=== PATIENT | female | born 1940 | race Caucasian/White ===

== ENCOUNTER 2017-03-19 06:46 | Day surgery (SDC) | payer MEDICARE, OTHER, SELFPAY ==
--- NOTE | 2017-03-19 | IMM_PTH ---
PATIENT: CLARICE GEIGER LOC: EN U#:[id number] AGE/SX: 76/F ROOM: RE03/19/[address]: Dr. Alex Koroma MD : 1940 BED: DIS: 03/19/2017 SPEC #: [id number] RECD: 03/22/17 13:07 STATUS: RODERICK REIraj #: [id number] RAFI: 03/19/17 00:[address]: Alex Koroma DEPT: IMMUNOHISTOCHEMISTRY RECD BY: Mary Moulton ENTERED: 03/22/17 13:07 SP TYPE: IMMUNO OTHR DR: Dr. Jared Mayorga MD Tissues: A - Stomach, NOS Procedures: H Pylori (initial) PHYSICIAN & INSTITUTION [place] [id number] SPECIMEN INFORMATION: Tissue Source: A ? Antral biopsy Clinical Info: History of gastritis, abdominal pain Specimen Number: [id number] CPT code: 21309 METHODOLOGY: Deparaffinized sections of prefer/formalin-fixed tissue or PAP/DQ stained slides are incubated with monoclonal/polyclonal antibodies/oligonucleotide probes. Localization is made via biotin free immunoperoxidase method. Appropriate controls are performed and reacted as expected. Results on target cell population are indicated in the following table: RESULTS: ANTIBODY / CLONE RESULT Block A H Pylori (polyclonal) negative These tests were developed and their performance characteristics determined by [facility]. They may not have been cleared or approved by the U.S. Food and Drug Administration. The FDA has determined that such clearance or approval is not necessary. INTERPRETATION: A. Antral biopsy: Negative for Helicobacter pylori organisms. AM:orly 03/23/17
[2017-03-19 07:17] VITALS: BP 117/75; PULSE 96; RESP 18; TEMP 36.5; O2SAT 99; BMI 36.4
[2017-03-19 07:31] LABS: Bedside Glucose 107 mg/dL (70-110)
--- NOTE | 2017-03-19 08:12 | GASB_PTH ---
PATIENT: CLARICE GEIGER LOC: EN U#:[id number] AGE/SX: 76/F ROOM: RE03/19/[address]: Dr. Alex Koroma MD : 1940 BED: DIS: 03/19/2017 SPEC #: [id number] RECD: 03/19/17 12:18 STATUS: RODERICK CALVILLO #: [id number] RAFI: 03/19/17 08:[address]: Alex Koroma DEPT: SURGICAL PATHOLOGY RECD BY: Saqib Conner ENTERED: 03/19/17 14:23 SP TYPE: Gastric Bx OTHR DR: Dr. Jared Mayorga MD Tissues: A - Gastric mucous membrane B - Esophagus, NOS Procedures: Special Stain Group I Surgery Specimen Level IV GMS Stain (control) HEADER OPERATION: EGD PRE-OP DIAGNOSIS: History of gastritis, abdominal pain TISSUE SUBMITTED: A ? Antral biopsy, B ? Mid esophagus biopsy for path and fungal culture MICROSCOPIC DIAGNOSIS A. Gastric antrum, biopsy: Fragment of gastric mucosa with chronic inflammation. B. Mid esophagus, biopsy: Squamous mucosa with chronic inflammation and changes consistent with reflux. Reactive epithelial change. Fungal organisms consistent with Sonja species. AM:orly 03/22/17 COMMENT A. The results of immunohistochemistry for Helicobacter pylori will be reported separately ([id number]). B. GMS stain with matched control was used in the evaluation of this case. Case has been reviewed in consultation with Dr. Lou who concurs with the above diagnosis. IDC:LUCA MICROSCOPIC DESCRIPTION Slides are reviewed. A. Sections show small collections and groups of plasma cells in the mucosa. Active inflammation is not present. These findings are consistent with mild chronic gastritis. GROSS DESCRIPTION A - Received in fixative is one container labeled with the patient's name and designated antral biopsy. The specimen consists of multiple irregular fragments of light [place] soft tissue that in aggregate measure 1.5 x 0.3 x 0.1 cm. The specimen is totally submitted in one cassette. B - Received in fixative is one container labeled with the patient's name and designated mid esophagus biopsy. The specimen consists of one irregular fragment of light [place] soft tissue that measures 0.3 x 0.3 x 0.1 cm. The specimen is totally submitted in one cassette. / LUCA:orly 03/19/17 TC:3 CPT: 77997 x2, 29828
[2017-03-19 08:25] VITALS: BP 117/75; BP 128/61; BP 142/55; PULSE 91; PULSE 92; RESP 16; RESP 18; TEMP 36.4; O2SAT 94; O2SAT 98
[2017-03-19 08:30] VITALS: BP 117/75; BP 135/65; PULSE 90; RESP 16; O2SAT 98
[2017-03-19 08:35] VITALS: BP 117/75; BP 144/63; PULSE 90; RESP 16; O2SAT 95
[2017-03-19 08:38] VITALS: BP 117/75; BP 146/65; PULSE 88; RESP 16; TEMP 36.5; O2SAT 96
[2017-03-19 08:58] VITALS: BP 117/75
--- NOTE | 2017-03-19 09:06 | OP.PCM_ITS ---
Problem List (1) Gastritis Status: Acute Qualifiers: Gastritis type: other gastritis Chronicity: unspecified Gastritis bleeding: without bleeding Qualified Code(s): K29.60 - Other gastritis without bleeding Report of Operation Date of Procedure: 03/19/17 Pre-Operative Diagnosis: Gastritis Post-Operative Diagnosis: Same Surgery/Procedure Performed:: EGD with biopsies Description of Surgical Findings:: The patient still had severe irritation of the folds of her antrum. These were biopsied once again and I will preemptively treat her for H pylori infection. Specimen's removed: 1. Antrum gastric fold biopsies. 2. Mid esophageal biopsy Description of Procedure: The major risks and benefits associated with the procedure were explained to the patient in detail. The patient verbalized understanding and agreement with the same. The patient was then placed in the left lateral decubitus position. IV sedation was started by anesthesia. The endoscope was then advanced under direct visualization over the tongue, into the esophagus , stomach and duodenum. It was slowly withdrawn and the mucosa was carefully evaluated. Duodenal mucosal abnormalities were not visualized. Antegrade and retrograde views of the stomach were normal and did not reveal a hiatal hernia or ulceration. The gastric folds in the antrum were severely irritated. This is the same as it was during her last EGD a few months ago. These gastric folds were biopsied with cold forceps. The scope was then withdrawn through the GE junction and careful examination did not demonstrate any mucosal abnormalities. No evidence of Vera's esophagus was apparent. Careful examination of the remainder of the esophagus was normal except for some small white spots. I did do a biopsy of the midesophagus to check for esophageal candidiasis. The scope was then withdrawn from the patient and the procedure terminated. It was well tolerated and there were no immediate complications.
== END 2017-03-19 09:10 | disposition home or self-care (01) ==
LOC: EN 06:48 → AC 06:49
PROVIDERS: Family Provider Family Medicine; PCP Family Medicine; Visit Provider Surgery
PROC: 0DJ08ZZ Inspection of Upper Intestinal Tract, Via Natural or Artificial Opening Endoscopic (ICD-10-PCS; CPT 43235; principal; 2017-03-19 07:55)
DX: K20.9 Esophagitis, unspecified (principal); K29.50 Unspecified chronic gastritis without bleeding; E11.9 Type 2 diabetes mellitus without complications; E78.5 Hyperlipidemia, unspecified; K21.9 Gastro-esophageal reflux disease without esophagitis; E66.9 Obesity, unspecified; Z78.0 Asymptomatic menopausal state; Z79.4 Long term (current) use of insulin; Z79.899 Other long term (current) drug therapy; Z87.19 Personal history of other diseases of the digestive system; Z87.891 Personal history of nicotine dependence; Z96.653 Presence of artificial knee joint, bilateral
CPT/HCPCS: 43239; 82962; 88305; 88312; 88342; J7120

== ENCOUNTER → 2017-04-06 16:06 | Outpatient (CLI) | payer MEDICARE, OTHER, SELFPAY ==
[2017-04-06 17:21] LABS: Absolute Lymphocyte Count 1.17 X10^3/ul (0.83-4.51); Absolute Neutrophil Count 2.4 X10^3/uL (2.0-7.7); Basophil# 0.02 X10^3/uL; Basophil% 0.5 % (0-1); Eosinophil# 0.05 X10^3/uL; Eosinophils% 1.3 % (0-5); Hematocrit 27.2 % (37-47); Hemoglobin 7.8 g/dl (12.0-15.0); Lymphocyte # 1.17 X10^3/ul (4.0); Lymphocyte % 29.5 % (19-41); Mean Corp Hgb Conc 28.7 g/gl (32-36); Mean Corpuscular Volume 83.7 fL (81-99); Mean Platelet Vol. 10.6 fl (6.2-12.0); Monocyte# 0.36 X10^3/uL; Monocyte% 9.1 % (0-10); Neutrophil # 2.36 X10^3/uL (2.7-7.7); Neutrophil % 59.6 % (47-70); Platelet Count 157 K/mm3 (150-450); RBC Distribution Width CV 17.7 % (11.6-14.6); RBC Distribution Width SD 54.3 fl (35.1-43.9); Red Blood Count 3.25 M/mm3 (4.2-5.4)
[2017-04-06 17:28] LABS: POSITIVE COUNT NO; POSITIVE DIFFERENTIAL NO; POSITIVE MORPHOLOGY NO
[2017-04-06 17:32] LABS: ALB/GLOB Ratio 0.4 RATIO (0.9-2.4); AST(SGOT) 45 U/L (15-37); Alanine Aminotransfer ALT/SGPT 18 U/L (13-56); Albumin, Serum 2.5 g/dL (3.2-5.0); Alkaline Phosphatase 290 U/L (45-117); Anion Gap 8 (5-15); BUN 13 mg/dL (7-18); BUN/Creat Ratio 17.2 RATIO (10-20); Calcium,Total 8.2 mg/dL (8.5-10.1); Chloride 102 mmol/L (98-107); Creatinine, Serum 0.75 mg/dL (0.55-1.02); EST Glomerular Filtration Rate 79 mL/min (>60); Est Glom Filt Rate - Afr Amer 96 mL/min (>60); Globulin 6.2 g/dL (2.2-4.2); Glucose 96 mg/dL (74-106); Potassium 3.9 mmol/L (3.5-5.1); Protein, Total 8.7 g/dL (6.4-8.2); Sodium Level 136 mmol/L (136-145); T4 Free Direct 1.19 ng/dL (0.76-1.46); Thyroid Stim Hormone (TSH) 2.43 uIU/mL (0.358-3.74)
== END ==
PROVIDERS: Family Provider Family Medicine; PCP Family Medicine; Visit Provider Family Medicine
DX: R55 Syncope and collapse (principal); R94.6 Abnormal results of thyroid function studies
CPT/HCPCS: 36415; 80053; 83735; 84439; 84443; 85025

== ENCOUNTER 2017-04-07 15:39 | Inpatient (IN) | payer MEDICARE, OTHER, SELFPAY ==
[2017-04-07] VITALS (12 sets, daily range): BP systolic 105–151; BP diastolic 59–102; PULSE 90–101; RESP 18–31; TEMP 36.4–37.3; O2SAT 96–99; BMI 37.3
--- NOTE | 2017-04-07 16:22 | EKG12_ITS ---
Test Reason : DIZZINESS Blood Pressure : / mmHG Vent. Rate : 090 BPM Atrial Rate : 090 BPM P-R Int : 150 ms QRS Dur : 092 ms QT Int : 358 ms P-R-T Axes : 033 -39 103 degrees QTc Int : 437 ms Sinus rhythm with occasional Premature ventricular complexes Left axis deviation Poor R wave progression Abnormal ECG Confirmed by PREM RUFFIN, DEEPTHI ([id number]), senior technical editor JANETTE TIJERINA ([id number]) on 04/09/2017 1:21:01 PM Referred By: JESIKA Confirmed By:DEEPTHI AMARO MD
[2017-04-07 17:01] LABS: Absolute Lymphocyte Count 1.17 X10^3/ul (0.83-4.51); Absolute Neutrophil Count 2.4 X10^3/uL (2.0-7.7); Basophil# 0.01 X10^3/uL; Basophil% 0.3 % (0-1); Eosinophil# 0.05 X10^3/uL; Eosinophils% 1.3 % (0-5); Hematocrit 26.9 % (37-47); Hemoglobin 7.8 g/dl (12.0-15.0); Lymphocyte # 1.17 X10^3/ul (4.0); Lymphocyte % 29.5 % (19-41); Mean Corpuscular Hgb 24.2 pg (27.0-32.0); Mean Corpuscular Volume 83.5 fL (81-99); Mean Platelet Vol. 10.3 fl (6.2-12.0); Monocyte# 0.36 X10^3/uL; Monocyte% 9.1 % (0-10); Neutrophil # 2.37 X10^3/uL (2.7-7.7); Neutrophil % 59.5 % (47-70); Platelet Count 139 K/mm3 (150-450); RBC Distribution Width CV 17.6 % (11.6-14.6); RBC Distribution Width SD 54.7 fl (35.1-43.9); Red Blood Count 3.22 M/mm3 (4.2-5.4)
[2017-04-07 17:02] LABS: POSITIVE COUNT NO; POSITIVE DIFFERENTIAL NO; POSITIVE MORPHOLOGY NO
[2017-04-07 17:03] LABS: International Normalized Ratio 1.1; Prothrombin Time (Protime)PT. 13.6 SECONDS (11.7-14.9)
[2017-04-07 17:04] LABS: Partial Thromboplast Time 38.8 Seconds (24.1-36.2)
[2017-04-07 17:10] LABS: Anion Gap 9 (5-15); BUN 10 mg/dL (7-18); Calcium,Total 8.2 mg/dL (8.5-10.1); Chloride 104 mmol/L (98-107); Creatinine, Serum 0.77 mg/dL (0.55-1.02); EST Glomerular Filtration Rate 78 mL/min (>60); Est Glom Filt Rate - Afr Amer 94 mL/min (>60); Estimated Creatinine Clearance 37.85 ml/min; Glucose 135 mg/dL (74-106); Potassium 3.9 mmol/L (3.5-5.1); Sodium Level 138 mmol/L (136-145)
--- NOTE | 2017-04-07 17:51 | PCM.HP.STD ---
Problem List (1) Gastritis Status: Resolved Qualifiers: (2) Epigastric abdominal pain Status: Resolved (3) Black tarry stools Status: Chronic (4) Anemia Status: Acute Qualifiers: (5) Syncope Status: Acute History of Present Illness Date of Admission: 04/07/17 Chief Complaint: Syncopal episodes, low hemoglobin reported by PCP The patient is a 76 year old F who presents to the emergency room after lab work completed by primary care physician showed low hemoglobin. Patient was notified and instructed to come to the emergency room. She states she has had 2 syncopal episodes in the past 2 weeks in which she has not sought medical attention. Patient states episodes of syncope, on rather suddenly. She has ongoing black stools for the past few months as well as intermittent nausea and vomiting. She had EGD by Dr. Koroma 03/19/17 which showed gastritis. Patient had severe irritation of the folds of her antrum. Biopsies were taken and patient was negative for H. pylori. She was treated for H pylori empirically given chronic nature of symptoms regardless of negative biopsies. She denies chest pain, shortness of breath. Denies recent illness. Denies other associated complaints. Her past medical history includes hyperlipidemia, hypertension, type 2 diabetes mellitus, GERD. Past Medical History Past Medical History (Chronic Problems): Chronic Problems (Last Reviewed 03/31/17 @ 08:49 by Reyna Feng) Black tarry stools (Chronic) Allergies niacin Allergy (Verified 04/07/17 15:41) Swelling Sntlcfv-Aal-Vis Reductase Inhibitor Allergy (Verified 04/07/17 15:41) Swelling acetaminophen [From Percocet] Adverse Reaction (Verified 04/07/17 15:41) Upset Stomach oxycodone [From Percocet] Adverse Reaction (Verified 04/07/17 15:41) Upset Stomach Tetracyclines Adverse Reaction (Verified 04/07/17 15:41) Nausea/Vom/Diarrhea tramadol Adverse Reaction (Verified 04/07/17 15:41) CONFUSION Home Medications: Ambulatory Orders Medication Instructions Recorded Ergocalciferol [Vitamin D] 50,000 unit PO Q7D 12/22/13 Fexofenadine/Pseudoephedrine 1 ea PO DAILY 12/22/13 [Jamila-D 24 Hour Tablet] Flaxseed/Evening Prim/Bilberry 1 ea PO DAILY 12/22/13 [Retaine Flax Softgel] Ovett-3 Fatty Acids [Fish Oil] 1 tab PO DAILY 12/22/13 Polyethylene Glycol 3350 [Miralax] 17 gm PO DAILY 12/22/13 Tolterodine Tartrate [Detrol LA] 8 mg PO DAILY 12/22/13 Omeprazole [Prilosec] 40 mg PO DAILY 04/12/15 Quinine Sulfate [Quinine Sulfate] 324 mg PO PRN PRN 10/25/15 Cholecalciferol (Vitamin D3) 1,000 unit PO DAILY 12/02/16 [Vitamin D3] Insulin Glargine [Lantus (BKC)] 40 units SC QHS 12/02/16 Lactobacillus Acidophilus 1 ea PO DAILY 12/02/16 [Probiotic Acidophilus] Furosemide [Lasix] 20 mg PO PRN PRN 04/07/17 Metoclopramide HCl [Reglan] 5 mg PO TID PRN 04/07/17 Surgical History: appendectomy, cholecystectomy, - - Hernia repair ?2 Psychiatric History: No pertinent psych hx 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 Denies: Chest Pain, Chest Pressure, Palpitations Respiratory: Denies: Cough, Shortness of breath at rest, Sputum production Gastrointestinal: Reports: Nausea, Melena, Vomiting. Denies: Abdominal Pain, Constipation, Diarrhea, Hematemesis Genitourinary: Denies: Dysuria Musculoskeletal: Denies: Joint Pain, Joint Tenderness Skin: Denies: Rash, Wounds Neurological: Denies: Numbness, Tingling, Focal weakness Psychiatric: Denies: Anxiety, Depression, Homicidal Ideations, Suicidal Ideations Hematologic/ Lymphatic: Denies: Easy Bruising, Easy Bleeding VTE Information - Inpt Only VTE Present on Admission: No VTE Mechan Device Prophylaxis: SCD's VTE Pharm Prophylaxis ordered?: No Reason prophylaxis not ordered:: Medical Contraindication Patient Problems: Active and Suspected Problems (Last Reviewed 03/31/17 @ 08:49 by Reyna Feng) Syncope (Acute) - Physical Exam General: Alert, Oriented x3, Cooperative, No apparent distress HEENT: Atraumatic, PERRLA, EOMI, Normocephalic Neck: Supple, No JVD, Negative Carotid Bruits Lungs: Clear to auscultation, Normal air movement Cardiovascular: Regular rate, Regular Rhythm, Normal S1, Normal S2, Murmur Abdomen: Bowel Sounds Present, Soft, Non Tender, Non-Distended, Obese Extremities: No clubbing, No cyanosis, No edema, Capillary Refill Less than 3 Seconds Skin: No rashes, No breakdown Musculoskeletal: No Tenderness to Palpation of Joints or Extremities Neurological: Cranial nerves II-XII grossly intact, Neuro grossly intact Psych/Mental Status: Normal Affect, Appropriate Vital Signs Temp Pulse Resp BP Pulse Ox 97.6 F L 90 20 H 127/102 H 97 04/07/17 15:41 04/07/17 17:05 04/07/17 17:05 04/07/17 17:05 04/07/17 17:05 Oxygen Delivery Method Room Air Weight: 92.6 kg Body Mass Index (BMI) 37.3 Finger Stick Blood Glucose 230 Laboratory Tests Past 24 Hrs 04/07/17 04/07/17 04/07/17 16:40 16:40 16:40 WBC 4.0 L RBC 3.22 L Hgb 7.8 L Hct 26.9 L MCV 83.5 MCH 24.2 L MCHC 29.0 L RDW 17.6 H RDW Differential 54.7 H Plt Count 139 L MPV 10.3 Immature Gran % (Auto) 0.300 Neut % (Auto) 59.5 Lymph % (Auto) 29.5 [place] % (Auto) 9.1 Eos % (Auto) 1.3 Baso % (Auto) 0.3 Absolute Neuts (auto) 2.4 Absolute Lymphs (auto) 1.17 Total Counted Not Reportable PT 13.6 INR 1.1 APTT 38.8 H Sodium 138 Potassium 3.9 Chloride 104 Carbon Dioxide 25.0 Anion Gap 9 BUN 10 Creatinine 0.77 Estim Creat Clear Calc 37.85 Est GFR (MDRD) Af Amer 94 Est GFR (MDRD) Non-Af 78 BUN/Creatinine Ratio 13.0 Glucose 135 H Calcium 8.2 L Troponin I 0.09 H Blood Type Antibody Screen 04/07/17 16:40 WBC RBC Hgb Hct MCV MCH MCHC RDW RDW Differential Plt Count MPV Immature Gran % (Auto) Neut % (Auto) Lymph % (Auto) [place] % (Auto) Eos % (Auto) Baso % (Auto) Absolute Neuts (auto) Absolute Lymphs (auto) Total Counted PT INR APTT Sodium Potassium Chloride Carbon Dioxide Anion Gap BUN Creatinine Estim Creat Clear Calc Est GFR (MDRD) Af Amer Est GFR (MDRD) Non-Af BUN/Creatinine Ratio Glucose Calcium Troponin I Blood Type Pending Antibody Screen Pending Assessment/Plan Active and Suspected Problems (Last Reviewed 03/31/17 @ 08:49 by Reyna Feng) Syncope (Acute) 1. Acute on chronic anemia with suspected GI bleed- EGD by Dr. Koroma 03/19/17 showed gastritis. Patient had severe irritation of the folds of her antrum. Biopsies were taken and patient was negative for H. pylori. She was treated for H pylori anyhow given chronic nature of her symptoms. IV PPI. Obtain stool for occult blood. Check iron studies. Type and screen for packed red blood cell. Trend CBC. 2. Indeterminate troponin/EKG changes-EKG in ER showed T-wave inversions in lead I and aVL. Initial troponin 0 0.09. Patient denies chest pain. Trend enzymes. Repeat EKG in a.m. Patient denies cardiac history. Her primary care physician referred her to Dr. Vazquez for syncopal episodes, she was scheduled to see him 04/29/2017. Consider cardiology consult pending further workup. Obtain echocardiogram. Patient does have a cardiac murmur best heard at the aortic listening point. 3. Syncope-patient reports 2 episodes of syncope in the past few weeks. The possibility related to acute anemia versus cardiac event. Further workup as noted above. 4. Hyperlipidemia-patient states allergy to statins. She states her lipids have been well controlled with fish oil supplementation and flaxseed. 5. Hypertension-continue Lasix regimen. 6. Type 2 diabetes makakqgh-Tlfz-Eogzt before meals at bedtime. Continue home Lantus regimen. NovoLog sliding scale insulin. 7. GERD- Continue PPI. DVT prophylaxis-SCDs. Pharmacologic prophylaxis contraindicated given acute anemia. This patient was seen by HUGH Viveros under the supervision of Dr. Garduno.
--- NOTE | 2017-04-07 17:59 | ED.DCSUM_ITS ---
- ER Visit Summary Date of Service: 04/07/17 Chief Complaint: Anemia History of Present Illness: The patient is a 76 F presenting for evaluation secondary to anemia. Patient has a history of a chronic GI bleed that has been undergoing treatment and evaluation for this. She has received both upper and lower colonoscopies within the last month. Patient is undergone medical treatment for this. Patient was seen by her primary care provider secondary to the fact that she has been feeling dizzy and having syncopal episodes. Her primary care provider noted that she had some EKG changes and also that she has significant anemia and recommended that she come into the emergency department for admission to be transfused and seen by cardiology. Patient denies any chest pain. She does state that she still having some black stools. Physical Examination: Vital signs within normal limits. Well-nourished female no acute distress. Conjunctival pallor is noted, moist mucous membranes. Neck supple. Heart rate in the rate and rhythm. Lungs sounds clear to auscultation bilaterally. Abdomen soft nontender. Extremities nontender nonedematous. Skin normal color no rash. Patient alert and oriented. Test Results: EKG shows sinus rhythm at 90 with T-wave inversions in leads I and aVL. CBC shows anemia 7.8, chemistry unremarkable, troponin elevated at 0.09 Emergency Department Course and Treatment: Patient presented secondary to anemia with syncope and EKG changes. Patient had an elevated troponin continues to have EKG changes and continues to have anemia. She was typed and crossmatched for 1 unit, she will be admitted for cardiac evaluation and transfusion as well as probable GI consultation. Disposition: Admission Impression: 1. Anemia 2. GI bleed 3. EKG changes 4. Elevated troponin This note was generated with [employer] dictation software. It may contain incorrect words, spelling, and punctuation that were not noted in review of the chart prior to signing ED Disposition - Plan for ED Patient: Chief Complaint: Abn Labs Referrals: Jared Mayorga MD [Primary Care Provider] -
[2017-04-07 22:16] LABS: Bedside Glucose 108 mg/dL (70-110)
[2017-04-07] MEDS: Petrolatum,White 3.75GM OPTH.TUBE 1 APPLIC OPHTHALMIC (23:24)
[2017-04-08] VITALS (11 sets, daily range): BP systolic 112–147; BP diastolic 51–56; PULSE 80–140; RESP 16–18; TEMP 36.4–37.5; O2SAT 92–96
[2017-04-08 01:28] LABS: Iron 62 ug/dL (50-170); Iron Binding Capacity,Total 315 ug/dL (250-450); PERCENT IRON SATURATION 19.7 % (15.0-55.0)
--- NOTE | 2017-04-08 05:55 | CDU_ITS ---
Reason For Study: syncope Rt. Velocities/BP Lt. Velocities/BP Prox CCA 62.7/14.1 cm/sec. Prox CCA 78.6/11.7 cm/sec. Mid CCA 84.4/17.0 cm/sec. Mid CCA 83.8/14.7 cm/sec. Dist CCA 77.4/14.1 cm/sec. Dist CCA 94.4/18.8 cm/sec. Prox ICA 146/25.1 cm/sec. Prox ICA 96.7/13.5 cm/sec. Mid ICA 135/20.4 cm/sec. Mid ICA 103/14.7 cm/sec. Dist ICA 66.8/14.9 cm/sec. Dist ICA 91.5/21.1 cm/sec. Rt. ICA/CCA = 1.7. Lt. ICA/CCA = 1.2. Prox ECA 233/13.1 cm/sec. Prox ECA 114 cm/sec. Rt. Vert. 51.5/10.6 cm/sec. Lt. Vert. 70.4/15.8 cm/sec. Right Extracranial There is heterogeneous, irregular atherosclerotic plaque noted in the right common carotid artery. There is heterogeneous, irregular atherosclerotic plaque noted in the right internal carotid artery. There is heterogeneous, irregular atherosclerotic plaque noted in the right external carotid artery. Antegrade flow is noted in the right vertebral artery. Left Extracranial There is heterogeneous, irregular atherosclerotic plaque noted in the left common carotid artery. There is heterogeneous, irregular atherosclerotic plaque noted in the left internal carotid artery. There is heterogeneous, irregular atherosclerotic plaque noted in the left external carotid artery. Antegrade flow is noted in the left vertebral artery. Procedure Carotid Duplex [id number]. The exam was diagnostic. Exam performed portable in patient room. 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 Moderate disease right external carotid Calcific plague with shadowing at the proximal left internal carotid with <50% stenosis. Normal flow left external carotid Patent and antegrade bilateral vertebrals Ordering Physician: Jose Garduno Performed By: Isiah Apple RVT
--- NOTE | 2017-04-08 05:55 | EKG12_ITS ---
Test Reason : AM EKG Blood Pressure : / mmHG Vent. Rate : 080 BPM Atrial Rate : 080 BPM P-R Int : 158 ms QRS Dur : 092 ms QT Int : 410 ms P-R-T Axes : 047 -46 047 degrees QTc Int : 472 ms Normal sinus rhythm Left anterior fascicular block Nonspecific T wave abnormality Prolonged QT Abnormal ECG Confirmed by PREM RUFFIN, DEEPTHI ([id number]), film editor supervisor JANETTE TIJERINA ([id number]) on 04/09/2017 1:42:23 PM Referred By: OLIMPIA Confirmed By:DEEPTHI AMARO MD
--- NOTE | 2017-04-08 05:55 | ECHOD_ITS ---
Reason For Study: near syncope, syncope. Procedure This was a 2D Doppler, Color Flow transthoracic echocardiogram. Exam performed portable in patient room. Left Ventricle Normal size and thickness. The estimated ejection fraction is 65 %. Normal diastology for age. No regional wall motion abnormalities noted. Right Ventricle Normal size and thickness. Normal systolic function. Atria The left atrium is moderately enlarged. Normal right atrium. Normal atrial septum. Mitral Valve Mild diffuse mitral valve thickening. Severe mitral annular calcification extending into the posterior leaflet. There is no mitral valve stenosis. Trivial mitral valve insufficiency. Tricuspid Valve Normal tricuspid valve. Mild (1+) tricuspid valve insufficiency. Right ventricular systolic pressure estimated to be 43 mmHg. Mild pulmonary hypertension. Aortic Valve Trisinus/trileaflet aortic valve. Moderate diffuse aortic valve thickening. Moderate focal aortic valve calcification. Mild restriction of the aortic valve. Immobile right coronary cusp. Mild to moderate aortic stenosis. Peak aortic valve gradient 29 mmHg. Mean aortic valve gradient 14 mmHg. Pulmonic Valve Normal pulmonic valve. Great Vessels Normal aortic root. Normal arch. The inferior vena cava is dilated. Pericardium/Pleural No pericardial effusion. MMode/2D Measurements & Calculations LVIDd: 5.1 cm IVSd: 1.1 cm LVOT diam: 2.2 cm LVIDs: 3.6 cm LVPWd: 1.1 cm LVOT area: 3.6 cm2 RVDd: 2.7 cm FS: 30.7 % Ao root diam: 3.1 cm LAV(MOD-bp): 76.4 ml LA A4 area: 22.8 cm2 LA dimension: 4.0 cm LAV(MOD-bp) Indexed: 39.8 ml/m2 LAV(MOD-sp2): 68.7 ml LAV(MOD-sp4): 68.9 ml RA A4 area: 13.3 cm2 Time Measurements MV dec time: 0.22 sec Doppler Measurements & Calculations MV E max stefan: 99.4 cm/sec Lat Peak E' Stefan: 5.4 cm/sec Med Peak E' Stefan: 3.7 cm/sec MV A max stefan: 112.2 cm/sec E/E' lat: 18.3 E/E' med: 27.0 MV E/A: 0.89 Ao V2 max: 264.1 cm/sec LV V1 max: 87.2 cm/sec SV(LVOT): 74.5 ml Ao max P.9 mmHg LV V1 max P.0 mmHg Ao V2 mean: 178.0 cm/sec LV V1 mean P.5 mmHg Ao mean P.0 mmHg LV V1 mean: 58.2 cm/sec Ao V2 VTI: 54.1 cm LV V1 VTI: 20.4 cm JAVI(I,D): 1.4 cm2 JAVI(V,D): 1.2 cm2 PA V2 max: 93.1 cm/sec TR max stefan: 306.6 cm/sec TR max P.6 mmHg Interpretation Summary The estimated ejection fraction is 65 %. The left atrium is moderately enlarged. There is no mitral valve stenosis. Mild (1+) tricuspid valve insufficiency. Right ventricular systolic pressure estimated to be 43 mmHg. Mild pulmonary hypertension. Immobile right coronary cusp. Mild to moderate aortic stenosis. There is no comparison study available. Ordering Physician: Jose Garduno Referring Physician: Alex Koroma Performed By: Jeniffer Mary, TYLER, RVT
[2017-04-08 07:06] LABS: Bedside Glucose 61 mg/dL (70-110)
[2017-04-08 07:07] LABS: Hematocrit 29.2 % (37-47); Hemoglobin 8.6 g/dl (12.0-15.0); Mean Corp Hgb Conc 29.5 g/gl (32-36); Mean Corpuscular Hgb 24.7 pg (27.0-32.0); Mean Corpuscular Volume 83.9 fL (81-99); Mean Platelet Vol. 10.5 fl (6.2-12.0); Platelet Count 133 K/mm3 (150-450); RBC Distribution Width CV 17.5 % (11.6-14.6); RBC Distribution Width SD 53.8 fl (35.1-43.9); Red Blood Count 3.48 M/mm3 (4.2-5.4); White Blood Count 3.7 K/mm3 (4.4-11.0)
[2017-04-08 07:09] LABS: Scan Indicated on CBC? Y/N NO
--- NOTE | 2017-04-08 09:15 | NURSING ---
Echo in progress; [facility] tech also present for carotid dopplers
[2017-04-08] MEDS: Pantoprazole Sodium 40 MG Tablet PO (09:59)
[2017-04-08] MEDS: Polyethylene Glycol 3350 17 GM PACKET PO (09:59)
[2017-04-08 14:01] LABS: Bedside Glucose 147 mg/dL (70-110)
--- NOTE | 2017-04-08 14:02 | CASEMGMT ---
Face to Face with patient for initial transition planning/care coordination assessment. RN JESSA introduced self and role at [facility], pt voices understanding and pt consents to assessment at this time. Pt is sitting up in bed in no distress at this time. Pt is A/O x4 at this time and answers all questions appropriately. Care providers, pharmacy, and demographics verified. See attached link. Pt voices no further concerns/needs at this time. Advised pt to ask for CM if any further questions/concerns/needs arise, voices sunderstanding. CM to follow for any further discharge planning/needs. PLAN[place]
[2017-04-08 16:20] LABS: Ferritin 11 ng/mL (8-252); Thyroid Stim Hormone (TSH) 2.83 uIU/mL (0.358-3.74)
[2017-04-08 16:22] LABS: Hemoglobin A1c 5.9 % (4.2-6.3)
--- NOTE | 2017-04-08 17:09 | PCM.PN.HOSP ---
Patient Problems: Active and Suspected Problems (Last Reviewed 03/31/17 @ 08:49 by Reyna Feng) Syncope (Acute) Subjective: No new events. Ready to go home. Vitals/I&O's: Vital Signs Temp Pulse Resp BP Pulse Ox 37.0 C 92 16 132/56 H 93 04/08/17 13:56 04/08/17 15:29 04/08/17 13:56 04/08/17 13:56 04/08/17 13:56 Oxygen Delivery Method Room Air Weight: 92.1 kg Body Mass Index (BMI) 37.3 Intake and Output for Last 24 Hours 04/06/17 04/07/17 04/08/17 23:59 23:59 23:59 Intake Total 826 / 826 Balance 826 / 826 General: Alert, Cooperative, No apparent distress HEENT: Atraumatic, Normocephalic Neck: No Nodes, Thyroid Normal Size and Texture Lungs: Clear to auscultation, Normal air movement, No rhonchi, No wheeze Cardiovascular: Regular rate, Regular Rhythm, Normal S1, Normal S2 Abdomen: Bowel Sounds Present, Soft, Non Tender, Non-Distended Extremities: No edema, No Calf Tenderness Psych/Mental Status: Normal Affect, Appropriate Microbiology Past 72 Hours 04/08/17 07:35 Stool Stool Occult Blood (MAK) - Final Laboratory Results 04/07/17 20:37: Troponin I 0.09 H 04/07/17 21:15: POC Glucose 108 04/08/17 01:00: Iron 62, TIBC 315, Iron Saturation 19.7 04/08/17 01:00: Troponin I 0.09 H 04/08/17 06:40: WBC 3.7 L, RBC 3.48 L, Hgb 8.6 L, Hct 29.2 L, MCV 83.9, MCH 24.7 L, MCHC 29.5 L, RDW 17.5 H, RDW Differential 53.8 H, Plt Count 133 L, MPV 10.5 04/08/17 06:40: Troponin I 0.07 H 04/08/17 06:40: Ferritin 11, TSH 2.83 04/08/17 06:40: Hemoglobin A1c 5.9 04/08/17 06:56: POC Glucose 61 L 04/08/17 13:54: POC Glucose 147 H Current Medications Insulin Detemir (Levemir (Bkc)) 40 units SC QHS [facility] Last Admin: 04/07/17 21:21 Dose: 40 u Multi-Ingredient Cream (Lacrilube) 1 applic OPHTHALMIC HS [facility] Last Admin: 04/07/17 23:24 Dose: 1 applicatio Ondansetron HCl (Zofran) 4 mg IV Q8H PRN PRN PRN Reason: NAUSEA Pantoprazole Sodium (Protonix) 40 mg PO DAILY [facility] Last Admin: 04/08/17 09:59 Dose: 40 mg Polyethylene Glycol (Miralax) 17 gm PO DAILY [facility] Last Admin: 04/08/17 09:59 Dose: 17 gm Quinine Sulfate () 324 mg PO QHS PRN PRN PRN Reason: LEG CRAMPS Sodium Chloride () 5 - 30 ml IV UD PRN PRN Reason: SALINE FLUSH Tolterodine Tartrate (Detrol La) 8 mg PO DAILY [facility] Assessment/Plan Active and Suspected Problems (Last Reviewed 03/31/17 @ 08:49 by Reyna Feng) Syncope (Acute) 1. syncope sounds vaso-vagal as it occurs when she stood up x2 check orthostats 2. elevated troponins indeterminant check stress test 3. anemia w/u has been unremarkable check ferritin. Code Visit Inpatient E&M: 55245 Subs Hosp L2
--- NOTE | 2017-04-08 17:12 | PN_ITS ---
Patient Problems: Active and Suspected Problems (Last Reviewed 03/31/17 @ 08:49 by Reyna Feng) Syncope (Acute) Subjective: No new events. Ready to go home. Vitals/I&O's: Vital Signs Temp Pulse Resp BP Pulse Ox 37.0 C 92 16 132/56 H 93 04/08/17 13:56 04/08/17 15:29 04/08/17 13:56 04/08/17 13:56 04/08/17 13:56 Oxygen Delivery Method Room Air Weight: 92.1 kg Body Mass Index (BMI) 37.3 Intake and Output for Last 24 Hours 04/06/17 04/07/17 04/08/17 23:59 23:59 23:59 Intake Total 826 / 826 Balance 826 / 826 General: Alert, Cooperative, No apparent distress HEENT: Atraumatic, Normocephalic Neck: No Nodes, Thyroid Normal Size and Texture Lungs: Clear to auscultation, Normal air movement, No rhonchi, No wheeze Cardiovascular: Regular rate, Regular Rhythm, Normal S1, Normal S2 Abdomen: Bowel Sounds Present, Soft, Non Tender, Non-Distended Extremities: No edema, No Calf Tenderness Psych/Mental Status: Normal Affect, Appropriate Microbiology Past 72 Hours 04/08/17 07:35 Stool Stool Occult Blood (MAK) - Final Laboratory Results 04/07/17 20:37: Troponin I 0.09 H 04/07/17 21:15: POC Glucose 108 04/08/17 01:00: Iron 62, TIBC 315, Iron Saturation 19.7 04/08/17 01:00: Troponin I 0.09 H 04/08/17 06:40: WBC 3.7 L, RBC 3.48 L, Hgb 8.6 L, Hct 29.2 L, MCV 83.9, MCH 24.7 L, MCHC 29.5 L, RDW 17.5 H, RDW Differential 53.8 H, Plt Count 133 L, MPV 10.5 04/08/17 06:40: Troponin I 0.07 H 04/08/17 06:40: Ferritin 11, TSH 2.83 04/08/17 06:40: Hemoglobin A1c 5.9 04/08/17 06:56: POC Glucose 61 L 04/08/17 13:54: POC Glucose 147 H Current Medications Insulin Detemir (Levemir (Bkc)) 40 units SC QHS [facility] Last Admin: 04/07/17 21:21 Dose: 40 u Multi-Ingredient Cream (Lacrilube) 1 applic OPHTHALMIC HS [facility] Last Admin: 04/07/17 23:24 Dose: 1 applicatio Ondansetron HCl (Zofran) 4 mg IV Q8H PRN PRN PRN Reason: NAUSEA Pantoprazole Sodium (Protonix) 40 mg PO DAILY [facility] Last Admin: 04/08/17 09:59 Dose: 40 mg Polyethylene Glycol (Miralax) 17 gm PO DAILY [facility] Last Admin: 04/08/17 09:59 Dose: 17 gm Quinine Sulfate () 324 mg PO QHS PRN PRN PRN Reason: LEG CRAMPS Sodium Chloride () 5 - 30 ml IV UD PRN PRN Reason: SALINE FLUSH Tolterodine Tartrate (Detrol La) 8 mg PO DAILY [facility] Assessment/Plan Active and Suspected Problems (Last Reviewed 03/31/17 @ 08:49 by Reyna Feng) Syncope (Acute) 1. syncope * sounds vaso-vagal as it occurs when she stood up x2 * check orthostats 2. elevated troponins * indeterminant * check stress test 3. anemia * w/u has been unremarkable * check ferritin. Code Visit Inpatient E&M: 73902 Subs Hosp L2
--- NOTE | 2017-04-08 17:12 | STEWCON_ITS ---
Reason For Study: dyspnea/sob Stress Results Protocol: Dobutamine Maximum Predicted HR: 144 bpm Target HR: 122 bpm% Maximum Predicted HR: 88 % DurationHeart Rate Stage (mm:ss) (bpm) BPDos e Baseline 88 145/74 Stage 1 3:00 10 0 141/8210.00 Stage 2 1:28 12 6 145/4820.00 Recovery 99 126/83 Stress Duration: 4:28 mm:ss Maximum Stress HR: 126 bpm Baseline Echocardiogram Findings The estimated ejection fraction is 65 %. Stress Echo Wall motion Data Resting WMIntermediate WMStress WM Resting Wall Motion Wall Motion Stress No regional wall motion No regional wall motion abnormalities noted. abnormalities noted. EKG Data Normal intervals are noted. The patient was titrated from 10 mcg to a maximun of 30 mcg of dobutamine during the stress. The maximum heart rate attained was 153 beats per minute. This was 106% of maximum predicted heart rate. During dobutamine infusion, there were no ST or T wave changes noted to suggest ischemia. No arrhythmias noted. No clinical angina was noted. Interpretation Summary The estimated ejection fraction is 65 %. The patient was titrated from 10 mcg to a maximun of 30 mcg of dobutamine during the stress. Normal adequate dobutamine echocardiogram. Negative for ischemia by EKG and echocardiographic criteria. No anginal symptoms noted. No arrhythmias noted. Appropriate blood pressure response to dobutamine. Test terminated due to the attainment of target heart rate. Final LVEF is 75%. Peak aortic valve gradient of 35 mmHg at peak infusion. Patient tolerated procedure well. No complications. MMode/2D Measurements & Calculations LVOT diam: 2.0 cm LVOT area: 3.3 cm2 Doppler Measurements & Calculations Ao V2 max: 275.4 cm/sec LV V1 max P.9 mmHg SV(LVOT): 72.2 ml Ao max P.7 mmHg LV V1 mean P.4 mmHg Ao V2 mean: 171.7 cm/sec LV V1 max: 98.7 cm/sec Ao mean P.5 mmHg LV V1 mean: 73.4 cm/sec Ao V2 VTI: 48.3 cm LV V1 VTI: 22.0 cm JAVI(I,D): 1.5 cm2 JAVI(V,D): 1.2 cm2 Ordering Physician: Skyler Aguilar Referring Physician: Alex Koroma Performed By: Elida Bird, TYLER, RVT
[2017-04-08 17:16] LABS: Bedside Glucose 113 mg/dL (70-110)
[2017-04-08 22:10] LABS: Bedside Glucose 130 mg/dL (70-110)
[2017-04-09 04:00] VITALS: BP 118/61; PULSE 87; PULSE 90; RESP 18; TEMP 36.9; O2SAT 92
[2017-04-09 05:14] VITALS: BP 126/55; BP 140/53; BP 151/63; PULSE 102; PULSE 87; PULSE 92
[2017-04-09 05:36] LABS: Absolute Lymphocyte Count 2.03 X10^3/ul (0.83-4.51); Absolute Neutrophil Count 2.6 X10^3/uL (2.0-7.7); Basophil# 0.02 X10^3/uL; Basophil% 0.4 % (0-1); Eosinophil# 0.05 X10^3/uL; Eosinophils% 0.9 % (0-5); Hematocrit 31.2 % (37-47); Hemoglobin 9.3 g/dl (12.0-15.0); Lymphocyte # 2.03 X10^3/ul (4.0); Lymphocyte % 38.4 % (19-41); Mean Corp Hgb Conc 29.8 g/gl (32-36); Mean Corpuscular Hgb 25.1 pg (27.0-32.0); Mean Corpuscular Volume 84.3 fL (81-99); Mean Platelet Vol. 10.9 fl (6.2-12.0); Monocyte# 0.57 X10^3/uL; Monocyte% 10.8 % (0-10); Neutrophil # 2.61 X10^3/uL (2.7-7.7); Neutrophil % 49.3 % (47-70); Platelet Count 147 K/mm3 (150-450); RBC Distribution Width CV 17.8 % (11.6-14.6); RBC Distribution Width SD 53.5 fl (35.1-43.9); White Blood Count 5.3 K/mm3 (4.4-11.0)
[2017-04-09 05:39] LABS: POSITIVE COUNT NO; POSITIVE DIFFERENTIAL NO; POSITIVE MORPHOLOGY NO
[2017-04-09 07:50] VITALS: PULSE 85
[2017-04-09 09:48] VITALS: BP 123/77; PULSE 91; RESP 16; TEMP 36.8; O2SAT 94
[2017-04-09] MEDS: Polyethylene Glycol 3350 17 GM PACKET PO (11:57)
[2017-04-09] MEDS: Pantoprazole Sodium 40 MG Tablet PO (11:57)
[2017-04-09] MEDS: Ferrous Sulfate 325 MG Tablet PO ×2 (12:01→16:35)
[2017-04-09] MEDS: Tolterodine Tartrate 4 MG CAP.SA 8 MG PO (12:02)
[2017-04-09 12:16] LABS: Bedside Glucose 137 mg/dL (70-110)
--- NOTE | 2017-04-09 12:51 | PCM.PN.HOSP ---
Patient Problems: Active and Suspected Problems (Last Reviewed 03/31/17 @ 08:49 by Reyna Feng) Syncope (Acute) Subjective: No events overnight. Feeling well. Vitals/I&O's: Vital Signs Temp Pulse Resp BP Pulse Ox 36.8 C 91 16 123/77 H 94 04/09/17 09:48 04/09/17 09:48 04/09/17 09:48 04/09/17 09:48 04/09/17 09:48 Oxygen Delivery Method Room Air Weight: 92.1 kg Body Mass Index (BMI) 37.3 Orthostatic Vital Signs Start: 04/08/17 18:57 Freq: q24h Status: Active Protocol: Activity Type Activity Date Activity User E-Sign Co-Sign Detail Recorded Client Recorded Date Recorded By Document 04/09/17 05:14 EBR [id number] 04/09/17 05:17 EBR 04/09/17 05:14 Orthostatic Vitals Standing -Blood Pressure (90/60-120/80) 151/63 H -Extremity Use Left Arm -Pulse Rate (60-100) 102 H Sitting -Blood Pressure (90/60-120/80) 140/53 H -Extremity Use Left Arm -Pulse Rate (60-100) 92 Lying -Blood Pressure (90/60-120/80) 126/55 H -Extremity Use Left Arm -Pulse Rate (60-100) 87 Intake and Output for Last 24 Hours 04/07/17 04/08/17 04/09/17 23:59 23:59 23:59 Intake Total 826 / 826 480 / 480 620 / 620 Balance 826 / 826 480 / 480 620 / 620 General: Alert, No apparent distress HEENT: Atraumatic, Normocephalic Neck: No Nodes, Thyroid Normal Size and Texture Lungs: Clear to auscultation, Normal air movement, No rhonchi, No wheeze Cardiovascular: Regular rate, Regular Rhythm, Normal S1, Normal S2, No murmurs Abdomen: Bowel Sounds Present, Soft, Non Tender, Non-Distended, No Hepato-splenomegaly Extremities: No edema, No Calf Tenderness Psych/Mental Status: Normal Affect, Appropriate Microbiology Past 72 Hours 04/08/17 07:35 Stool Stool Occult Blood (MAK) - Final Laboratory Results 04/08/17 06:40: Ferritin 11, TSH 2.83 04/08/17 06:40: Hemoglobin A1c 5.9 04/08/17 13:54: POC Glucose 147 H 04/08/17 17:10: POC Glucose 113 H 04/08/17 21:24: POC Glucose 130 H 04/09/17 05:15: WBC 5.3, RBC 3.70 L, Hgb 9.3 L, Hct 31.2 L, MCV 84.3, MCH 25.1 L, MCHC 29.8 L, RDW 17.8 H, RDW Differential 53.5 H, Plt Count 147 L, MPV 10.9, Immature Gran % (Auto) 0.200, Neut % (Auto) 49.3, Lymph % (Auto) 38.4, [place] % (Auto) 10.8 H, Eos % (Auto) 0.9, Baso % (Auto) 0.4, Absolute Neuts (auto) 2.6, Absolute Lymphs (auto) 2.03, Total Counted Not Reportable 04/09/17 12:00: POC Glucose 137 H Current Medications Ferrous Sulfate (Ferrous Sulfate) 325 mg PO BIDCM [facility] Last Admin: 04/09/17 12:01 Dose: 325 mg Insulin Detemir (Levemir (Bkc)) 40 units SC QHS [facility] Last Admin: 04/08/17 21:26 Dose: 40 u Multi-Ingredient Cream (Lacrilube) 1 applic OPHTHALMIC [facility] Last Admin: 04/07/17 23:24 Dose: 1 applicatio Ondansetron HCl (Zofran) 4 mg IV Q8H PRN PRN PRN Reason: NAUSEA Pantoprazole Sodium (Protonix) 40 mg PO DAILY [facility] Last Admin: 04/09/17 11:57 Dose: 40 mg Polyethylene Glycol (Miralax) 17 gm PO DAILY [facility] Last Admin: 04/09/17 11:57 Dose: 17 gm Quinine Sulfate () 324 mg PO QHS PRN PRN PRN Reason: LEG CRAMPS Sodium Chloride () 5 - 30 ml IV UD PRN PRN Reason: SALINE FLUSH Tolterodine Tartrate (Detrol La) 8 mg PO DAILY [facility] Last Admin: 04/09/17 12:02 Dose: 8 mg Assessment/Plan Active and Suspected Problems (Last Reviewed 03/31/17 @ 08:49 by Reyna Feng) Syncope (Acute) 1. syncope sounds vaso-vagal as it occurs when she stood up x2 negative orthostats 2. elevated troponins indeterminant check stress test 3. anemia w/u has been unremarkable ferritin was low. continue FeSO4 BID. 4. carotid stenosis Right is 50-69%. Left is less than 50%. Follow-up with vascular surgery as outpatient.
--- NOTE | 2017-04-09 12:54 | PN_ITS ---
Patient Problems: Active and Suspected Problems (Last Reviewed 03/31/17 @ 08:49 by Reyna Feng) Syncope (Acute) Subjective: No events overnight. Feeling well. Vitals/I&O's: Vital Signs Temp Pulse Resp BP Pulse Ox 36.8 C 91 16 123/77 H 94 04/09/17 09:48 04/09/17 09:48 04/09/17 09:48 04/09/17 09:48 04/09/17 09:48 Oxygen Delivery Method Room Air Weight: 92.1 kg Body Mass Index (BMI) 37.3 Orthostatic Vital Signs Start: 04/08/17 18:57 Freq: q24h Status: Active Protocol: Activity Type Activity Date Activity User E-Sign Co-Sign Detail Recorded Client Recorded Date Recorded By Document 04/09/17 05:14 EBR [id number] 04/09/17 05:17 EBR 04/09/17 05:14 Orthostatic Vitals Standing -Blood Pressure (90/60-120/80) 151/63 H -Extremity Use Left Arm -Pulse Rate (60-100) 102 H Sitting -Blood Pressure (90/60-120/80) 140/53 H -Extremity Use Left Arm -Pulse Rate (60-100) 92 Lying -Blood Pressure (90/60-120/80) 126/55 H -Extremity Use Left Arm -Pulse Rate (60-100) 87 Intake and Output for Last 24 Hours 04/07/17 04/08/17 04/09/17 23:59 23:59 23:59 Intake Total 826 / 826 480 / 480 620 / 620 Balance 826 / 826 480 / 480 620 / 620 General: Alert, No apparent distress HEENT: Atraumatic, Normocephalic Neck: No Nodes, Thyroid Normal Size and Texture Lungs: Clear to auscultation, Normal air movement, No rhonchi, No wheeze Cardiovascular: Regular rate, Regular Rhythm, Normal S1, Normal S2, No murmurs Abdomen: Bowel Sounds Present, Soft, Non Tender, Non-Distended, No Hepato- splenomegaly Extremities: No edema, No Calf Tenderness Psych/Mental Status: Normal Affect, Appropriate Microbiology Past 72 Hours 04/08/17 07:35 Stool Stool Occult Blood (MAK) - Final Laboratory Results 04/08/17 06:40: Ferritin 11, TSH 2.83 04/08/17 06:40: Hemoglobin A1c 5.9 04/08/17 13:54: POC Glucose 147 H 04/08/17 17:10: POC Glucose 113 H 04/08/17 21:24: POC Glucose 130 H 04/09/17 05:15: WBC 5.3, RBC 3.70 L, Hgb 9.3 L, Hct 31.2 L, MCV 84.3, MCH 25.1 L , MCHC 29.8 L, RDW 17.8 H, RDW Differential 53.5 H, Plt Count 147 L, MPV 10.9, Immature Gran % (Auto) 0.200, Neut % (Auto) 49.3, Lymph % (Auto) 38.4, Christian % ( Auto) 10.8 H, Eos % (Auto) 0.9, Baso % (Auto) 0.4, Absolute Neuts (auto) 2.6, Absolute Lymphs (auto) 2.03, Total Counted Not Reportable 04/09/17 12:00: POC Glucose 137 H Current Medications Ferrous Sulfate (Ferrous Sulfate) 325 mg PO BIDCM [facility] Last Admin: 04/09/17 12:01 Dose: 325 mg Insulin Detemir (Levemir (Bkc)) 40 units SC QHS [facility] Last Admin: 04/08/17 21:26 Dose: 40 u Multi-Ingredient Cream (Lacrilube) 1 applic OPHTHALMIC [facility] Last Admin: 04/07/17 23:24 Dose: 1 applicatio Ondansetron HCl (Zofran) 4 mg IV Q8H PRN PRN PRN Reason: NAUSEA Pantoprazole Sodium (Protonix) 40 mg PO DAILY [facility] Last Admin: 04/09/17 11:57 Dose: 40 mg Polyethylene Glycol (Miralax) 17 gm PO DAILY [facility] Last Admin: 04/09/17 11:57 Dose: 17 gm Quinine Sulfate () 324 mg PO QHS PRN PRN PRN Reason: LEG CRAMPS Sodium Chloride () 5 - 30 ml IV UD PRN PRN Reason: SALINE FLUSH Tolterodine Tartrate (Detrol La) 8 mg PO DAILY [facility] Last Admin: 04/09/17 12:02 Dose: 8 mg Assessment/Plan Active and Suspected Problems (Last Reviewed 03/31/17 @ 08:49 by Reyna Feng) Syncope (Acute) 1. syncope * sounds vaso-vagal as it occurs when she stood up x2 * negative orthostats 2. elevated troponins * indeterminant * check stress test 3. anemia * w/u has been unremarkable * ferritin was low. * continue FeSO4 BID. 4. carotid stenosis * Right is 50-69%. Left is less than 50%. * Follow-up with vascular surgery as outpatient.
[2017-04-09 14:45] VITALS: BP 128/52; PULSE 93; RESP 18; TEMP 36.9; O2SAT 95
[2017-04-09 15:55] VITALS: PULSE 104
--- NOTE | 2017-04-09 16:09 | CHAPLAIN ---
Type of Pastoral Visit _x__ Initial Visit ___ Follow-up Visit ___ On-call Visit ___ General Patient Visit ___ Spiritual Assessment ___ Family Conference ___ Bereavement ___ Rapid Response ___ Code Blue ___ Other (describe below) Pastoral Care Referral From _x__ Patient ___ Family ___ Nurse ___ Physician ___ Chemist Organic ___ Sponge Maker ___ Other (describe below) Sacrament/Intervention _x__ Active listening ___ Anointing ___ Restoration ___ Bereavement ___ Communion _x__ Yajaira exploration ___ _x__ Life review _x__ Prayer ___ Reconciliation ___ Sacrament of Sick _x__ Supportive presence ___ Wedding ___ Other (describe below) Pastoral Comments
--- NOTE | 2017-04-09 16:33 | PCM.DC ---
- Discharge Diagnoses Current Active Problems: Current Active and Chronic Problems (Last Reviewed 03/31/17 @ 08:49 by Reyna Feng) Syncope (Acute) You will use the following diet at home:: No restrictions Your food should be the consistency of: Regular Your liquids should be the consistency of: Regular/Thin Discharge Activity: Return to Normal Activity Call your doctor if you observe: Fever of 101 or Higher, Shortness of breath, Chest pain, - - loss of consiousness Allergies/Adverse Reactions: Allergies niacin Allergy (Verified 04/07/17 15:41) Swelling [id number]-Wxq-Kis Reductase Inhibitor Allergy (Verified 04/07/17 15:41) Swelling acetaminophen [From Percocet] Adverse Reaction (Verified 04/07/17 15:41) Upset Stomach oxycodone [From Percocet] Adverse Reaction (Verified 04/07/17 15:41) Upset Stomach Tetracyclines Adverse Reaction (Verified 04/07/17 15:41) Nausea/Vom/Diarrhea tramadol Adverse Reaction (Verified 04/07/17 15:41) CONFUSION Medications to take at Discharge Ergocalciferol [Vitamin D] 50,000 unit PO TU 12/22/13 Fexofenadine/Pseudoephedrine [Jamila-D 24 Hour Tablet] 1 ea PO DAILY 12/22/13 Flaxseed/Evening Prim/Bilberry [Retaine Flax Softgel] 1 ea PO DAILY 12/22/13 [place]-3 Fatty Acids [Fish Oil] 1 tab PO DAILY 12/22/13 Polyethylene Glycol 3350 [Miralax] 17 gm PO DAILY 12/22/13 Tolterodine Tartrate [Detrol LA] 8 mg PO DAILY 12/22/13 Omeprazole [Prilosec] 40 mg PO DAILY 04/12/15 Quinine Sulfate 324 mg PO PRN PRN 10/25/15 Insulin Glargine [Lantus SoloStar Pen] 42 units SC QHS 12/02/16 Lactobacillus Acidophilus [Probiotic Acidophilus] 1 ea PO DAILY 12/02/16 Furosemide [Lasix] 20 mg PO PRN PRN 04/07/17 Metoclopramide HCl [Reglan] 5 mg PO TID PRN PRN 04/07/17 Ferrous Sulfate 325 mg PO BIDCM #60 tab 04/09/17 The following prescriptions were given: Ferrous Sulfate 325 mg PO BIDCM #60 tab Primary Care Physician: Jared Mayorga MD [Primary Care Provider] - Within 2 Weeks Please Follow Up With: Lenny Santiago MD - carotid stenosis When: 1-2 months Proposed Discharge Date: 04/09/17
--- NOTE | 2017-04-09 16:39 | DS.PCM_ITS ---
Discharge Date and Diagnosis - Problem List Patient Problems: Active and Suspected Problems (Last Reviewed 03/31/17 @ 08:49 by Reyna Feng) Syncope (Acute) Date of Admission: 04/07/17 Date of Discharge: 04/09/17 - Primary Discharge Diagnosis Active and Suspected Problems (Last Reviewed 03/31/17 @ 08:49 by Reyna Feng) Syncope (Acute) - Secondary Discharge Diagnosis Chronic Problems (Last Reviewed 03/31/17 @ 08:49 by Reyna Feng) Black tarry stools (Chronic) Hospital Course and Treatment Operations: None Procedures: Stress test Summary of Care Provided: The patient is a 76 year old F presents with anemia and 2 episodes of syncope. Patient had a some syncopal episodes upon standing in 2 different occasions. Concern with patient with anemia. Patient has had a workup for anemia with an EGD and colonoscopy showed no other acute process. Patient's hemoglobin has remained status stable here. Patient did have ferritin level that was low so spell that her anemia is iron deficient but no obvious source has been identified. The patient will continue with iron sulfate as well as follow-up CBC in about 2 weeks time. For the patient's syncope she had no further events during his hospitalization workup here was unremarkable. May been vasovagal due to the patient's anemia the patient is otherwise feeling well. Patient did have some very mild elevation of cardiac markers. Led to syncope did order a stress test that was negative. Patient did have some carotid stenosis more prominent on the right but is not felt to be related with her syncope. Not surgical. In the absence of a stroke and not meeting the stenosis criteria of being greater than 70% anyways. Patient may follow-up with vascular surgery for evaluation to see if a surgical intervention may be warranted at a later date. This note was generated with [employer] dictation software. It may contain incorrect words, spelling, and punctuation that were not noted in checking the note before signing. [] Discharge Diet: Low fat/ Low Cholesterol Discharge Activity: Return to Normal Activity Call your doctor if you observe: Fever of 101 or Higher, Shortness of breath, Chest pain, - - loss of consiousness Home Medications: Medications to take at Discharge Ergocalciferol [Vitamin D] 50,000 unit PO TU 12/22/13 Fexofenadine/Pseudoephedrine [Jamila-D 24 Hour Tablet] 1 ea PO DAILY 12/22/13 Flaxseed/Evening Prim/Bilberry [Retaine Flax Softgel] 1 ea PO DAILY 12/22/13 [place]-3 Fatty Acids [Fish Oil] 1 tab PO DAILY 12/22/13 Polyethylene Glycol 3350 [Miralax] 17 gm PO DAILY 12/22/13 Tolterodine Tartrate [Detrol LA] 8 mg PO DAILY 12/22/13 Omeprazole [Prilosec] 40 mg PO DAILY 04/12/15 Quinine Sulfate 324 mg PO PRN PRN 10/25/15 Insulin Glargine [Lantus SoloStar Pen] 42 units SC QHS 12/02/16 Lactobacillus Acidophilus [Probiotic Acidophilus] 1 ea PO DAILY 12/02/16 Furosemide [Lasix] 20 mg PO PRN PRN 04/07/17 Metoclopramide HCl [Reglan] 5 mg PO TID PRN PRN 04/07/17 Ferrous Sulfate 325 mg PO BIDCM #60 tab 04/09/17 Following Prescrptions Were Given to Patient: Ferrous Sulfate 325 mg PO BIDCM #60 tab Primary Care Physician: Jared Mayorga MD [Primary Care Provider] - Within 2 Weeks Please Follow Up With: Lenny Santiago MD - carotid stenosis When: 1-2 months Disposition: Home Minutes spent on discharge:: 32 Patient Condition:: Good Meaningful Use Info Meaningful Use Diagnoses (Choose all that apply): None applicable Code Visit Inpatient E&M: 42706 Disch Hosp
== END 2017-04-09 17:50 | disposition home or self-care (01) | DRG 812 ==
LOC: ED 17:47 → PCU 19:17
PROVIDERS: Admitting Provider Internal Medicine; Emergency Provider Emergency Medicine; Family Provider Family Medicine; PCP Family Medicine
DX: D50.9 Iron deficiency anemia, unspecified (principal); I65.21 Occlusion and stenosis of right carotid artery; K92.1 Melena; E11.9 Type 2 diabetes mellitus without complications; E78.5 Hyperlipidemia, unspecified; I10 Essential (primary) hypertension; K21.9 Gastro-esophageal reflux disease without esophagitis; Z87.891 Personal history of nicotine dependence; R74.8 Abnormal levels of other serum enzymes; R94.6 Abnormal results of thyroid function studies; R55 Syncope and collapse; Z79.4 Long term (current) use of insulin; Z79.899 Other long term (current) drug therapy
CPT/HCPCS: 36415; 80048; 80053; 82274; 82728; 82962; 83036; 83540; 83550; 83735; 84439; 84443; 84484; 85025; 85027; 85610; 85730; 86850; 86900; 86920; 93005; 93017; 93306; 93350; 93880; 99283; J7030; J7040; P9016; A4216

== ENCOUNTER → 2017-04-23 16:30 | Outpatient (CLI) | payer MEDICARE, OTHER, SELFPAY ==
[2017-04-23 19:33] LABS: Absolute Lymphocyte Count 1.23 X10^3/ul (0.83-4.51); Absolute Neutrophil Count 2.7 X10^3/uL (2.0-7.7); Basophil# 0.01 X10^3/uL; Basophil% 0.2 % (0-1); Differential Indicated SCAN CRITERIA MET; Eosinophil# 0.07 X10^3/uL; Eosinophils% 1.6 % (0-5); Hematocrit 35.7 % (37-47); Hemoglobin 10.3 g/dl (12.0-15.0); Lymphocyte # 1.23 X10^3/ul (4.0); Lymphocyte % 27.5 % (19-41); Mean Corp Hgb Conc 28.9 g/gl (32-36); Mean Corpuscular Hgb 25.6 pg (27.0-32.0); Mean Corpuscular Volume 88.6 fL (81-99); Mean Platelet Vol. 10.3 fl (6.2-12.0); Monocyte# 0.45 X10^3/uL; Neutrophil # 2.72 X10^3/uL (2.7-7.7); Neutrophil % 60.7 % (47-70); POSITIVE COUNT NO; POSITIVE DIFFERENTIAL NO; POSITIVE MORPHOLOGY YES; Platelet Count 205 K/mm3 (150-450); RBC Distribution Width CV 20.6 % (11.6-14.6); RBC Distribution Width SD 66.2 fl (35.1-43.9); Red Blood Count 4.03 M/mm3 (4.2-5.4); White Blood Count 4.5 K/mm3 (4.4-11.0)
[2017-04-23 19:39] LABS: Iron 215 ug/dL (50-170)
[2017-04-23 19:57] LABS: Differential Comment SCANNED
== END ==
PROVIDERS: Family Provider Family Medicine; PCP Family Medicine; Visit Provider Family Medicine
DX: D50.9 Iron deficiency anemia, unspecified (principal)
CPT/HCPCS: 36415; 83540; 85025

== ENCOUNTER → 2017-06-03 14:08 | Outpatient (CLI) | payer MEDICARE, OTHER, SELFPAY ==
[2017-06-03 15:05] LABS: Hematocrit 36.1 % (37-47); Hemoglobin 10.9 g/dl (12.0-15.0); Mean Corp Hgb Conc 30.2 g/gl (32-36); Mean Corpuscular Hgb 28.7 pg (27.0-32.0); Mean Platelet Vol. 10.5 fl (6.2-12.0); Platelet Count 155 K/mm3 (150-450); RBC Distribution Width CV 19.5 % (11.6-14.6); RBC Distribution Width SD 67.8 fl (35.1-43.9); Scan Indicated on CBC? Y/N YES- FLAGS NOTED
[2017-06-03 15:23] LABS: Differential Comment SCANNED
== END ==
PROVIDERS: Family Provider Family Medicine; PCP Family Medicine; Visit Provider Internal Medicine Cardiovascular Disease
DX: D64.9 Anemia, unspecified (principal)
CPT/HCPCS: 36415; 85027

== ENCOUNTER → 2017-07-05 13:24 | Outpatient (CLI) | payer MEDICARE, OTHER, SELFPAY ==
[2017-07-05 15:43] LABS: Absolute Lymphocyte Count 0.98 X10^3/ul (0.83-4.51); Absolute Neutrophil Count 3.1 X10^3/uL (2.0-7.7); Basophil# 0.01 X10^3/uL; Basophil% 0.2 % (0-1); Eosinophil# 0.02 X10^3/uL; Eosinophils% 0.4 % (0-5); Hematocrit 33.8 % (37-47); Hemoglobin 10.1 g/dl (12.0-15.0); Lymphocyte # 0.98 X10^3/ul (4.0); Lymphocyte % 21.8 % (19-41); Mean Corp Hgb Conc 29.9 g/gl (32-36); Mean Corpuscular Hgb 28.1 pg (27.0-32.0); Mean Corpuscular Volume 93.9 fL (81-99); Mean Platelet Vol. 10.5 fl (6.2-12.0); Monocyte# 0.37 X10^3/uL; Monocyte% 8.2 % (0-10); Neutrophil # 3.12 X10^3/uL (2.7-7.7); Neutrophil % 69.4 % (47-70); Platelet Count 153 K/mm3 (150-450); RBC Distribution Width CV 15.6 % (11.6-14.6); RBC Distribution Width SD 52.8 fl (35.1-43.9); White Blood Count 4.5 K/mm3 (4.4-11.0)
[2017-07-05 16:00] LABS: Vitamin D,25 Hydroxy 80.4 ng/mL (29.95-100.01)
[2017-07-05 16:05] LABS: Anion Gap 8 (5-15); BUN 10 mg/dL (7-18); Calcium,Total 8.4 mg/dL (8.5-10.1); Chloride 104 mmol/L (98-107); Creatinine, Serum 0.77 mg/dL (0.55-1.02); EST Glomerular Filtration Rate 78 mL/min (>60); Est Glom Filt Rate - Afr Amer 94 mL/min (>60); Glucose 98 mg/dL (74-106); Iron 24 ug/dL (50-170); Potassium 4.1 mmol/L (3.5-5.1); Sodium Level 138 mmol/L (136-145); T4 Free Direct 1.28 ng/dL (0.76-1.46); Thyroid Stim Hormone (TSH) 2.86 uIU/mL (0.358-3.74)
[2017-07-05 16:07] LABS: POSITIVE COUNT NO; POSITIVE DIFFERENTIAL NO; POSITIVE MORPHOLOGY NO
[2017-07-05 16:44] LABS: International Normalized Ratio 1.1; Partial Thromboplast Time 41.7 Seconds (24.1-36.2); Prothrombin Time (Protime)PT. 13.7 SECONDS (11.7-14.9)
== END ==
PROVIDERS: Family Provider Family Medicine; PCP Family Medicine; Visit Provider Family Medicine
DX: E11.9 Type 2 diabetes mellitus without complications (principal); D69.9 Hemorrhagic condition, unspecified; E55.9 Vitamin D deficiency, unspecified; R94.6 Abnormal results of thyroid function studies
CPT/HCPCS: 36415; 80048; 82306; 83540; 84439; 84443; 85025; 85610; 85730

== ENCOUNTER → 2017-08-02 13:18 | Outpatient (CLI) | payer MEDICARE, OTHER, SELFPAY ==
[2017-08-02 16:09] LABS: Absolute Lymphocyte Count 1.03 X10^3/ul (0.83-4.51); Absolute Neutrophil Count 3.6 X10^3/uL (2.0-7.7); Basophil# 0.01 X10^3/uL; Basophil% 0.2 % (0-1); Eosinophil# 0.03 X10^3/uL; Eosinophils% 0.6 % (0-5); Hematocrit 34.6 % (37-47); Hemoglobin 10.5 g/dl (12.0-15.0); Lymphocyte # 1.03 X10^3/ul (4.0); Lymphocyte % 19.8 % (19-41); Mean Corp Hgb Conc 30.3 g/gl (32-36); Mean Corpuscular Hgb 29.2 pg (27.0-32.0); Mean Corpuscular Volume 96.1 fL (81-99); Mean Platelet Vol. 11.2 fl (6.2-12.0); Monocyte# 0.55 X10^3/uL; Monocyte% 10.6 % (0-10); Neutrophil # 3.58 X10^3/uL (2.7-7.7); Neutrophil % 68.6 % (47-70); Platelet Count 133 K/mm3 (150-450); RBC Distribution Width CV 17.3 % (11.6-14.6); White Blood Count 5.2 K/mm3 (4.4-11.0)
[2017-08-02 16:14] LABS: POSITIVE COUNT NO; POSITIVE DIFFERENTIAL NO; POSITIVE MORPHOLOGY NO
[2017-08-02 16:19] LABS: ALB/GLOB Ratio 0.4 RATIO (0.9-2.4); AST(SGOT) 54 U/L (15-37); Alanine Aminotransfer ALT/SGPT 19 U/L (13-56); Albumin, Serum 2.3 g/dL (3.2-5.0); Alkaline Phosphatase 308 U/L (45-117); Anion Gap 8 (5-15); BUN 8 mg/dL (7-18); BUN/Creat Ratio 9.7 RATIO (10-20); Calcium,Total 7.8 mg/dL (8.5-10.1); Chloride 105 mmol/L (98-107); Creatinine, Serum 0.82 mg/dL (0.55-1.02); EST Glomerular Filtration Rate 72 mL/min (>60); Est Glom Filt Rate - Afr Amer 87 mL/min (>60); Globulin 6.5 g/dL (2.2-4.2); Glucose 178 mg/dL (74-106); Potassium 4.3 mmol/L (3.5-5.1); Protein, Total 8.8 g/dL (6.4-8.2); Sodium Level 137 mmol/L (136-145)
[2017-08-02 16:41] LABS: International Normalized Ratio 1.2; Prothrombin Time (Protime)PT. 15.1 SECONDS (11.7-14.9)
[2017-08-02 16:42] LABS: Partial Thromboplast Time 41.1 Seconds (24.1-36.2)
== END ==
PROVIDERS: Family Provider Family Medicine; PCP Family Medicine; Visit Provider Family Medicine
DX: D50.9 Iron deficiency anemia, unspecified (principal); D68.4 Acquired coagulation factor deficiency; K76.89 Other specified diseases of liver
CPT/HCPCS: 36415; 80053; 85025; 85610; 85730

== ENCOUNTER → 2017-08-05 11:11 | Outpatient (CLI) | payer MEDICARE, OTHER, SELFPAY ==
[2017-08-09 16:09] LABS: PROEL- A/G Ratio 0.5 (0.7-1.7); PROEL- Albumin 2.7 g/dL (2.9-4.4); PROEL- Alpha-1 Globulin 0.3 g/dL (0.0-0.4); PROEL- Alpha-2 Globulin 0.8 g/dL (0.4-1.0); PROEL- Gamma Globulin 3.8 g/dL (0.4-1.8); PROEL- Globulin, Total 5.8 g/dL (2.2-3.9); PROEL- TOTAL PROTEIN 8.5 g/dL (6.0-8.5)
[2017-08-11 13:44] LABS: PROELU- Albumin, Urine 17.1 % (.); PROELU- Alpha-2-Globulin,Ur 14.3 % (.); PROELU- Beta Globulin, Ur 34.4 % (.); PROELU- Gamma Globulin, Ur 30.2 % (.); Total Protein, Ur 18.7 mg/dL (Not Estab.)
== END ==
PROVIDERS: Family Provider Family Medicine; PCP Family Medicine; Visit Provider Family Medicine
DX: R77.1 Abnormality of globulin (principal); D69.6 Thrombocytopenia, unspecified; D64.9 Anemia, unspecified
CPT/HCPCS: 36415; 84165; 84166

== ENCOUNTER 2017-11-08 14:53 | Emergency (ER) | payer MEDICARE, OTHER, SELFPAY ==
[2017-11-08] VITALS (8 sets, daily range): BP systolic 93–142; BP diastolic 51–84; PULSE 86–98; RESP 18–26; TEMP 36.2; O2SAT 97–100; BMI 35.6
--- NOTE | 2017-11-08 15:21 | EKG12_ITS ---
Test Reason : CP Blood Pressure : / mmHG Vent. Rate : 100 BPM Atrial Rate : 100 BPM P-R Int : 182 ms QRS Dur : 118 ms QT Int : 370 ms P-R-T Axes : 047 -54 083 degrees QTc Int : 477 ms Normal sinus rhythm Left anterior fascicular block Left ventricular hypertrophy with QRS widening and repolarization abnormality Abnormal ECG Confirmed by ONEYDA RUFFIN, DARION ([id number]), legal editor JANETTE TIJERINA ([id number]) on 11/10/2017 9:25:43 AM Referred By: Confirmed By:DARION CALL MD
--- NOTE | 2017-11-08 15:25 | RAD_ITS ---
STUDY: X-RAY CHEST REASON FOR EXAM: Female, 77 years old. Chest pain. TECHNIQUE: Single AP portable view of the chest. COMPARISON: None. FINDINGS: EKG electrodes are seen. Mild degree of increased interstitial markings. This may represent early CHF. Follow-up is recommended. There is no demonstrated pleural abnormality. There is borderline cardiomegaly. Normal mediastinum and amauri. Normal visualized pulmonary arteries. There is atherosclerotic calcification of the aortic arch with tortuosity. There are degenerative changes of the visualized thoracic spine. Normal visualized ribs, clavicles, and shoulders. There is no demonstrated abnormality of the visualized soft tissue structures of the upper abdomen. RAD/Chest 1 View (Portable) IMPRESSION: Increased interstitial markings. Mild degree of CHF should be ruled out. Electronically Signed: Declan Posada MD at 15:41 EDT Tel [phone], Service support ,
--- NOTE | 2017-11-08 15:25 | ED.DCSUM_ITS ---
- ER Visit Summary Date of Service: 11/08/17 Chief Complaint: Chest pain History of Present Illness: The patient is a 77 F who presents with chest pain that began 2 days ago. Patient states the pain has been constant for the past 3 days but is better today. Patient states her pain is a 3 on a scale of 0-10 currently. Patient states she was having some shortness of breath over the past couple days but currently denies any shortness of breath. Patient admits to some nausea and vomiting. Patient also admits to some lightheadedness. Patient states nothing makes the pain better or worse. Patient describes the pain as pressure and heaviness and tightness. Patient denies any radiation of the pain. Physical Examination: Vital signs are stable. Patient is afebrile. Patient is in no acute distress. Oral mucosa is pink and somewhat dry. Neck is supple. Trachea is midline. There is no JVD noted. Heart was regular rate and rhythm. Lungs are clear and equal bilaterally. There is good respiratory effort noted. Abdomen is soft. Bowel sounds are normal. There is no tenderness. There is no rebound or guarding noted. Cranial nerves II through XII are intact. There are no focal motor or sensory deficits noted. The remaining physical exam is within normal limits. Test Results: EKG showed normal sinus rhythm with a left anterior fascicular block. There is left ventricular hypertrophy noted. This was unchanged compared to previous EKG dated 04/08/2017. Chest x-ray showed some mild increased interstitial markings. CBC showed a slight anemia with a hemoglobin of 11.6. Basic metabolic profile showed a slight hyponatremia of 128. INR was 1.3. Troponin was 0.065. This was improved compared to previous troponins. Emergency Department Course and Treatment: Patient was given aspirin and sublingual nitroglycerin here. Patient states she had reproducible chest pain. Currently, the patient states her pain is only when she pushes on her chest. Patient has a IRIS score of 2. Patient really wants to go home. Patient had a recent cardiac workup in March with a normal stress echocardiogram at that time. Patient saw Dr. Vazquez back in May and was doing well at that time. Patient will be discharged home and instructed to follow-up with her primary care physician in 3-5 days. Patient was instructed on signs and symptoms which should prompt return to the emergency department. Patient understood and was agreeable with the plan. All questions were answered. Disposition: Discharged home Impression: Chest pain This note was generated with [employer] dictation software. It may contain incorrect words, spelling, and punctuation that were not noted in review of the chart prior to signing ED Disposition - Plan for ED Patient: Disposition: Home or Assisted Living Chief Complaint: Chest Pain Diagnosis: Chest pain of uncertain etiology Instructions: ED Chest Pain Atypical Unkn Cause Referrals: Jared Maoyrga MD [Primary Care Provider] -
[2017-11-08 15:34] LABS: International Normalized Ratio 1.3; Prothrombin Time (Protime)PT. 15.8 SECONDS (11.7-14.9)
[2017-11-08 15:35] LABS: Partial Thromboplast Time 40.1 Seconds (24.1-36.2)
[2017-11-08] MEDS: Aspirin 81 MG TAB.CHEW 324 MG PO (15:35)
[2017-11-08 15:37] LABS: Absolute Lymphocyte Count 1.47 X10^3/ul (0.83-4.51); Absolute Neutrophil Count 8.5 X10^3/uL (2.0-7.7); Basophil# 0.01 X10^3/uL; Basophil% 0.1 % (0-1); Hematocrit 37.6 % (37-47); Hemoglobin 11.6 g/dl (12.0-15.0); Lymphocyte # 1.47 X10^3/ul (4.0); Lymphocyte % 13.5 % (19-41); Mean Corp Hgb Conc 30.9 g/gl (32-36); Mean Corpuscular Hgb 28.9 pg (27.0-32.0); Mean Corpuscular Volume 93.5 fL (81-99); Mean Platelet Vol. 10.3 fl (6.2-12.0); Monocyte# 0.92 X10^3/uL; Monocyte% 8.5 % (0-10); Neutrophil # 8.46 X10^3/uL (2.7-7.7); Neutrophil % 77.7 % (47-70); Platelet Count 159 K/mm3 (150-450); RBC Distribution Width CV 16.2 % (11.6-14.6); RBC Distribution Width SD 55.7 fl (35.1-43.9); Red Blood Count 4.02 M/mm3 (4.2-5.4); White Blood Count 10.9 K/mm3 (4.4-11.0)
[2017-11-08 15:45] LABS: Anion Gap 9 (5-15); BUN 13 mg/dL (7-18); BUN/Creat Ratio 13.7 RATIO (10-20); Chloride 98 mmol/L (98-107); Creatinine, Serum 0.95 mg/dL (0.55-1.02); EST Glomerular Filtration Rate 61 mL/min (>60); Est Glom Filt Rate - Afr Amer 73 mL/min (>60); Estimated Creatinine Clearance 37.42 ml/min; Glucose 139 mg/dL (74-106); POSITIVE COUNT NO; POSITIVE DIFFERENTIAL NO; POSITIVE MORPHOLOGY NO; Potassium 3.7 mmol/L (3.5-5.1); Sodium Level 128 mmol/L (136-145)
--- NOTE | 2017-11-08 16:52 | ED.VISSUMM ---
- ER Visit Summary Date of Service: 11/08/17 Chief Complaint: [] History of Present Illness: The patient is a 77 F [] Physical Examination: [] Test Results: [] Emergency Department Course and Treatment: [] Treatment Plan: [] Disposition: [] Impression: [] This note was generated with [employer] dictation software. It may contain incorrect words, spelling, and punctuation that were not noted in review of the chart prior to signing ED Disposition - Plan for ED Patient: Disposition: Home or Assisted Living Chief Complaint: Chest Pain Diagnosis: Chest pain of uncertain etiology Instructions: ED Chest Pain Atypical Unkn Cause Referrals: Jared Mayorga MD [Primary Care Provider] -
--- NOTE | 2017-11-08 16:58 | ED.DCSUM_ITS ---
- ER Visit Summary Date of Service: 11/08/17 Chief Complaint: [] History of Present Illness: The patient is a 77 F [] Physical Examination: [] Test Results: [] Emergency Department Course and Treatment: [] Treatment Plan: [] Disposition: [] Impression: [] This note was generated with [employer] dictation software. It may contain incorrect words, spelling, and punctuation that were not noted in review of the chart prior to signing ED Disposition - Plan for ED Patient: Disposition: Home or Assisted Living Chief Complaint: Chest Pain Diagnosis: Chest pain of uncertain etiology Instructions: ED Chest Pain Atypical Unkn Cause Referrals: Jared Mayorga MD [Primary Care Provider] -
--- NOTE | 2017-11-08 16:59 | EKG12_ITS ---
Test Reason : Blood Pressure : / mmHG Vent. Rate : 085 BPM Atrial Rate : 085 BPM P-R Int : 162 ms QRS Dur : 122 ms QT Int : 414 ms P-R-T Axes : 034 -51 080 degrees QTc Int : 492 ms Normal sinus rhythm Left bundle branch block Abnormal ECG Confirmed by ONEYDA RUFFIN, DARION ([id number]), continuity editor JANETTE TIJERINA ([id number] on 11/10/2017 9:32:27 AM Referred By: NORBERT Confirmed By:DARION CALL MD
== END 2017-11-08 17:11 | disposition home or self-care (01) ==
PROVIDERS: Emergency Provider Emergency Medicine; Family Provider Family Medicine; PCP Family Medicine
DX: R07.9 Chest pain, unspecified (principal); E87.1 Hypo-osmolality and hyponatremia; I44.4 Left anterior fascicular block; R11.2 Nausea with vomiting, unspecified; R42 Dizziness and giddiness; R06.00 Dyspnea, unspecified; E11.9 Type 2 diabetes mellitus without complications; Z79.4 Long term (current) use of insulin; Z79.899 Other long term (current) drug therapy; Z87.891 Personal history of nicotine dependence
CPT/HCPCS: 71045; 80048; 84484; 85025; 85610; 85730; 93005; 99284; A4216

== ENCOUNTER → 2017-11-12 09:47 | Outpatient (CLI) | payer MEDICARE, OTHER, SELFPAY ==
[2017-11-12 12:22] LABS: Anion Gap 7 (5-15); BUN 8 mg/dL (7-18); BUN/Creat Ratio 9.8 RATIO (10-20); Calcium,Total 8.1 mg/dL (8.5-10.1); Chloride 105 mmol/L (98-107); Creatinine, Serum 0.82 mg/dL (0.55-1.02); EST Glomerular Filtration Rate 72 mL/min (>60); Est Glom Filt Rate - Afr Amer 87 mL/min (>60); Glucose 89 mg/dL (74-106); Sodium Level 137 mmol/L (136-145)
== END ==
PROVIDERS: Family Provider Family Medicine; PCP Family Medicine; Visit Provider Family Medicine
DX: E87.1 Hypo-osmolality and hyponatremia (principal); E11.9 Type 2 diabetes mellitus without complications
CPT/HCPCS: 36415; 80048

== ENCOUNTER 2018-03-08 18:44 | Inpatient (IN) | payer MEDICARE, OTHER, SELFPAY ==
[2018-03-08] VITALS (9 sets, daily range): BP systolic 94–129; BP diastolic 65–93; PULSE 110–135; RESP 16–28; TEMP 36.3–36.7; O2SAT 94–100; BMI 34.7; BMI 36.4; BMI 34.8; BMI 40.8
[2018-03-08 19:06] LABS: Bedside Glucose 99 mg/dL (70-110)
--- NOTE | 2018-03-08 19:13 | EKG12_ITS ---
Test Reason : SOB Blood Pressure : / mmHG Vent. Rate : 114 BPM Atrial Rate : 114 BPM P-R Int : 188 ms QRS Dur : 132 ms QT Int : 378 ms P-R-T Axes : 000 -50 111 degrees QTc Int : 521 ms Sinus tachycardia Left axis deviation Left bundle branch block Abnormal ECG Confirmed by PREM RUFFIN, DEEPTHI ([id number]), senior editor JANETTE TIJERINA ([id number]) on 03/11/2018 2:17:49 PM Referred By: CHARLIE Confirmed By:DEEPTHI AMARO MD
--- NOTE | 2018-03-08 19:35 | RAD_ITS ---
STUDY: X-RAY CHEST REASON FOR EXAM: Female, 77 years old. Shortness breath TECHNIQUE: Frontal view of the chest COMPARISON: 11/08/2017 FINDINGS: There is airspace opacity in the right lower lobe which is likely infectious in etiology. The lungs are otherwise clear. There are no pleural effusions. There is no pneumothorax. The heart is enlarged, but stable in size. The visualized osseous structures are within normal limits. RAD/Chest PA and Lateral IMPRESSION: Right lower lobe airspace opacity which is likely infectious in etiology. Electronically Signed: Regulo Harvey, at 20:11 EST Tel , Service support ,
[2018-03-08 19:48] LABS: International Normalized Ratio 1.2; Prothrombin Time (Protime)PT. 15.5 SECONDS (11.7-14.9)
[2018-03-08 19:49] LABS: Partial Thromboplast Time 35.5 Seconds (24.1-36.2)
[2018-03-08 19:54] LABS: Absolute Lymphocyte Count 0.66 X10^3/ul (0.83-4.51); Absolute Neutrophil Count 2.9 X10^3/uL (2.0-7.7); Basophil# 0.01 X10^3/uL; Basophil% 0.2 % (0-1); Eosinophil# 0.02 X10^3/uL; Eosinophils% 0.5 % (0-5); Hematocrit 39.7 % (37-47); Hemoglobin 13.1 g/dl (12.0-15.0); Lymphocyte # 0.66 X10^3/ul (4.0); Lymphocyte % 16.3 % (19-41); Mean Corpuscular Hgb 30.3 pg (27.0-32.0); Mean Corpuscular Volume 91.7 fL (81-99); Mean Platelet Vol. 9.7 fl (6.2-12.0); Monocyte# 0.48 X10^3/uL; Monocyte% 11.9 % (0-10); Neutrophil # 2.88 X10^3/uL (2.7-7.7); Neutrophil % 71.1 % (47-70); Platelet Count 123 K/mm3 (150-450); RBC Distribution Width CV 17.9 % (11.6-14.6); RBC Distribution Width SD 60.3 fl (35.1-43.9); Red Blood Count 4.33 M/mm3 (4.2-5.4); White Blood Count 4.1 K/mm3 (4.4-11.0)
[2018-03-08 19:55] LABS: POSITIVE COUNT NO; POSITIVE DIFFERENTIAL NO; POSITIVE MORPHOLOGY NO
[2018-03-08] MEDS: Nitroglycerin Oint 1 INCH PACKET TRANSDERM. (19:55)
[2018-03-08] MEDS: Furosemide 40 MG/4 ML Vial IV ×2 (19:55→23:37)
[2018-03-08 19:57] LABS: Anion Gap 10 (5-15); BUN 18 mg/dL (7-18); BUN/Creat Ratio 16.5 RATIO (10-20); Calcium,Total 8.1 mg/dL (8.5-10.1); Chloride 94 mmol/L (98-107); Creatinine, Serum 1.09 mg/dL (0.55-1.02); EST Glomerular Filtration Rate 52 mL/min (>60); Est Glom Filt Rate - Afr Amer 63 mL/min (>60); Estimated Creatinine Clearance 34.19 ml/min; Glucose 121 mg/dL (74-106); Potassium 3.9 mmol/L (3.5-5.1); Sodium Level 127 mmol/L (136-145)
[2018-03-08 20:01] LABS: Bacteria 0 SEEN /hpf (None Seen); Mucous, Urine 0 SEEN /hpf (<or=2+); Red Blood Cells-Urine 0 SEEN /hpf (0-5); White Blood Cells 0 SEEN /hpf (0-5)
[2018-03-08 20:06] LABS: Color, Urine Yellow (Yellow); Glucose, Dipstick Normal (Normal); Ketone-Dipstick Negative (Negative); Leukocyte Esterase-Dipstick Negative /ul (Negative); Nitrite-Dipstick Negative (Negative); Occult Blood-Urine 10 /ul (Negative); Protein-Dipstick 15 mg/dl (Negative); Specific Gravity, Urine 1.015 (1.002-1.030); Urine Bilirubin Dipstick Negative (Negative); Urine Clarity Clear (Clear); Urine Urobilinogen Normal (Normal)
[2018-03-08 20:22] LABS: Hyaline Cast 0-5 SEEN /lpf (0-5); Squamous Epithelial Cells - UA 0-5 SEEN /hpf (5-10)
[2018-03-08 20:35] LABS: BNP,B-Type NATRIURETIC PEPTIDE 1574.3 pg/mL (0-100)
[2018-03-08] MEDS: Ceftriaxone 1 GM/50 ML BAG IV (20:44)
--- NOTE | 2018-03-08 20:49 | ED.RN ---
SUPV NOTIFIED OF SEPSIS ALERT
--- NOTE | 2018-03-08 21:21 | ED.VISSUMM ---
- ER Visit Summary Date of Service: 03/08/18 Chief Complaint: Shortness of breath History of Present Illness: The patient is a 77 F who presents with shortness of breath that has been getting worse over the past week. Patient states she has been having a cough with mild clear sputum production. Patient denies any fevers or chills. Patient does admit to some increased swelling of her lower legs. Patient denies any weight gain. Actually, the patient states she has been having some weight loss. Patient denies any recent travel or recent surgery. Patient denies any chest pain. Patient denies any nausea or vomiting. Patient states her breathing is worse with laying flat and has to sleep on 2 pillows. Patient also states her breathing is worse with any exertion. Physical Examination: Vital signs are stable except for tachycardia of 135 and a tachypnea of 28. Patient is afebrile. Patient is in no acute distress. Oral mucosa is pink and somewhat dry. Neck is supple. Trachea is midline. There is no JVD noted. Heart was regular and tachycardic. Lungs showed some rales in the bases bilaterally. Abdomen is soft. Bowel sounds are normal. There is no tenderness. There is no rebound or guarding noted. Cranial nerves II through XII are intact. There are no focal motor or sensory deficits noted. Extremities are intact x4. There is 2+ edema of the lower extremities to the upper thighs. The remaining physical exam is within normal limits. Test Results: EKG showed sinus tachycardia with a rate of 114. There is a left bundle branch block pattern noted. There are no acute ST or T wave changes. This was unchanged compared to previous EKG dated 11/08/2017. PA and lateral chest x-ray shows elevation in the right lower lobe consistent with infiltrate. CBC showed a white blood cell count of 4.1. Sodium was slightly low at 127 and chloride was slightly low at 94. Creatinine was 1.09. BNP was elevated at 1574. Emergency Department Course and Treatment: Patient was given a dose of Lasix initially. Patient was placed on nitroglycerin paste initially. Blood cultures were obtained. Lactate was ordered and is normal at 1.5. Patient was started on Rocephin and Zithromax. Case was discussed with Dr. Seymour. He will admit the patient to his service. Patient and family were understanding and agreeable with the plan. All questions were answered. Disposition: Admit to hospital Impression: Community-acquired pneumonia This note was generated with [employer] dictation software. It may contain incorrect words, spelling, and punctuation that were not noted in review of the chart prior to signing ED Disposition - Plan for ED Patient: Disposition: Acute Care Hospital [facility] Chief Complaint: Shortness of Breath Diagnosis: Community acquired pneumonia Referrals: Jared Mayorga MD [Primary Care Provider] -
[2018-03-08 21:24] LABS: Lactic Acid 1.5 mmol/L (0.4-2.0)
--- NOTE | 2018-03-08 21:25 | ED.DCSUM_ITS ---
- ER Visit Summary Date of Service: 03/08/18 Chief Complaint: Shortness of breath History of Present Illness: The patient is a 77 F who presents with shortness of breath that has been getting worse over the past week. Patient states she has been having a cough with mild clear sputum production. Patient denies any fevers or chills. Patient does admit to some increased swelling of her lower legs. Patient denies any weight gain. Actually, the patient states she has been having some weight loss. Patient denies any recent travel or recent surgery. Patient denies any chest pain. Patient denies any nausea or vomiting. Patient states her breathing is worse with laying flat and has to sleep on 2 pillows. Patient also states her breathing is worse with any exertion. Physical Examination: Vital signs are stable except for tachycardia of 135 and a tachypnea of 28. Patient is afebrile. Patient is in no acute distress. Oral mucosa is pink and somewhat dry. Neck is supple. Trachea is midline. There is no JVD noted. Heart was regular and tachycardic. Lungs showed some rales in the bases bilaterally. Abdomen is soft. Bowel sounds are normal. There is no tenderness. There is no rebound or guarding noted. Cranial nerves II through XII are intact. There are no focal motor or sensory deficits noted. Extremities are intact x4. There is 2+ edema of the lower extremities to the upper thighs. The remaining physical exam is within normal limits. Test Results: EKG showed sinus tachycardia with a rate of 114. There is a left bundle branch block pattern noted. There are no acute ST or T wave changes. This was unchanged compared to previous EKG dated 11/08/2017. PA and lateral chest x-ray shows elevation in the right lower lobe consistent with infiltrate. CBC showed a white blood cell count of 4.1. Sodium was slightly low at 127 and chloride was slightly low at 94. Creatinine was 1.09. BNP was elevated at 1574. Emergency Department Course and Treatment: Patient was given a dose of Lasix initially. Patient was placed on nitroglycerin paste initially. Blood cultures were obtained. Lactate was ordered and is normal at 1.5. Patient was started on Rocephin and Zithromax. Case was discussed with Dr. Seymour. He will admit the patient to his service. Patient and family were understanding and agreeable with the plan. All questions were answered. Disposition: Admit to hospital Impression: Community-acquired pneumonia This note was generated with [employer] dictation software. It may contain incorrect words, spelling, and punctuation that were not noted in review of the chart prior to signing ED Disposition - Plan for ED Patient: Disposition: Acute Care [facility] Chief Complaint: Shortness of Breath Diagnosis: Community acquired pneumonia Referrals: Jared Mayorga MD [Primary Care Provider] -
--- NOTE | 2018-03-08 22:00 | HP.PCM_ITS ---
Problem List (1) CHF Status: Acute (2) Community acquired pneumonia Status: Acute (3) Mixed hyperlipidemia Status: Chronic (4) Non-rheumatic aortic stenosis Status: Chronic (5) Secondary pulmonary arterial hypertension Status: Chronic (6) Stenosis of right carotid artery Status: Chronic (7) Abnormal electrocardiogram Status: Chronic (8) Syncope Status: Chronic (9) Anemia Status: Chronic Qualifiers: History of Present Illness Date of Admission: 03/08/18 Chief Complaint: Shortness of breath for 1 week The patient is a 77 year old F with multiple comorbidities as listed above was brought into ER for progressive worsening of shortness of breath for 1 week. Patient had increased bilateral lower extremity swelling for which her PCP put her on Lasix 20 mg daily which is not effective. Patient also had productive cough with clear sputum for about 3 weeks which has improved but denies fever/chills/URI symptoms. No chest pain or shortness of breath. In ED, found tachycardia 135 pertinent, tachypnea 28/min, pulse ox 99% on 3 L oxygen but no fever. Basic workup shows leukocyte 4.1 thousand, platelet 123,000. BNP 1574, lactic acid 1.5. UA is negative. Patient was put Burr catheter in ED, although indication unclear. Chest x-ray reported as right lower lobe airspace opacity likely infectious in etiology but seems right mild to moderate pleural effusion. Past Medical History Past Medical History (Chronic Problems): Chronic Problems (Last Reviewed 06/03/17 @ 13:43 by Elvi López) Mixed hyperlipidemia (Chronic) Non-rheumatic aortic stenosis (Chronic) Secondary pulmonary arterial hypertension (Chronic) Stenosis of right carotid artery (Chronic) Abnormal electrocardiogram (Chronic) Syncope (Chronic) Anemia (Chronic) Medical History: Medical History (Last Reviewed 06/03/17 @ 13:43 by Elvi López) Mixed hyperlipidemia (Chronic) E78.2 Non-rheumatic aortic stenosis (Chronic) I35.0 Secondary pulmonary arterial hypertension (Chronic) I27.21 Stenosis of right carotid artery (Chronic) I65.21 Syncope (Chronic) R55 Anemia (Chronic) D64.9 Gastritis K29.70 Hyperlipidemia E78.5 Obesity E66.9 Type 2 diabetes mellitus without complications E11.9 Allergies niacin Allergy (Verified 03/08/18 18:44) Swelling Crdmeoz-Yls-Ijl Reductase Inhibitor Allergy (Verified 03/08/18 18:44) Swelling acetaminophen [From Percocet] Adverse Reaction (Verified 03/08/18 18:44) Upset Stomach oxycodone [From Percocet] Adverse Reaction (Verified 03/08/18 18:44) Upset Stomach Tetracyclines Adverse Reaction (Verified 03/08/18 18:44) Nausea/Vom/Diarrhea tramadol Adverse Reaction (Verified 03/08/18 18:44) CONFUSION Home Medications: Ambulatory Orders Medication Instructions Recorded Ergocalciferol [Vitamin D] 50,000 unit PO TU 12/22/13 Flaxseed/Evening Prim/Bilberry 1 ea PO DAILY 12/22/13 [Retaine Flax Softgel] Polyethylene Glycol 3350 [Miralax] 17 gm PO DAILY 12/22/13 Omeprazole [Prilosec] 40 mg PO DAILY 04/12/15 Insulin Glargine [Lantus SoloStar 40 units SC QHS 12/02/16 Pen] Furosemide [Lasix] 20 mg PO PRN PRN 04/07/17 Dextrose [Glucose] 4 gm PO PRN PRN 11/08/17 Ferrous Sulfate 325 mg PO BID 11/08/17 Fish Oil/Dha/Epa [Fish Oil 1,200 1 each PO DAILY 11/08/17 mg Fish Oil] Mineral Oil/Petrolatum,White 3.5 gm EACHEYE DAILY 11/08/17 [Systane Nighttime Eye Oint] Propylene Glycol/Peg 400 [Systane 10 ml EACH EYE DAILY 11/08/17 Gel Eye Drops] Fexofenadine HCl 180 mg PO DAILY 03/08/18 Meclizine HCl 12.5 mg PO PRN PRN 03/08/18 Phytonadione (Vit K1) [Vitamin K] 100 mcg PO DAILY 03/08/18 Surgical History: Surgical History (Last Reviewed 06/03/17 @ 13:44 by Elvi López) H/O bilateral cataract extraction Z98.41, Z98.42 History of Z98.891 History of appendectomy Z98.890, Z90.49 History of bilateral knee replacement Z98.890, Z96.653 History of esophagogastroduodenoscopy (EGD) Z98.890 03/19/17 History of salpingectomy Z98.890, Z90.79 Hx laparoscopic cholecystectomy Z98.890, Z90.49 Hx of left inguinal hernia repair Z98.890, Z87.19 Surgical History: appendectomy, cholecystectomy, - - Hernia repair ?2 Psychiatric History: No pertinent psych hx [employer] History: No pertinent [employer] history Smoking Status: Former smoker - *Family History Maternal Family History: Family History (Last Reviewed 06/03/17 @ 13:44 by Elvi López) Mother Diabetes History Items: Diabetes Paternal Family History: Family History (Last Reviewed 06/03/17 @ 13:44 by Elvi López) Mother Diabetes History Items: Unknown Review of Systems Constitutional: Denies: Chills, Fever, Weight Change HEENT: Denies: Head Aches, Post Nasal Drip, Sinus Congestion, Sinus Drainage Cardiovascular: Reports: Edema. Denies: Chest Pain, Palpitations Respiratory: Reports: Shortness of Breath, Shortness of breath upon exertion. Denies: Cough, Shortness of breath at rest, Sputum production Gastrointestinal: Denies: Abdominal Pain, Nausea, Vomiting Genitourinary: Denies: Dysuria Musculoskeletal: Denies: Joint Pain, Joint Tenderness Skin: Denies: Rash, Wounds Neurological: Denies: Numbness, Tingling, Focal weakness Psychiatric: Denies: Anxiety, Depression, Homicidal Ideations, Suicidal Ideations Hematologic/ Lymphatic: Denies: Easy Bruising, Easy Bleeding VTE Information - Inpt Only VTE Present on Admission: No VTE Mechan Device Prophylaxis: None VTE Pharm Prophylaxis ordered?: Yes Patient Problems: Active and Suspected Problems (Last Reviewed 06/03/17 @ 13:43 by Elvi López) Community acquired pneumonia (Acute) CHF (Acute) - Physical Exam General: Alert, Oriented x3, Cooperative HEENT: Atraumatic, PERRLA, EOMI, Normocephalic Neck: Supple, No JVD, Negative Carotid Bruits Lungs: Diminished - Air entry diminished in lower half of right lung, Rales, Short of Breath, Tachypneic, - - Stony dullness present in the lower half of right lung below sixth rib. Cardiovascular: Regular rate, No murmurs Abdomen: Bowel Sounds Present, Soft, Non Tender, Non-Distended Extremities: Capillary Refill Less than 3 Seconds, Edema Skin: No rashes, No breakdown Musculoskeletal: No Tenderness to Palpation of Joints or Extremities, Arthritic Changes Neurological: Cranial nerves II-XII grossly intact, Deep Tendon Reflexes 2+/4 and Symmetrical, Neuro grossly intact Psych/Mental Status: Normal Affect, Appropriate Vital Signs Temp Pulse Resp BP Pulse Ox 97.6 F L 115 H 21 H 115/93 H 100 03/08/18 21:48 03/08/18 21:48 03/08/18 21:48 03/08/18 21:48 03/08/18 21:48 Oxygen Flow Rate (L/min) 3 Oxygen Delivery Method Room Air Weight: 190 lb Body Mass Index (BMI) 34.7 Finger Stick Blood Glucose 230 Laboratory Tests Past 24 Hrs 03/08/18 03/08/18 03/08/18 19:27 19:27 19:27 WBC 4.1 L RBC 4.33 Hgb 13.1 Hct 39.7 MCV 91.7 MCH 30.3 MCHC 33.0 RDW 17.9 H RDW Differential 60.3 H Plt Count 123 L MPV 9.7 Immature Gran % (Auto) 0.000 Neut % (Auto) 71.1 H Lymph % (Auto) 16.3 L [place] % (Auto) 11.9 H Eos % (Auto) 0.5 Baso % (Auto) 0.2 Absolute Neuts (auto) 2.9 Absolute Lymphs (auto) 0.66 L Total Counted Not Reportable PT 15.5 H INR 1.2 APTT 35.5 Sodium 127 L Potassium 3.9 Chloride 94 L Carbon Dioxide 23.0 Anion Gap 10 BUN 18 Creatinine 1.09 H Estim Creat Clear Calc 34.19 Est GFR (MDRD) Af Amer 63 Est GFR (MDRD) Non-Af 52 L BUN/Creatinine Ratio 16.5 Glucose 121 H Lactic Acid Calcium 8.1 L B-Natriuretic Peptide Urine Color Urine Clarity Urine pH Ur Specific [place] Urine Protein Urine Glucose (UA) Urine Ketones Urine Occult Blood Urine Nitrite Urine Bilirubin Urine Urobilinogen Ur Leukocyte Esterase Urine RBC Urine WBC Ur Squamous Epith Cells Urine Bacteria Hyaline Casts Urine Mucus 03/08/18 03/08/18 03/08/18 19:27 19:50 20:33 WBC RBC Hgb Hct MCV MCH MCHC RDW RDW Differential Plt Count MPV Immature Gran % (Auto) Neut % (Auto) Lymph % (Auto) [place] % (Auto) Eos % (Auto) Baso % (Auto) Absolute Neuts (auto) Absolute Lymphs (auto) Total Counted PT INR APTT Sodium Potassium Chloride Carbon Dioxide Anion Gap BUN Creatinine Estim Creat Clear Calc Est GFR (MDRD) Af Amer Est GFR (MDRD) Non-Af BUN/Creatinine Ratio Glucose Lactic Acid 1.5 Calcium B-Natriuretic Peptide 1574.3 H Urine Color Yellow Urine Clarity Clear Urine pH 6.0 Ur Specific [place] 1.015 Urine Protein 15 H Urine Glucose (UA) Normal Urine Ketones Negative Urine Occult Blood 10 H Urine Nitrite Negative Urine Bilirubin Negative Urine Urobilinogen Normal Ur Leukocyte Esterase Negative Urine RBC 0 SEEN Urine WBC 0 SEEN Ur Squamous Epith Cells 0-5 SEEN Urine Bacteria 0 SEEN Hyaline Casts 0-5 SEEN Urine Mucus 0 SEEN POC Glucose 03/08/18 19:00 POC Glucose 99 Assessment/Plan All Active Problems (Last Reviewed 06/03/17 @ 13:43 by Elvi López) Community acquired pneumonia (Acute) CHF (Acute) Epigastric abdominal pain (Resolved) Gastritis (Resolved) The patient is a 77 year old F with multiple comorbidities as listed above was brought into ER for progressive worsening of shortness of breath for 1 week. Patient had increased bilateral lower extremity swelling for which her PCP put her on Lasix 20 mg daily which is not effective. Patient also had productive cough with clear sputum for about 3 weeks which has improved but denies fever/chills/URI symptoms. No chest pain or shortness of breath. In ED, found tachycardia 135 pertinent, tachypnea 28/min, pulse ox 99% on 3 L oxygen but no fever. Basic workup shows leukocyte 4.1 thousand, platelet 123,000. BNP 1574, lactic acid 1.5. UA is negative. Patient was put Burr catheter in ED, although indication unclear. Chest x-ray reported as right lower lobe airspace opacity likely infectious in etiology but seems right mild to moderate pleural effusion. 1. CHF exacerbation, possible acute on chronic heart failure with preserved EF: It seems appropriate in view of shortness of breath, leg swelling, elevated BNP and pleural effusion on chest x-ray: Patient had echo and a stress echo during last admission in March 2017 for syncope and reported as EF 65% with normal diastole with no regional wall motion abnormalities. LA moderately enlarged. Mild to moderate aortic stenosis, mean AV gradient 14 mmHg, mild TR, RVSP 43 mmHg suggestive of mild pulmonary hypertension. Mild diffuse mitral valve thickening and severe calcification with trivial MR but no MS. started on Lasix 40 mg twice daily. The patient is being admitted in PCU. Serial cardiac enzymes. Monitor cardiac telemetry. Repeat 2D echo to check for EF for progression of aortic stenosis. Monitor intake and output. Monitor BP and avoid hypotension. 2. Right lower lobe opacity possible pleural effusion/consolidation, rule out pneumonia: Empirically patient is started on Rocephin and Zithromax. Pneumonia workup with urinary antigens, respiratory panel and if negative can discontinue antibiotics. I have low suspicion for pneumonia. 3. Valvular heart disease: Mild to moderate ostial stenosis, mitral valve thickening and calcification with trivial MR, and mild pulmonary hypertension: As mentioned above 4. Mixed hyperlipidemia, Sjogren's syndrome and previous admission for syncope in March 2017. Stable. Home medication reconciliation done. DVT prophylaxis: On Lovenox 40 mg subcu daily. Discontinue if platelet count drops less than 90,000 or hemoglobin less than 8 g% Patient is seen and examined in the presence of [id number], Ms. Calvillo, and discussed the reason of admission, plan and management. Clinical Impression(s) from Imaging Studies Chest X-Ray 03/08/18 19:35 IMPRESSION: Right lower lobe airspace opacity which is likely infectious in etiology. Code Visit Inpatient E&M: 51621 Init Hosp L3
[2018-03-08] MEDS: Ferrous Sulfate 325 MG Tablet PO (23:37)
[2018-03-08] MEDS: Enoxaparin 40 MG/0.4 ML Syringe SC (23:38)
[2018-03-08 23:51] LABS: Bedside Glucose 127 mg/dL (70-110)
[2018-03-08] MEDS: 0.9% NaCl Peripheral Flush Adult/Peds IV ×2 (23:53→23:55)
[2018-03-09] VITALS (17 sets, daily range): BP systolic 95–118; BP diastolic 51–67; PULSE 108–120; RESP 18–20; TEMP 36.3–36.6; O2SAT 93–100
[2018-03-09] MEDS: guaiFENesin 1,200 MG Tablet 1200 MG PO ×3 (00:33→20:59)
[2018-03-09] MEDS: 0.9% NaCl Peripheral Flush Adult/Peds IV ×3 (00:36→17:26)
[2018-03-09] MEDS: CLARIFY ORDER 1 EACH NOTE (00:56)
[2018-03-09 04:59] LABS: Hematocrit 36.4 % (37-47); Hemoglobin 12.1 g/dl (12.0-15.0); Mean Corp Hgb Conc 33.2 g/gl (32-36); Mean Corpuscular Hgb 30.6 pg (27.0-32.0); Mean Corpuscular Volume 92.2 fL (81-99); Mean Platelet Vol. 10.1 fl (6.2-12.0); Platelet Count 122 K/mm3 (150-450); RBC Distribution Width CV 17.8 % (11.6-14.6); RBC Distribution Width SD 58.4 fl (35.1-43.9); Red Blood Count 3.95 M/mm3 (4.2-5.4); White Blood Count 6.1 K/mm3 (4.4-11.0)
[2018-03-09 05:06] LABS: Scan Indicated on CBC? Y/N NO
[2018-03-09 05:31] LABS: Anion Gap 10 (5-15); BUN 18 mg/dL (7-18); BUN/Creat Ratio 18.3 RATIO (10-20); Calcium,Total 7.9 mg/dL (8.5-10.1); Chloride 94 mmol/L (98-107); Cholesterol 156 mg/dL (200); Creatinine, Serum 0.99 mg/dL (0.55-1.02); EST Glomerular Filtration Rate 58 mL/min (>60); Est Glom Filt Rate - Afr Amer 70 mL/min (>60); Estimated Creatinine Clearance 37.64 ml/min; Glucose 110 mg/dL (74-106); High Density Lipoprotein 28 mg/dL; Potassium 3.6 mmol/L (3.5-5.1); Sodium Level 128 mmol/L (136-145); Thyroid Stim Hormone (TSH) 6.42 uIU/mL (0.358-3.74); Triglycerides 94 mg/dL; Very Low Density Lipoprotein 19 mg/dL (5-40)
[2018-03-09 07:11] LABS: Bedside Glucose 89 mg/dL (70-110)
--- NOTE | 2018-03-09 08:44 | PCM.PN.HOSP ---
Patient Problems: Active and Suspected Problems (Last Reviewed 06/03/17 @ 13:43 by Elvi López) Community acquired pneumonia (Acute) CHF (Acute) Subjective: Patient was seen and examined. Complains of bilateral leg swelling. Denies chest pain, dizziness, palpitations. ROS is negative. Vitals/I&O's: Vital Signs Temp Pulse Resp BP Pulse Ox 97.8 F 118 H 18 95/55 L 97 03/09/18 06:40 03/09/18 06:58 03/09/18 06:40 03/09/18 06:40 03/09/18 07:49 Oxygen Flow Rate (L/min) 2 Oxygen Delivery Method Room Air Weight: 101.3 kg Body Mass Index (BMI) 40.8 Finger Stick Blood Glucose 230 Intake and Output for Last 24 Hours 03/07/18 03/08/18 03/09/18 23:59 23:59 23:59 Intake Total 446 / 446 120 / 120 Output Total 975 / 975 250 / 250 Balance -529 / -529 -130 / -130 General: Alert, Oriented x3, Cooperative, No apparent distress HEENT: Atraumatic, PERRLA, EOMI, Normocephalic Oral: Moist Mucosa Neck: Supple, No JVD, Negative Carotid Bruits Lungs: Normal air movement, Diminished Cardiovascular: Regular rate, Regular Rhythm, Normal S1, Normal S2, No murmurs Abdomen: Bowel Sounds Present, Soft, Non Tender, Non-Distended, No Hepato-splenomegaly, Obese Extremities: Edema - pedal edema +2-3 Skin: No rashes, No breakdown Musculoskeletal: No Tenderness to Palpation of Joints or Extremities Lymphatic: No Cervical, Supraclavicular, or Inguinal Adenopathy Neurological: Cranial nerves II-XII grossly intact, Neuro grossly intact Psych/Mental Status: Normal Affect, Appropriate Microbiology Past 72 Hours 03/08/18 19:50 Urine Catheter - Burr Legionella Antigen - Final 03/08/18 19:50 Urine Catheter - Burr Streptococcus pneumoniae Antigen (M - Final Laboratory Results 03/08/18 19:00: POC Glucose 99 03/08/18 19:27: WBC 4.1 L, RBC 4.33, Hgb 13.1, Hct 39.7, MCV 91.7, MCH 30.3, MCHC 33.0, RDW 17.9 H, RDW Differential 60.3 H, Plt Count 123 L, MPV 9.7, Immature Gran % (Auto) 0.000, Neut % (Auto) 71.1 H, Lymph % (Auto) 16.3 L, [place] % (Auto) 11.9 H, Eos % (Auto) 0.5, Baso % (Auto) 0.2, Absolute Neuts (auto) 2.9, Absolute Lymphs (auto) 0.66 L, Total Counted Not Reportable 03/08/18 19:27: PT 15.5 H, INR 1.2, APTT 35.5 03/08/18 19:27: Sodium 127 L, Potassium 3.9, Chloride 94 L, Carbon Dioxide 23.0, Anion Gap 10, BUN 18, Creatinine 1.09 H, Estim Creat Clear Calc 34.19, Est GFR (MDRD) Af Amer 63, Est GFR (MDRD) Non-Af 52 L, BUN/Creatinine Ratio 16.5, Glucose 121 H, Calcium 8.1 L 03/08/18 19:27: B-Natriuretic Peptide 1574.3 H 03/08/18 19:50: Urine Color Yellow, Urine Clarity Clear, Urine pH 6.0, Ur Specific Gordon 1.015, Urine Protein 15 H, Urine Glucose (UA) Normal, Urine Ketones Negative, Urine Occult Blood 10 H, Urine Nitrite Negative, Urine Bilirubin Negative, Urine Urobilinogen Normal, Ur Leukocyte Esterase Negative, Urine RBC 0 SEEN, Urine WBC 0 SEEN, Ur Squamous Epith Cells 0-5 SEEN, Urine Bacteria 0 SEEN, Hyaline Casts 0-5 SEEN, Urine Mucus 0 SEEN 03/08/18 20:33: Lactic Acid 1.5 03/08/18 22:42: Troponin I 0.031 03/08/18 23:35: POC Glucose 127 H 03/09/18 01:42: Troponin I 0.042 03/09/18 04:44: WBC 6.1, RBC 3.95 L, Hgb 12.1, Hct 36.4 L, MCV 92.2, MCH 30.6, MCHC 33.2, RDW 17.8 H, RDW Differential 58.4 H, Plt Count 122 L, MPV 10.1 03/09/18 04:44: Sodium 128 L, Potassium 3.6, Chloride 94 L, Carbon Dioxide 24.0, Anion Gap 10, BUN 18, Creatinine 0.99, Estim Creat Clear Calc 37.64, Est GFR (MDRD) Af Amer 70, Est GFR (MDRD) Non-Af 58 L, BUN/Creatinine Ratio 18.3, Glucose 110 H, Calcium 7.9 L, Magnesium 2.0, Troponin I 0.036, Triglycerides 94, Cholesterol 156, LDL Cholesterol 109, VLDL Cholesterol 19, HDL Cholesterol 28 L, TSH 6.42 H 03/09/18 06:53: POC Glucose 89 Current Medications Al Hydroxide/Mg Hydroxide (Mylanta Ii) 30 ml PO Q6H PRN PRN PRN Reason: Gastric Burning Albuterol Sulfate (Ventolin Aerosols) 2.5 mg INHALATION Q2H PRN PRN PRN Reason: SHORTNESS OF BREATH Bisacodyl (Dulcolax) 10 mg RECTAL DAILY PRN PRN PRN Reason: Constipation Dextrose (D50w Syringe) 0 gm IV X1 PRN; Protocol PRN Reason: Hypoglycemia Docusate Sodium (Colace) 200 mg PO BID PRN PRN PRN Reason: Constipation Enoxaparin Sodium (Lovenox) 40 mg SC DAILY [facility] Last Admin: 03/08/18 23:38 Dose: 40 mg Ergocalciferol (Vitamin D) 50,000 unit PO [facility] [place] Ferrous Sulfate (Ferrous Sulfate) 325 mg PO BIDCM [facility] Last Admin: 03/08/18 23:37 Dose: 325 mg Furosemide (Lasix) 40 mg IV BIDLX [facility] Last Admin: 03/08/18 23:37 Dose: 40 mg Glucagon () 1 mg IM .X1 PRN PRN Reason: Hypoglycemia Guaifenesin (Mucinex) 1,200 mg PO BID [facility] Last Admin: 03/09/18 00:33 Dose: 1,200 mg Azithromycin 500 mg/ Dextrose 255 mls @ 250 mls/hr IV Q24H [facility] Stop: 03/10/18 23:02 Ceftriaxone Sodium (Rocephin) 1 gm in 50 mls @ 100 mls/hr IV Q24H [facility] Insulin Human Lispro (Humalog Kwikpen (Bkc)) 0 unit SQ ACHS [facility]; Protocol Last Admin: 03/09/18 07:37 Dose: Not Given Loratadine (Claritin) 10 mg PO DAILY [facility] Meclizine HCl (Antivert) 12.5 mg PO TID PRN PRN Reason: .DIZZINESS Morphine Sulfate () 1 - 2 mg IV Q4H PRN PRN PRN Reason: severe pain/resp distress Nutritional Formula (Lactose Free) (Ensure Enlive) 120 ml PO 4X/DAY [facility] Ondansetron HCl (Zofran) 4 mg IV Q8H PRN PRN PRN Reason: Nausea Pantoprazole Sodium (Protonix) 40 mg PO DAILY [facility] Polyethylene Glycol (Miralax) 17 gm PO DAILY [facility] Sodium Chloride () 5 - 15 ml IV UD PRN PRN Reason: SALINE FLUSH Last Admin: 03/09/18 00:36 Dose: 10 ml Zolpidem Tartrate (Ambien (Generic)) 5 mg PO QHS PRN PRN PRN Reason: INSOMNIA Medical Necessity - Tobacco Use Smoking Status: Former smoker Assessment/Plan All Active Problems (Last Reviewed 06/03/17 @ 13:43 by Elvi López) Community acquired pneumonia (Acute) CHF (Acute) Epigastric abdominal pain (Resolved) Gastritis (Resolved) 77 year old F with PMHx of hyperlipidemia, type 2 DM, hypertension, aortic stenosis who was admitted with worsening SOB and bilateral lower leg edema. 1. Acute on chronic heart failure with preserved EF, improving, diuresing, not on oxygen, on Lasix 40mg BID IV 2. Right CAP, suspected gram positive organisms, no signs of sepsis on admissions, on IV ceftriaxone and azithromycin, no leucocytosis 3. Hyponatremia, hypervolemic, slightly improved, will trend BMP in am 4. Valvular heart disease/pulmonary hypertension, stable 5. Mixed hyperlipidemia, on fish oil 6. Type 2 DM, BS are controlled, Lantus on hold, will check HgbA1c, will continue to monitor 7. DVT prophylaxis - Lovenox SC Code Visit Inpatient E&M: 75430 Subs Hosp L2
[2018-03-09] MEDS: Glycerin/Hypromellose/PEG400 15 ml Bottle 1 DRP EACH EYE (09:09)
[2018-03-09] MEDS: Enoxaparin 40 MG/0.4 ML Syringe SC (09:10)
[2018-03-09] MEDS: Furosemide 40 MG/4 ML Vial IV ×2 (09:11→17:26)
[2018-03-09] MEDS: Pantoprazole Sodium 40 MG Tablet PO (09:12)
[2018-03-09] MEDS: Loratadine 10 MG Tablet PO (09:12)
[2018-03-09] MEDS: Ferrous Sulfate 325 MG Tablet PO ×2 (09:12→17:26)
--- NOTE | 2018-03-09 09:44 | VDLE_ITS ---
Reason For Study: LE Swelling RIGHT LEFT CFV is compressible, spontaneous, competent CFV is compressible, spontaneous, competent, and demonstrates pulsatile venous flow. and demonstrates pulsatile venous flow. FV is compressible, spontaneous, competent FV is compressible, spontaneous, competent and demonstrates pulsatile venous flow. and demonstrates pulsatile venous flow. POP V is compressible, spontaneous, competent POP V is compressible, spontaneous, competent and demonstrates pulsatile venous flow. and demonstrates pulsatile venous flow. T/P Trunk is compressible. T/P Trunk is compressible. PTV is compressible. PTV is compressible. RT PerV is compressible. LT PerV is compressible. GSV is normal. GSV is normal. Procedure Exam performed in department. A preliminary report was called and/or faxed to [facility]. Interpretation Summary No evidence for acute deep venous thrombosis bilateral lower extremities with patent and compressible bilateral great saphenous veins. Pulsitile venous flow consistent with proximal venous hypertension--clinical correlation would be appropriate. Ordering Physician: Michelle Toribio Referring Physician: Jared Mayorga Performed By: Jeniffer Mary RVT, RDCS and Student
[2018-03-09 11:26] LABS: Bedside Glucose 126 mg/dL (70-110)
[2018-03-09 11:42] LABS: Hemoglobin A1c 5.8 % (4.2-6.3)
--- NOTE | 2018-03-09 13:22 | CASEMGMT ---
Assessment-SW spoke with patient. She was noticeably uncomfortable however she agreed to answer SW's questions. Living situation- Patient lives alone in a 1 story home. She has several entry steps. PCP: Dr Jared Mayorga [facility]acy: [facility] Prescription coverage: [facility] DME: walker, wheelchair, shower chair, and grab bars ADL's/IADL's: Patient is normally completely independent. She bathes herself, manages her own meds, and drives. Past SNF/rehab: None Past HH: None LW: Yes. Not on file POA: Yes. Not on file. Her sonHesham is her healthcare POA Plan: She said if it is recommended that she go somewhere at discharge for rehab she would be agreeable. OSVALDO told her OSVALDO and [facility] will follow to assist with d/c planning. Grisel ALMODOVAR SENSOR OPERATOR
[2018-03-09] MEDS: Acetaminophen 325 MG Tablet 650 MG PO ×2 (13:23→22:19)
--- NOTE | 2018-03-09 16:18 | CHAPLAIN ---
Type of Pastoral Visit _x__ Initial Visit ___ Follow-up Visit ___ On-call Visit ___ General Patient Visit ___ Spiritual Assessment ___ Family Conference ___ Bereavement ___ Rapid Response ___ Code Blue ___ Other (describe below) Pastoral Care Referral From _x__ Patient ___ Family ___ Nurse ___ Physician ___ Heel Sewer ___ Mortgage Branch Manager ___ Other (describe below) Sacrament/Intervention _x__ Active listening ___ Anointing ___ Amish ___ Bereavement ___ Communion _x__ Yajaira exploration ___ _x__ Life review _x__ Prayer ___ Reconciliation ___ Sacrament of Sick _x__ Supportive presence ___ Wedding ___ Other (describe below) Pastoral Comments
[2018-03-09 16:51] LABS: Bedside Glucose 127 mg/dL (70-110)
[2018-03-09 21:56] LABS: Bedside Glucose 135 mg/dL (70-110)
[2018-03-09] MEDS: Ceftriaxone 1 GM/50 ML BAG IV (22:19)
--- NOTE | 2018-03-09 22:24 | EKG12_ITS ---
Test Reason : EPIGASTRIS PAIN Blood Pressure : / mmHG Vent. Rate : 115 BPM Atrial Rate : 115 BPM P-R Int : 186 ms QRS Dur : 136 ms QT Int : 370 ms P-R-T Axes : 000 -50 120 degrees QTc Int : 511 ms Atrial flutter with 2:1 AV conduction Left axis deviation Left bundle branch block Abnormal ECG Confirmed by PREM RUFFIN, DEEPTHI ([id number]), editor greeting card JANETTE TIJERINA ([id number]) on 03/15/2018 3:48:40 PM Referred By: DR JOLLY Confirmed By:DEEPTHI AMARO MD
[2018-03-09] MEDS: Albuterol 2.5 MG/3 ML VIAL.NEB. INHALATION (22:49)
--- NOTE | 2018-03-09 22:53 | NURSING ---
While patient up to BSC with aide, called out for pain medication. When this RN arrived patient was getting back into bed and stated she felt as though she was going to pass out. Vitals taken, stable. When asked where pain was she said it was in her breathing. Patient points to upper epigastric region and rates it 7/10. Non diaphoretic. Pain does not radiate. RR 20. Satting well on 2L, 98%. Called for EKG and breathing treatment. Passed tylenol. Patient verbalizes how she is frustrated d/t getting no rest here and states I shouldve stayed at home Breathing has slowed since getting back into bed. RR 18. Will monitor.
[2018-03-10] VITALS (14 sets, daily range): BP systolic 108–129; BP diastolic 58–73; PULSE 110–117; RESP 16–22; TEMP 36.3–37.2; O2SAT 93–100
[2018-03-10 06:55] LABS: Bedside Glucose 92 mg/dL (70-110)
[2018-03-10] MEDS: Ferrous Sulfate 325 MG Tablet PO ×2 (09:12→17:04)
[2018-03-10] MEDS: Loratadine 10 MG Tablet PO (09:12)
[2018-03-10] MEDS: Furosemide 40 MG/4 ML Vial IV (09:12)
[2018-03-10] MEDS: Glycerin/Hypromellose/PEG400 15 ml Bottle 1 DRP EACH EYE (09:13)
[2018-03-10] MEDS: Polyethylene Glycol 3350 17 GM PACKET PO (09:14)
[2018-03-10] MEDS: Enoxaparin 40 MG/0.4 ML Syringe SC (09:14)
[2018-03-10] MEDS: Pantoprazole Sodium 40 MG Tablet PO (09:15)
[2018-03-10] MEDS: guaiFENesin 1,200 MG Tablet 1200 MG PO ×2 (09:15→21:13)
--- NOTE | 2018-03-10 09:49 | PCM.PN.HOSP ---
Patient Problems: Active and Suspected Problems (Last Reviewed 06/03/17 @ 13:43 by Elvi López) Community acquired pneumonia (Acute) CHF (Acute) Subjective: Patient seen and examined. She still feels unwell. She feels tired. Denies chest pain, dizziness, palpitations. ROS is negative Objective: Physical exam: General: Alert, Oriented x3, Cooperative, No apparent distress, appears unwell HEENT: Atraumatic, PERRLA, EOMI, Normocephalic Oral: Moist Mucosa Neck: Supple, No JVD, Negative Carotid Bruits Lungs: Normal air movement, Diminished Cardiovascular: Regular rate, Regular Rhythm, Normal S1, Normal S2, No murmurs Abdomen: Bowel Sounds Present, Soft, Non Tender, Non-Distended, No Hepato-splenomegaly, Obese Extremities: Edema - pedal edema +2-3, JORDYN-wraps bilateral Skin: No rashes, No breakdown Musculoskeletal: No Tenderness to Palpation of Joints or Extremities Lymphatic: No Cervical, Supraclavicular, or Inguinal Adenopathy Neurological: Cranial nerves II-XII grossly intact, Neuro grossly intact Psych/Mental Status: Normal Affect, Appropriate Vitals/I&O's: Vital Signs Temp Pulse Resp BP Pulse Ox 97.4 F L 112 H 20 H 115/73 96 03/10/18 09:10 03/10/18 09:10 03/10/18 09:10 03/10/18 09:10 03/10/18 09:10 Oxygen Flow Rate (L/min) 2 Oxygen Delivery Method Room Air Weight: 100.4 kg Body Mass Index (BMI) 40.8 Finger Stick Blood Glucose 230 Intake and Output for Last 24 Hours 03/08/18 03/09/18 03/10/18 23:59 23:59 23:59 Intake Total 446 / 446 1151 / 1151 120 / 120 Output Total 975 / 975 1050 / 1050 325 / 325 Balance -529 / -529 101 / 101 -205 / -205 Microbiology Past 72 Hours 03/08/18 19:50 Urine Catheter - Burr Urine Culture - Final Enterococcus faecalis 03/09/18 08:00 Sputum, Expectorated/Coughed Gram Stain - Final 03/08/18 23:00 Mucosa - Nasopharyngeal Respiratory Panel (PCR) - Final 03/08/18 19:50 Urine Catheter - Burr Legionella Antigen - Final 03/08/18 19:50 Urine Catheter - Burr Streptococcus pneumoniae Antigen (M - Final Laboratory Results 03/09/18 04:44: Hemoglobin A1c 5.8 03/09/18 11:21: POC Glucose 126 H 03/09/18 16:43: POC Glucose 127 H 03/09/18 20:57: POC Glucose 135 H 03/10/18 06:39: POC Glucose 92 Current Medications Acetaminophen (Tylenol) 650 mg PO Q4H PRN PRN PRN Reason: PAIN Last Admin: 03/09/18 22:19 Dose: 650 mg Al Hydroxide/Mg Hydroxide (Mylanta Ii) 30 ml PO Q6H PRN PRN PRN Reason: Gastric Burning Albuterol Sulfate (Ventolin Aerosols) 2.5 mg INHALATION Q2H PRN PRN PRN Reason: SHORTNESS OF BREATH Last Admin: 03/09/18 22:49 Dose: 2.5 mg Bisacodyl (Dulcolax) 10 mg RECTAL DAILY PRN PRN PRN Reason: Constipation Dextrose (D50w Syringe) 0 gm IV X1 PRN; Protocol PRN Reason: Hypoglycemia Docusate Sodium (Colace) 200 mg PO BID PRN PRN PRN Reason: Constipation Enoxaparin Sodium (Lovenox) 40 mg SC DAILY [facility] B[facility]S AT [facility] Last Admin: 03/10/18 09:14 Dose: 40 mg Ergocalciferol (Vitamin D) 50,000 unit PO TU [facility] 234 BEDS AT [facility] Ferrous Sulfate (Ferrous Sulfate) 325 mg PO BIDCM [facility]S [facility] 234 BEDS AT [facility] Last Admin: 03/10/18 09:12 Dose: 325 mg Furosemide (Lasix) 40 mg IV BIDLX [facility] 234 [facility]S AT [facility] Last Admin: 03/10/18 09:12 Dose: 40 mg Glucagon () 1 mg IM .X1 PRN PRN Reason: Hypoglycemia Guaifenesin (Mucinex) 1,200 mg PO BID [facility] 234 [facility]S AT [facility] Last Admin: 03/10/18 09:15 Dose: 1,200 mg Azithromycin 500 mg/ Dextrose 255 mls @ 250 mls/hr IV Q24H [facility]S [facility] 234 BEDS AT THE [facility] Stop: 03/10/18 23:02 Last Admin: 03/09/18 20:59 Dose: 250 mls/hr Ceftriaxone Sodium (Rocephin) 1 gm in 50 mls @ 100 mls/hr IV Q24H [facility] 234 BEDS AT [facility] Last Admin: 03/09/18 22:19 Dose: 100 mls/hr Insulin Human Lispro (Humalog Kwikpen (Bkc)) 0 unit SQ ACHS [facility] 234 BEDS AT [facility]; Protocol Last Admin: 03/10/18 09:11 Dose: Not Given Loratadine (Claritin) 10 mg PO DAILY [facility] 234 B[facility]S AT [facility] Last Admin: 03/10/18 09:12 Dose: 10 mg Meclizine HCl (Antivert) 12.5 mg PO TID PRN PRN Reason: .DIZZINESS Morphine Sulfate () 1 - 2 mg IV Q4H PRN PRN PRN Reason: severe pain/resp distress Nutritional Formula (Lactose Free) (Ensure Enlive) 120 ml PO 4X/DAY COUNTS [facility]CLUDE 234 BEDS AT [facility] Last Admin: 03/10/18 09:14 Dose: 120 ml Ondansetron HCl (Zofran) 4 mg IV Q8H PRN PRN PRN Reason: Nausea Pantoprazole Sodium (Protonix) 40 mg PO DAILY [facility] 234 B[facility]S AT [facility] Last Admin: 03/10/18 09:15 Dose: 40 mg Polyethylene Glycol (Miralax) 17 gm PO DAILY [facility]CLUDE 234 BEDS AT [facility] Last Admin: 03/10/18 09:14 Dose: 17 gm Sodium Chloride () 5 - 15 ml IV UD PRN PRN Reason: SALINE FLUSH Last Admin: 03/09/18 17:26 Dose: 10 ml Zolpidem Tartrate (Ambien (Generic)) 5 mg PO QHS PRN PRN PRN Reason: INSOMNIA Medical Necessity - Tobacco Use Smoking Status: Former smoker Assessment/Plan All Active Problems (Last Reviewed 06/03/17 @ 13:43 by Elvi López) Community acquired pneumonia (Acute) CHF (Acute) Epigastric abdominal pain (Resolved) Gastritis (Resolved) 77 year old F with PMHx of hyperlipidemia, type 2 DM, hypertension, aortic stenosis who was admitted with worsening SOB and bilateral lower leg edema. 1. Acute on chronic heart failure with preserved EF, very slowly improving, will decrease Lasix to 20mg IV BID, will continue on CHF protocol and monitor I & Os as well as renal function. 2. Right CAP, suspected gram positive organisms, no signs of sepsis on admissions, on IV ceftriaxone and azithromycin (day 3), very slowly improving 3. Asymptomatic bacteriuria, E. fecalis in urine culture, christensen-sensitive, on ceftriaxone. 4. Hyponatremia, hypervolemic, sodium is slightly worse, Na 125 from 128, will continue to monitor, will get nephrology consulted. 5. Valvular heart disease/pulmonary hypertension, stable 6. Mixed hyperlipidemia, on fish oil 7. Type 2 DM, BS are controlled, Lantus on hold, HgbA1c is 5.8, will continue to monitor 8. DVT prophylaxis - Lovenox SC Code Visit Inpatient E&M: 53721 Subs Hosp L2
--- NOTE | 2018-03-10 11:21 | CPS ---
patient does pep on her own
[2018-03-10 11:35] LABS: Bedside Glucose 130 mg/dL (70-110)
--- NOTE | 2018-03-10 11:48 | NURSING ---
pt assisted to use the bedside commode and then back to bed. she does get very dyspneic with exertion, and she states that she felt like she was having a hard time cathcing her breath. pt requested to be placed on oxygen. 2L NC placed on. pulse ox is 96% with the 2L NC in place. will monitor.
[2018-03-10 12:28] LABS: Anion Gap 10 (5-15); BUN 19 mg/dL (7-18); BUN/Creat Ratio 16.7 RATIO (10-20); Calcium,Total 7.8 mg/dL (8.5-10.1); Chloride 92 mmol/L (98-107); Creatinine, Serum 1.14 mg/dL (0.55-1.02); EST Glomerular Filtration Rate 49 mL/min (>60); Est Glom Filt Rate - Afr Amer 59 mL/min (>60); Estimated Creatinine Clearance 32.69 ml/min; Glucose 135 mg/dL (74-106); Potassium 3.5 mmol/L (3.5-5.1); Sodium Level 125 mmol/L (136-145)
[2018-03-10 16:30] LABS: Bedside Glucose 108 mg/dL (70-110)
[2018-03-10] MEDS: Furosemide 20 MG/2 ML VIAL IV (17:08)
[2018-03-10] MEDS: Zolpidem Tartrate 5 MG Tablet PO (21:18)
[2018-03-10 22:01] LABS: Bedside Glucose 109 mg/dL (70-110)
[2018-03-10] MEDS: Ceftriaxone 1 GM/50 ML BAG IV (22:27)
[2018-03-10] MEDS: Albuterol 2.5 MG/3 ML VIAL.NEB. INHALATION (23:00)
[2018-03-11] VITALS (14 sets, daily range): BP systolic 110–133; BP diastolic 51–94; PULSE 105–144; RESP 16–26; TEMP 36.3–36.7; O2SAT 97–100
[2018-03-11] MEDS: 0.9% NaCl Peripheral Flush Adult/Peds IV ×3 (00:54→21:31)
[2018-03-11] MEDS: Morphine 2 MG/ML Syringe IV (00:54)
[2018-03-11] MEDS: Albuterol 2.5 MG/3 ML VIAL.NEB. INHALATION (01:24)
[2018-03-11 04:06] LABS: Bedside Glucose 122 mg/dL (70-110)
[2018-03-11 06:22] LABS: Anion Gap 10 (5-15); BUN 20 mg/dL (7-18); BUN/Creat Ratio 18.7 RATIO (10-20); Calcium,Total 7.6 mg/dL (8.5-10.1); Chloride 91 mmol/L (98-107); Creatinine, Serum 1.07 mg/dL (0.55-1.02); EST Glomerular Filtration Rate 53 mL/min (>60); Est Glom Filt Rate - Afr Amer 64 mL/min (>60); Estimated Creatinine Clearance 34.82 ml/min; Glucose 117 mg/dL (74-106); Potassium 3.5 mmol/L (3.5-5.1); Sodium Level 125 mmol/L (136-145)
[2018-03-11 06:47] LABS: Bedside Glucose 115 mg/dL (70-110)
[2018-03-11] MEDS: Polyethylene Glycol 3350 17 GM PACKET PO (08:14)
[2018-03-11] MEDS: Enoxaparin 40 MG/0.4 ML Syringe SC (08:14)
[2018-03-11] MEDS: Loratadine 10 MG Tablet PO (08:15)
[2018-03-11] MEDS: guaiFENesin 1,200 MG Tablet 1200 MG PO ×2 (08:15→21:32)
[2018-03-11] MEDS: Furosemide 20 MG/2 ML VIAL IV (08:15)
[2018-03-11] MEDS: Pantoprazole Sodium 40 MG Tablet PO (08:15)
[2018-03-11] MEDS: Ferrous Sulfate 325 MG Tablet PO ×2 (08:15→17:36)
[2018-03-11] MEDS: Glycerin/Hypromellose/PEG400 15 ml Bottle 1 DRP EACH EYE (08:16)
--- NOTE | 2018-03-11 09:05 | CASEMGMT ---
OSVALDO spoke with patient about her d/c plan. She is in agreement with going somewhere for rehab. She is open to [facility]. OSVALDO spoke with Abby in TCU and they will have a bed for patient tomorrow. OSVALDO let patient and physician know this information. All in agreement with d/c plan. Plan: [facility] under skilled level of care. Grisel LOPEZ
--- NOTE | 2018-03-11 09:28 | EKG12_ITS ---
Test Reason : ARRHYTHMIA Blood Pressure : / mmHG Vent. Rate : 115 BPM Atrial Rate : 115 BPM P-R Int : 198 ms QRS Dur : 132 ms QT Int : 350 ms P-R-T Axes : 000 -51 113 degrees QTc Int : 484 ms Atrial flutter Left axis deviation Left bundle branch block Abnormal ECG Confirmed by PREM RUFFIN, DEEPTHI ([id number]), pictures editor JANETTE TIJERINA ([id number]) on 03/15/2018 3:38:49 PM Referred By: BAIOLA Confirmed By:DEEPTHI AMARO MD
--- NOTE | 2018-03-11 09:29 | PCM.PN.HOSP ---
Patient Problems: Active and Suspected Problems (Last Reviewed 06/03/17 @ 13:43 by Elvi López) Community acquired pneumonia (Acute) CHF (Acute) Hyponatremia (Acute) Subjective: Patient was seen and examined. She feels improved more than when she came. She has been coughing up sputum. Denies fever or chills or chest pain. Telemetry shows sinus tachycardia with HR >110s. EKG shows NSR, sinus tachycardia. Objective: Physical exam: General: Alert, Oriented x3, Cooperative, No apparent distress, appears unwell, not on oxygen HEENT: Atraumatic, PERRLA, EOMI, Normocephalic Oral: Moist Mucosa Neck: Supple, No JVD, Negative Carotid Bruits Lungs: Normal air movement, Diminished Cardiovascular: Regular rate, Regular Rhythm, Normal S1, Normal S2, No murmurs Abdomen: Bowel Sounds Present, Soft, Non Tender, Non-Distended, No Hepato-splenomegaly, Obese Extremities: Edema - pedal edema +2-3, JORDYN-wraps bilateral Skin: No rashes, No breakdown Musculoskeletal: No Tenderness to Palpation of Joints or Extremities Lymphatic: No Cervical, Supraclavicular, or Inguinal Adenopathy Neurological: Cranial nerves II-XII grossly intact, Neuro grossly intact Psych/Mental Status: Normal Affect, Appropriate Vitals/I&O's: Vital Signs Temp Pulse Resp BP Pulse Ox 97.3 F L 114 H 19 H 113/51 L 97 03/11/18 08:23 03/11/18 08:23 03/11/18 08:23 03/11/18 08:23 03/11/18 08:23 Oxygen Flow Rate (L/min) 2 Oxygen Delivery Method Nasal Cannula Weight: 101.2 kg Body Mass Index (BMI) 40.8 Finger Stick Blood Glucose 230 Intake and Output for Last 24 Hours 03/09/18 03/10/18 03/11/18 23:59 23:59 23:59 Intake Total 1151 / 1151 1988 Output Total 1050 / 1050 1250 / 1250 250 / 250 Balance 101 / 101 739 / 739 -250 / -250 Microbiology Past 72 Hours 03/09/18 08:00 Sputum, Expectorated/Coughed Gram Stain - Final 03/09/18 08:00 Sputum, Expectorated/Coughed Respiratory Culture - Final 03/08/18 19:50 Urine Catheter - Burr Urine Culture - Final Enterococcus faecalis 03/08/18 23:00 Mucosa - Nasopharyngeal Respiratory Panel (PCR) - Final 03/08/18 19:50 Urine Catheter - Burr Legionella Antigen - Final 03/08/18 19:50 Urine Catheter - Burr Streptococcus pneumoniae Antigen (M - Final Laboratory Results 03/10/18 11:21: POC Glucose 130 H 03/10/18 11:50: Sodium 125 L, Potassium 3.5, Chloride 92 L, Carbon Dioxide 23.0, Anion Gap 10, BUN 19 H, Creatinine 1.14 H, Estim Creat Clear Calc 32.69, Est GFR (MDRD) Af Amer 59 L, Est GFR (MDRD) Non-Af 49 L, BUN/Creatinine Ratio 16.7, Glucose 135 H, Calcium 7.8 L 03/10/18 16:10: POC Glucose 108 03/10/18 21:08: POC Glucose 109 03/11/18 04:00: POC Glucose 122 H 03/11/18 05:15: Sodium 125 L, Potassium 3.5, Chloride 91 L, Carbon Dioxide 24.0, Anion Gap 10, BUN 20 H, Creatinine 1.07 H, Estim Creat Clear Calc 34.82, Est GFR (MDRD) Af Amer 64, Est GFR (MDRD) Non-Af 53 L, BUN/Creatinine Ratio 18.7, Glucose 117 H, Calcium 7.6 L 03/11/18 06:43: POC Glucose 115 H Current Medications Acetaminophen (Tylenol) 650 mg PO Q4H PRN PRN PRN Reason: PAIN Last Admin: 03/09/18 22:19 Dose: 650 mg Al Hydroxide/Mg Hydroxide (Mylanta Ii) 30 ml PO Q6H PRN PRN PRN Reason: Gastric Burning Albuterol Sulfate (Ventolin Aerosols) 2.5 mg INHALATION Q2H PRN PRN PRN Reason: SHORTNESS OF BREATH Last Admin: 03/11/18 01:24 Dose: 2.5 mg Bisacodyl (Dulcolax) 10 mg RECTAL DAILY PRN PRN PRN Reason: Constipation Dextrose (D50w Syringe) 0 gm IV X1 PRN; Protocol PRN Reason: Hypoglycemia Docusate Sodium (Colace) 200 mg PO BID PRN PRN PRN Reason: Constipation Enoxaparin Sodium (Lovenox) 40 mg SC DAILY [facility] Last Admin: 03/11/18 08:14 Dose: 40 mg Ergocalciferol (Vitamin D) 50,000 unit PO TU [facility] Ferrous Sulfate (Ferrous Sulfate) 325 mg PO BIDCM [facility] Last Admin: 03/11/18 08:15 Dose: 325 mg Furosemide (Lasix) 20 mg IV BIDLX [facility] Last Admin: 03/11/18 08:15 Dose: 20 mg Glucagon () 1 mg IM .X1 PRN PRN Reason: Hypoglycemia Guaifenesin (Mucinex) 1,200 mg PO BID [facility] Last Admin: 03/11/18 08:15 Dose: 1,200 mg Ceftriaxone Sodium (Rocephin) 1 gm in 50 mls @ 100 mls/hr IV Q24H [facility] Last Admin: 03/10/18 22:27 Dose: 100 mls/hr Insulin Human Lispro (Humalog Kwikpen (Bkc)) 0 unit SQ ACHS [facility]; Protocol Last Admin: 03/11/18 07:59 Dose: Not Given Loratadine (Claritin) 10 mg PO DAILY [facility] Last Admin: 03/11/18 08:15 Dose: 10 mg Meclizine HCl (Antivert) 12.5 mg PO TID PRN PRN Reason: .DIZZINESS Morphine Sulfate () 1 - 2 mg IV Q4H PRN PRN PRN Reason: severe pain/resp distress Last Admin: 03/11/18 00:54 Dose: 2 mg Nutritional Formula (Lactose Free) (Ensure Enlive) 120 ml PO 4X/DAY [facility] Last Admin: 03/11/18 08:16 Dose: 120 ml Ondansetron HCl (Zofran) 4 mg IV Q8H PRN PRN PRN Reason: Nausea Pantoprazole Sodium (Protonix) 40 mg PO DAILY [facility] Last Admin: 03/11/18 08:15 Dose: 40 mg Polyethylene Glycol (Miralax) 17 gm PO DAILY [facility] Last Admin: 03/11/18 08:14 Dose: 17 gm Sodium Chloride () 5 - 15 ml IV UD PRN PRN Reason: SALINE FLUSH Last Admin: 03/11/18 08:16 Dose: 10 ml Zolpidem Tartrate (Ambien (Generic)) 5 mg PO QHS PRN PRN PRN Reason: INSOMNIA Last Admin: 03/10/18 21:18 Dose: 5 mg Medical Necessity - Tobacco Use Smoking Status: Former smoker Assessment/Plan All Active Problems (Last Reviewed 06/03/17 @ 13:43 by Elvi López) Community acquired pneumonia (Acute) CHF (Acute) Hyponatremia (Acute) Epigastric abdominal pain (Resolved) Gastritis (Resolved) 77 year old F with PMHx of hyperlipidemia, type 2 DM, hypertension, aortic stenosis who was admitted with worsening SOB and bilateral lower leg edema. 1. Acute on chronic heart failure with preserved EF, very slowly improving, slowly improving, started on Bumex 1mg PO BID, continue on strict I & Os per CHF protocol. 2. Right CAP, suspected gram positive organisms, no signs of sepsis on admissions, on IV ceftriaxone and azithromycin (day 4), very slowly improving, will switch to augmentin tomorrow, continue on breathing treatments. 3. Asymptomatic bacteriuria, E. fecalis in urine culture, christensen-sensitive, on ceftriaxone. 4. Hyponatremia, hypervolemic, sodium remains the same, will continue to monitor, nephrology consulted. 5. Valvular heart disease/pulmonary hypertension, stable 6. Mixed hyperlipidemia, on fish oil 7. Type 2 DM, HgbA1c is 5.8, BS are controlled, Lantus on hold, , will continue to monitor with accucheks and ISS 8. DVT prophylaxis - Lovenox SC Code Visit Inpatient E&M: 24378 Subs Hosp L2
[2018-03-11 12:21] LABS: Bedside Glucose 125 mg/dL (70-110)
--- NOTE | 2018-03-11 12:35 | PCM.CONS.R ---
Problem List (1) Hyponatremia Status: Acute Consultation - Renal PCP/ Referring MD: Requesting physician: [] Primary care physician: Jared Mayorga MD - History of Present Illness History of Present Illness: The patient is a 77 year old F past medical history of pulmonary hypertension aortic stenosis, syncopal episode, carotid artery stenosis. Patient presented with progressive shortness of breath for 1 week with increased leg edema. Also patient has been complaining of productive cough for 3 weeks. Chest x-ray shows moderate right pleural effusion and right-sided pneumonia. Patient was admitted for CHF exacerbation and pneumonia. Renal team was consulted for hyponatremia management. Patient presented with sodium 128 on 09/15/2024 and remained stable. Patient also had acute kidney injury. Creatinine peaked at 1.14. Lasix dose was decreased from 40 mg twice a day to 20 mg twice a day. Fluid balance has been positive,. Patient denies any NSAIDs used . Patient was not on hydrochlorothiazide at home . She was on Lasix . Patient was not on SSRI or a medication will cause SIADH . Review of system : 12 system review is negative except for leg edema and cough and some shortness of breath [] - Allergies Allergies: Allergies niacin Allergy (Verified 03/08/18 18:44) Swelling Yqlkulk-Aje-Kst Reductase Inhibitor Allergy (Verified 03/08/18 18:44) Swelling acetaminophen [From Percocet] Adverse Reaction (Verified 03/08/18 18:44) Upset Stomach oxycodone [From Percocet] Adverse Reaction (Verified 03/08/18 18:44) Upset Stomach Tetracyclines Adverse Reaction (Verified 03/08/18 18:44) Nausea/Vom/Diarrhea tramadol Adverse Reaction (Verified 03/08/18 18:44) CONFUSION - Current Medications Current Medications: Current Medications Acetaminophen (Tylenol) 650 mg PO Q4H PRN PRN PRN Reason: PAIN Last Admin: 03/09/18 22:19 Dose: 650 mg Al Hydroxide/Mg Hydroxide (Mylanta Ii) 30 ml PO Q6H PRN PRN PRN Reason: Gastric Burning Albuterol Sulfate (Ventolin Aerosols) 2.5 mg INHALATION Q2H PRN PRN PRN Reason: SHORTNESS OF BREATH Last Admin: 03/11/18 01:24 Dose: 2.5 mg Bisacodyl (Dulcolax) 10 mg RECTAL DAILY PRN PRN PRN Reason: Constipation Bumetanide (Bumex) 1 mg PO BID [facility] Dextrose (D50w Syringe) 0 gm IV X1 PRN; Protocol PRN Reason: Hypoglycemia Docusate Sodium (Colace) 200 mg PO BID PRN PRN PRN Reason: Constipation Enoxaparin Sodium (Lovenox) 40 mg SC DAILY [facility] Last Admin: 03/11/18 08:14 Dose: 40 mg Ergocalciferol (Vitamin D) 50,000 unit PO [facility] Last Admin: 03/11/18 08:15 Dose: 325 mg Glucagon () 1 mg IM .X1 PRN PRN Reason: Hypoglycemia Guaifenesin (Mucinex) 1,200 mg PO BID [facility] Last Admin: 03/11/18 08:15 Dose: 1,200 mg Ceftriaxone Sodium (Rocephin) 1 gm in 50 mls @ 100 mls/hr IV Q24H [facility] Last Admin: 03/10/18 22:27 Dose: 100 mls/hr Insulin Human Lispro (Humalog Kwikpen (Bkc)) 0 unit SQ ACHS [facility]; Protocol Last Admin: 03/11/18 11:46 Dose: Not Given Loratadine (Claritin) 10 mg PO DAILY [facility] Last Admin: 03/11/18 08:15 Dose: 10 mg Meclizine HCl (Antivert) 12.5 mg PO TID PRN PRN Reason: .DIZZINESS Morphine Sulfate () 1 mg IV Q4H PRN PRN PRN Reason: severe pain/resp distress Nutritional Formula (Lactose Free) (Ensure Enlive) 120 ml PO 4X/DAY [facility] Last Admin: 03/11/18 08:16 Dose: 120 ml Ondansetron HCl (Zofran) 4 mg IV Q8H PRN PRN PRN Reason: Nausea Pantoprazole Sodium (Protonix) 40 mg PO DAILY [facility] Last Admin: 03/11/18 08:15 Dose: 40 mg Polyethylene Glycol (Miralax) 17 gm PO DAILY [facility] Last Admin: 03/11/18 08:14 Dose: 17 gm Sodium Chloride () 5 - 15 ml IV UD PRN PRN Reason: SALINE FLUSH Last Admin: 03/11/18 08:16 Dose: 10 ml Zolpidem Tartrate (Ambien (Generic)) 5 mg PO QHS PRN PRN PRN Reason: INSOMNIA Last Admin: 03/10/18 21:18 Dose: 5 mg - Past Medical History Past Medical History (Chronic Problems): Chronic Problems (Last Reviewed 06/03/17 @ 13:43 by Elvi López) Mixed hyperlipidemia (Chronic) Non-rheumatic aortic stenosis (Chronic) Secondary pulmonary arterial hypertension (Chronic) Stenosis of right carotid artery (Chronic) Abnormal electrocardiogram (Chronic) Syncope (Chronic) Anemia (Chronic) - Past Surgical History Surgical History: appendectomy, cholecystectomy, - - Hernia repair ?2 - Social History Smoking Status: Former smoker - Family History Maternal Family History: Family History (Last Reviewed 06/03/17 @ 13:44 by Elvi López) Mother Diabetes History Items: Diabetes Paternal Family History: Family History (Last Reviewed 06/03/17 @ 13:44 by Elvi López) Mother Diabetes History Items: Unknown Patient Problems: Active and Suspected Problems (Last Reviewed 06/03/17 @ 13:43 by Elvi López) Community acquired pneumonia (Acute) CHF (Acute) Hyponatremia (Acute) - Physical Exam General: Alert, Oriented x3 HEENT: Atraumatic Oral: Moist Mucosa Neck: Supple, No JVD Lungs: - - Right lung field crackles and decreased breath sounds over the right lower lobe Abdomen: Bowel Sounds Present, Soft, Non Tender Extremities: No clubbing, No cyanosis, Edema - +3 edema of lower extremity Skin: No rashes Musculoskeletal: No Tenderness to Palpation of Joints or Extremities Lymphatic: No Cervical, Supraclavicular, or Inguinal Adenopathy Neurological: Cranial nerves II-XII grossly intact, Neuro grossly intact Psych/Mental Status: Normal Affect Vital Signs Temp Pulse Resp BP Pulse Ox 97.3 F L 114 H 19 H 113/51 L 97 03/11/18 08:23 03/11/18 08:23 03/11/18 08:23 03/11/18 08:23 03/11/18 08:23 Oxygen Flow Rate (L/min) 2 Oxygen Delivery Method Nasal Cannula Weight: 101.2 kg Body Mass Index (BMI) 40.8 Finger Stick Blood Glucose 230 Intake and Output for Last 24 Hours 03/09/18 03/10/18 03/11/18 23:59 23:59 23:59 Intake Total 1151 / 1151 1988 240 / 240 Output Total 1050 / 1050 1250 / 1250 500 / 500 Balance 101 / 101 739 / 739 -260 / -260 Microbiology Past 72 Hours 03/09/18 08:00 Gram Stain - Final Sputum, Expectorated/Coughed Respiratory Culture - Final 03/08/18 19:50 Urine Culture - Final Urine Catheter - Burr Enterococcus faecalis 03/08/18 23:00 Respiratory Panel (PCR) - Final Mucosa - Nasopharyngeal 03/08/18 19:50 Legionella Antigen - Final Urine Catheter - Burr 03/08/18 19:50 Streptococcus pneumoniae Antigen (M - Final Urine Catheter - Burr Laboratory Tests Past 24 Hrs 03/11/18 05:15 Sodium 125 L Potassium 3.5 Chloride 91 L Carbon Dioxide 24.0 Anion Gap 10 BUN 20 H Creatinine 1.07 H Estim Creat Clear Calc 34.82 Est GFR (MDRD) Af Amer 64 Est GFR (MDRD) Non-Af 53 L BUN/Creatinine Ratio 18.7 Glucose 117 H Calcium 7.6 L POC Glucose 03/11/18 03/11/18 03/11/18 11:44 06:43 04:00 POC Glucose 125 H 115 H 122 H 03/10/18 03/10/18 21:08 16:10 POC Glucose 109 108 Assessment/Plan All Active Problems (Last Reviewed 06/03/17 @ 13:43 by Elvi López) Community acquired pneumonia (Acute) CHF (Acute) Hyponatremia (Acute) Epigastric abdominal pain (Resolved) Gastritis (Resolved) 1-hyponatremia with hypervolemia related to CHF. Patient still positive fluid balance. I switch diuretics from Lasix to Bumex 1 mg twice a day continue fluid restriction. 800 cc/day No need for 3% sodium chloride. Check sodium level in a.m.. 2-acute kidney injury. Most probably related to CHF and cardiorenal syndrome. Better with diuresis. I will switch diuretics to Bumex as above. Check kidney function in the morning. Thank you for the consult. Renal team will continue to follow
--- NOTE | 2018-03-11 12:40 | CON.PCM_ITS ---
Problem List (1) Hyponatremia Status: Acute Consultation - Renal PCP/ Referring MD: Requesting physician: [] Primary care physician: Jared Mayorga MD - History of Present Illness History of Present Illness: The patient is a 77 year old F past medical history of pulmonary hypertension aortic stenosis, syncopal episode, carotid artery stenosis. Patient presented with progressive shortness of breath for 1 week with increased leg edema. Also patient has been complaining of productive cough for 3 weeks. Chest x-ray shows moderate right pleural effusion and right-sided pneumonia. Patient was admitted for CHF exacerbation and pneumonia. Renal team was consulted for hyponatremia management. Patient presented with sodium 128 on 09/15/2024 and remained stable. Patient also had acute kidney injury. Creatinine peaked at 1.14. Lasix dose was decreased from 40 mg twice a day to 20 mg twice a day. Fluid balance has been positive,. Patient denies any NSAIDs used . Patient was not on hydrochlorothiazide at home . She was on Lasix . Patient was not on SSRI or a medication will cause SIADH . Review of system : 12 system review is negative except for leg edema and cough and some shortness of breath [] - Allergies Allergies: Allergies niacin Allergy (Verified 03/08/18 18:44) Swelling Irvbzkx-Gpl-Vmz Reductase Inhibitor Allergy (Verified 03/08/18 18:44) Swelling acetaminophen [From Percocet] Adverse Reaction (Verified 03/08/18 18:44) Upset Stomach oxycodone [From Percocet] Adverse Reaction (Verified 03/08/18 18:44) Upset Stomach Tetracyclines Adverse Reaction (Verified 03/08/18 18:44) Nausea/Vom/Diarrhea tramadol Adverse Reaction (Verified 03/08/18 18:44) CONFUSION - Current Medications Current Medications: Current Medications Acetaminophen (Tylenol) 650 mg PO Q4H PRN PRN PRN Reason: PAIN Last Admin: 03/09/18 22:19 Dose: 650 mg Al Hydroxide/Mg Hydroxide (Mylanta Ii) 30 ml PO Q6H PRN PRN PRN Reason: Gastric Burning Albuterol Sulfate (Ventolin Aerosols) 2.5 mg INHALATION Q2H PRN PRN PRN Reason: SHORTNESS OF BREATH Last Admin: 03/11/18 01:24 Dose: 2.5 mg Bisacodyl (Dulcolax) 10 mg RECTAL DAILY PRN PRN PRN Reason: Constipation Bumetanide (Bumex) 1 mg PO BID [facility] Dextrose (D50w Syringe) 0 gm IV X1 PRN; Protocol PRN Reason: Hypoglycemia Docusate Sodium (Colace) 200 mg PO BID PRN PRN PRN Reason: Constipation Enoxaparin Sodium (Lovenox) 40 mg SC DAILY [facility] Last Admin: 03/11/18 08:14 Dose: 40 mg Ergocalciferol (Vitamin D) 50,000 unit PO [facility] Ferrous Sulfate ([facility] Sulfate) [facility] Last Admin: 03/11/18 08:15 Dose: 325 mg Glucagon () 1 mg IM .X1 PRN PRN Reason: Hypoglycemia Guaifenesin (Mucinex) 1,200 mg PO BID [facility] Last Admin: 03/11/18 08:15 Dose: 1,200 mg Ceftriaxone Sodium (Rocephin) 1 gm in 50 mls @ 100 mls/hr IV Q24H [facility] Last Admin: 03/10/18 22:27 Dose: 100 mls/hr Insulin Human Lispro (Humalog Kwikpen (Bkc)) 0 unit SQ ACHS [facility]; Protocol Last Admin: 03/11/18 11:46 Dose: Not Given Loratadine (Claritin) 10 mg PO DAILY [facility] Last Admin: 03/11/18 08:15 Dose: 10 mg Meclizine HCl (Antivert) 12.5 mg PO TID PRN PRN Reason: .DIZZINESS Morphine Sulfate () 1 mg IV Q4H PRN PRN PRN Reason: severe pain/resp distress Nutritional Formula (Lactose Free) (Ensure Enlive) 120 ml PO 4X/DAY [facility] Last Admin: 03/11/18 08:16 Dose: 120 ml Ondansetron HCl (Zofran) 4 mg IV Q8H PRN PRN PRN Reason: Nausea Pantoprazole Sodium (Protonix) 40 mg PO DAILY [facility] Last Admin: 03/11/18 08:15 Dose: 40 mg Polyethylene Glycol (Miralax) 17 gm PO DAILY [facility] Last Admin: 03/11/18 08:14 Dose: 17 gm Sodium Chloride () 5 - 15 ml IV UD PRN PRN Reason: SALINE FLUSH Last Admin: 03/11/18 08:16 Dose: 10 ml Zolpidem Tartrate (Ambien (Generic)) 5 mg PO QHS PRN PRN PRN Reason: INSOMNIA Last Admin: 03/10/18 21:18 Dose: 5 mg - Past Medical History Past Medical History (Chronic Problems): Chronic Problems (Last Reviewed 06/03/17 @ 13:43 by Elvi López) Mixed hyperlipidemia (Chronic) Non-rheumatic aortic stenosis (Chronic) Secondary pulmonary arterial hypertension (Chronic) Stenosis of right carotid artery (Chronic) Abnormal electrocardiogram (Chronic) Syncope (Chronic) Anemia (Chronic) - Past Surgical History Surgical History: appendectomy, cholecystectomy, - - Hernia repair ?2 - Social History Smoking Status: Former smoker - Family History Maternal Family History: Family History (Last Reviewed 06/03/17 @ 13:44 by Elvi López) Mother Diabetes History Items: Diabetes Paternal Family History: Family History (Last Reviewed 06/03/17 @ 13:44 by Elvi López) Mother Diabetes History Items: Unknown Patient Problems: Active and Suspected Problems (Last Reviewed 06/03/17 @ 13:43 by Elvi López) Community acquired pneumonia (Acute) CHF (Acute) Hyponatremia (Acute) - Physical Exam General: Alert, Oriented x3 HEENT: Atraumatic Oral: Moist Mucosa Neck: Supple, No JVD Lungs: - - Right lung field crackles and decreased breath sounds over the right lower lobe Abdomen: Bowel Sounds Present, Soft, Non Tender Extremities: No clubbing, No cyanosis, Edema - +3 edema of lower extremity Skin: No rashes Musculoskeletal: No Tenderness to Palpation of Joints or Extremities Lymphatic: No Cervical, Supraclavicular, or Inguinal Adenopathy Neurological: Cranial nerves II-XII grossly intact, Neuro grossly intact Psych/Mental Status: Normal Affect Vital Signs Temp Pulse Resp BP Pulse Ox 97.3 F L 114 H 19 H 113/51 L 97 03/11/18 08:23 03/11/18 08:23 03/11/18 08:23 03/11/18 08:23 03/11/18 08:23 Oxygen Flow Rate (L/min) 2 Oxygen Delivery Method Nasal Cannula Weight: 101.2 kg Body Mass Index (BMI) 40.8 Finger Stick Blood Glucose 230 Intake and Output for Last 24 Hours 03/09/18 03/10/18 03/11/18 23:59 23:59 23:59 Intake Total 1151 / 1151 1988 240 / 240 Output Total 1050 / 1050 1250 / 1250 500 / 500 Balance 101 / 101 739 / 739 -260 / -260 Microbiology Past 72 Hours 03/09/18 08:00 Gram Stain - Final Sputum, Expectorated/Coughed Respiratory Culture - Final 03/08/18 19:50 Urine Culture - Final Urine Catheter - Burr Enterococcus faecalis 03/08/18 23:00 Respiratory Panel (PCR) - Final Mucosa - Nasopharyngeal 03/08/18 19:50 Legionella Antigen - Final Urine Catheter - Burr 03/08/18 19:50 Streptococcus pneumoniae Antigen (M - Final Urine Catheter - Burr Laboratory Tests Past 24 Hrs 03/11/18 05:15 Sodium 125 L Potassium 3.5 Chloride 91 L Carbon Dioxide 24.0 Anion Gap 10 BUN 20 H Creatinine 1.07 H Estim Creat Clear Calc 34.82 Est GFR (MDRD) Af Amer 64 Est GFR (MDRD) Non-Af 53 L BUN/Creatinine Ratio 18.7 Glucose 117 H Calcium 7.6 L POC Glucose 03/11/18 03/11/18 03/11/18 11:44 06:43 04:00 POC Glucose 125 H 115 H 122 H 03/10/18 03/10/18 21:08 16:10 POC Glucose 109 108 Assessment/Plan All Active Problems (Last Reviewed 06/03/17 @ 13:43 by Elvi López) Community acquired pneumonia (Acute) CHF (Acute) Hyponatremia (Acute) Epigastric abdominal pain (Resolved) Gastritis (Resolved) 1-hyponatremia with hypervolemia related to CHF. Patient still positive fluid balance. I switch diuretics from Lasix to Bumex 1 mg twice a day continue fluid restriction. 800 cc/day No need for 3% sodium chloride. Check sodium level in a.m.. 2-acute kidney injury. Most probably related to CHF and cardiorenal syndrome. Better with diuresis. I will switch diuretics to Bumex as above. Check kidney function in the morning. Thank you for the consult. Renal team will continue to follow
[2018-03-11] MEDS: Mag Hydrox/Al Hydrox/Simeth 30 ML UDC PO (16:35)
[2018-03-11 16:46] LABS: Bedside Glucose 108 mg/dL (70-110)
[2018-03-11] MEDS: Docusate Sodium 100 MG Capsule 200 MG PO (17:36)
[2018-03-11] MEDS: Glucerna Shake 120 ML LIQUID PO (17:36)
[2018-03-11] MEDS: oxyCODONE 5 MG Tablet PO (17:36)
[2018-03-11] MEDS: Bumetanide 0.5 MG Tablet 1 MG PO (17:36)
[2018-03-11] MEDS: Ceftriaxone 1 GM/50 ML BAG IV (21:31)
[2018-03-11] MEDS: Zolpidem Tartrate 5 MG Tablet PO (21:38)
[2018-03-11 21:40] LABS: Bedside Glucose 111 mg/dL (70-110)
[2018-03-12] VITALS (7 sets, daily range): BP systolic 123–130; BP diastolic 70–74; PULSE 112–114; RESP 18; TEMP 36.4–36.6; O2SAT 85–100
[2018-03-12] MEDS: 0.9% NaCl Peripheral Flush Adult/Peds IV ×2 (00:07→06:53)
[2018-03-12] MEDS: Morphine 2 MG/ML Syringe 1 MG IV ×2 (00:07→06:52)
[2018-03-12 06:51] LABS: Bedside Glucose 86 mg/dL (70-110)
[2018-03-12] MEDS: Ferrous Sulfate 325 MG Tablet PO (08:53)
[2018-03-12] MEDS: Glycerin/Hypromellose/PEG400 15 ml Bottle 1 DRP EACH EYE (08:54)
[2018-03-12] MEDS: guaiFENesin 1,200 MG Tablet 1200 MG PO (08:55)
[2018-03-12] MEDS: Loratadine 10 MG Tablet PO (08:55)
[2018-03-12] MEDS: Polyethylene Glycol 3350 17 GM PACKET PO (08:55)
[2018-03-12] MEDS: Enoxaparin 40 MG/0.4 ML Syringe SC (08:55)
[2018-03-12] MEDS: Bumetanide 0.5 MG Tablet 1 MG PO (08:55)
[2018-03-12] MEDS: Pantoprazole Sodium 40 MG Tablet PO (08:56)
--- NOTE | 2018-03-12 10:09 | TREXTCAR_ITS ---
- Diet 03/08/18 22:28 Diet: 2 Gram Sodium/cardiac diet Fluic restriction to 1500mls daily - Routine Orders/Code Status O2 Liters per Minute: 2 O2 Frequency: Continuous Keep PO Greater than or Equal to (%): 94 - Encourage use of incentive spirometer Routine Lab Work: CBC - wthin 3 days, BMP - within 3 days Code Status: Full Code - Therapies Weight Bearing: Weight bearing as tolerated Physical Therapy: Eval and Treat Occupational Therapy: Eval and Treat - Allergies/Procedures Done in Hospital Allergies/Adverse Reactions: Allergies niacin Allergy (Verified 03/08/18 18:44) Swelling Hyrhcly-Pds-Scv Reductase Inhibitor Allergy (Verified 03/08/18 18:44) Swelling acetaminophen [From Percocet] Adverse Reaction (Verified 03/08/18 18:44) Upset Stomach oxycodone [From Percocet] Adverse Reaction (Verified 03/08/18 18:44) Upset Stomach Tetracyclines Adverse Reaction (Verified 03/08/18 18:44) Nausea/Vom/Diarrhea tramadol Adverse Reaction (Verified 03/08/18 18:44) CONFUSION Procedures: None - Type of Care/Length of Stay Estimated LOS: Convalescent Care Less Than 30 days Type of Care Needed: Skilled Rehab Potential: Good Prognosis: Good - Additional Orders/Day of Discharge Day of Discharge: 03/12/18 - Dietary and Speech Recommendations Dietitian Recommendations/Changes: Rec 1500 fluid restriciton/d if pitting edema 4+ does not resolve. As PO intake improves, recommend change to cardiac/low chol/low sodium diet. [facility] - Follow Up Care Primary Care Physician: Jared Mayorga MD [Primary Care Provider] - Please follow up with your Primary Care Physician in: within 1-2 weeks of discharge
--- NOTE | 2018-03-12 10:09 | PCM.DC.SUM ---
Discharge Date and Diagnosis - Problem List Patient Problems: Active and Suspected Problems (Last Reviewed 06/03/17 @ 13:43 by Elvi López) Shortness of breath (Acute) Acute on chronic diastolic heart failure (Acute) Date of Admission: 03/08/18 Date of Discharge: 03/12/18 - Primary Discharge Diagnosis Active and Suspected Problems (Last Reviewed 06/03/17 @ 13:43 by Elvi López) Community acquired pneumonia (Acute) Acute on chronic heart failure with preserved EF Hyponatremia (Acute), hypervolemic - Secondary Discharge Diagnosis Chronic Problems (Last Reviewed 06/03/17 @ 13:43 by Elvi López) Mixed hyperlipidemia (Chronic) Non-rheumatic aortic stenosis (Chronic) Secondary pulmonary arterial hypertension (Chronic) Stenosis of right carotid artery (Chronic) Abnormal electrocardiogram (Chronic) Syncope (Chronic) Anemia (Chronic) Hospital Course and Treatment Imaging Results: Clinical Impression(s) from Imaging Studies Chest X-Ray 03/08/18 19:35 IMPRESSION: Right lower lobe airspace opacity which is likely infectious in etiology. Electronically Signed: Regulo Harvey, at 20:11 EST Tel , Service support , Nephrology Operations: None Procedures: 2-D Echocardiogram Summary of Care Provided: 77 year old F with PMHx of hyperlipidemia, type 2 DM, hypertension, aortic stenosis who was admitted with worsening SOB and bilateral lower leg edema. Her management was as follows: 1. Acute on chronic heart failure with preserved EF, initially on IV Lasix BID, patient developed worsening hyper hyponatremia, nephrology consulted, switch patient to Bumex 1 mg p.o. twice daily. 2. Right CAP, suspected gram positive organisms, no signs of sepsis on admissions, managed on IV ceftriaxone and azithromycin, discharged on Augmentin and azithromycin to complete 1 week. Also had breathing treatment and use of incentive spirometer. 3. Asymptomatic bacteriuria, cultures grew E faecalis, pansensitive, patient is on antibiotics for pneumonia that should cover. 4. Hyponatremia, hypervolemic, will remained around 125, surgery was consulted, patient was switched to Bumex, patient will need to have BMP monitored 5. Valvular heart disease/pulmonary hypertension, stable 6. Mixed hyperlipidemia, on fish oil 7. Type 2 DM, HgbA1c is 5.8, BS are controlled, Lantus was on hold. Patient Problems: Active and Suspected Problems (Last Reviewed 06/03/17 @ 13:43 by Elvi López) Shortness of breath (Acute) Acute on chronic diastolic heart failure (Acute) Subjective: The day of discharge, patient was seen and examined, feels a little improved. Denied any chest pain no dizziness or shortness of breath. Telemetry shows elevated heart rate, sinus tachycardia. EKG shows normal sinus rhythm Objective: Physical exam: General: Alert, Oriented x3, Cooperative, No apparent distress, appears weak, on 2-3 L of oxygen HEENT: Atraumatic, PERRLA, EOMI, Normocephalic Oral: Moist Mucosa Neck: Supple, No JVD, Negative Carotid Bruits Lungs: Normal air movement, Diminished Cardiovascular: Regular rate, Regular Rhythm, Normal S1, Normal S2, No murmurs Abdomen: Bowel Sounds Present, Soft, Non Tender, Non-Distended, No Hepato-splenomegaly, Obese Extremities: Edema - pedal edema +2-3, JORDYN-wraps bilateral Skin: No rashes, No breakdown Musculoskeletal: No Tenderness to Palpation of Joints or Extremities Lymphatic: No Cervical, Supraclavicular, or Inguinal Adenopathy Neurological: Cranial nerves II-XII grossly intact, Neuro grossly intact Psych/Mental Status: Normal Affect, Appropriate - Physical Exam Vital Signs Temp Pulse Resp BP Pulse Ox 97.5 F L 114 H 18 130/70 H 100 03/12/18 08:51 03/12/18 08:51 03/12/18 08:51 03/12/18 08:51 03/12/18 08:51 Oxygen Flow Rate (L/min) 2 Oxygen Delivery Method Room Air Weight: 101.2 kg Body Mass Index (BMI) 40.8 Finger Stick Blood Glucose 230 Intake and Output for Last 24 Hours 03/10/18 03/11/18 03/12/18 23:59 23:59 23:59 Intake Total 1988 / 1988 440 / 440 700 / 700 Output Total 1250 / 1250 500 / 500 500 / 500 Balance 739 / 739 -60 / -60 200 / 200 Microbiology Past 72 Hours 03/09/18 08:00 Gram Stain - Final Sputum, Expectorated/Coughed Respiratory Culture - Final 03/08/18 19:50 Urine Culture - Final Urine Catheter - Burr Enterococcus faecalis 03/08/18 23:00 Respiratory Panel (PCR) - Final Mucosa - Nasopharyngeal Laboratory Tests Past 24 Hrs 03/12/18 09:56 Sodium Pending Potassium Pending Chloride Pending Carbon Dioxide Pending Anion Gap Pending BUN Pending Creatinine Pending Est GFR (MDRD) Af Amer Pending Est GFR (MDRD) Non-Af Pending BUN/Creatinine Ratio Pending Glucose Pending Calcium Pending POC Glucose 03/12/18 03/11/18 03/11/18 06:46 21:34 16:39 POC Glucose 86 111 H 108 03/11/18 11:44 POC Glucose 125 H Discharge Diet: Low fat/ Low Cholesterol, 8 Cup Fluid Restriciton, 2000 mg Sodium Diet Discharge Activity: Return to Normal Activity Home Medications: Medications to take at Discharge Ergocalciferol [Vitamin D] 50,000 unit PO TU 12/22/13 Flaxseed/Evening Prim/Bilberry [Retaine Flax Softgel] 1 ea PO DAILY 12/22/13 Polyethylene Glycol 3350 [Miralax] 17 gm PO DAILY 12/22/13 Omeprazole [Prilosec] 40 mg PO DAILY 04/12/15 Insulin Glargine [Lantus SoloStar Pen] 25 units SC QHS 12/02/16 Furosemide [Lasix] 20 mg PO PRN PRN 04/07/17 Ferrous Sulfate 325 mg PO BID 11/08/17 Fish Oil/Dha/Epa [Fish Oil 1,200 mg Fish Oil] 1 each PO DAILY 11/08/17 Mineral Oil/Petrolatum,White [Systane Nighttime Eye Ointment] 3.5 gm EACHEYE DAILY 11/08/17 Propylene Glycol/Peg 400 [Systane Gel Eye Drops] 10 ml EACH EYE DAILY 11/08/17 Fexofenadine HCl 180 mg PO DAILY 03/08/18 Meclizine HCl 12.5 mg PO TID PRN PRN 03/08/18 Acetaminophen [Tylenol Extra Strength] 1,000 mg PO Q8H 03/12/18 Albuterol Aerosols [Ventolin Aerosols] 2.5 mg INHALATION Q2H PRN PRN vial.neb. 03/12/18 Bisacodyl [Dulcolax] 10 mg RECTAL DAILY PRN PRN suppos. 03/12/18 Bumetanide [Bumex] 1 mg PO BIDLX 03/12/18 Docusate Sodium [Colace] 200 mg PO BID PRN PRN capsule 03/12/18 Enoxaparin [Lovenox] 40 mg SC DAILY 03/12/18 Glucerna Shake 120 ml PO TIDCM 03/12/18 Guaifenesin [Mucinex] 1,200 mg PO BID 03/12/18 Insulin Lispro [Humalog KwikPen] See Protocol SQ ACHS 03/12/18 Mag Hydrox/Al Hydrox/Simeth [Mylanta II] 30 ml PO Q6H PRN PRN udc 03/12/18 Oxycodone [Oxyir] 5 mg PO Q6H PRN PRN 2 Days #10 tablet 03/12/18 Following Prescrptions Were Given to Patient: Oxycodone [Oxyir] 5 mg PO Q6H PRN PRN 2 Days #10 tablet PRN Reason: Severe Pain (6-10/10) Primary Care Physician: Jared Mayorga MD [Primary Care Provider] - Please follow up with your Primary Care Physician in: within 1-2 weeks of discharge Disposition: [facility] facility Minutes spent on discharge:: 45 Patient Condition:: Stable Medical Necessity - Tobacco Use Smoking Status: Former smoker Tobacco Use: Non-smoker Meaningful Use Info Meaningful Use Diagnoses (Choose all that apply): CHF - CHF JORDYN/ARB ordered at discharge?: No Reason JORDYN/ARB not ordered?: Worsening renal dysfunctn Documented LVEF (%): 65 Code Visit Inpatient E&M: 17429 Disch Hosp
[2018-03-12 10:27] LABS: Anion Gap 12 (5-15); BUN 21 mg/dL (7-18); BUN/Creat Ratio 21.3 RATIO (10-20); Calcium,Total 8.3 mg/dL (8.5-10.1); Chloride 91 mmol/L (98-107); Creatinine, Serum 0.99 mg/dL (0.55-1.02); EST Glomerular Filtration Rate 58 mL/min (>60); Est Glom Filt Rate - Afr Amer 70 mL/min (>60); Estimated Creatinine Clearance 37.64 ml/min; Glucose 97 mg/dL (74-106); Potassium 3.6 mmol/L (3.5-5.1); Sodium Level 126 mmol/L (136-145)
--- NOTE | 2018-03-12 10:53 | NURSING ---
Attempted to call report to TCU. Was informed they are in the process of 3 discharges and they will call for report when ready.
[2018-03-12] MEDS: Glucerna Shake 120 ML LIQUID PO (11:40)
[2018-03-12 12:01] LABS: Bedside Glucose 101 mg/dL (70-110)
--- NOTE | 2018-03-12 12:31 | NURSING ---
Report called to [facility] on TCU. Ready for patient in TCU21.
--- OUTSIDE RECORDS SUMMARY | 2018-05-10 23:39 | XMS RPT_ITS ---
:1940 Author Organization OHIP Support Name Relationship Address Phone WATSON AARON Unavailable [address] + [place] [address] R Unavailable Unavailable Unavailable WATSON AARON Unavailable [address] + [place] [address] R Unavailable Unavailable Unavailable WATSON AARON Unavailable [address] + [place] [address] R Unavailable Unavailable Unavailable WATSON AARON Unavailable [address] + [place] [address] R Unavailable Unavailable Unavailable WATSON AARON Unavailable [address] + [place] [address] R Unavailable Unavailable Unavailable WATSON AARON Unavailable [address] + [place] [address] R Unavailable Unavailable Unavailable WATSON AARON Unavailable [address] + [place] [address] R Unavailable Unavailable Unavailable WATSON AARON Unavailable [address] + [place] [address] R Unavailable Unavailable Unavailable WATSON AARON Unavailable [address] + [place] [address] R Unavailable Unavailable Unavailable WATSON AARON Unavailable [address] + [place] [address] R Unavailable Unavailable Unavailable WATSON AARON Unavailable [address] + [place] [address] R Unavailable Unavailable Unavailable WATSON AARON Unavailable [address] + [place] [address] R Unavailable Unavailable Unavailable WATSON AARON Unavailable [address] + [place] [address] R Unavailable Unavailable Unavailable WATSON AARON Unavailable [address] + [place] [address] R Unavailable Unavailable Unavailable WATSON AARON Unavailable [address] + [place] [address] R Unavailable Unavailable Unavailable WATSON AARON Unavailable [address] + [place] [address] R Unavailable Unavailable Unavailable WATSON AARON Unavailable [address] + [place] [address] R Unavailable Unavailable Unavailable WATSON AARON Unavailable [address] + [place] [address] R Unavailable Unavailable Unavailable WATSON AARON Unavailable [address] + [place] [address] R Unavailable Unavailable Unavailable WATSON AARON Unavailable [address] + [place] [address] R Unavailable Unavailable Unavailable WATSON AARON Unavailable [address] + [place] [address] R Unavailable Unavailable Unavailable WATSON AARON Unavailable [address] + [place] [address] R Unavailable Unavailable Unavailable WATSON AARON Unavailable [address] + [place] [address] R Unavailable Unavailable Unavailable WATSON AARON Unavailable [address] + [place] [address] R Unavailable Unavailable Unavailable WATSON AARON Unavailable [address] + [place] [address] R Unavailable Unavailable Unavailable WATSON AARON Unavailable [address] + [place] [address] R Unavailable Unavailable Unavailable WATSON AARON Unavailable [address] + [place] [address] R Unavailable Unavailable Unavailable WATSON AARON Unavailable [address] + [place] [address] R Unavailable Unavailable Unavailable WATSON AARON Unavailable [address] + [place] [address] R Unavailable Unavailable Unavailable Care Team Providers Name Role Phone Jared Mayorga Primary Care Unavailable Jordan Seymour Admitting Unavailable Michelle Toribio Attending Unavailable Aarti Krause Consulting Unavailable [facility] Admitting Unavailable Lion, Jordan Attending Unavailable [place], Jared Primary Care Unavailable Lion, Jordan Consulting Unavailable Lion, Jordan Admitting Unavailable [place], [place] Attending Unavailable [facility], Jared Primary Care Unavailable [place], [place] Consulting Unavailable Lion, Jordan Admitting Unavailable [place], [place] Attending Unavailable [facility], Jared Primary Care Unavailable [place], [place] Consulting Unavailable [facility] [place], Jordan Admitting Unavailable [place], [place] Attending Unavailable [facility], Jared Primary Care Unavailable Bakhous, Aziz Consulting Unavailable [place], [place] Consulting Unavailable Lion, Jordan Admitting Unavailable [place], [place] Attending Unavailable [facility], Jared Primary Care Unavailable Bakhous, Aziz Consulting Unavailable [place], [place] Consulting Unavailable Alex Koroma Attending Unavailable [facility], Jared Primary Care Unavailable Alex Koroma Referring Unavailable Alex Koroma Attending Unavailable Alex Koroma Referring Unavailable [facility], Jared Primary Care Unavailable Alex Koroma Consulting Unavailable Alex Koroma Attending Unavailable [facility], Jared Referring Unavailable [facility], Jared Attending Unavailable [facility], Jared Primary Care Unavailable [facility], Jared Primary Care Unavailable Tereletsky, Jose Admitting Unavailable Skyler Aguilar Attending Unavailable Tereletsky, Jose Admitting Unavailable Jacklynky, Jose Attending Unavailable [facility], Jared Primary Care Unavailable Tereletsky, Jose Consulting Unavailable Tereletsky, Jose Admitting Unavailable Jeff Skyler Attending Unavailable [facility], Jared Primary Care Unavailable Jopperi, Skyler Consulting Unavailable Esau, Alireza Chi Admitting Unavailable Esau, Alireza Chi Attending Unavailable Esau, Alireza Chi Referring Unavailable [facility], Jared Primary Care Unavailable Tereletsky, Jose Admitting Unavailable Milind Aguilaric Attending Unavailable [facility], Jared Primary Care Unavailable Kelleyeri, Skyler Consulting Unavailable [place], Jared Attending Unavailable [facility], Jared Primary Care Unavailable James Vazquez Attending Unavailable Shaista Oseguera Attending Unavailable James Vazquez Attending Unavailable [facility], Jared Referring Unavailable [facility], Jared Primary Care Unavailable James Vazquez Attending Unavailable [facility], Jared Referring Unavailable [facility], Jared Primary Care Unavailable James Vazquez Attending Unavailable James Vazquez Referring Unavailable [facility], Jared Primary Care Unavailable James Vazquez Attending Unavailable James Vazquez Referring Unavailable [facility], Jared Primary Care Unavailable Lenny Santiago Attending Unavailable [facility], Jared Attending Unavailable [place], Jared Primary Care Unavailable Mukesh, Jared Attending Unavailable Mukesh, Jared Primary Care Unavailable Mukesh, Jared Attending Unavailable [place], Jared Primary Care Unavailable James Vazquez Attending Unavailable [place], Jared Primary Care Unavailable Skyler Gregorio Attending Unavailable [place], Jared Attending Unavailable [place], Jared Primary Care Unavailable PROBLEMS PROBLEMS DATE TYPE CONDITION / CODE ATTENDING STATUS SOURCE 03/12/2018 Unknown J18.9 - Pneumonia, [place], [place] Active [place] unspecified organism Community / J18.9(ICD-10) Hospital Repository 11/16/2017 Unknown E87.1 - Mukesh, Jared Active [facility] Hypo-osmolality and Community hyponatremia / Hospital E87.1(ICD-10) Repository 08/05/2017 Unknown D64.9 - Anemia, [place], Jared Active [facility] unspecified / Community D64.9(ICD-10) Hospital Repository 08/05/2017 Unknown R77.1 - Abnormality Jared Mayorga Active [facility] of globulin / Community R77.1(ICD-10) Hospital Repository 08/05/2017 Unknown D69.6 - Mukesh, Jared Active [facility] Thrombocytopenia, Community unspecified / Hospital D69.6(ICD-10) Repository 08/02/2017 Unknown D50.9 - Iron Mukesh, Jared Active [place] deficiency anemia, Community unspecified / Hospital D50.9(ICD-10) Repository 08/02/2017 Unknown D68.4 - Acquired Muk[place], Jared Active [place] coagulation factor Community deficiency / Hospital D68.4(ICD-10) Repository 08/02/2017 Unknown K76.89 - Other Jared Mayorga Active [facility] specified diseases Community of liver / Hospital K76.89(ICD-10) Repository 08/19/2017 Unknown R55 - Syncope and James Vazquez Active [place] collapse / Community R55(ICD-10) Hospital Repository 06/03/2017 Unknown I35.0 - Nonrheumatic James Vazquez Active [place] aortic (valve) Community stenosis / Hospital I35.0(ICD-10) Repository 06/03/2017 Unknown E78.2 - Mixed James Vazquez Active [place] hyperlipidemia / Community E78.2(ICD-10) Hospital Repository 04/06/2017 Unknown R94.6 - Abnormal MukeshJared olmedo Active [place] results of thyroid Community function studies / Hospital R94.6(ICD-10) Repository PROCEDURES PROCEDURES No Procedure Records FoundRESULTS RESULTS BEDSIDE GLUCOSE Collected: 03/13/2018 Status: F Source: [place] 6:49 AM [facility] [place] CODE TESTS RESULT OUT OF RANGE REFERENCE UNITS LAB L501.080 70-110 mg/dL Normal BEDSIDE GLU 91 Result Comment: MANAGEMENT OF PATIENT CARE PER NURSING PROTOCOL Performed By: #### L501.080 #### [facility] Point of Care [address] [place], [place] [address] CBC W/DIFF, AUTOMATED Collected: 03/13/2018 Status: F Source: [place] 6:30 AM [facility] [place] TYPE CODE TESTS RESULT OUT OF RANGE REFERENCE UNITS LAB L100.1000 4.4-11.0 K/mm3 Normal WBC 8.4 LAB L100.1200 4.2-5.4 M/mm3 Low RBC 4.16 LAB L100.1300 12.0-15.0 g/dl Normal HGB 13.1 LAB L100.1400 37-47 % Normal HCT 38.0 LAB L100.1500 81-99 fL Normal MCV 91.3 LAB L100.1600 27.0-32.0 pg Normal MCH 31.5 LAB L100.1700 32-36 g/gl Normal MCHC 34.5 LAB L100.1810 11.6-14.6 % High RDW CV 17.5 LAB L100.1820 35.1-43.9 fl High RDW SD 57.5 LAB L100.1900 150-450 K/mm3 Low PLT 117 LAB L100.2000 6.2-12.0 fl Normal MPV 10.1 LAB L100.2100 47-70 % High NEUT% 85.8 LAB L100.2200 19-41 % Low LY% 6.7 LAB L100.2300 0-10 % Normal MONO% 7.2 LAB L100.2400 0-5 % Normal EO% 0.1 LAB L100.2500 0-1 % Normal BASO% 0.1 LAB L100.2550 0.0-0.9 % Normal IM GRAN % 0.100 Result Comment: IG% - Immature Granulocytes (promyelocytes, myelocytes and metamyelocytes) > 1% indicates that a LEFT SHIFT is Present. LAB L100.2620 2.0-7.7 X10 3/uL Normal Absolute Neut 7.2 LAB L100.2720 0.83-4.51 X10 3/ul Low Absolute Lymph 0.56 Performed By: #### L100.0100 #### [facility] Laboratory [address] [place], [place], [address] BASIC METABOLIC Collected: 03/13/2018 Status: F Source: [place] PROFILE (BMP) 6:30 AM [facility] [place] TYPE CODE TESTS RESULT OUT OF RANGE REFERENCE UNITS LAB L501.0100 74-106 mg/dL Normal GLU 92 Result Comment: Please note revised GLUCOSE reference range effective 2017. LAB L501.1000 7-18 mg/dL High BUN 22 LAB L501.1100 0.55-1.02 mg/dL Normal CREAT,SERUM 0.99 Result Comment: The validity of the calculated GFR AND GFRAA in patients over 70 years has not been determined. Clinical correlation is essential. LAB L501.1110 >60 mL/min Low EST GFR 58 Result Comment: Non- GFR Calc LAB L501.1115 >60 mL/min Normal EST GFR - AA 70 Result Comment: GFR Calc LAB L501.1255 ml/min Normal Estimated CRCL 37.64 LAB L501.1300 10-20 RATIO High BUN/CRE 22.2 LAB L501.2200 8.5-10 mg/dL Low .1 CA 8.1 LAB L501.5300 136-14 mmol/L Low 5 NA 124 LAB L501.5600 3.5-5. mmol/L Normal 1 K 3.8 LAB L501.5900 98-107 mmol/L Low CL 90 LAB L501.6100 21.0-3 mmol/L Normal 2.0 CO2 22.0 LAB L501.6200 5-15 Normal GAP 12 Performed By: #### L500.2500 #### [facility] [address] [place] [place], [address] BEDSIDE GLUCOSE Collected: 03/13/2018 Status: F Source: [place] 3:44 AM [facility] [place] TYPE CODE TESTS RESULT OUT OF RANGE REFERENCE UNITS LAB L501.080 70-110 mg/dL Normal BEDSIDE GLU 83 Result Comment: MANAGEMENT OF PATIENT CARE PER NURSING PROTOCOL Performed By: #### L501.080 #### [facility] Laboratory Point of Care [address] [place] [address] BEDSIDE GLUCOSE Collected: 03/12/2018 Status: F Source: [place] 9:13 PM [facility] [place] TYPE CODE TESTS RESULT OUT OF RANGE REFERENCE UNITS LAB L501.080 70-110 mg/dL Normal BEDSIDE GLU 98 Result Comment: MANAGEMENT OF PATIENT CARE PER NURSING PROTOCOL Performed By: #### L501.080 #### [facility] Point of Care [address] [place] [address] ABDOMEN SINGLE VIEW Observed: 03/12/2018 Status: F Source: [place] (PORTABLE) 6:53 PM [facility] [place] [facility] Imaging [place] [address] Abdomen Single View (Portable) MR#: [id number] Acct: [id number] Name: CLARICE HARDIN Rep #: [id number] : 1940 F 77 From: Georges Bowden DO PCP: Jared Mayorga MD Status: ADM IN Study: Abdomen Single View (Portable) Date of Exam: 03/12/18 Exam# [id number] Ordering Dr: Alireza Cifuentes MD STUDY: X-RAY - ABDOMEN/PELVIS REASON FOR EXAM: Female, 77 years old. Abdominal pain. TECHNIQUE: Two AP supine views of the abdomen and pelvis. COMPARISON: None. FINDINGS: Right lower lung airspace disease and layering effusion is present. There is an unremarkable bowel gas pattern. There is no demonstrated free abdominal air. The visualized liver, spleen and kidneys are grossly normal in size and morphology. Normal soft tissue structures. Degenerative changes bilateral hips are present. RAD/Abdomen Single View (Portable) IMPRESSION: No evidence of acute abdominal process. Electronically Signed: Georges Bowden DO at 9:13 EST , Service support , CC: Jared Mayorga MD; Alireza Cifuentes MD Medical Officer: Signed BEDSIDE GLUCOSE Collected: 03/12/2018 Status: F Source: [place] 4:48 PM [facility] [place] TYPE CODE TESTS RESULT OUT OF RANGE REFERENCE UNITS LAB L501.080 70-110 mg/dL Normal BEDSIDE GLU 90 Result Comment: MANAGEMENT OF PATIENT CARE PER NURSING PROTOCOL Performed By: #### L501.080 #### [facility] Laboratory Point of Care [address] [place] [address] BEDSIDE GLUCOSE Collected: 03/12/2018 Status: F Source: [place] 11:34 AM [facility] [place] TYPE CODE TESTS RESULT OUT OF RANGE REFERENCE UNITS LAB L501.080 70-110 mg/dL Normal BEDSIDE GLU 101 Result Comment: MANAGEMENT OF PATIENT CARE PER NURSING PROTOCOL Performed By: #### L501.080 #### [facility] Laboratory Point of Care [address] [place], [place] [address] [address] TRANSFER TO [facility] Observed: 03/12/2018 Status: F Source: [place] CARE 10:09 AM [facility] [place] [facility] Medical Records Department [address] [place] [address] Transfer to [facility] Care MR#: [id number] Acct: [id number] Name: CLARICE HARDIN Rep #: [id number] : 1940 77 From: Michelle Toribio MD PCP: Jared Mayorga MD Status: ADM IN CLARICE AHRDIN (Patient) (Health Ins. Claim No.) (Day of Discharge to Facility) Certification of patient admission REQUIRED AT TIME OF ADMISSION. I CERTIFY THAT POST-HOSPITAL ECF SERVICES ARE REQUIRED TO BE GIVEN ON AN IN-PATIENT BASIS BECAUSE OF THE ABOVE NAMED PATIENT'S NEED FOR PENITENTIARY CARE ON A CONTINUING BASIS FOR THE CONDITION(S) FOR WHICH HE/SHE WAS RECEIVING IN-PATIENT HOSPITAL SERVICES PRIOR TO HIS/HER TRANSFER TO THE F. 03/12/18 1009 <Electronically signed by Michelle Toribio MD> Date Michelle Toribio MD - Diet 03/08/18 22:28 Diet: 2 Gram Sodium/cardiac diet Fluic restriction to 1500mls daily - Routine Orders/Code Status O2 Liters per Minute: 2 O2 Frequency: Continuous Keep PO Greater than or Equal to (%): 94 - Encourage use of incentive spirometer Routine Lab Work: CBC - wthin 3 days, BMP - within 3 days Code Status: Full Code - Therapies Weight Bearing: Weight bearing as tolerated Physical Therapy: Eval and Treat Occupational Therapy: Eval and Treat - Allergies/Procedures Done in Hospital Allergies/Adverse Reactions: Allergies niacin Allergy (Verified 03/08/18 18:44) Swelling Verlzzi-Hjl-Qsc Reductase Inhibitor Allergy (Verified 03/08/18 18:44) Swelling acetaminophen [From Percocet] Adverse Reaction (Verified 03/08/18 18:44) Upset Stomach oxycodone [From Percocet] Adverse Reaction (Verified 03/08/18 18:44) Upset Stomach Tetracyclines Adverse Reaction (Verified 03/08/18 18:44) Nausea/Vom/Diarrhea tramadol Adverse Reaction (Verified 03/08/18 18:44) CONFUSION Procedures: None - Type of Care/Length of Stay Estimated LOS: Convalescent Care Less Than 30 days Type of Care Needed: Skilled Rehab Potential: Good Prognosis: Good - Additional Orders/Day of Discharge Day of Discharge: 03/12/18 - Dietary and Speech Recommendations Dietitian Recommendations/Changes: Rec 1500 fluid restriciton/d if pitting edema 4+ does not resolve. As PO intake improves, recommend change to cardiac/low chol/low sodium diet. Continue Ensure 4x/d at [facility]. - Follow Up Care Primary Care Physician: Jared Mayorga MD [Primary Care Provider] - Please follow up with your Primary Care Physician in: within 1-2 weeks of discharge 03/12/18 1009 <Electronically signed by Michelle Toribio MD> Date Michelle Toribio MD CC: Aarti Krause MD; Jared Mayorga MD Signed BASIC METABOLIC Collected: 03/12/2018 Status: F Source: [place] PROFILE (BMP) 9:56 AM [facility] [place] TYPE CODE TESTS RESULT OUT OF RANGE REFERENCE UNITS LAB L501.0100 74-106 mg/dL Normal GLU 97 Result Comment: Please note revised GLUCOSE reference range effective 2017. LAB L501.1000 7-18 mg/dL High BUN 21 LAB L501.1100 0.55-1.02 mg/dL Normal CREAT,SERUM 0.99 Result Comment: The validity of the calculated GFR AND GFRAA in patients over 70 years has not been determined. Clinical correlation is essential. LAB L501.1110 >60 mL/min Low EST GFR 58 Result Comment: Non- GFR Calc LAB L501.1115 >60 mL/min Normal EST GFR - AA 70 Result Comment: GFR Calc LAB L501.1255 ml/min Normal Estimated CRCL 37.64 LAB L501.1300 10-20 RATIO High BUN/CRE 21.3 LAB L501.2200 8.5-10 mg/dL Low .1 CA 8.3 LAB L501.5300 136-14 mmol/L Low 5 NA 126 LAB L501.5600 3.5-5. mmol/L Normal 1 K 3.6 LAB L501.5900 98-107 mmol/L Low CL 91 LAB L501.6100 21.0-3 mmol/L Normal 2.0 CO2 23.0 LAB L501.6200 5-15 Normal GAP 12 Performed By: #### L500.2500 #### [facility] [address] [place], [place], [address] BEDSIDE GLUCOSE Collected: 03/12/2018 Status: F Source: [place] 6:46 AM [facility] [place] TYPE CODE TESTS RESULT OUT OF RANGE REFERENCE UNITS LAB L501.080 70-110 mg/dL Normal BEDSIDE GLU 86 Result Comment: MANAGEMENT OF PATIENT CARE PER NURSING PROTOCOL Performed By: #### L501.080 #### [facility] Laboratory Point of Care [address] [place] [address] BEDSIDE GLUCOSE Collected: 03/11/2018 Status: F Source: [place] 9:34 PM [facility] [place] TYPE CODE TESTS RESULT OUT OF REFERENCE UNITS RANGE LAB L501.080 70-110 mg/dL High BEDSIDE GLU 111 Result Comment: MANAGEMENT OF PATIENT CARE PER NURSING PROTOCOL Performed By: #### L501.080 #### [facility] Laboratory Point of Care [address] [place] [address] BEDSIDE GLUCOSE Collected: 03/11/2018 Status: F Source: [place] 4:39 PM [facility] [place] TYPE CODE TESTS RESULT OUT OF RANGE REFERENCE UNITS LAB L501.080 70-110 mg/dL Normal BEDSIDE GLU 108 Result Comment: MANAGEMENT OF PATIENT CARE PER NURSING PROTOCOL Performed By: #### L501.080 #### [facility] Laboratory Point of Care [address] [place] [address] CONSULTATION Observed: 03/11/2018 Status: F Source: [place] 12:41 PM [facility] [place] [facility] Medical Records Department [address] [place] [address] Consultation 03/11/18 1235 MR#: [id number] Acct: [id number] Name: CLARICE HARDIN Rep #: [id number] : 1940 77 From: Aarti Krause MD PCP: Jared Mayorga MD Status: ADM IN Y Location: [place] [address] Problem List (1) Hyponatremia Status: Acute Consultation - Renal PCP/ Referring MD: Requesting physician: [] Primary care physician: Jared Mayorga MD - History of Present Illness History of Present Illness: The patient is a 77 year old F past medical history of pulmonary hypertension aortic stenosis, syncopal episode, carotid artery stenosis. Patient presented with progressive shortness of breath for 1 week with increased leg edema. Also patient has been complaining of productive cough for 3 weeks. Chest x-ray shows moderate right pleural effusion and right-sided pneumonia. Patient was admitted for CHF exacerbation and pneumonia. Renal team was consulted for hyponatremia management. Patient presented with sodium 128 on 09/15/2024 and remained stable. Patient also had acute kidney injury. Creatinine peaked at 1.14. Lasix dose was decreased from 40 mg twice a day to 20 mg twice a day. Fluid balance has been positive,. Patient denies any NSAIDs used . Patient was not on hydrochlorothiazide at home . She was on Lasix . Patient was not on SSRI or a medication will cause SIADH . Review of system : 12 system review is negative except for leg edema and cough and some shortness of breath [] - Allergies Allergies: Allergies niacin Allergy (Verified 03/08/18 18:44) Swelling Iakxptt-Lkq-Gtu Reductase Inhibitor Allergy (Verified 03/08/18 18:44) Swelling acetaminophen [From Percocet] Adverse Reaction (Verified 03/08/18 18:44) Upset Stomach oxycodone [From Percocet] Adverse Reaction (Verified 03/08/18 18:44) Upset Stomach Tetracyclines Adverse Reaction (Verified 03/08/18 18:44) Nausea/Vom/Diarrhea tramadol Adverse Reaction (Verified 03/08/18 18:44) CONFUSION - Current Medications Current Medications: Current Medications Acetaminophen (Tylenol) 650 mg PO Q4H PRN PRN PRN Reason: PAIN Last Admin: 03/09/18 22:19 Dose: 650 mg Al Hydroxide/Mg Hydroxide (Mylanta Ii) 30 ml PO Q6H PRN PRN PRN Reason: Gastric Burning Albuterol Sulfate (Ventolin Aerosols) 2.5 mg INHALATION Q2H PRN PRN PRN Reason: SHORTNESS OF BREATH Last Admin: 03/11/18 01:24 Dose: 2.5 mg Bisacodyl (Dulcolax) 10 mg RECTAL DAILY PRN PRN PRN Reason: Constipation Bumetanide (Bumex) 1 mg PO BID [facility] Dextrose (D50w Syringe) 0 gm IV X1 PRN; Protocol PRN Reason: Hypoglycemia Docusate Sodium (Colace) 200 mg PO BID PRN PRN PRN Reason: Constipation Enoxaparin Sodium (Lovenox) 40 mg SC DAILY [facility] Last Admin: 03/11/18 08:14 Dose: 40 mg Ergocalciferol (Vitamin D) 50,000 unit PO [facility] [place] Ferrous Sulfate (Ferrous Sulfate) 325 mg PO BIDCOX BRANSON Last Admin: 03/11/18 08:15 Dose: 325 mg Glucagon () 1 mg IM .X1 PRN PRN Reason: Hypoglycemia Guaifenesin (Mucinex) 1,200 mg PO BID [facility] Last Admin: 03/11/18 08:15 Dose: 1,200 mg Ceftriaxone Sodium (Rocephin) 1 gm in 50 mls @ 100 mls/hr IV Q24H [facility]1983 Last Admin: 03/10/18 22:27 Dose: 100 mls/hr Insulin Human Lispro (Humalog Kwikpen (Bkc)) 0 unit SQ ACHS [facility], [facility]1983; Protocol Last Admin: 03/11/18 11:46 Dose: Not Given Loratadine (Claritin) 10 mg PO DAILY [facility] Last Admin: 03/11/18 08:15 Dose: 10 mg Meclizine HCl (Antivert) 12.5 mg PO TID PRN PRN Reason: .DIZZINESS Morphine Sulfate () 1 mg IV Q4H PRN PRN PRN Reason: severe pain/resp distress Nutritional Formula (Lactose Free) (Ensure Enlive) 120 ml PO 4X/DAY [facility] Last Admin: 03/11/18 08:16 Dose: 120 ml Ondansetron HCl (Zofran) 4 mg IV Q8H PRN PRN PRN Reason: Nausea Pantoprazole Sodium (Protonix) 40 mg PO DAILY [facility] Last Admin: 03/11/18 08:15 Dose: 40 mg Polyethylene Glycol (Miralax) 17 gm PO DAILY [facility] Last Admin: 03/11/18 08:14 Dose: 17 gm Sodium Chloride () 5 - 15 ml IV UD PRN PRN Reason: SALINE FLUSH Last Admin: 03/11/18 08:16 Dose: 10 ml Zolpidem Tartrate (Ambien (Generic)) 5 mg PO QHS PRN PRN PRN Reason: INSOMNIA Last Admin: 03/10/18 21:18 Dose: 5 mg - Past Medical History Past Medical History (Chronic Problems): Chronic Problems (Last Reviewed 06/03/17 @ 13:43 by Elvi López) Mixed hyperlipidemia (Chronic) Non-rheumatic aortic stenosis (Chronic) Secondary pulmonary arterial hypertension (Chronic) Stenosis of right carotid artery (Chronic) Abnormal electrocardiogram (Chronic) Syncope (Chronic) Anemia (Chronic) - Past Surgical History Surgical History: appendectomy, cholecystectomy, - - Hernia repair 2 - Social History Smoking Status: Former smoker - Family History Maternal Family History: Family History (Last Reviewed 06/03/17 @ 13:44 by Elvi López) Mother Diabetes History Items: Diabetes Paternal Family History: Family History (Last Reviewed 06/03/17 @ 13:44 by Elvi López) Mother Diabetes History Items: Unknown Patient Problems: Active and Suspected Problems (Last Reviewed 06/03/17 @ 13:43 by Elvi López) Community acquired pneumonia (Acute) CHF (Acute) Hyponatremia (Acute) - Physical Exam General: Alert, Oriented x3 HEENT: Atraumatic Oral: Moist Mucosa Neck: Supple, No JVD Lungs: - - Right lung field crackles and decreased breath sounds over the right lower lobe Abdomen: Bowel Sounds Present, Soft, Non Tender Extremities: No clubbing, No cyanosis, Edema - +3 edema of lower extremity Skin: No rashes Musculoskeletal: No Tenderness to Palpation of Joints or Extremities Lymphatic: No Cervical, Supraclavicular, or Inguinal Adenopathy Neurological: Cranial nerves II-XII grossly intact, Neuro grossly intact Psych/Mental Status: Normal Affect Vital Signs Temp Pulse Resp BP Pulse Ox 97.3 F L 114 H 19 H 113/51 L 97 03/11/18 08:23 03/11/18 08:23 03/11/18 08:23 03/11/18 08:23 03/11/18 08:23 Oxygen Flow Rate (L/min) 2 Oxygen Delivery Method Nasal Cannula Weight: 101.2 kg Body Mass Index (BMI) 40.8 Finger Stick Blood Glucose 230 Intake and Output for Last 24 Hours Intake Total 1151 / 1151 1988 / 1988 240 / 240 Output Total 1050 / 1050 1250 / 1250 500 / 500 Balance 101 / 101 739 / 739 -260 / -260 Microbiology Past 72 Hours 03/09/18 08:00 Gram Stain - Final Laboratory Tests Past 24 Hrs Sodium 125 L Potassium 3.5 Chloride 91 L Carbon Dioxide 24.0 Anion Gap 10 POC Glucose POC Glucose 125 H 115 H 122 H POC Glucose 109 108 Assessment/Plan All Active Problems (Last Reviewed 06/03/17 @ 13:43 by Elvi López) Community acquired pneumonia (Acute) CHF (Acute) Hyponatremia (Acute) Epigastric abdominal pain (Resolved) Gastritis (Resolved) 1-hyponatremia with hypervolemia related to CHF. Patient still positive fluid balance. I switch diuretics from Lasix to Bumex 1 mg twice a day continue fluid restriction. 800 cc/day No need for 3% sodium chloride. Check sodium level in a.m.. 2-acute kidney injury. Most probably related to CHF and cardiorenal syndrome. Better with diuresis. I will switch diuretics to Bumex as above. Check kidney function in the morning. Thank you for the consult. Renal team will continue to follow 03/11/18 1241 <Electronically signed by Aarti Krause MD> Date Aarti Krause MD Cosigner Signature (if applicable): Date CC: Aarti Krause MD; Jared Mayorga MD Signed BEDSIDE GLUCOSE Collected: 03/11/2018 Status: F Source: [place] 11:44 AM [facility] [place] TYPE CODE TESTS RESULT OUT OF REFERENCE UNITS RANGE LAB L501.080 70-110 mg/dL High BEDSIDE GLU 125 Result Comment: MANAGEMENT OF PATIENT CARE PER NURSING PROTOCOL Performed By: #### L501.080 #### [facility] Laboratory Point of Care [address] [place] [address] BEDSIDE GLUCOSE Collected: 03/11/2018 Status: F Source: [place] 6:43 AM [facility] [place] TYPE CODE TESTS RESULT OUT OF REFERENCE UNITS RANGE LAB L501.080 70-110 mg/dL High BEDSIDE GLU 115 Result Comment: MANAGEMENT OF PATIENT CARE PER NURSING PROTOCOL Performed By: #### L501.080 #### [facility] Laboratory Point of Care [address] [facility] [address] BASIC METABOLIC Collected: 03/11/2018 Status: F Source: [place] PROFILE (BMP) 5:15 AM [facility] [place] TYPE CODE TESTS RESULT OUT OF RANGE REFERENCE UNITS LAB L501.0100 74-106 mg/dL High GLU 117 Result Comment: Fasting Glucose result from 100 to 125 mg/dL suggests IMPAIRED HOMEOSTASIS per A.D.A. criteria. Please note revised GLUCOSE reference range effective 2017. LAB L501.1000 7-18 mg/dL High BUN 20 LAB L501.1100 0.55-1.02 mg/dL High CREAT,SERUM 1.07 Result Comment: The validity of the calculated GFR AND GFRAA in patients over 70 years has not been determined. Clinical correlation is essential. LAB L501.1110 >60 mL/min Low EST GFR 53 Result Comment: Non- GFR Calc LAB L501.1115 >60 mL/min Normal EST GFR - AA 64 Result Comment: GFR Calc LAB L501.1255 ml/min Normal Estimated CRCL 34.82 LAB L501.1300 10-20 RATIO Normal BUN/CRE 18.7 LAB L501.2200 8.5-10 mg/dL Low .1 CA 7.6 LAB L501.5300 136-14 mmol/L Low 5 NA 125 LAB L501.5600 3.5-5. mmol/L Normal 1 K 3.5 LAB L501.5900 98-107 mmol/L Low CL 91 LAB L501.6100 21.0-3 mmol/L Normal 2.0 CO2 24.0 LAB L501.6200 5-15 Normal GAP 10 Performed By: #### L500.2500 #### [facility] [address] [place], [address] BEDSIDE GLUCOSE Collected: 03/11/2018 Status: F Source: [place] 4:00 AM [facility] [place] TYPE CODE TESTS RESULT OUT OF REFERENCE UNITS RANGE LAB L501.080 70-110 mg/dL High BEDSIDE GLU 122 Result Comment: MANAGEMENT OF PATIENT CARE PER NURSING PROTOCOL Performed By: #### L501.080 #### [facility] Laboratory Point of Care [address] [place] [address] BEDSIDE GLUCOSE Collected: 03/10/2018 Status: F Source: [place] 9:08 PM [facility] [place] TYPE CODE TESTS RESULT OUT OF RANGE REFERENCE UNITS LAB L501.080 70-110 mg/dL Normal BEDSIDE GLU 109 Result Comment: MANAGEMENT OF PATIENT CARE PER NURSING PROTOCOL Performed By: #### L501.080 #### [facility] Laboratory Point of Care [address] [place] [address] BEDSIDE GLUCOSE Collected: 03/10/2018 Status: F Source: [place] 4:10 PM [facility] [place] TYPE CODE TESTS RESULT OUT OF RANGE REFERENCE UNITS LAB L501.080 70-110 mg/dL Normal BEDSIDE GLU 108 Result Comment: MANAGEMENT OF PATIENT CARE PER NURSING PROTOCOL Performed By: #### L501.080 #### [facility] Laboratory Point of Care [address] [place], [place] [address] BASIC METABOLIC Collected: 03/10/2018 Status: F Source: [place] PROFILE (BMP) 11:50 AM [facility] [place] TYPE CODE TESTS RESULT OUT OF RANGE REFERENCE UNITS LAB L501.0100 74-106 mg/dL High GLU 135 Result Comment: Fasting Glucose result greater than or equal to 126 mg/dL suggests DIABETES MELLITUS per A.D.A. criteria. Please note revised GLUCOSE reference range effective 2017. LAB L501.1000 7-18 mg/dL High BUN 19 LAB L501.1100 0.55-1.02 mg/dL High CREAT,SERUM 1.14 Result Comment: The validity of the calculated GFR AND GFRAA in patients over 70 years has not been determined. Clinical correlation is essential. LAB L501.1110 >60 mL/min Low EST GFR 49 Result Comment: Non- GFR Calc LAB L501.1115 >60 mL/min Low EST GFR - AA 59 Result Comment: GFR Calc LAB L501.1255 ml/min Normal Estimated CRCL 32.69 LAB L501.1300 10-20 RATIO Normal BUN/CRE 16.7 LAB L501.2200 8.5-10 mg/dL Low .1 CA 7.8 LAB L501.5300 136-14 mmol/L Low 5 NA 125 LAB L501.5600 3.5-5. mmol/L Normal 1 K 3.5 LAB L501.5900 98-107 mmol/L Low CL 92 LAB L501.6100 21.0-3 mmol/L Normal 2.0 CO2 23.0 LAB L501.6200 5-15 Normal GAP 10 Performed By: #### L500.2500 #### [facility] [address] [place], [place], [address] BEDSIDE GLUCOSE Collected: 03/10/2018 Status: F Source: [place] 11:21 AM [facility] [place] TYPE CODE TESTS RESULT OUT OF REFERENCE UNITS RANGE LAB L501.080 70-110 mg/dL High BEDSIDE GLU 130 Result Comment: MANAGEMENT OF PATIENT CARE PER NURSING PROTOCOL Performed By: #### L501.080 #### [facility] Point of Care [address] [place] [address] BEDSIDE GLUCOSE Collected: 03/10/2018 Status: F Source: [place] 6:39 AM [facility] [place] TYPE CODE TESTS RESULT OUT OF RANGE REFERENCE UNITS LAB L501.080 70-110 mg/dL Normal BEDSIDE GLU 92 Result Comment: MANAGEMENT OF PATIENT CARE PER NURSING PROTOCOL Performed By: #### L501.080 #### [facility] Point of Care [address] [place] [address] BEDSIDE GLUCOSE Collected: 03/09/2018 Status: F Source: [place] 8:57 PM [facility] [place] TYPE CODE TESTS RESULT OUT OF REFERENCE UNITS RANGE LAB L501.080 70-110 mg/dL High BEDSIDE GLU 135 Result Comment: MANAGEMENT OF PATIENT CARE PER NURSING PROTOCOL Performed By: #### L501.080 #### [facility] Point of Care [address] [place] [address] VENOUS DUPLEX LOWER Observed: 03/09/2018 Status: F Source: [place] EXTREMITY 7:12 PM [facility] [place] [facility] Cardiovascular Services [address] [place] [address] Venous Duplex US - Joshua Extrem 03/09/18 1054 MR#: [id number] Acct: [id number] Name: CLARICE HARDIN Rep #: [id number] : 1940 77 From: Lenny Santiago MD Attending Dr: Michelle Toribio MD Status: ADM IN Ordering Dr: Michelle Toribio MD Date: 03/09/18 Location: PCU Sex: F C Admitted: 03/08/18 Reason For Study: LE Swelling RIGHT LEFT CFV is compressible, spontaneous, competent CFV is compressible, spontaneous, competent, and demonstrates pulsatile venous flow. and demonstrates pulsatile venous flow. FV is compressible, spontaneous, competent FV is compressible, spontaneous, competent and demonstrates pulsatile venous flow. and demonstrates pulsatile venous flow. POP V is compressible, spontaneous, competent POP V is compressible, spontaneous, competent and demonstrates pulsatile venous flow. and demonstrates pulsatile venous flow. T/P Trunk is compressible. T/P Trunk is compressible. PTV is compressible. PTV is compressible. RT PerV is compressible. LT PerV is compressible. GSV is normal. GSV is normal. Procedure Exam performed in department. A preliminary report was called and/or faxed to [facility]. Interpretation Summary No evidence for acute deep venous thrombosis bilateral lower extremities with patent and compressible bilateral great saphenous veins. Pulsitile venous flow consistent with proximal venous hypertension--clinical correlation would be appropriate. Ordering Physician: Michelle Toribio Referring Physician: Jared Mayorga Performed By: Usman [facility], Jeniffer and Student 03/09/181910 Date Lenny Santiago MD CC: Michelle Toribio MD; Jared Mayorga MD Date Dictated: 03/09/18 1054 Date Transcribed: 03/09/181910 Medical Officer: Signed BEDSIDE GLUCOSE Collected: 03/09/2018 Status: F Source: [place] 4:43 PM [facility] [place] TYPE CODE TESTS RESULT OUT OF REFERENCE UNITS RANGE LAB L501.080 70-110 mg/dL High BEDSIDE GLU 127 Result Comment: MANAGEMENT OF PATIENT CARE PER NURSING PROTOCOL Performed By: #### L501.080 #### [facility] Point of Care [address] [place] [address] BEDSIDE GLUCOSE Collected: 03/09/2018 Status: F Source: [place] 11:21 AM [facility] [place] TYPE CODE TESTS RESULT OUT OF REFERENCE UNITS RANGE LAB L501.080 70-110 mg/dL High BEDSIDE GLU 126 Result Comment: MANAGEMENT OF PATIENT CARE PER NURSING PROTOCOL Performed By: #### L501.080 #### [facility] Laboratory Point of Care [address] [facility] [place] [address] Observed: 03/09/2018 Status: F Source: PHYLLIS CULTURE, SPUTUM 8:00 AM [facility] [place] Order Date: 03/09/18 Has pt arrived? Y Gram Stain Acceptable Specimen? Yes (<25 Epithelial cells per/lpf) Gram Stain 1+ Epithelial cells 1+ White Blood Cells 3+ Gram positive cocci in chains and clusters 1+ Gram positive rods 1+ Gram negative rods Resp. Culture Mixed normal respiratory michaelle. No Haemophilus, Streptococcus pneumoniae, beta-hemolytic Streptococcus or Staphylococcus aureus isolated. Performed By: #### M100.0800 #### [facility] [address] [place], [address] BEDSIDE GLUCOSE Collected: 03/09/2018 Status: F Source: [place] 6:53 AM [facility] [place] TYPE CODE TESTS RESULT OUT OF RANGE REFERENCE UNITS LAB L501.080 70-110 mg/dL Normal BEDSIDE GLU 89 Result Comment: MANAGEMENT OF PATIENT CARE PER NURSING PROTOCOL Performed By: #### L501.080 #### [facility] Laboratory Point of Care [address] [facility] [address] CBC-COMPLETE BLOOD CNT Collected: 03/09/2018 Status: F Source: [place] NO DIFF 4:44 AM [facility] [place] TYPE CODE TESTS RESULT OUT OF RANGE REFERENCE UNITS LAB L100.1000 4.4-11.0 K/mm3 Normal WBC 6.1 LAB L100.1200 4.2-5.4 M/mm3 Low RBC 3.95 LAB L100.1300 12.0-15.0 g/dl Normal HGB 12.1 LAB L100.1400 37-47 % Low HCT 36.4 LAB L100.1500 81-99 fL Normal MCV 92.2 LAB L100.1600 27.0-32.0 pg Normal MCH 30.6 LAB L100.1700 32-36 g/gl Normal MCHC 33.2 LAB L100.1810 11.6-14.6 % High RDW CV 17.8 LAB L100.1820 35.1-43.9 fl High RDW SD 58.4 LAB L100.1900 150-450 K/mm3 Low PLT 122 LAB L100.2000 6.2-12.0 fl Normal MPV 10.1 Performed By: #### L100.0500 #### [facility] [place], [address] BASIC METABOLIC Collected: 03/09/2018 Status: F Source: [place] PROFILE (BMP) 4:44 AM [facility] [place] Order Comment: 'TROP' Serial specimen #1, #2 or #3: 3 'TROP' Serial specimen #1, #2, #3, or #4: 3 TYPE CODE TESTS RESULT OUT OF RANGE REFERENCE UNITS LAB L501.0100 74-106 mg/dL High GLU 110 Result Comment: Fasting Glucose result from 100 to 125 mg/dL suggests IMPAIRED HOMEOSTASIS per A.D.A. criteria. Please note revised GLUCOSE reference range effective 2017. LAB L501.1000 7-18 mg/dL Normal BUN 18 LAB L501.1100 0.55-1.02 mg/dL Normal CREAT,SERUM 0.99 Result Comment: The validity of the calculated GFR AND GFRAA in patients over 70 years has not been determined. Clinical correlation is essential. LAB L501.1110 >60 mL/min Low EST GFR 58 Result Comment: Non- GFR Calc LAB L501.1115 >60 mL/min Normal EST GFR - AA 70 Result Comment: GFR Calc LAB L501.1255 ml/min Normal Estimated CRCL 37.64 LAB L501.1300 10-20 RATIO Normal BUN/CRE 18.3 LAB L501.2200 8.5-10 mg/dL Low .1 CA 7.9 LAB L501.5300 136-14 mmol/L Low 5 NA 128 LAB L501.5600 3.5-5. mmol/L Normal 1 K 3.6 LAB L501.5900 98-107 mmol/L Low CL 94 LAB L501.6100 21.0-3 mmol/L Normal 2.0 CO2 24.0 LAB L501.6200 5-15 Normal GAP 10 Performed By: #### L500.2500, L500.4100, L501.4010, L501.5200, L501.9520 #### [facility] [address] [place], [place], [id number] LIPID PROFILE Collected: 03/09/2018 Status: F Source: [place] 4:44 AM [facility] [place] [facility] Order Comment: 'TROP' Serial specimen #1, #2 or #3: 3 'TROP' Serial specimen #1, #2, #3, or #4: 3 TYPE CODE TESTS RESULT OUT OF RANGE REFERENCE UNITS LAB L501.4900 200 mg/dL Normal CHOL 156 Result Comment: <200 mg/dL Desirable 200-240 mg/dL Borderline >240 mg/dL High Risk LAB L501.5000 mg/dL Normal TRIG 94 Result Comment: The drugs N-Acetylcysteine and Metamizole may falsely depress this assay. Serum Triglycerides Reference Interval Normal <150 mg/dL Borderline high 150 - 199 mg/dL High 200 - 499 mg/dL Very High > or = 500 mg/dL LAB L501.6400 mg/dL Low HDL 28 Result Comment: The drugs N-Acetylcysteine and Metamizole may falsely depress this assay. Reference Range HDL <40 mg/dL Low HDL Cholesterol HDL >or= 60 mg/dL High HDL Cholesterol LAB L501.6500 0-130 mg/dL Normal LDL 109 LAB L501.6600 5-40 mg/dL Normal VLDL 19 Performed By: #### L500.2500, L500.4100, L501.4010, L501.5200, L501.9520 #### [facility] [address] [place], [place], [address] TROPONIN-I Collected: 03/09/2018 Status: F Source: [place] 4:44 AM [facility] [place] [facility] Order Comment: 'TROP' Serial specimen #1, #2 or #3: 3 'TROP' Serial specimen #1, #2, #3, or #4: 3 TYPE CODE TESTS RESULT OUT OF RANGE REFERENCE UNITS LAB L501.4010 <0.045 ng/mL Normal 0.036 TROPONIN-I Result Comment: TROPONIN-I EXPECTED VALUES <0.045 Negative 0.045 - 0.590 Consistent with Cardiac Damage > OR = 0.600 Critical Value Not every elevated troponin is indicative of WI. These values should be used with clinical judgement in examining the patient's clinical picture for diagnosis. To establish a diagnosis of WI versus myocardial injury, there must be a demonstrated rise and/or fall in the troponin values, in addition to ischemic symptoms, EKG changes, new regional wall motion abnormality, and/or angiographical evidence. PLEASE NOTE: REFERENCE RANGES EDITED 17 Performed By: #### L500.2500, L500.4100, L501.4010, L501.5200, L501.9520 #### [facility] [address] [place], [address] MAGNESIUM Collected: 03/09/2018 Status: F Source: [place] 4:44 AM [facility] [place] [facility] Order Comment: 'TROP' Serial specimen #1, #2 or #3: 3 'TROP' Serial specimen #1, #2, #3, or #4: 3 TYPE CODE TESTS RESULT OUT OF RANGE REFERENCE UNITS LAB L501.5200 1.6-2.6 mg/dL Normal MG 2.0 Performed By: #### L500.2500, L500.4100, L501.4010, L501.5200, L501.9520 #### [facility] [address] [place], [address] THYROID STIM HORMONE Collected: 03/09/2018 Status: F Source: [place]IS (TSH) 4:44 AM [facility] [place] [facility] Order Comment: 'TROP' Serial specimen #1, #2 or #3: 3 'TROP' Serial specimen #1, #2, #3, or #4: 3 TYPE CODE TESTS RESULT OUT OF RANGE REFERENCE UNITS LAB L501.9520 0.358-3.74 uIU/mL High TSH 6.42 Performed By: #### L500.2500, L500.4100, L501.4010, L501.5200, L501.9520 #### [facility] [address] [place], [address] HEMOGLOBIN A1C Collected: 03/09/2018 Status: F Source: [place] 4:44 AM [facility] [place] [facility] Order Comment: Comments: as add on test TYPE CODE TESTS RESULT OUT OF RANGE REFERENCE UNITS LAB L501.9985 4.2-6.3 % Normal HGB A1C 5.8 Performed By: #### L501.9985 #### [facility] [address] [place], [address] TROPONIN-I Collected: 03/09/2018 Status: F Source: [place] 1:42 AM [facility] [place] [facility] Order Comment: 'TROP' Serial specimen #1, #2 or #3: 2 40 TYPE CODE TESTS RESULT OUT OF RANGE REFERENCE UNITS LAB L501.4010 <0.045 ng/mL Normal 0.042 TROPONIN-I Result Comment: TROPONIN-I EXPECTED VALUES <0.045 Negative 0.045 - 0.590 Consistent with Cardiac Damage > OR = 0.600 Critical Value Not every elevated troponin is indicative of WI. These values should be used with clinical judgement in examining the patient's clinical picture for diagnosis. To establish a diagnosis of WI versus myocardial injury, there must be a demonstrated rise and/or fall in the troponin values, in addition to ischemic symptoms, EKG changes, new regional wall motion abnormality, and/or angiographical evidence. PLEASE NOTE: REFERENCE RANGES EDITED 17 Performed By: #### L501.4010 #### [facility] [address] [place], [place], [address] BEDSIDE GLUCOSE Collected: 03/08/2018 Status: F Source: [place] 11:35 PM [facility] [place] [facility] TYPE CODE TESTS RESULT OUT OF REFERENCE UNITS RANGE LAB L501.080 70-110 mg/dL High BEDSIDE GLU 127 Result Comment: MANAGEMENT OF PATIENT CARE PER NURSING PROTOCOL Performed By: #### L501.080 #### [facility] Point of Care [address] [place], [place] [address] Observed: 03/08/2018 Status: F Source: [place] RESPIRATORY PANEL 11:00 PM [facility] [place] [facility] RP PANEL ADENOVIRUS Not Detected HUMAN METAPHNEUMO Not Detected INFLUENZA A Not Detected INFLUENZA A (SUBTYPE H1) Not Detected INFLUENZA A (SUBTYPE H3) Not Detected INFLUENZA B Not Detected PARAINFLUENZA 1 Not Detected PARAINFLUENZA 2 Not Detected PARAINFLUENZA 3 Not Detected PARAINFLUENZA 4 Not Detected RHINOVIRUS Not Detected RSV A Not Detected RSV B Not Detected NAAT METHOD Testing was performed using nucleic acid amplification Performed By: #### M100.638 #### [facility] [address] [place], [address] TROPONIN-I Collected: 03/08/2018 Status: F Source: [place] 10:42 PM [facility] [place] [facility] Order Comment: 'TROP' Serial specimen #1, #2 or #3: 1 TYPE CODE TESTS RESULT OUT OF RANGE REFERENCE UNITS LAB L501.4010 <0.045 ng/mL Normal 0.031 TROPONIN-I Result Comment: TROPONIN-I EXPECTED VALUES <0.045 Negative 0.045 - 0.590 Consistent with Cardiac Damage > OR = 0.600 Critical Value Not every elevated troponin is indicative of WI. These values should be used with clinical judgement in examining the patient's clinical picture for diagnosis. To establish a diagnosis of WI versus myocardial injury, there must be a demonstrated rise and/or fall in the troponin values, in addition to ischemic symptoms, EKG changes, new regional wall motion abnormality, and/or angiographical evidence. PLEASE NOTE: REFERENCE RANGES EDITED 17 Performed By: #### L501.4010 #### [facility] [address], [address] HISTORY AND PHYSICAL Observed: 03/08/2018 Status: F Source: [place] EXAM 10:10 PM [facility] [place] [facility] Medical Records Department [address] [place] [address] [place] [address] History and Physical 03/08/18 2155 MR#: [id number] Acct: [id number] Name: CLARICE HARDIN Rep #: [id number] : 1940 77 From: Jordan Seymour MD PCP: Jared Mayorga MD Status: ADM IN Location: [place] [address] Problem List (1) CHF Status: Acute (2) Community acquired pneumonia Status: Acute (3) Mixed hyperlipidemia Status: Chronic (4) Non-rheumatic aortic stenosis Status: Chronic (5) Secondary pulmonary arterial hypertension Status: Chronic (6) Stenosis of right carotid artery Status: Chronic (7) Abnormal electrocardiogram Status: Chronic (8) Syncope Status: Chronic (9) Anemia Status: Chronic Qualifiers: History of Present Illness Date of Admission: 03/08/18 Chief Complaint: Shortness of breath for 1 week The patient is a 77 year old F with multiple comorbidities as listed above was brought into ER for progressive worsening of shortness of breath for 1 week. Patient had increased bilateral lower extremity swelling for which her PCP put her on Lasix 20 mg daily which is not effective. Patient also had productive cough with clear sputum for about 3 weeks which has improved but denies fever/chills/URI symptoms. No chest pain or shortness of breath. In ED, found tachycardia 135 pertinent, tachypnea 28/min, pulse ox 99% on 3 L oxygen but no fever. Basic workup shows leukocyte 4.1 thousand, platelet 123,000. BNP 1574, lactic acid 1.5. UA is negative. Patient was put Wang catheter in ED, although indication unclear. Chest x-ray reported as right lower lobe airspace opacity likely infectious in etiology but seems right mild to moderate pleural effusion. Past Medical History Past Medical History (Chronic Problems): Chronic Problems (Last Reviewed 06/03/17 @ 13:43 by Elvi López) Mixed hyperlipidemia (Chronic) Non-rheumatic aortic stenosis (Chronic) Secondary pulmonary arterial hypertension (Chronic) Stenosis of right carotid artery (Chronic) Abnormal electrocardiogram (Chronic) Syncope (Chronic) Anemia (Chronic) Medical History: Medical History (Last Reviewed 06/03/17 @ 13:43 by Elvi López) Mixed hyperlipidemia (Chronic) E78.2 Non-rheumatic aortic stenosis (Chronic) I35.0 Secondary pulmonary arterial hypertension (Chronic) I27.21 Stenosis of right carotid artery (Chronic) I65.21 Syncope (Chronic) R55 Anemia (Chronic) D64.9 Gastritis K29.70 Hyperlipidemia E78.5 Obesity E66.9 Type 2 diabetes mellitus without complications E11.9 Allergies niacin Allergy (Verified 03/08/18 18:44) Swelling Viwuoxj-Qny-Jlq Reductase Inhibitor Allergy (Verified 03/08/18 18:44) Swelling acetaminophen [From Percocet] Adverse Reaction (Verified 03/08/18 18:44) Upset Stomach oxycodone [From Percocet] Adverse Reaction (Verified 03/08/18 18:44) Upset Stomach Tetracyclines Adverse Reaction (Verified 03/08/18 18:44) Nausea/Vom/Diarrhea tramadol Adverse Reaction (Verified 03/08/18 18:44) CONFUSION Home Medications: Ambulatory Orders Medication Instructions Recorded Ergocalciferol [Vitamin D] 50,000 unit PO TU 12/22/13 Surgical History: Surgical History (Last Reviewed 06/03/17 @ 13:44 by Elvi López) H/O bilateral cataract extraction Z98.41, Z98.42 History of Z98.891 History of appendectomy Z98.890, Z90.49 History of bilateral knee replacement Z98.890, Z96.653 History of esophagogastroduodenoscopy (EGD) Z98.890 18 History of salpingectomy Z98.890, Z90.79 Hx laparoscopic cholecystectomy Z98.890, Z90.49 Hx of left inguinal hernia repair Z98.890, Z87.19 Surgical History: appendectomy, cholecystectomy, - - Hernia repair 2 Psychiatric History: No pertinent psych hx CLINICAL NURSE SPECIALIST History: No pertinent CLINICAL NURSE SPECIALIST history Smoking Status: Former smoker - *Family History Maternal Family History: Family History (Last Reviewed 06/03/17 @ 13:44 by Elvi López) Mother Diabetes History Items: Diabetes Paternal Family History: Family History (Last Reviewed 06/03/17 @ 13:44 by Elvi López) Mother Diabetes History Items: Unknown Review of Systems Constitutional: Denies: Chills, Fever, Weight Change HEENT: Denies: Head Aches, Post Nasal Drip, Sinus Congestion, Sinus Drainage Cardiovascular: Reports: Edema. Denies: Chest Pain, Palpitations Respiratory: Reports: Shortness of Breath, Shortness of breath upon exertion. Denies: Cough, Shortness of breath at rest, Sputum production Gastrointestinal: Denies: Abdominal Pain, Nausea, Vomiting Genitourinary: Denies: Dysuria Musculoskeletal: Denies: Joint Pain, Joint Tenderness Skin: Denies: Rash, Wounds Neurological: Denies: Numbness, Tingling, Focal weakness Psychiatric: Denies: Anxiety, Depression, Homicidal Ideations, Suicidal Ideations Hematologic/ Lymphatic: Denies: Easy Bruising, Easy Bleeding VTE Information - Inpt Only VTE Present on Admission: No VTE Mechan Device Prophylaxis: None VTE Pharm Prophylaxis ordered?: Yes Patient Problems: Active and Suspected Problems (Last Reviewed 06/03/17 @ 13:43 by Elvi López) Community acquired pneumonia (Acute) CHF (Acute) - Physical Exam General: Alert, Oriented x3, Cooperative HEENT: Atraumatic, PERRLA, EOMI, Normocephalic Neck: Supple, No JVD, Negative Carotid Bruits Lungs: Diminished - Air entry diminished in lower half of right lung, Rales, Short of Breath, Tachypneic, - - Stony dullness present in the lower half of right lung below sixth rib. Cardiovascular: Regular rate, No murmurs Abdomen: Bowel Sounds Present, Soft, Non Tender, Non-Distended Extremities: Capillary Refill Less than 3 Seconds, Edema Skin: No rashes, No breakdown Musculoskeletal: No Tenderness to Palpation of Joints or Extremities, Arthritic Changes Neurological: Cranial nerves II-XII grossly intact, Deep Tendon Reflexes 2+/4 and Symmetrical, Neuro grossly intact Psych/Mental Status: Normal Affect, Appropriate Vital Signs Temp Pulse Resp BP Pulse Ox 97.6 F L 115 H 21 H 115/93 H 100 03/08/18 21:48 03/08/18 21:48 03/08/18 21:48 03/08/18 21:48 03/08/18 21:48 Oxygen Flow Rate (L/min) 3 Oxygen Delivery Method Room Air Weight: 190 lb Body Mass Index (BMI) 34.7 Finger Stick Blood Glucose 230 Laboratory Tests Past 24 Hrs WBC RBC Hgb Hct MCV MCH MCHC RDW RDW Differential Plt Count MPV Immature Gran % (Auto) POC Glucose POC Glucose 99 Assessment/Plan All Active Problems (Last Reviewed 06/03/17 @ 13:43 by Elvi López) Community acquired pneumonia (Acute) CHF (Acute) Epigastric abdominal pain (Resolved) Gastritis (Resolved) The patient is a 77 year old F with multiple comorbidities as listed above was brought into ER for progressive worsening of shortness of breath for 1 week. Patient had increased bilateral lower extremity swelling for which her PCP put her on Lasix 20 mg daily which is not effective. Patient also had productive cough with clear sputum for about 3 weeks which has improved but denies fever/chills/URI symptoms. No chest pain or shortness of breath. In ED, found tachycardia 135 pertinent, tachypnea 28/min, pulse ox 99% on 3 L oxygen but no fever. Basic workup shows leukocyte 4.1 thousand, platelet 123,000. BNP 1574, lactic acid 1.5. UA is negative. Patient was put Wang catheter in ED, although indication unclear. Chest x-ray reported as right lower lobe airspace opacity likely infectious in etiology but seems right mild to moderate pleural effusion. 1. CHF exacerbation, possible acute on chronic heart failure with preserved EF: It seems appropriate in view of shortness of breath, leg swelling, elevated BNP and pleural effusion on chest x-ray: Patient had echo and a stress echo during last admission in March 2017 for syncope and reported as EF 65% with normal diastole with no regional wall motion abnormalities. LA moderately enlarged. Mild to moderate aortic stenosis, mean AV gradient 14 mmHg, mild TR, RVSP 43 mmHg suggestive of mild pulmonary hypertension. Mild diffuse mitral valve thickening and severe calcification with trivial MR but no MS. started on Lasix 40 mg twice daily. The patient is being admitted in PCU. Serial cardiac enzymes. Monitor cardiac telemetry. Repeat 2D echo to check for EF for progression of aortic stenosis. Monitor intake and output. Monitor BP and avoid hypotension. 2. Right lower lobe opacity possible pleural effusion/consolidation, rule out pneumonia: Empirically patient is started on Rocephin and Zithromax. Pneumonia workup with urinary antigens, respiratory panel and if negative can discontinue antibiotics. I have low suspicion for pneumonia. 3. Valvular heart disease: Mild to moderate ostial stenosis, mitral valve thickening and calcification with trivial MR, and mild pulmonary hypertension: As mentioned above 4. Mixed hyperlipidemia, Sjogren's syndrome and previous admission for syncope in March 2017. Stable. Home medication reconciliation done. DVT prophylaxis: On Lovenox 40 mg subcu daily. Discontinue if platelet count drops less than 90,000 or hemoglobin less than 8 g% Patient is seen and examined in the presence of ojimamhu-ha-gfd, Ms. Calvillo, and discussed the reason of admission, plan and management. Clinical Impression(s) from Imaging Studies Chest X-Ray 03/08/18 19:35 IMPRESSION: Right lower lobe airspace opacity which is likely infectious in etiology. Code Visit Inpatient E AND M: 69047 Init Hosp L3 03/08/18 2210 <Electronically signed by Jordan Seymour MD> Date Jordan Seymour MD [facility] Signature: Date (if applicable) CC: Jordan Seymour MD; Jared Mayorga MD Signed EMERGENCY DEPARTMENT Observed: 03/08/2018 Status: F Source: [place] SUMMARY 9:30 PM [facility] [place] [facility] Medical Records Department [address] [place] [address] Emergency Department Summary 03/08/182120 MR#: [id number] Acct: [id number] Name: CLARICE HARDIN Rep #: [id number] : 1940 77 From: Skyler Gregorio DO PCP: Jared Mayorga MD Status: REG ER - ER Visit Summary Date of Service: 03/08/18 Chief Complaint: Shortness of breath History of Present Illness: The patient is a 77 F who presents with shortness of breath that has been getting worse over the past week. Patient states she has been having a cough with mild clear sputum production. Patient denies any fevers or chills. Patient does admit to some increased swelling of her lower legs. Patient denies any weight gain. Actually, the patient states she has been having some weight loss. Patient denies any recent travel or recent surgery. Patient denies any chest pain. Patient denies any nausea or vomiting. Patient states her breathing is worse with laying flat and has to sleep on 2 pillows. Patient also states her breathing is worse with any exertion. Physical Examination: Vital signs are stable except for tachycardia of 135 and a tachypnea of 28. Patient is afebrile. Patient is in no acute distress. Oral mucosa is pink and somewhat dry. Neck is supple. Trachea is midline. There is no JVD noted. Heart was regular and tachycardic. Lungs showed some rales in the bases bilaterally. Abdomen is soft. Bowel sounds are normal. There is no tenderness. There is no rebound or guarding noted. Cranial nerves II through XII are intact. There are no focal motor or sensory deficits noted. Extremities are intact x4. There is 2+ edema of the lower extremities to the upper thighs. The remaining physical exam is within normal limits. Test Results: EKG showed sinus tachycardia with a rate of 114. There is a left bundle branch block pattern noted. There are no acute ST or T wave changes. This was unchanged compared to previous EKG dated 11/08/2017. PA and lateral chest x-ray shows elevation in the right lower lobe consistent with infiltrate. CBC showed a white blood cell count of 4.1. Sodium was slightly low at 127 and chloride was slightly low at 94. Creatinine was 1.09. BNP was elevated at 1574. Emergency Department Course and Treatment: Patient was given a dose of Lasix initially. Patient was placed on nitroglycerin paste initially. Blood cultures were obtained. Lactate was ordered and is normal at 1.5. Patient was started on Rocephin and Zithromax. Case was discussed with Dr. Seymour. He will admit the patient to his service. Patient and family were understanding and agreeable with the plan. All questions were answered. Disposition: Admit to hospital Impression: Community-acquired pneumonia This note was generated with Memobox dictation software. It may contain incorrect words, spelling, and punctuation that were not noted in review of the chart prior to signing ED Disposition - Plan for ED Patient: Disposition: Acute Care Hospital [facility] Chief Complaint: Shortness of Breath Diagnosis: Community acquired pneumonia Referrals: Jared Mayorga MD [Primary Care Provider] - What to do if you have Problems For any increased pain, shortness of breath, bleeding, nausea or vomiting, chest pain, or any unexpected problems, contact your Primary Care Provider. Call [facility] ([phone]) or report to the closest Emergency Room. Call 911 if necessary. 03/08/18 2130 <Electronically signed by Skyler Gregorio DO> Date Skyler Gregorio DO Cosigner Signature (If Indicated): Date CC: Jared Mayorga MD LACTIC ACID Collected: 03/08/2018 Status: F Source: [place] 8:33 PM [facility] [place] [facility] Order Comment: Yes/No query for Sepsis Lactate Rule Y TYPE CODE TESTS RESULT OUT OF RANGE REFERENCE UNITS LAB L503.6005 0.4-2.0 mmol/L Normal LACTIC ACID 1.5 Performed By: #### L503.6005 #### [facility] [address] [place], [address] URINALYSIS, COMPLETE Collected: 03/08/2018 Status: F Source: [place] 7:50 PM [facility] [place] [facility] Order Comment: How was Urine Obtained? CATHETER SPECIMEN TYPE CODE TESTS RESULT OUT OF RANGE REFERENCE UNITS LAB L400.3000 Yellow COLOR Normal Yellow LAB L400.3050 Clear Normal CLARITY Clear LAB L400.3200 Normal mg/dl Normal GLUCOSE, UR Normal LAB L400.3300 Negative mg/dL Normal BILIRUBIN URINE Negative LAB L400.3400 Negative mg/dl Normal KETONE UR Negative LAB L400.3465 1.002-1.030 Normal SP.GR. DIPSTX 1.015 LAB L400.3550 5.0 - 8.0 pH UR Normal 6.0 LAB L400.3600 Negative mg/dl High PROT 15 DIPSTX LAB L400.3700 Normal mg/dl Normal UROBILI Normal LAB L400.3750 Negative Normal NITRITE UR Negative LAB L400.3780 Negative /ul High 10 OCCULT BLOOD-UR LAB L400.3800 Negative /ul LEUK Normal ESTERASE Negative LAB L400.4050 0-5 /hpf WBC 0 Normal SEEN LAB L400.4100 0-5 /hpf 0 Normal RBC-UA SEEN LAB L400.4150 5-10 /hpf SQUAM Normal EPI 0-5 SEEN LAB L400.4300 None Seen /hpf 0 Normal BACTERIA SEEN LAB L400.4350 <or=2+ /hpf 0 Normal MUCUS, URINE SEEN LAB L400.4400 0-5 /lpf Normal HYALINE CAST 0-5 SEEN Performed By: #### L400.0001 #### [facility] [address] [place], [address] STREP Observed: 03/08/2018 Status: F Source: [place] PNEUMONIAE ANTIG(UR,CSF) 7:50 PM [facility] [place] [facility] S pneumo Ag URINE INTERPRETATION Negative Urine Presumptive negative for pneumococcal pneumonia, suggesting no current or recent pneumococcal infection. Infection due to S pneumoniae cannot be ruled out since the antigen present in the sample may be below the detection limit of the test. Strep pneumo Test Negative URINE (See interpretation below) Performed By: #### M300.4600 #### [facility] [address] [facility], [address] Observed: 03/08/2018 Status: F Source: [place] LEGIONELLA ANTIGEN 7:50 PM [facility] [place] [facility] Specimen Source: URINE, WANG Legionella, UR Legionella Antigen result interpretation: Negative Presumptive negative for Legionella pneumophila serogroup 1 antigen in urine, suggesting no recent or current infection. Legionella Ag, Urine Negative (See interpretation below) Performed By: #### M300.4500 #### [facility] [address] [facility] [place], [place], [address] Observed: 03/08/2018 Status: F Source: [place] CULTURE, URINE 7:50 PM [facility] [place] [facility] Urine Culture ORGANISM 1: Enterococcus faecalis [place] Count >100,000 Enterococcus faecalis: REACTION Ampicillin $ <=2 S Daptomycin $$ 1 S Ciprofloxacin $ <=0.5 S Gentamicin SYN-S S Levofloxacin $ 1 S Linezolid $$$$ 2 S Nitrofurantoin $ <=16 S Streptomycin $ SYN-S S Tetracycline NF >=16 R Vancomycin $ 1 S (NF) indicates non-formulary drug at [facility]. Approval by Infectious Disease Specialist required before non-formulary drugs may be ordered and/or dispensed. * CLSI guidelines does not recommend testing of cephalosporins. This interpretation is deduced from Beta-lactam/penicillin results. Performed By: #### M100.0650 #### [facility] [address] [facility], [address] PROTHROMBIN TIME W/INR Collected: 03/08/2018 Status: F Source: [place] 7:27 PM [facility] [place] [facility] TYPE CODE TESTS RESULT OUT OF RANGE REFERENCE UNITS LAB L300.4150 11.7-14.9 SECONDS High PROTIME 15.5 LAB L300.4200 Normal INR 1.2 Performed By: #### L300.3900, L300.4310 #### [facility] [address] [place], [place], [address] PARTIAL THROMBOPLAST Collected: 03/08/2018 Status: F Source: [place] TIME 7:27 PM [facility] [place] [facility] TYPE CODE TESTS RESULT OUT OF RANGE REFERENCE UNITS LAB L300.4310 24.1-36.2 Seconds Normal PTT 35.5 Performed By: #### L300.3900, L300.4310 #### [facility] [address] [place], [place], [address] CBC W/DIFF, AUTOMATED Collected: 03/08/2018 Status: F Source: [place] 7:27 PM [facility] [place] [facility] TYPE CODE TESTS RESULT OUT OF RANGE REFERENCE UNITS LAB L100.1000 4.4-11.0 K/mm3 Low WBC 4.1 LAB L100.1200 4.2-5.4 M/mm3 Normal RBC 4.33 LAB L100.1300 12.0-15.0 g/dl Normal HGB 13.1 LAB L100.1400 37-47 % Normal HCT 39.7 LAB L100.1500 81-99 fL Normal MCV 91.7 LAB L100.1600 27.0-32.0 pg Normal MCH 30.3 LAB L100.1700 32-36 g/gl Normal MCHC 33.0 LAB L100.1810 11.6-14.6 % High RDW CV 17.9 LAB L100.1820 35.1-43.9 fl High RDW SD 60.3 LAB L100.1900 150-450 K/mm3 Low PLT 123 LAB L100.2000 6.2-12.0 fl Normal MPV 9.7 LAB L100.2100 47-70 % High NEUT% 71.1 LAB L100.2200 19-41 % Low LY% 16.3 LAB L100.2300 0-10 % High MONO% 11.9 LAB L100.2400 0-5 % Normal EO% 0.5 LAB L100.2500 0-1 % Normal BASO% 0.2 LAB L100.2550 0.0-0.9 % Normal IM GRAN % 0.000 Result Comment: IG% - Immature Granulocytes (promyelocytes, myelocytes and metamyelocytes) > 1% indicates that a LEFT SHIFT is Present. LAB L100.2620 2.0-7.7 X10 3/uL Normal Absolute Neut 2.9 LAB L100.2720 0.83-4.51 X10 3/ul Low Absolute Lymph 0.66 Performed By: #### L100.0100 #### [facility] [address] [facility] [place], [place], [address] BASIC METABOLIC Collected: 03/08/2018 Status: F Source: [place] PROFILE (BMP) 7:27 PM [facility] [place] [facility] TYPE CODE TESTS RESULT OUT OF RANGE REFERENCE UNITS LAB L501.0100 74-106 mg/dL High GLU 121 Result Comment: Fasting Glucose result from 100 to 125 mg/dL suggests IMPAIRED HOMEOSTASIS per A.D.A. criteria. Please note revised GLUCOSE reference range effective 2017. LAB L501.1000 7-18 mg/dL Normal BUN 18 LAB L501.1100 0.55-1.02 mg/dL High CREAT,SERUM 1.09 Result Comment: The validity of the calculated GFR AND GFRAA in patients over 70 years has not been determined. Clinical correlation is essential. LAB L501.1110 >60 mL/min Low EST GFR 52 Result Comment: Non- GFR Calc LAB L501.1115 >60 mL/min Normal EST GFR - AA 63 Result Comment: GFR Calc LAB L501.1255 ml/min Normal Estimated CRCL 34.19 LAB L501.1300 10-20 RATIO Normal BUN/CRE 16.5 LAB L501.2200 8.5-10 mg/dL Low .1 CA 8.1 LAB L501.5300 136-14 mmol/L Low 5 NA 127 LAB L501.5600 3.5-5. mmol/L Normal 1 K 3.9 LAB L501.5900 98-107 mmol/L Low CL 94 LAB L501.6100 21.0-3 mmol/L Normal 2.0 CO2 23.0 LAB L501.6200 5-15 Normal GAP 10 Performed By: #### L500.2500 #### [facility] [address] [place], [address] BNP,B-TYPE NATRIURETIC Collected: 03/08/2018 Status: F Source: [place] PEPTIDE 7:27 PM [facility] [place] [facility] TYPE CODE TESTS RESULT OUT OF RANGE REFERENCE UNITS LAB L503.6620 0-100 pg/mL High B-TYPE 1574.3 DION PEP Performed By: #### L503.6620 #### [facility] [address] [place], [place], [address] CHEST PA AND LATERAL Observed: 03/08/2018 Status: F Source: [place] 7:15 PM [facility] Imaging Services [address] [place] [address] Chest PA and Lateral MR#: [id number] Acct: [id number] Name: CLARICE HARDIN Rep #: [id number] : 1940 F 77 From: Regulo Harvey MD PCP: Jared Mayorga MD Status: PRE ER Study: Chest PA and Lateral Date of Exam: 03/08/18 Exam# [id number] Ordering Dr: Skyler Gregorio DO STUDY: X-RAY CHEST REASON FOR EXAM: Female, 77 years old. Shortness breath TECHNIQUE: Frontal view of the chest COMPARISON: 11/08/2017 FINDINGS: There is airspace opacity in the right lower lobe which is likely infectious in etiology. The lungs are otherwise clear. There are no pleural effusions. There is no pneumothorax. The heart is enlarged, but stable in size. The visualized osseous structures are within normal limits. RAD/Chest PA and Lateral IMPRESSION: Right lower lobe airspace opacity which is likely infectious in etiology. Electronically Signed: Regulo Harvey, at 20:11 EST Tel , Service support , CC: Skyler Gregorio DO; Jared Mayorga MD Medical Officer: Signed BEDSIDE GLUCOSE Collected: 03/08/2018 Status: F Source: [place] 7:00 PM [facility] [place] [facility] TYPE CODE TESTS RESULT OUT OF RANGE REFERENCE UNITS LAB L501.080 70-110 mg/dL Normal BEDSIDE GLU 99 Result Comment: MANAGEMENT OF PATIENT CARE PER NURSING PROTOCOL Performed By: #### L501.080 #### [facility] Point of Care [address] [facility] [address] BASIC METABOLIC Collected: 11/12/2017 Status: F Source: [place] PROFILE (BMP) 9:50 AM [facility] [place] [facility] TYPE CODE TESTS RESULT OUT OF RANGE REFERENCE UNITS LAB L501.0100 74-106 mg/dL Normal GLU 89 Result Comment: Please note revised GLUCOSE reference range effective 2017. LAB L501.1000 7-18 mg/dL Normal BUN 8 LAB L501.1100 0.55-1.02 mg/dL Normal CREAT,SERUM 0.82 Result Comment: The validity of the calculated GFR AND GFRAA in patients over 70 years has not been determined. Clinical correlation is essential. LAB L501.1110 >60 mL/min Normal EST GFR 72 Result Comment: Non- GFR Calc LAB L501.1115 >60 mL/min Normal EST GFR - AA 87 Result Comment: GFR Calc LAB L501.1300 10-20 RATIO Low BUN/CRE 9.8 LAB L501.2200 8.5-10.1 mg/dL Low CA 8.1 LAB L501.5300 136-145 mmol/L Normal NA 137 LAB L501.5600 3.5-5.1 mmol/L Normal K 4.0 LAB L501.5900 98-107 mmol/L Normal CL 105 LAB L501.6100 21.0-32.0 mmol/L Normal CO2 25.0 LAB L501.6200 5-15 Normal GAP 7 Performed By: #### L500.2500 #### [facility] [address] [facility], [address] 12 LEAD ELECTROCARDIOGRAM Observed: 11/10/2017 Status: F Source: [place] 9:32 AM [facility] [place] [facility] Cardiovascular Services [address] [place] [address] 12 Lead EKG 11/08/17 1659 MR#: [id number] Acct: [id number] Name: CLARICE HARDIN Rep #: [id number] : 1940 77 From: Toi Alba MD Attending Dr: Status: DEP ER Ordering Dr: Neftaly Montano MD Date: 11/08/17 Location: ED Sex: F C Admitted: Test Reason : Blood Pressure : / mmHG Vent. Rate : 085 BPM Atrial Rate : 085 BPM P-R Int : 162 ms QRS Dur : 122 ms QT Int : 414 ms P-R-T Axes : 034 -51 080 degrees QTc Int : 492 ms Normal sinus rhythm Left bundle branch block Abnormal ECG Confirmed by TOI ALBA MD ([id number]), magazine editor JANETTE TIJERINA ([id number]) on 11/10/2017 9:32:27 AM Referred By: NORBERT Confirmed By:TOI ALBA MD 11/10/17 0932 Date Toi Alba MD CC: Skyler Gregorio DO; Neftaly Montano MD; Jared Mayorga MD Signed 12 LEAD ELECTROCARDIOGRAM Observed: 11/10/2017 Status: F Source: [place] 9:26 AM [facility] Cardiovascular Services [address] [place] [address] [place] [address] 12 Lead EKG 11/08/17 1500 MR#: [id number] Acct: [id number] Name: CLARICE HARDIN Rep #: [id number] : 1940 77 From: oTi Alba MD Attending Dr: Status: DEP ER Ordering Dr: Skyler Gregorio DO Date: 11/08/17 Location: ED Sex: F C Admitted: Test Reason : CP Blood Pressure : / mmHG Vent. Rate : 100 BPM Atrial Rate : 100 BPM P-R Int : 182 ms QRS Dur : 118 ms QT Int : 370 ms P-R-T Axes : 047 -54 083 degrees QTc Int : 477 ms Normal sinus rhythm Left anterior fascicular block Left ventricular hypertrophy with QRS widening and repolarization abnormality Abnormal ECG Confirmed by TOI ALBA MD ([id number]), magazine editor JANETTE TIJERINA ([id number]) on 11/10/2017 9:25:43 AM Referred By: Confirmed By:TOI ALBA MD 11/10/1725 Date Toi Alba MD CC: Skyler Gregorio DO; Jared Mayorga MD Signed EMERGENCY DEPARTMENT Observed: 11/08/2017 Status: F Source: [place] SUMMARY 4:58 PM [facility] [place] [facility] Medical Records Department [address] [place] [address] Emergency Department Summary 11/08/171651 MR#: [id number] Acct: [id number] Name: CLARICE HARDIN Rep #: [id number] : 1940 77 From: Skyler Gregorio DO PCP: Jared Mayorga MD Status: REG ER - ER Visit Summary Date of Service: 11/08/17 Chief Complaint: [] History of Present Illness: The patient is a 77 F [] Physical Examination: [] Test Results: [] Emergency Department Course and Treatment: [] Treatment Plan: [] Disposition: [] Impression: [] This note was generated with Memobox dictation software. It may contain incorrect words, spelling, and punctuation that were not noted in review of the chart prior to signing ED Disposition - Plan for ED Patient: Disposition: Home or Assisted Living Chief Complaint: Chest Pain Diagnosis: Chest pain of uncertain etiology Instructions: ED Chest Pain Atypical Unkn Cause Referrals: Jared Mayorga MD [Primary Care Provider] - What to do if you have Problems For any increased pain, shortness of breath, bleeding, nausea or vomiting, chest pain, or any unexpected problems, contact your Primary Care Provider. Call [employer] [facility] ([phone]) or report to the closest Emergency Room. Call 911 if necessary. 11/08/171657 <Electronically signed by Skylre Gregorio DO> Date Skyler Gregorio DO Cosigner Signature (If Indicated): Date CC: Jared Mayorga MD EMERGENCY DEPARTMENT Observed: 11/08/2017 Status: F Source: [place] SUMMARY 4:48 PM [facility] [place] [facility] Medical Records Department [address] [place] [address] Emergency Department Summary 11/08/17 1523 MR#: [id number] Acct: [id number] Name: CLARICE HARDIN Rep #: [id number] : 1940 77 From: Skyler Gregorio DO PCP: Jared Mayorga MD Status: REG ER - ER Visit Summary Date of Service: 11/08/17 Chief Complaint: Chest pain History of Present Illness: The patient is a 77 F who presents with chest pain that began 2 days ago. Patient states the pain has been constant for the past 3 days but is better today. Patient states her pain is a 3 on a scale of 0-10 currently. Patient states she was having some shortness of breath over the past couple days but currently denies any shortness of breath. Patient admits to some nausea and vomiting. Patient also admits to some lightheadedness. Patient states nothing makes the pain better or worse. Patient describes the pain as pressure and heaviness and tightness. Patient denies any radiation of the pain. Physical Examination: Vital signs are stable. Patient is afebrile. Patient is in no acute distress. Oral mucosa is pink and somewhat dry. Neck is supple. Trachea is midline. There is no JVD noted. Heart was regular rate and rhythm. Lungs are clear and equal bilaterally. There is good respiratory effort noted. Abdomen is soft. Bowel sounds are normal. There is no tenderness. There is no rebound or guarding noted. Cranial nerves II through XII are intact. There are no focal motor or sensory deficits noted. The remaining physical exam is within normal limits. Test Results: EKG showed normal sinus rhythm with a left anterior fascicular block. There is left ventricular hypertrophy noted. This was unchanged compared to previous EKG dated 04/08/2017. Chest x-ray showed some mild increased interstitial markings. CBC showed a slight anemia with a hemoglobin of 11.6. Basic metabolic profile showed a slight hyponatremia of 128. INR was 1.3. Troponin was 0.065. This was improved compared to previous troponins. Emergency Department Course and Treatment: Patient was given aspirin and sublingual nitroglycerin here. Patient states she had reproducible chest pain. Currently, the patient states her pain is only when she pushes on her chest. Patient has a IRIS score of 2. Patient really wants to go home. Patient had a recent cardiac workup in March with a normal stress echocardiogram at that time. Patient saw Dr. Vazquez back in May and was doing well at that time. Patient will be discharged home and instructed to follow- up with her primary care physician in 3-5 days. Patient was instructed on signs and symptoms which should prompt return to the emergency department. Patient understood and was agreeable with the plan. All questions were answered. Disposition: Discharged home Impression: Chest pain This note was generated with Memobox dictation software. It may contain incorrect words, spelling, and punctuation that were not noted in review of the chart prior to signing ED Disposition - Plan for ED Patient: Disposition: Home or Assisted Living Chief Complaint: Chest Pain Diagnosis: Chest pain of uncertain etiology Instructions: ED Chest Pain Atypical Unkn Cause Referrals: Jared Mayorga MD [Primary Care Provider] - What to do if you have Problems For any increased pain, shortness of breath, bleeding, nausea or vomiting, chest pain, or any unexpected problems, contact your Primary Care Provider. Call [facility] ([phone]) or report to the closest Emergency Room. Call 911 if necessary. 11/08/17 1648 <Electronically signed by Skyler Gregorio DO> Date Skyler Gregorio DO Cosigner Signature (If Indicated): Date CC: Jared Mayorga MD CHEST 1 VIEW Observed: 11/08/2017 Status: F Source: [place] (PORTABLE) 3:23 PM [facility] REPOSITORY [facility] Imaging Services [address] [place] [address] Chest 1 View (Portable) MR#: [id number] Acct: [id number] Name: CLARICE HARDIN Rep #: [id number] : 1940 F 77 From: Declan Posada MD PCP: Jared Mayorga MD Status: REG ER Study: Chest 1 View (Portable) Date of Exam: 11/08/17 Exam# [id number] Ordering Dr: Skyler Gregorio DO STUDY: X-RAY CHEST REASON FOR EXAM: Female, 77 years old. Chest pain. TECHNIQUE: Single AP portable view of the chest. COMPARISON: None. FINDINGS: EKG electrodes are seen. Mild degree of increased interstitial markings. This may represent early CHF. Follow-up is recommended. There is no demonstrated pleural abnormality. There is borderline cardiomegaly. Normal mediastinum and amauri. Normal visualized pulmonary arteries. There is atherosclerotic calcification of the aortic arch with tortuosity. There are degenerative changes of the visualized thoracic spine. Normal visualized ribs, clavicles, and shoulders. There is no demonstrated abnormality of the visualized soft tissue structures of the upper abdomen. RAD/Chest 1 View (Portable) IMPRESSION: Increased interstitial markings. Mild degree of CHF should be ruled out. Electronically Signed: Declan Posada MD at 15:41 EDT Tel [phone], Service support , CC: Skyler Gregorio DO; Jared Mayorga MD Medical Officer: Signed CBC W/DIFF, AUTOMATED Collected: 11/08/2017 Status: F Source: [place] 3:14 PM [facility] [place] TYPE CODE TESTS RESULT OUT OF RANGE REFERENCE UNITS LAB L100.1000 4.4-11.0 K/mm3 Normal WBC 10.9 LAB L100.1200 4.2-5.4 M/mm3 Low RBC 4.02 LAB L100.1300 12.0-15.0 g/dl Low HGB 11.6 LAB L100.1400 37-47 % Normal HCT 37.6 LAB L100.1500 81-99 fL Normal MCV 93.5 LAB L100.1600 27.0-32.0 pg Normal MCH 28.9 LAB L100.1700 32-36 g/gl Low MCHC 30.9 LAB L100.1810 11.6-14.6 % High RDW CV 16.2 LAB L100.1820 35.1-43.9 fl High RDW SD 55.7 LAB L100.1900 150-450 K/mm3 Normal PLT 159 LAB L100.2000 6.2-12.0 fl Normal MPV 10.3 LAB L100.2100 47-70 % High NEUT% 77.7 LAB L100.2200 19-41 % Low LY% 13.5 LAB L100.2300 0-10 % Normal MONO% 8.5 LAB L100.2400 0-5 % Normal EO% 0.0 LAB L100.2500 0-1 % Normal BASO% 0.1 LAB L100.2550 0.0-0.9 % Normal IM GRAN % 0.200 Result Comment: IG% - Immature Granulocytes (promyelocytes, myelocytes and metamyelocytes) > 1% indicates that a LEFT SHIFT is Present. LAB L100.2620 2.0-7.7 X10 3/uL High Absolute Neut 8.5 LAB L100.2720 0.83-4.51 X10 3/ul Normal Absolute Lymph 1.47 Performed By: #### L100.0100 #### [facility] [address] [place], [place], [id number] BASIC METABOLIC Collected: 11/08/2017 Status: F Source: [place] PROFILE (BMP) 3:14 PM [facility] [place] TYPE CODE TESTS RESULT OUT OF RANGE REFERENCE UNITS LAB L501.0100 74-106 mg/dL High GLU 139 Result Comment: Fasting Glucose result greater than or equal to 126 mg/dL suggests DIABETES MELLITUS per A.D.A. criteria. Please note revised GLUCOSE reference range effective 2017. LAB L501.1000 7-18 mg/dL Normal BUN 13 LAB L501.1100 0.55-1.02 mg/dL Normal CREAT,SERUM 0.95 Result Comment: The validity of the calculated GFR AND GFRAA in patients over 70 years has not been determined. Clinical correlation is essential. LAB L501.1110 >60 mL/min Normal EST GFR 61 Result Comment: Non- GFR Calc LAB L501.1115 >60 mL/min Normal EST GFR - AA 73 Result Comment: GFR Calc LAB L501.1255 ml/min Normal Estimated CRCL 37.42 LAB L501.1300 10-20 RATIO Normal BUN/CRE 13.7 LAB L501.2200 8.5-10 mg/dL Low .1 CA 8.0 LAB L501.5300 136-14 mmol/L Low 5 NA 128 LAB L501.5600 3.5-5. mmol/L Normal 1 K 3.7 LAB L501.5900 98-107 mmol/L Normal CL 98 LAB L501.6100 21.0-3 mmol/L Normal 2.0 CO2 21.0 LAB L501.6200 5-15 Normal GAP 9 Performed By: #### L500.2500, L501.4010 #### [facility] [address] [place], [address] TROPONIN-I Collected: 11/08/2017 Status: F Source: [place] 3:14 PM [facility] [place] TYPE CODE TESTS RESULT OUT OF RANGE REFERENCE UNITS LAB L501.4010 <0.045 ng/mL High 0.065 TROPONIN-I Result Comment: TROPONIN-I EXPECTED VALUES <0.045 Negative 0.045 - 0.590 Consistent with Cardiac Damage > OR = 0.600 Critical Value Not every elevated troponin is indicative of WI. These values should be used with clinical judgement in examining the patient's clinical picture for diagnosis. To establish a diagnosis of WI versus myocardial injury, there must be a demonstrated rise and/or fall in the troponin values, in addition to ischemic symptoms, EKG changes, new regional wall motion abnormality, and/or angiographical evidence. PLEASE NOTE: REFERENCE RANGES EDITED 18 Performed By: #### L500.2500, L501.4010 #### [facility] [address] [place], [address] PROTHROMBIN TIME W/INR Collected: 11/08/2017 Status: F Source: [place] 3:14 PM [facility] [place] [facility] TYPE CODE TESTS RESULT OUT OF RANGE REFERENCE UNITS LAB L300.4150 11.7-14.9 SECONDS High PROTIME 15.8 LAB L300.4200 Normal INR 1.3 Performed By: #### L300.3900, L300.4310 #### [facility] [address] [place], [address] PARTIAL THROMBOPLAST Collected: 11/08/2017 Status: F Source: [place] TIME 3:14 PM [facility] [place] [facility] TYPE CODE TESTS RESULT OUT OF REFERENCE UNITS RANGE LAB L300.4310 24.1-36.2 Seconds High PTT 40.1 Performed By: #### L300.3900, L300.4310 #### [facility] [address] [place], [address] PROTEIN ELECTROPH, S Collected: 08/05/2017 Status: F Source: [place] 11:14 AM [facility] [place] TYPE CODE TESTS RESULT OUT OF RANGE REFERENCE UNITS LAB L3100.3500 6.0-8.5 g/dL Normal PROTEIN,TOTAL 8.5 LAB L3100.3600 2.9-4.4 g/dL Low ALBUMIN 2.7 LAB L3100.3700 0.0-0.4 g/dL Normal ALPHA-1 GLOBUL 0.3 LAB L3100.3800 0.4-1.0 g/dL Normal ALPHA-2 GLOBUL 0.8 LAB L3100.3900 0.7-1.3 g/dL Normal BETA GLOBULIN 1.0 LAB L3100.4000 0.4-1.8 g/dL High GAMMA GLOBULIN 3.8 LAB L3100.4110 Normal M-SPIKE Result Comment: NOT OBSERVED LAB L3100.4200 2.2-3.9 g/dL GLOBULIN, TOTAL High 5.8 LAB L3100.4300 0.7-1.7 Low A/G RATIO 0.5 LAB L3100.4320 . INTERPRETATION Normal Comment Result Comment: Protein electrophoresis scan will follow via computer, mail, or fitter placer delivery. LAB L3100.4340 . Normal NOTE: Comment Result Comment: The SPE pattern reflects a polyclonal increase in gamma globulin due to numerous clones of plasma cells producing heterogeneous antibody in response to some form of antigenic stimulus. Hypergammaglob-ulinemia is found in a wide variety of infectious, non-infectious, and autoimmune disease states. Evidence of monoclonal protein is not apparent. Performed at: [facility] [address] [id number] Powder Line Repairer: Renaldo Flowers PhD, Phone: [phone] Performed By: #### L3100.4410 #### [facility] (refer to report for specific site) refer to report for address and phone number PROTEIN ELECTRO.UR-[email or web address] Collected: Status: F Source: [place] 08/05/2017 11:14 AM [facility] [place] [facility] TYPE CODE TESTS RESULT OUT OF RANGE REFERENCE UNITS LAB L3600.4100 Not Estab. mg/dL Normal 18.7 PROTEIN,UR LAB L3600.4200 . % Normal 17.1 ALBUMIN,UR LAB L3600.4300 . % Normal 4.0 VXGVV-7-BQNK ,U LAB L3600.4400 . % Normal 14.3 ARFJP-4-PSVO ,U LAB L3600.4500 . % Normal BETA 34.4 GLOB,U LAB L3600.4600 . % Normal GAMMA 30.2 GLOB,U LAB L3600.4720 Normal M-SPIKE,U Result Comment: UPE SHOWS ASYMMETRICAL GAMMA. LAB L3600.4800 . Normal NOTE Comment Result Comment: Protein electrophoresis scan will follow via computer, mail, or fitter placer delivery. Performed at: [facility] [id number] Powder Line Repairer: Renaldo Flowers PhD, Phone: [phone] Performed By: #### L3600.2952 #### [facility] (refer to report for specific site) refer to report for address and phone number CBC W/DIFF, AUTOMATED Collected: 08/02/2017 Status: F Source: [place] 1:21 PM [facility] [place] TYPE CODE TESTS RESULT OUT OF RANGE REFERENCE UNITS LAB L100.1000 4.4-11.0 K/mm3 Normal WBC 5.2 LAB L100.1200 4.2-5.4 M/mm3 Low RBC 3.60 LAB L100.1300 12.0-15.0 g/dl Low HGB 10.5 LAB L100.1400 37-47 % Low HCT 34.6 LAB L100.1500 81-99 fL Normal MCV 96.1 LAB L100.1600 27.0-32.0 pg Normal MCH 29.2 LAB L100.1700 32-36 g/gl Low MCHC 30.3 LAB L100.1810 11.6-14.6 % High RDW CV 17.3 LAB L100.1820 35.1-43.9 fl High RDW SD 58.0 LAB L100.1900 150-450 K/mm3 Low PLT 133 LAB L100.2000 6.2-12.0 fl Normal MPV 11.2 LAB L100.2100 47-70 % Normal NEUT% 68.6 LAB L100.2200 19-41 % Normal LY% 19.8 LAB L100.2300 0-10 % High MONO% 10.6 LAB L100.2400 0-5 % Normal EO% 0.6 LAB L100.2500 0-1 % Normal BASO% 0.2 LAB L100.2550 0.0-0.9 % Normal IM GRAN % 0.200 Result Comment: IG% - Immature Granulocytes (promyelocytes, myelocytes and metamyelocytes) > 1% indicates that a LEFT SHIFT is Present. LAB L100.2620 2.0-7.7 X10 3/uL Normal Absolute Neut 3.6 LAB L100.2720 0.83-4.51 X10 3/ul Normal Absolute Lymph 1.03 Performed By: #### L100.0100 #### [facility] [address] [place], [place], [id number] COMPREHENSIVE METABOLIC Collected: 08/02/2017 Status: F Source: [facility] 1:21 PM [facility] [place] [facility] TYPE CODE TESTS RESULT OUT OF RANGE REFERENCE UNITS LAB L501.0100 74-106 mg/dL High GLU 178 Result Comment: Slight Lipemia, Result may be falsely increased. Fasting Glucose result greater than or equal to 126 mg/dL suggests DIABETES MELLITUS per A.D.A. criteria. Please note revised GLUCOSE reference range effective 2017. LAB L501.1000 7-18 mg/dL Normal BUN 8 Result Comment: Slight Lipemia, Result may be falsely increased. LAB L501.1100 0.55-1.02 mg/dL CREAT,SERUM Normal 0.82 Result Comment: Slight Lipemia, Result may be falsely increased. The validity of the calculated GFR AND GFRAA in patients over 70 years has not been determined. Clinical correlation is essential. LAB L501.1110 >60 mL/min Normal EST GFR 72 Result Comment: Non- GFR Calc LAB L501.1115 >60 mL/min Normal EST GFR - AA 87 Result Comment: GFR Calc LAB L501.1300 10-20 RATIO Low BUN/CRE 9.7 LAB L501.1500 6.4-8.2 g/dL T High PROT 8.8 Result Comment: Slight Lipemia, Result may be falsely increased. LAB L501.1800 3.2-5.0 g/dL Low ALB 2.3 LAB L501.1950 2.2-4.2 g/dL High GLOB 6.5 LAB L501.2000 0.9-2.4 RATIO Low A/G 0.4 LAB L501.2200 8.5-10.1 mg/dL Low CA 7.8 Result Comment: Slight Lipemia, Result may be falsely increased. LAB L501.4100 15-37 U/L High AST 54 Result Comment: Slight Lipemia, Result may be falsely increased. LAB L501.4305 45-117 U/L High ALK P 308 LAB L501.4405 13-56 U/L Normal ALT 19 Result Comment: Slight Lipemia, Result may be falsely increased. LAB L501.4600 0.20-1.00 mg/dL Normal T BILI 0.90 Result Comment: Slight Lipemia, Result may be falsely increased. LAB L501.5300 136-145 mmol/L Normal NA 137 LAB L501.5600 3.5-5.1 mmol/L Normal K 4.3 Result Comment: Slight Lipemia, Result may be falsely increased. LAB L501.5900 98-107 mmol/L Normal CL 105 LAB L501.6100 21.0-32.0 mmol/L Normal CO2 24.0 Result Comment: Slight Lipemia, Result may be falsely increased. LAB L501.6200 5-15 Normal GAP 8 Performed By: #### L500.4050 #### [facility] [address] [place], [address] PROTHROMBIN TIME W/INR Collected: 08/02/2017 Status: F Source: [place] 1:21 PM [facility] [place] TYPE CODE TESTS RESULT OUT OF RANGE REFERENCE UNITS LAB L300.4150 11.7-14.9 SECONDS High PROTIME 15.1 LAB L300.4200 Normal INR 1.2 Performed By: #### L300.3900, L300.4310 #### [facility] [address] [place], [address] PARTIAL THROMBOPLAST Collected: 08/02/2017 Status: F Source: [place] TIME 1:21 PM [facility] [place] [facility] TYPE CODE TESTS RESULT OUT OF REFERENCE UNITS RANGE LAB L300.4310 24.1-36.2 Seconds High PTT 41.1 Performed By: #### L300.3900, L300.4310 #### [facility] [address] [place], [address] VITAMIN D,25 HYDROXY Collected: 07/05/2017 Status: F Source: [place] 1:27 PM [facility] [place] [facility] TYPE CODE TESTS RESULT OUT OF RANGE REFERENCE UNITS LAB L506.1000 29.95-100.01 ng/mL Normal Vitamin D 80.4 25-OH Result Comment: Vitamin D 25(OH) Status Range Deficiency <20 ng/mL (50nmol/L) Insuffciency 20 - 30 ng/mL (50 - 75 nmol/L) Sufficiency 30 - 100 ng/mL (75 - 250 nmol/L) Toxicity >100 ng/mL (>250 nmol/L) Performed By: #### L506.1000 #### [facility] [address] [place], [address] BASIC METABOLIC Collected: 07/05/2017 Status: F Source: [place] PROFILE (BMP) 1:27 PM [facility] [place] [facility] TYPE CODE TESTS RESULT OUT OF RANGE REFERENCE UNITS LAB L501.0100 74-106 mg/dL Normal GLU 98 Result Comment: Please note revised GLUCOSE reference range effective 2017. LAB L501.1000 7-18 mg/dL Normal BUN 10 LAB L501.1100 0.55-1.02 mg/dL Normal CREAT,SERUM 0.77 Result Comment: The validity of the calculated GFR AND GFRAA in patients over 70 years has not been determined. Clinical correlation is essential. LAB L501.1110 >60 mL/min Normal EST GFR 78 Result Comment: Non- GFR Calc LAB L501.1115 >60 mL/min Normal EST GFR - AA 94 Result Comment: GFR Calc LAB L501.1300 10-20 RATIO Normal BUN/CRE 13.0 LAB L501.2200 8.5-10.1 mg/dL Low CA 8.4 LAB L501.5300 136-145 mmol/L NA Normal 138 LAB L501.5600 3.5-5.1 mmol/L K Normal 4.1 LAB L501.5900 98-107 mmol/L CL Normal 104 LAB L501.6100 21.0-32.0 mmol/L Normal CO2 26.0 LAB L501.6200 5-15 Normal GAP 8 Performed By: #### L500.2500, L501.9520, L503.6150, L506.0400 #### [facility] [address] [facility], [address] THYROID STIM HORMONE Collected: 07/05/2017 Status: F Source: [place] (TSH) 1:27 PM [facility] [place] [facility] TYPE CODE TESTS RESULT OUT OF RANGE REFERENCE UNITS LAB L501.9520 0.358-3.74 uIU/mL Normal TSH 2.86 Performed By: #### L500.2500, L501.9520, L503.6150, L506.0400 #### [facility] [address] [facility], [address] IRON Collected: 07/05/2017 Status: F Source: [place] 1:27 PM [facility] [place] [facility] TYPE CODE TESTS RESULT OUT OF RANGE REFERENCE UNITS LAB L503.6150 50-170 ug/dL Low IRON 24 Performed By: #### L500.2500, L501.9520, L503.6150, L506.0400 #### [facility] [address] [place], [address] T4 FREE DIRECT Collected: 07/05/2017 Status: F Source: [place] 1:27 PM [facility] [place] [facility] TYPE CODE TESTS RESULT OUT OF RANGE REFERENCE UNITS LAB L506.0400 0.76-1.46 ng/dL Normal T4 FREE 1.28 DIRECT Performed By: #### L500.2500, L501.9520, L503.6150, L506.0400 #### [facility] [address] [facility], [address] CBC W/DIFF, AUTOMATED Collected: 07/05/2017 Status: F Source: [place] 1:27 PM [facility] [place] [facility] TYPE CODE TESTS RESULT OUT OF RANGE REFERENCE UNITS LAB L100.1000 4.4-11.0 K/mm3 Normal WBC 4.5 LAB L100.1200 4.2-5.4 M/mm3 Low RBC 3.60 LAB L100.1300 12.0-15.0 g/dl Low HGB 10.1 LAB L100.1400 37-47 % Low HCT 33.8 LAB L100.1500 81-99 fL Normal MCV 93.9 LAB L100.1600 27.0-32.0 pg Normal MCH 28.1 LAB L100.1700 32-36 g/gl Low MCHC 29.9 LAB L100.1810 11.6-14.6 % High RDW CV 15.6 LAB L100.1820 35.1-43.9 fl High RDW SD 52.8 LAB L100.1900 150-450 K/mm3 Normal PLT 153 LAB L100.2000 6.2-12.0 fl Normal MPV 10.5 LAB L100.2100 47-70 % Normal NEUT% 69.4 LAB L100.2200 19-41 % Normal LY% 21.8 LAB L100.2300 0-10 % Normal MONO% 8.2 LAB L100.2400 0-5 % Normal EO% 0.4 LAB L100.2500 0-1 % Normal BASO% 0.2 LAB L100.2550 0.0-0.9 % Normal IM GRAN % 0.000 Result Comment: IG% - Immature Granulocytes (promyelocytes, myelocytes and metamyelocytes) > 1% indicates that a LEFT SHIFT is Present. LAB L100.2620 2.0-7.7 X10 3/uL Normal Absolute Neut 3.1 LAB L100.2720 0.83-4.51 X10 3/ul Normal Absolute Lymph 0.98 Performed By: #### L100.0100 #### [facility] [address] [facility] [place], [place], [address] PROTHROMBIN TIME W/INR Collected: 07/05/2017 Status: F Source: [place] 1:27 PM [facility] [place] [facility] TYPE CODE TESTS RESULT OUT OF RANGE REFERENCE UNITS LAB L300.4150 11.7-14.9 SECONDS Normal PROTIME 13.7 LAB L300.4200 Normal INR 1.1 Performed By: #### L300.3900, L300.4310 #### [facility] [address] [place], [place], [address] PARTIAL THROMBOPLAST Collected: 07/05/2017 Status: F Source: [place] TIME 1:27 PM [facility] [place] [facility] TYPE CODE TESTS RESULT OUT OF REFERENCE UNITS RANGE LAB L300.4310 24.1-36.2 Seconds High PTT 41.7 Performed By: #### L300.3900, L300.4310 #### [facility] [address] [place], [address] CBC-COMPLETE BLOOD CNT Collected: 06/03/2017 Status: F Source: [place] NO DIFF 2:13 PM [facility] [place] [facility] TYPE CODE TESTS RESULT OUT OF RANGE REFERENCE UNITS LAB L100.1000 4.4-11.0 K/mm3 Normal WBC 5.0 LAB L100.1200 4.2-5.4 M/mm3 Low RBC 3.80 LAB L100.1300 12.0-15.0 g/dl Low HGB 10.9 LAB L100.1400 37-47 % Low HCT 36.1 LAB L100.1500 81-99 fL Normal MCV 95.0 LAB L100.1600 27.0-32.0 pg Normal MCH 28.7 LAB L100.1700 32-36 g/gl Low MCHC 30.2 LAB L100.1810 11.6-14.6 % High RDW CV 19.5 LAB L100.1820 35.1-43.9 fl High RDW SD 67.8 LAB L100.1900 150-450 K/mm3 Normal PLT 155 LAB L100.2000 6.2-12.0 fl Normal MPV 10.5 Performed By: #### L100.0500, L100.4500 #### [facility] [address] [place], [address] DIFFERENTIAL COMMENT Collected: 06/03/2017 Status: F Source: [place] 2:13 PM [facility] [place] [facility] TYPE CODE TESTS RESULT OUT OF RANGE REFERENCE UNITS LAB L100.4500 Normal SMEAR COMMENT SCANNED Result Comment: 1+ HYPOCHROMIA 1+ ANISOCYTOSIS Performed By: #### L100.0500, L100.4500 #### [facility] [address] [place], [address] CARDIOLOGY VISIT Observed: 06/03/2017 Status: F Source: [place] REPORT 1:59 PM [facility] [place] [facility] [address] [place] [address] OFFICE VISIT Date of Service: 06/03/17 MR#: [id number] Acct: [id number] Name: IAM HARDIN Rep #: [id number] : 1940 Provider: James Vazquez MD Age/Sex: 76/F Location: [facility] [place] Status: Signed HPI HPI Chief Complaint: Urgent follow-up Details: Details: IAM BOUDREAUX, is a 76 F who presents to the office today for an urgent follow-up after her initial office visit for the evaluation of syncope, carotid artery stenosis, pulmonary hypertension, and aortic stenosis. Specifically the patient had 2 episodes of syncope while standing, and was admitted to [facility] on 04/08/17 and was found to be anemic with a hemoglobin of around 7. She was admitted to [facility] where she received 1 unit of PRBCs. Patient was on iron therapy but this had run out and she has not resumed it. The patient is completely intolerant to all statins, Niaspan, as well as gemfibrozil. Patient underwent an EGD and C scope by Dr. Rizvi, with no obvious source of bleeding. It was thought that it may have been due to AVMs. She was taken off her baby aspirin by Dr. Snow Echocardiogram was performed which demonstrated an EF of 65%, a peak/mean gradient of 28/14 mmHg, estimated JAVI 1.4 cm , fixed right coronary cusp, RVSP of 43 mmHg. In addition the patient was found to have a carotid stenosis on the right side of 60%, but had no stroke. She also underwent a dobutamine echocardiogram which was negative for inducible ischemia with a peak aortic valve gradient of 35 mmHg. Patient now returns with the chief complaint of getting agitated at home while looking for her missing checkbook, where her blood pressure markedly increased according to her was up to 199/99. In addition, she felt her heart racing, and had shortness of breath, some mild lightheadedness but no syncope or presyncope. She called her son who came over and calm her down, and she has had no symptoms ever since. She denies any anginal symptoms at that time. She has had no further syncopal episodes. In our office today her blood pressure is 120/50, pulse is 88 and regular. Her physical exam is as below. Her lipids as of 08/22/13 show an LDL of 119, and HDL of 38. EKG dated 04/08/17 shows normal sinus rhythm, left axis deviation, left anterior hemiblock, nonspecific anterolateral ST segment depression, no acute changes. Repeat CBC is pending. Intake Vital Signs06/03/17 Height 5 ft 1 in 06/03/17 Weight: 199 lb 06/03/17 Body Mass Index (BMI) 37.5 06/03/17 Blood Pressure 120/50 Intake Visit Reasons: Wants to talk to DJN, willing to do tests Tinsmith Helper Required: No Is patient in pain?: No Allergies niacin Allergy (Verified 06/03/17 13:46) Swelling Ohmwgtv-Oai-Afe Reductase Inhibitor Allergy (Verified 06/03/17 13:46) Swelling acetaminophen [From Percocet] Adverse Reaction (Verified 06/03/17 13:46) Upset Stomach oxycodone [From Percocet] Adverse Reaction (Verified 06/03/17 13:46) Upset Stomach Tetracyclines Adverse Reaction (Verified 06/03/17 13:46) Nausea/Vom/Diarrhea tramadol Adverse Reaction (Verified 06/03/17 13:46) CONFUSION Medications Ergocalciferol [Vitamin D] 50,000 unit PO TU 12/22/13 [History Confirmed 06/03/17] Fexofenadine/Pseudoephedrine [Jamila-D 24 Hour Tablet] 1 ea PO DAILY 12/22/13 [History Confirmed 06/03/17] Flaxseed/Evening Prim/Bilberry [Retaine Flax Softgel] 1 ea PO DAILY 12/22/13 [History Confirmed 06/03/17] [place]-3 Fatty Acids [Fish Oil] 1 tab PO DAILY 12/22/13 [History Confirmed 06/03/17] Polyethylene Glycol 3350 [Miralax] 17 gm PO DAILY 12/22/13 [History Confirmed 06/03/17] Omeprazole [Prilosec] 40 mg PO DAILY 04/12/15 [History Confirmed 06/03/17] Quinine Sulfate 324 mg PO PRN PRN 10/25/15 [History Confirmed 06/03/17] Insulin Glargine [Lantus SoloStar Pen] 42 units SC QHS 12/02/16 [History Confirmed 06/03/17] Lactobacillus Acidophilus [Probiotic Acidophilus] 1 ea PO DAILY 12/02/16 [History Confirmed 06/03/17] Furosemide [Lasix] 20 mg PO PRN PRN 04/07/17 [History Confirmed 06/03/17] ferrous sulfate 325 mg (65 mg iron) tablet 325 mg PO BID #60 tab 05/25/17 [Rx Confirmed 06/03/17] tolterodine ER 4 mg capsule,extended release 24 hr 8 mg PO DAILY cap 05/25/17 [History Confirmed 06/03/17] Ejection fraction %: 65 to 70 (Per echo 04/08/2017) PFSH Medical History Mixed hyperlipidemia (Chronic) Non-rheumatic aortic stenosis (Chronic) Secondary pulmonary arterial hypertension (Chronic) Stenosis of right carotid artery (Chronic) Syncope (Chronic) Anemia (Chronic) Gastritis (Chronic) Hyperlipidemia (Chronic) Obesity (Chronic) Type 2 diabetes mellitus without complications (Chronic) Surgical History H/O bilateral cataract extraction (Resolved) History of (Resolved) History of appendectomy (Resolved) History of bilateral knee replacement (Resolved) History of esophagogastroduodenoscopy (EGD) (Resolved) History of salpingectomy (Resolved) Hx laparoscopic cholecystectomy (Resolved) Hx of left inguinal hernia repair (Resolved) Family History Mother Diabetes Social History Smoking Status: Former smoker alcohol intake: never ROS Const Const: Positive for other (here to discuss some procedures); negative for body ache, fever(s), chills, night sweats, daytime sleepiness, difficulty sleeping, weight gain, weight loss, increased appetite, poor appetite, anorexia, fatigue, excessive sweating, weakness, headache(s) or frequent falls Eyes Eyes: Negative for blind spots, loss of peripheral vision, transient loss of vision, change in vision, floaters, tunnel vision, other, blurry vision or double vision ENT ENT: Negative for hearing loss, tinnitus, Nosebleed/epistaxis, post nasal drip, bleeding gums, hoarseness, neck pain, dry mouth, other, balance problems, headache(s), dizziness, lip swelling or tongue swelling Cardio Chest Pain: No Palpitations: Yes (Had episode on Wednesday, states was upset at the time) feels like its: pounding Edema: None Muscle aches with walking: None Resp Respiratory: Positive for SOB with activity (When walks a distance, gets out of breath); negative for SOB at rest, SOB orthopnea\SOB lying down, Coughing up blood/hemoptysis, chest congestion, pain on inspiration, snoring, stridor, wheezing, crackles, paroxysmal nocturnal dyspnea or other GI GI: Negative nausea, vomiting, heartburn, constipation, belching, bloating, cramping, vomiting blood/hematemesis, bright, red blood in stools, black,tarry stools, loose stools, Difficulty Swallowing or other : Negative for hematuria, frequent nighttime urination/ nocturia, erectile dysfunction or abnormal vaginal bleeding Musc Musc: Negative for balance problems, muscle aches/ myalgia, muscle weakness or joint pain Skin Skin: Negative redness, non-healing lesions, unusual bruising, skin ulcer, wounds, jaundice, other or rash Neuro Neuro: Negative for weakness, headache(s), frequent falls, blurry vision, double vision, dizziness, lightheadedness, near syncope, syncope, orthostatic symptoms, confusion, memory loss, restless legs, vertigo, seizures, lack of coordination or other Grupo Hematologic/Lymphatic: Negative for easy bleeding, easy bruising, enlarged lymph nodes or other Endo Endo: Negative for fatigue, excessive sweating, cold intolerance, heat intolerance, flushing, increased thirst/drinking, increased hunger, hair loss, hair growth or other Psych Psych: Negative for anxiety, depression, thoughts of harming anyone, thoughts of harming yourself, visual hallucinations, panic attacks or audible hallucinations Allergy Allergy/Immunology: Negative for lip swelling, Negative for tongue swelling, Negative for rash, Negative for throat swelling, Negative for hives Cardiology Exam Const Appearance: cooperative, healthy appearing and no acute distress Nutritional Appearance: well nourished Orientation: alert, oriented x3 and oriented to person Head Head: normal to inspection, atraumatic and normocephalic Nose: external nose normal Face and Sinus: face symmetric Mouth: oral mucosae normal Eyes General: appearance normal, both eyes and all related structures Eyelids: eyelids normal Conjunctivae: conjunctivae normal Pupils: PERRL and normal by confrontation EOM: EOM intact bilaterally Neck Neck: normal visual inspection and full ROM Carotids: normal carotid upstroke Chest Chest inspection: normal inspection of the chest Auscultation: Bilateral: Clear to Auscultation Cardio Palpation: normal PMI Rate: regular rate Rhythm: regular rhythm Heart sounds: S2 normal Murmur: Grade 3/6 and crescendo-decrescendo GI GI: normal to inspection, no hepatosplenomegaly and bowel sounds present Neuro General: alert, oriented x3, awake, CN's II-XI intact bilaterally and moves all extremities Skin Skin: no rashes or lesions noted Extremities Pulses: Normal: Right Femoral Pulse, Left Femoral Pulse, Right Dorsalis Pedis Pulse, Left Dorsalis Pedis Pulse, Right Posterior Tibial Pulse, Left Posterior Tibial Pulse, Right Radial Pulse, Left Radial Pulse Lower Extremity Edema: None: Bilateral Psych Psychological: normal affect Assessment AND Plan 1. Non-rheumatic aortic stenosis I35.0 Plan 1. Aortic stenosis: The patient's aortic stenosis does not appear to be significant enough to require aortic valve replacement at this time. When him in any repeat cardiac testing at this time. I do not believe she requires a catheterization or ARTURO at this time. Her symptoms appeared to revolve around an episode of severe agitation where her blood pressure and heart rate increased and she was symptomatically short of breath with palpitations. Her blood pressure today is optimized. I recommended that she continue her antihypertensive medications in the form of Lasix. Also recommend that she undergo a 30 day event monitor and attempt to try and capture any abnormal rhythm such as atrial fibrillation, atrial flutter, or ventricular arrhythmias. If she has any ventricular arrhythmias, she may require a diagnostic coronary angiogram. 2. Anemia, unspecified type D64.9 Plan 2. Anemia: The patient has a history of anemia and is currently on iron based therapy. It is been about a month since her last CBC, and recommend a repeat CBC today to make sure that her hemoglobin has been stabilized. Her last hemoglobin was 10.3 as of 04/23/17. Orders Orders: 3. Mixed hyperlipidemia E78.2 Plan 3. Hyperlipidemia: Despite her carotid disease, she is intolerant to any antilipid medications. She does admit to taking flaxseed and oatmeal every day. Continue present management. 4. Return office in 6 months. This note was generated using a voice recognition system and there may be incorrect words, spelling or punctuation that were not noted when reviewing the office note prior to saving. Plan Detail Follow Up +6m (George) Coding Level of Care Code Off vis,est,level 3 Diagnoses Non-rheumatic aortic stenosis I35.0 Anemia, unspecified type D64.9 Mixed hyperlipidemia E78.2 Coding Level of Care Code Off vis,est,level 3 Diagnoses Non-rheumatic aortic stenosis I35.0 Anemia, unspecified type D64.9 Mixed hyperlipidemia E78.2 06/03/17 1359 <Electronically signed by James Vazquez MD> Date James Vazquez MD Cosigner Signature: Date (if applicable) CC: Jared Mayorga CARDIOLOGY VISIT Observed: 05/25/2017 Status: F Source: [facility] REPORT 3:18 PM [facility] [place] [facility] [address] [place] [address] OFFICE VISIT Date of Service: 05/25/17 MR#: [id number] Acct: [id number] Name: IAM HARDIN Rep #: [id number] : 1940 Provider: James Vazquez MD Age/Sex: 76/F Location[place] [facility] Status: Signed HPI HPI Chief Complaint: syncope Details: IAM BOUDREAUX, is a 76 F who presents to the office today for evaluation of syncope, carotid artery stenosis, pulmonary hypertension, and aortic stenosis. Specifically the patient had 2 episodes of syncope while standing, and was admitted to [facility] on 04/08/17 and was found to be anemic with a hemoglobin of around 7. She was admitted to [facility] where she received 1 unit of PRBCs. Patient was on iron therapy but this had run out and she has not resumed it. The patient is completely intolerant to all statins, Niaspan, as well as gemfibrozil. Patient underwent an EGD and C scope by Dr. Rizvi, with no obvious source of bleeding. It was thought that it may have been due to AVMs. She was taken off her baby aspirin by Dr. Snow Echocardiogram was performed which demonstrated an EF of 65%, a peak/mean gradient of 28/14 mmHg, estimated JAVI 1.4 cm , fixed right coronary cusp, RVSP of 43 mmHg. In addition the patient was found to have a carotid stenosis on the right side of 60%, but had no stroke. She also underwent a dobutamine echocardiogram which was negative for inducible ischemia with a peak aortic valve gradient of 35 mmHg. In our office today her blood pressure is 124/62, pulse is 96 and regular. Her physical exam is as below. Her lipids as of 08/22/13 show an LDL of 119, and HDL of 38. EKG dated 04/08/17 shows normal sinus rhythm, left axis deviation, left anterior hemiblock, nonspecific anterolateral ST segment depression, no acute changes. Intake Vital Signs05/25/17 Blood Pressure 124/62 05/25/17 Pulse Rate 96 05/25/17 Height 5 ft 1 in Intake Visit Reasons: syncope, abn EKG (Jared Mayorga) Allergies niacin Allergy (Verified 05/25/17 14:35) Swelling Cwxusjs-Nzr-Wbq Reductase Inhibitor Allergy (Verified 05/25/17 14:35) Swelling acetaminophen [From Percocet] Adverse Reaction (Verified 05/25/17 14:35) Upset Stomach oxycodone [From Percocet] Adverse Reaction (Verified 05/25/17 14:35) Upset Stomach Tetracyclines Adverse Reaction (Verified 05/25/17 14:35) Nausea/Vom/Diarrhea tramadol Adverse Reaction (Verified 05/25/17 14:35) CONFUSION Medications Ergocalciferol [Vitamin D] 50,000 unit PO TU 12/22/13 [History Confirmed 05/25/17] Fexofenadine/Pseudoephedrine [Jamila-D 24 Hour Tablet] 1 ea PO DAILY 12/22/13 [History Confirmed 05/25/17] Flaxseed/Evening Prim/Bilberry [Retaine Flax Softgel] 1 ea PO DAILY 12/22/13 [History Confirmed 05/25/17] [place]-3 Fatty Acids [Fish Oil] 1 tab PO DAILY 12/22/13 [History Confirmed 05/25/17] Polyethylene Glycol 3350 [Miralax] 17 gm PO DAILY 12/22/13 [History Confirmed 05/25/17] Omeprazole [Prilosec] 40 mg PO DAILY 04/12/15 [History Confirmed 05/25/17] Quinine Sulfate 324 mg PO PRN PRN 10/25/15 [History Confirmed 05/25/17] Insulin Glargine [Lantus SoloStar Pen] 42 units SC QHS 12/02/16 [History Confirmed 05/25/17] Lactobacillus Acidophilus [Probiotic Acidophilus] 1 ea PO DAILY 12/02/16 [History Confirmed 05/25/17] Furosemide [Lasix] 20 mg PO PRN PRN 04/07/17 [History Confirmed 05/25/17] ferrous sulfate 325 mg (65 mg iron) tablet 325 mg PO BID #60 tab 05/25/17 [Rx Confirmed 05/25/17] tolterodine ER 4 mg capsule,extended release 24 hr 8 mg PO DAILY cap 05/25/17 [History Confirmed 05/25/17] [facility] Medical History Mixed hyperlipidemia (Chronic) Non-rheumatic aortic stenosis (Chronic) Secondary pulmonary arterial hypertension (Chronic) Stenosis of right carotid artery (Chronic) Syncope (Chronic) Anemia (Chronic) Gastritis (Chronic) Hyperlipidemia (Chronic) Obesity (Chronic) Type 2 diabetes mellitus without complications (Chronic) Surgical History H/O bilateral cataract extraction (Resolved) History of (Resolved) History of appendectomy (Resolved) History of bilateral knee replacement (Resolved) History of esophagogastroduodenoscopy (EGD) (Resolved) History of salpingectomy (Resolved) Hx laparoscopic cholecystectomy (Resolved) Hx of left inguinal hernia repair (Resolved) Family History Mother Diabetes Social History Smoking Status: Former smoker alcohol intake: never ROS Const Const: Positive for weakness and fatigue; negative for difficulty sleeping, frequent falls, headache(s) or excessive sweating Eyes Eyes: Negative for loss of peripheral vision, transient loss of vision, blurry vision or double vision ENT ENT: Negative for Nosebleed/epistaxis, balance problems, dizziness or headache(s) Cardio Chest Pain: No Edema: None Muscle aches with walking: None Resp Respiratory: Negative for SOB with activity, SOB at rest, SOB orthopnea\SOB lying down or paroxysmal nocturnal dyspnea GI GI: Negative nausea or heartburn : Negative for hematuria Musc Musc: Negative for muscle aches/ myalgia, muscle weakness, joint pain or balance problems Skin Skin: Negative non-healing lesions, unusual bruising or rash Neuro Neuro: Positive for lightheadedness (positional ), orthostatic symptoms, other and weakness; negative for blurry vision, dizziness, double vision, syncope (denies sycope since discharge from hospital), frequent falls or headache(s) Grupo Hematologic/Lymphatic: Negative for easy bruising Endo Endo: Positive for fatigue; negative for excessive sweating or increased thirst/drinking Psych Psych: Negative for anxiety or depression Allergy Allergy/Immunology: Negative for hives, Negative for rash Cardiology Exam Const Appearance: cooperative, healthy appearing and no acute distress Nutritional Appearance: well nourished Orientation: alert, oriented x3 and oriented to person Head Head: normal to inspection, atraumatic and normocephalic Nose: external nose normal Face and Sinus: face symmetric Mouth: oral mucosae normal Eyes General: appearance normal, both eyes and all related structures Eyelids: eyelids normal Conjunctivae: conjunctivae normal Pupils: PERRL and normal by confrontation EOM: EOM intact bilaterally Neck Neck: normal visual inspection and full ROM Carotids: normal carotid upstroke and bruit Right Chest Chest inspection: normal inspection of the chest Auscultation: Bilateral: Clear to Auscultation Cardio Palpation: normal PMI Rate: regular rate Rhythm: regular rhythm Heart sounds: S2 normal Murmur: Grade 2/6 and crescendo-decrescendo GI GI: normal to inspection, no hepatosplenomegaly and bowel sounds present Neuro General: alert, oriented x3, awake, CN's II-XI intact bilaterally and moves all extremities Skin Skin: no rashes or lesions noted Extremities Pulses: Normal: Right Femoral Pulse, Left Femoral Pulse, Right Dorsalis Pedis Pulse, Left Dorsalis Pedis Pulse, Right Posterior Tibial Pulse, Left Posterior Tibial Pulse, Right Radial Pulse, Left Radial Pulse Lower Extremity Edema: None: Bilateral Psych Psychological: normal affect Assessment AND Plan 1. Syncope R55 Plan 1. Syncope: The patient's syncope was most likely a combination of positional as well as anemia combined with carotid stenosis on the right side and mild to moderate aortic stenosis. She appears to be doing much better after 1 unit of PRBCs and would recommend keeping her hemoglobin at least above 8.0 and preferably above 9.0. I do not believe that she requires additional workup at this time unless she continues to have syncopal episodes in the face of normal hemoglobin. This would indicate the patient may have symptomatic aortic stenosis which would require replacement. At this point, her peak and mean gradients are actually lower than a replacement peak and mean gradient at this time. Recommend repeat echocardiogram in 1 years time. 2. Non-rheumatic aortic stenosis I35.0 Plan 2. Aortic stenosis: Again the patient's aortic stenosis appears to be less than what caused her syncope but may have contributed to it given her significant anemia. Repeat echocardiogram in 1 years time. Do not believe the patient requires aortic valve replacement at this time. 3. Mixed hyperlipidemia E78.2 Plan 3. Hyperlipidemia: Given the patient's carotid disease she requires aggressive LDL reduction however she is unable to tolerate statins, gemfibrozil, or Niaspan. Recommend that she continue her oatmeal, flaxseed oil, and omega-3 fatty acids. 4. Return office in 6 months. This note was generated using a voice recognition system and there may be incorrect words, spelling or punctuation that were not noted when reviewing the office note prior to saving. Plan Detail Other Medications New: Discontinued: Follow Up +6m (George) Coding Level of Care Code Off vis,new,level 4 Diagnoses Syncope R55 Non-rheumatic aortic stenosis I35.0 Mixed hyperlipidemia E78.2 Coding Level of Care Code Off vis,new,level 4 Diagnoses Syncope R55 Non-rheumatic aortic stenosis I35.0 Mixed hyperlipidemia E78.2 05/25/17 1518 <Electronically signed by James Vazquez MD> Date James Vazquez MD Cosigner Signature: Date (if applicable) CC: CBC W/DIFF, AUTOMATED Collected: 04/23/2017 Status: F Source: [place] 4:33 PM [facility] [place] [facility] TYPE CODE TESTS RESULT OUT OF RANGE REFERENCE UNITS LAB L100.1000 4.4-11.0 K/mm3 Normal WBC 4.5 LAB L100.1200 4.2-5.4 M/mm3 Low RBC 4.03 LAB L100.1300 12.0-15.0 g/dl Low HGB 10.3 LAB L100.1400 37-47 % Low HCT 35.7 LAB L100.1500 81-99 fL Normal MCV 88.6 LAB L100.1600 27.0-32.0 pg Low MCH 25.6 LAB L100.1700 32-36 g/gl Low MCHC 28.9 LAB L100.1810 11.6-14.6 % High RDW CV 20.6 LAB L100.1820 35.1-43.9 fl High RDW SD 66.2 LAB L100.1900 150-450 K/mm3 Normal PLT 205 LAB L100.2000 6.2-12.0 fl Normal MPV 10.3 LAB L100.2100 47-70 % Normal NEUT% 60.7 LAB L100.2200 19-41 % Normal LY% 27.5 LAB L100.2300 0-10 % Normal MONO% 10.0 LAB L100.2400 0-5 % Normal EO% 1.6 LAB L100.2500 0-1 % Normal BASO% 0.2 LAB L100.2550 0.0-0.9 % Normal IM GRAN % 0.000 Result Comment: IG% - Immature Granulocytes (promyelocytes, myelocytes and metamyelocytes) > 1% indicates that a LEFT SHIFT is Present. LAB L100.2620 2.0-7.7 X10 3/uL Normal Absolute Neut 2.7 LAB L100.2720 0.83-4.51 X10 3/ul Normal Absolute Lymph 1.23 LAB L100.4500 Normal SMEAR COMMENT SCANNED Result Comment: 1+ ANISOCYTOSIS Performed By: #### L100.0100 #### [facility] [address] [place], [address] IRON Collected: 04/23/2017 Status: F Source: [place] 4:32 PM [facility] [place] [facility] TYPE CODE TESTS RESULT OUT OF RANGE REFERENCE UNITS LAB L503.6150 50-170 ug/dL High IRON 215 Performed By: #### L503.6150 #### [facility] [address] [place], [address] DISCHARGE SUMMARY Observed: 04/09/2017 Status: F Source: [place] 4:39 PM [facility] [place] [facility] Medical Records Department [address] [place] [id number] Discharge Summary 04/09/17 1635 MR#: [id number] Acct: [id number] Name: GALEN IAM BOUDREAUX Rep #: [id number] : 1940 76 From: Skyler Aguilar DO PCP: Jared Mayorga Status: ADM IN Y Location: [place] [address] Discharge Date and Diagnosis - Problem List Patient Problems: Active and Suspected Problems (Last Reviewed 03/31/17 @ 08:49 by Reyna Feng) Syncope (Acute) Date of Admission: 04/07/17 Date of Discharge: 04/09/17 - Primary Discharge Diagnosis Active and Suspected Problems (Last Reviewed 03/31/17 @ 08:49 by Reyna Feng) Syncope (Acute) - Secondary Discharge Diagnosis Chronic Problems (Last Reviewed 03/31/17 @ 08:49 by Reyna Feng) Black tarry stools (Chronic) Hospital Course and Treatment Operations: None Procedures: Stress test Summary of Care Provided: The patient is a 76 year old F presents with anemia and 2 episodes of syncope. Patient had a some syncopal episodes upon standing in 2 different occasions. Concern with patient with anemia. Patient has had a workup for anemia with an EGD and colonoscopy showed no other acute process. Patient's hemoglobin has remained status stable here. Patient did have ferritin level that was low so spell that her anemia is iron deficient but no obvious source has been identified. The patient will continue with iron sulfate as well as follow-up CBC in about 2 weeks time. For the patient's syncope she had no further events during his hospitalization workup here was unremarkable. May been vasovagal due to the patient's anemia the patient is otherwise feeling well. Patient did have some very mild elevation of cardiac markers. Led to syncope did order a stress test that was negative. Patient did have some carotid stenosis more prominent on the right but is not felt to be related with her syncope. Not surgical. In the absence of a stroke and not meeting the stenosis criteria of being greater than 70% anyways. Patient may follow-up with vascular surgery for evaluation to see if a surgical intervention may be warranted at a later date. This note was generated with [employer] dictation software. It may contain incorrect words, spelling, and punctuation that were not noted in checking the note before signing. [] Discharge Diet: Low fat/ Low Cholesterol Discharge Activity: Return to Normal Activity Call your doctor if you observe: Fever of 101 or Higher, Shortness of breath, Chest pain, - - loss of consiousness Home Medications: Medications to take at Discharge Ergocalciferol [Vitamin D] 50,000 unit PO TU 12/22/13 Fexofenadine/Pseudoephedrine [Jamila-D 24 Hour Tablet] 1 ea PO DAILY 12/22/13 Flaxseed/Evening Prim/Bilberry [Retaine Flax Softgel] 1 ea PO DAILY 12/22/13 [place]-3 Fatty Acids [Fish Oil] 1 tab PO DAILY 12/22/13 Polyethylene Glycol 3350 [Miralax] 17 gm PO DAILY 12/22/13 Tolterodine Tartrate [Detrol LA] 8 mg PO DAILY 12/22/13 Omeprazole [Prilosec] 40 mg PO DAILY 04/12/15 Quinine Sulfate 324 mg PO PRN PRN 10/25/15 Insulin Glargine [Lantus SoloStar Pen] 42 units SC QHS 12/02/16 Lactobacillus Acidophilus [Probiotic Acidophilus] 1 ea PO DAILY 12/02/16 Furosemide [Lasix] 20 mg PO PRN PRN 04/07/17 Metoclopramide HCl [Reglan] 5 mg PO TID PRN PRN 04/07/17 Ferrous Sulfate 325 mg PO BIDCM #60 tab 04/09/17 Following Prescrptions Were Given to Patient: Ferrous Sulfate 325 mg PO BIDCM #60 tab Primary Care Physician: Jared Mayorga MD [Primary Care Provider] - Within 2 Weeks Please Follow Up With: Lenny Santiago MD - carotid stenosis When: 1-2 months Disposition: Home Minutes spent on discharge:: 32 Patient Condition:: Good Meaningful Use Info Meaningful Use Diagnoses (Choose all that apply): None applicable Code Visit Inpatient E AND M: 20596 Disch Hosp 04/09/17 1639 <Electronically signed by Skyler Aguilar DO> Date Skyler Aguilar DO Cosigner Signature (if applicable): Date CC: Skyler Aguilar DO; Jared Mayorga Signed DISCHARGE INSTRUCTION Observed: 04/09/2017 Status: F Source: [place] 4:35 PM [facility] [place] [facility] Medical Records Department [address] [place] [address] Instructions for Home/Discharge Instructions 04/09/17 1633 MR#: [id number] Acct: [id number] Name: IAM HARDIN Rep #: [id number] : 1940 76 From: Skyler Aguilar DO PCP: Jared Mayorga Status: ADM IN - Discharge Diagnoses Current Active Problems: Current Active and Chronic Problems (Last Reviewed 03/31/17 @ 08:49 by Reyna Feng) Syncope (Acute) You will use the following diet at home:: No restrictions Your food should be the consistency of: Regular Your liquids should be the consistency of: Regular/Thin Discharge Activity: Return to Normal Activity Call your doctor if you observe: Fever of 101 or Higher, Shortness of breath, Chest pain, - - loss of consiousness Allergies/Adverse Reactions: Allergies niacin Allergy (Verified 04/07/17 15:41) Swelling Ejvmrcs-Dgs-Agw Reductase Inhibitor Allergy (Verified 04/07/17 15:41) Swelling acetaminophen [From Percocet] Adverse Reaction (Verified 04/07/17 15:41) Upset Stomach oxycodone [From Percocet] Adverse Reaction (Verified 04/07/17 15:41) Upset Stomach Tetracyclines Adverse Reaction (Verified 04/07/17 15:41) Nausea/Vom/Diarrhea tramadol Adverse Reaction (Verified 04/07/17 15:41) CONFUSION Medications to take at Discharge Ergocalciferol [Vitamin D] 50,000 unit PO TU 12/22/13 Fexofenadine/Pseudoephedrine [Jamila-D 24 Hour Tablet] 1 ea PO DAILY 12/22/13 Flaxseed/Evening Prim/Bilberry [Retaine Flax Softgel] 1 ea PO DAILY 12/22/13 [place]-3 Fatty Acids [Fish Oil] 1 tab PO DAILY 12/22/13 Polyethylene Glycol 3350 [Miralax] 17 gm PO DAILY 12/22/13 Tolterodine Tartrate [Detrol LA] 8 mg PO DAILY 12/22/13 Omeprazole [Prilosec] 40 mg PO DAILY 04/12/15 Quinine Sulfate 324 mg PO PRN PRN 10/25/15 Insulin Glargine [Lantus SoloStar Pen] 42 units SC QHS 12/02/16 Lactobacillus Acidophilus [Probiotic Acidophilus] 1 ea PO DAILY 12/02/16 Furosemide [Lasix] 20 mg PO PRN PRN 04/07/17 Metoclopramide HCl [Reglan] 5 mg PO TID PRN PRN 04/07/17 Ferrous Sulfate 325 mg PO BIDCM #60 tab 04/09/17 The following prescriptions were given: Ferrous Sulfate 325 mg PO BIDCM #60 tab Primary Care Physician: Jared Mayorga MD [Primary Care Provider] - Within 2 Weeks Please Follow Up With: Lenny Santiago MD - carotid stenosis When: 1-2 months Proposed Discharge Date: 04/09/17 04/09/17 1635 <Electronically signed by Skyler Aguilar DO> Date Skyler Aguilar DO CC: Jared Mayorga STRESS TEST ECHO W/ Observed: 04/09/2017 Status: F Source: [place] CONTR[place] 4:00 PM [facility] [place] [facility] Cardiovascular Services [address] [place], [place] [address] [address] Stress Test Echo w/o Contrast MR#: [id number] Acct: [id number] Name: IAM HARDIN Rep #: [id number] : 1940 76 From: James Vazquez MD Primary Care: Jared Mayorga Status: ADM IN Ordering Dr: Skyler Aguilar DO Sex: F C Reason For Study: dyspnea/sob Stress Results Protocol: Dobutamine Maximum Predicted HR: 144 bpm Target HR: 122 bpm% Maximum Predicted HR: 88 % DurationHeart Rate Stage (mm:ss) (bpm) BPDos e Baseline 88 145/74 Stage 1 3:00 10 0 141/8210.00 Stage 2 1:28 12 6 145/4820.00 Recovery 99 126/83 Stress Duration: 4:28 mm:ss Maximum Stress HR: 126 bpm Baseline Echocardiogram Findings The estimated ejection fraction is 65 %. Stress Echo Wall motion Data Resting WMIntermediate WMStress WM Resting Wall Motion Wall Motion Stress No regional wall motion No regional wall motion abnormalities noted. abnormalities noted. EKG Data Normal intervals are noted. The patient was titrated from 10 mcg to a maximun of 30 mcg of dobutamine during the stress. The maximum heart rate attained was 153 beats per minute. This was 106% of maximum predicted heart rate. During dobutamine infusion, there were no ST or T wave changes noted to suggest ischemia. No arrhythmias noted. No clinical angina was noted. Interpretation Summary The estimated ejection fraction is 65 %. The patient was titrated from 10 mcg to a maximun of 30 mcg of dobutamine during the stress. Normal adequate dobutamine echocardiogram. Negative for ischemia by EKG and echocardiographic criteria. No anginal symptoms noted. No arrhythmias noted. Appropriate blood pressure response to dobutamine. Test terminated due to the attainment of target heart rate. Final LVEF is 75%. Peak aortic valve gradient of 35 mmHg at peak infusion. Patient tolerated procedure well. No complications. MMode/2D Measurements AND Calculations LVOT diam: 2.0 cm LVOT area: 3.3 cm2 Doppler Measurements AND Calculations Ao V2 max: 275.4 cm/sec LV V1 max P.9 mmHg SV(LVOT): 72.2 ml Ao max P.7 mmHg LV V1 mean P.4 mmHg Ao V2 mean: 171.7 cm/sec LV V1 max: 98.7 cm/sec Ao mean P.5 mmHg LV V1 mean: 73.4 cm/sec Ao V2 VTI: 48.3 cm LV V1 VTI: 22.0 cm JAVI(I,D): 1.5 cm2 JAVI(V,D): 1.2 cm2 Ordering Physician: Skyler Aguilar Referring Physician: Alex Koroma Performed By: Elida Bird, ROSEYCS, RVT 04/09/17 1600 Date James Vazquez MD CC: Skyler Mayorga Date Dictated: 04/09/17 1107 Date Transcribed: 04/09/171599 Medical Officer: Signed 12 LEAD ELECTROCARDIOGRAM Observed: 04/09/2017 Status: F Source: [place] 1:[facility] PM [facility] Cardiovascular Services [address] [place] [address] 12 Lead EKG 04/08/17 0534 MR#: [id number] Acct: [id number] Name: IAM HARDIN Rep #: [id number] : 1940 76 From: Barry Amaro MD Attending Dr: Skyler Aguilar DO Status: ADM IN Ordering Dr: Jose Garduno DO Date: 04/08/17 Location: [facility] Sex: F C Admitted: 04/07/17 Test Reason : AM EKG Blood Pressure : / mmHG Vent. Rate : 080 BPM Atrial Rate : 080 BPM P-R Int : 158 ms QRS Dur : 092 ms QT Int : 410 ms P-R-T Axes : 047 -46 047 degrees QTc Int : 472 ms Normal sinus rhythm Left anterior fascicular block Nonspecific T wave abnormality Prolonged QT Abnormal ECG Confirmed by PREM RUFFIN, BARRY ([id number]), magazine editor JANETTE TIJERINA ([id number]) on 04/09/2017 1:42:23 PM Referred By: OLIMPIA Confirmed By:BARRY AMARO MD 04/09/17 1342 Date Barry Amaro MD CC: Jose Garduno DO; Jared Mayorga Signed 12 LEAD ELECTROCARDIOGRAM Observed: 04/09/2017 Status: F Source: [place] 1:21 PM [facility]POSIT[facility] Cardiovascular Services [address] [place] [address] 12 Lead EKG 04/07/17 1636 MR#: [id number] Acct: [id number] Name: IAM HARDIN Rep #: [id number] : 1940 76 From: Barry Amaro MD Attending Dr: Skyler Aguilar DO Status: ADM IN Ordering Dr: Chuck Weeks MD Date: 04/07/17 Location: U Sex: F C Admitted: 04/07/17 Test Reason : DIZZINESS Blood Pressure : / mmHG Vent. Rate : 090 BPM Atrial Rate : 090 BPM P-R Int : 150 ms QRS Dur : 092 ms QT Int : 358 ms P-R-T Axes : 033 -39 103 degrees QTc Int : 437 ms Sinus rhythm with occasional Premature ventricular complexes Left axis deviation Poor R wave progression Abnormal ECG Confirmed by PREM RUFFIN, BARRY ([id number]), magazine editor JANETTE TIJERINA ([id number]) on 04/09/2017 1:21:01 PM Referred By: JESIKA Confirmed By:BARRY AMARO MD 04/09/17 1321 Date Barry Amaro MD CC: Chuck Weeks; Jared Mayorga Signed BEDSIDE GLUCOSE Collected: 04/09/2017 Status: F Source: [place] 12:00 PM [facility] [place] TYPE CODE TESTS RESULT OUT OF REFERENCE UNITS RANGE LAB L501.080 70-110 mg/dL High BEDSIDE GLU 137 Result Comment: MANAGEMENT OF PATIENT CARE PER NURSING PROTOCOL Performed By: #### L501.080 #### [facility] Laboratory Point of Care [facility] [address] [place], [place] [id number] CBC W/DIFF, AUTOMATED Collected: 04/09/2017 Status: F Source: [place] 5:15 AM [facility] [place] TYPE CODE TESTS RESULT OUT OF RANGE REFERENCE UNITS LAB L100.1000 4.4-11.0 K/mm3 Normal WBC 5.3 LAB L100.1200 4.2-5.4 M/mm3 Low RBC 3.70 LAB L100.1300 12.0-15.0 g/dl Low HGB 9.3 LAB L100.1400 37-47 % Low HCT 31.2 LAB L100.1500 81-99 fL Normal MCV 84.3 LAB L100.1600 27.0-32.0 pg Low MCH 25.1 LAB L100.1700 32-36 g/gl Low MCHC 29.8 LAB L100.1810 11.6-14.6 % High RDW CV 17.8 LAB L100.1820 35.1-43.9 fl High RDW SD 53.5 LAB L100.1900 150-450 K/mm3 Low PLT 147 LAB L100.2000 6.2-12.0 fl Normal MPV 10.9 LAB L100.2100 47-70 % Normal NEUT% 49.3 LAB L100.2200 19-41 % Normal LY% 38.4 LAB L100.2300 0-10 % High MONO% 10.8 LAB L100.2400 0-5 % Normal EO% 0.9 LAB L100.2500 0-1 % Normal BASO% 0.4 LAB L100.2550 0.0-0.9 % Normal IM GRAN % 0.200 Result Comment: IG% - Immature Granulocytes (promyelocytes, myelocytes and metamyelocytes) > 1% indicates that a LEFT SHIFT is Present. LAB L100.2620 2.0-7.7 X10 3/uL Normal Absolute Neut 2.6 LAB L100.2720 0.83-4.51 X10 3/ul Normal Absolute Lymph 2.03 Performed By: #### L100.0100 #### [facility] Laboratory [address] [place] [address] BEDSIDE GLUCOSE Collected: 04/08/2017 Status: F Source: [place] 9:24 PM [facility] [place] TYPE CODE TESTS RESULT OUT OF REFERENCE UNITS RANGE LAB L501.080 70-110 mg/dL High BEDSIDE GLU 130 Result Comment: MANAGEMENT OF PATIENT CARE PER NURSING PROTOCOL Performed By: #### L501.080 #### [facility] Laboratory Point of Care [address] [facility] [address] BEDSIDE GLUCOSE Collected: 04/08/2017 Status: F Source: [place] 5:10 PM [facility] [place] TYPE CODE TESTS RESULT OUT OF REFERENCE UNITS RANGE LAB L501.080 70-110 mg/dL High BEDSIDE GLU 113 Result Comment: MANAGEMENT OF PATIENT CARE PER NURSING PROTOCOL Performed By: #### L501.080 #### [facility] Laboratory Point of Care [address] [facility] [address] CAROTID DUPLEX Observed: 04/08/2017 Status: F Source: [place] ULTRASOUND 4:07 PM [facility] [place] [facility] Cardiovascular Services [address] [place] [address] Carotid Duplex Ultrasound 04/08/17915 MR#: [id number] Acct: [id number] Name: IAM HARDIN Rep #: [id number] : 1940 76 From: Lenny Santiago MD Attending Dr: Skyler Aguilar DO Status: ADM IN Ordering Dr: Jose Garduno DO Date: 04/08/17 Location: [facility] Sex: F C Admitted: 04/07/17 Reason For Study: syncope Rt. Velocities/BP Lt. Velocities/BP Prox CCA 62.7/14.1 cm/sec. Prox CCA 78.6/11.7 cm/sec. Mid CCA 84.4/17.0 cm/sec. Mid CCA 83.8/14.7 cm/sec. Dist CCA 77.4/14.1 cm/sec. Dist CCA 94.4/18.8 cm/sec. Prox ICA 146/25.1 cm/sec. Prox ICA 96.7/13.5 cm/sec. Mid ICA 135/20.4 cm/sec. Mid ICA 103/14.7 cm/sec. Dist ICA 66.8/14.9 cm/sec. Dist ICA 91.5/21.1 cm/sec. Rt. ICA/CCA = 1.7. Lt. ICA/CCA = 1.2. Prox ECA 233/13.1 cm/sec. Prox ECA 114 cm/sec. Rt. Vert. 51.5/10.6 cm/sec. Lt. Vert. 70.4/15.8 cm/sec. Right Extracranial There is heterogeneous, irregular atherosclerotic plaque noted in the right common carotid artery. There is heterogeneous, irregular atherosclerotic plaque noted in the right internal carotid artery. There is heterogeneous, irregular atherosclerotic plaque noted in the right external carotid artery. Antegrade flow is noted in the right vertebral artery. Left Extracranial There is heterogeneous, irregular atherosclerotic plaque noted in the left common carotid artery. There is heterogeneous, irregular atherosclerotic plaque noted in the left internal carotid artery. There is heterogeneous, irregular atherosclerotic plaque noted in the left external carotid artery. Antegrade flow is noted in the left vertebral artery. Procedure Carotid Duplex 23267. The exam was diagnostic. Exam performed portable in patient room. 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 Moderate disease right external carotid Calcific plague with shadowing at the proximal left internal carotid with <50% stenosis. Normal flow left external carotid Patent and antegrade bilateral vertebrals Ordering Physician: Jose Garduno Performed By: Isiah Apple RVT 04/08/17 1606 Date Lenny Santiago MD CC: Jose Garduno DO; Jared Mayorga Date Dictated: 04/08/17915 Date Transcribed: 04/08/171605 Medical Officer: Signed SURGERY VISIT REPORT Observed: 04/08/2017 Status: F Source: [place] 3:56 PM [facility] [place] [address] [place] [address] OFFICE VISIT Date of Service: 03/31/17 MR#: [id number] Acct: [id number] Name: IAM HARDIN Rep #: [id number] : 1940 Provider: Alex Koroma MD Age/Sex: 76/F Location: [facility] Status: Signed Intake Vital Signs03/31/17 Body Mass Index (BMI) 36.4 03/31/17 Blood Pressure 146/65 Intake Visit Reasons: F/U EGD 03/18/2017 Tinsmith Helper Required: No Is patient in pain?: No Allergies niacin Allergy (Verified 04/07/17 15:41) Swelling Chcclle-Jeq-Oga Reductase Inhibitor Allergy (Verified 04/07/17 15:41) Swelling acetaminophen [From Percocet] Adverse Reaction (Verified 04/07/17 15:41) Upset Stomach oxycodone [From Percocet] Adverse Reaction (Verified 04/07/17 15:41) Upset Stomach Tetracyclines Adverse Reaction (Verified 04/07/17 15:41) Nausea/Vom/Diarrhea tramadol Adverse Reaction (Verified 04/07/17 15:41) CONFUSION Medications Ergocalciferol [Vitamin D] 50,000 unit PO TU 12/22/13 [History Confirmed 04/07/17] Fexofenadine/Pseudoephedrine [Jamila-D 24 Hour Tablet] 1 ea PO DAILY 12/22/13 [History Confirmed 04/07/17] Flaxseed/Evening Prim/Bilberry [Retaine Flax Softgel] 1 ea PO DAILY 12/22/13 [History Confirmed 04/07/17] [place]-3 Fatty Acids [Fish Oil] 1 tab PO DAILY 12/22/13 [History Confirmed 04/07/17] Polyethylene Glycol 3350 [Miralax] 17 gm PO DAILY 12/22/13 [History Confirmed 04/07/17] Tolterodine Tartrate [Detrol LA] 8 mg PO DAILY 12/22/13 [History Confirmed 04/07/17] Omeprazole [Prilosec] 40 mg PO DAILY 04/12/15 [History Confirmed 04/07/17] Quinine Sulfate [Quinine Sulfate] 324 mg PO PRN PRN 10/25/15 [History Confirmed 04/07/17] Insulin Glargine [Lantus (BKC)] 42 units SC QHS 12/02/16 [History Confirmed 04/07/17] Lactobacillus Acidophilus [Probiotic Acidophilus] 1 ea PO DAILY 12/02/16 [History Confirmed 04/07/17] Furosemide [Lasix] 20 mg PO PRN PRN 04/07/17 [History Confirmed 04/07/17] Metoclopramide HCl [Reglan] 5 mg PO TID PRN PRN 04/07/17 [History Confirmed 04/07/17] PFSH Medical History Diabetes (Acute) Gastritis (Acute) Hyperlipidemia (Acute) Obesity (Acute) Surgical History H/O bilateral cataract extraction (Acute) History of (Acute) History of appendectomy (Acute) History of bilateral knee replacement (Acute) History of esophagogastroduodenoscopy (EGD) (Acute) History of salpingectomy (Acute) Hx laparoscopic cholecystectomy (Acute) Hx of left inguinal hernia repair (Acute) Social History Smoking Status: Former smoker alcohol intake: never HPI HPI HPI: IAM BOUDREAUX, is a 76 F who presents to the office today for follow-up after EGD. She reports she is doing much better after H. pylori treatment. Exam Cardio Rate: regular rate Rhythm: regular rhythm GI Inspection: non-distended Palpation: soft, nontender Assessment AND Plan Problems 1. Chronic superficial gastritis with bleeding K29.31 Plan 1. The patient had continued gastritis of the folds of the antrum on EGD. I decided to empirically treat her for H. pylori with 2 weeks of treatment as I have already tried PPI and Carafate. I discussed this with the patient and she reports that she is doing better but is still having some poor appetite. She says the bloating has resolved and she feels somewhat better. 2. I told her that if she continued to have any problems I would recommend evaluation by a technology sales specialist as I have already tried PPI, Carafate, Reglan, gastric emptying study, empiric treatment for H. pylori. At this time the patient would not like to see another doctor if she feels like she is improving. Alex Koroma MD Pager: [facility] [address], [address] [address] Office: Coding Level of Care Code Off vis,est,level 3 Diagnoses Chronic superficial gastritis with bleeding K29.31 Gastritis type: superficial Chronicity: chronic Gastritis bleeding: with bleeding 04/08/17 0596 <Electronically signed by Alex Koroma MD> Date Alex Koroma MD Cosigner Signature: Date (if applicable) CC: Jared Mukesh ECHOCARDIOGRAM COMPLETE Observed: 04/08/2017 Status: F Source: [place] 3:09 PM [facility] [place] [facility] Cardiovascular Services [address] [place] [address] Echo Complete 04/08/17 0844 MR#: [id number] Acct: [id number] Name: IAM HARDIN Rep #: [id number] : 1940 76 From: James Vazquez MD Attending Dr: Skyler Aguilar DO Status: ADM IN Ordering Dr: Jose Garduno DO Date: 04/08/17 Location: [facility] Sex: F C Admitted: 04/07/17 Reason For Study: near syncope, syncope. Procedure This was a 2D Doppler, Color Flow transthoracic echocardiogram. Exam performed portable in patient room. Left Ventricle Normal size and thickness. The estimated ejection fraction is 65 %. Normal diastology for age. No regional wall motion abnormalities noted. Right Ventricle Normal size and thickness. Normal systolic function. Atria The left atrium is moderately enlarged. Normal right atrium. Normal atrial septum. Mitral Valve Mild diffuse mitral valve thickening. Severe mitral annular calcification extending into the posterior leaflet. There is no mitral valve stenosis. Trivial mitral valve insufficiency. Tricuspid Valve Normal tricuspid valve. Mild (1+) tricuspid valve insufficiency. Right ventricular systolic pressure estimated to be 43 mmHg. Mild pulmonary hypertension. Aortic Valve Trisinus/trileaflet aortic valve. Moderate diffuse aortic valve thickening. Moderate focal aortic valve calcification. Mild restriction of the aortic valve. Immobile right coronary cusp. Mild to moderate aortic stenosis. Peak aortic valve gradient 29 mmHg. Mean aortic valve gradient 14 mmHg. Pulmonic Valve Normal pulmonic valve. Great Vessels Normal aortic root. Normal arch. The inferior vena cava is dilated. Pericardium/Pleural No pericardial effusion. MMode/2D Measurements AND Calculations LVIDd: 5.1 cm IVSd: 1.1 cm LVOT diam: 2.2 cm LVIDs: 3.6 cm LVPWd: 1.1 cm LVOT area: 3.6 cm2 RVDd: 2.7 cm FS: 30.7 % Ao root diam: 3.1 cm LAV(MOD-bp): 76.4 ml LA A4 area: 22.8 cm2 LA dimension: 4.0 cm LAV(MOD-bp) Indexed: 39.8 ml/m2 LAV(MOD-sp2): 68.7 ml LAV(MOD-sp4): 68.9 ml RA A4 area: 13.3 cm2 Time Measurements MV dec time: 0.22 sec Doppler Measurements AND Calculations MV E max aspen: 99.4 cm/sec Lat Peak E' Aspen: 5.4 cm/sec Med Peak E' Aspen: 3.7 cm/sec MV A max aspen: 112.2 cm/sec E/E' lat: 18.3 E/E' med: 27.0 MV E/A: 0.89 Ao V2 max: 264.1 cm/sec LV V1 max: 87.2 cm/sec SV(LVOT): 74.5 ml Ao max P.9 mmHg LV V1 max P.0 mmHg Ao V2 mean: 178.0 cm/sec LV V1 mean P.5 mmHg Ao mean P.0 mmHg LV V1 mean: 58.2 cm/sec Ao V2 VTI: 54.1 cm LV V1 VTI: 20.4 cm JAVI(I,D): 1.4 cm2 JAVI(V,D): 1.2 cm2 PA V2 max: 93.1 cm/sec TR max aspen: 306.6 cm/sec TR max P.6 mmHg Interpretation Summary The estimated ejection fraction is 65 %. The left atrium is moderately enlarged. There is no mitral valve stenosis. Mild (1+) tricuspid valve insufficiency. Right ventricular systolic pressure estimated to be 43 mmHg. Mild pulmonary hypertension. Immobile right coronary cusp. Mild to moderate aortic stenosis. There is no comparison study available. Ordering Physician: Jose Garduno Referring Physician: Alex Koroma Performed By: Jeniffer Mary, TYLER, RVT 04/08/17 1508 Date James Vazquez MD CC: Jose Garduno DO; Jared Mayorga Date Dictated: 04/08/17 0844 Date Transcribed: 04/08/17 1508 Medical Officer: Signed BEDSIDE GLUCOSE Collected: 04/08/2017 Status: F Source: [place] 1:54 PM [facility] [place] TYPE CODE TESTS RESULT OUT OF REFERENCE UNITS RANGE LAB L501.080 70-110 mg/dL High BEDSIDE GLU 147 Result Comment: MANAGEMENT OF PATIENT CARE PER NURSING PROTOCOL Performed By: #### L501.080 #### [facility] Laboratory Point of Care [address] [place], [place] [address] Observed: 04/08/2017 Status: F Source: [place] STOOL OCCULT BLOOD 7:35 AM [facility] [place] [facility] STOB iFOB Occult Blood Negative Performed By: #### M100.7900 #### [facility] Laboratory [address] [place], [place], [id number] BEDSIDE GLUCOSE Collected: 04/08/2017 Status: F Source: [place] 6:56 AM [facility] [place] [facility] TYPE CODE TESTS RESULT OUT OF REFERENCE UNITS RANGE LAB L501.080 70-110 mg/dL Low BEDSIDE GLU 61 Result Comment: MANAGEMENT OF PATIENT CARE PER NURSING PROTOCOL Performed By: #### L501.080 #### [facility] Laboratory Point of Care [address] [facility] [address] [place], [place] [id number] CBC-COMPLETE BLOOD CNT Collected: 04/08/2017 Status: F Source: [place] NO DIFF 6:40 AM [facility] [place] TYPE CODE TESTS RESULT OUT OF RANGE REFERENCE UNITS LAB L100.1000 4.4-11.0 K/mm3 Low WBC 3.7 LAB L100.1200 4.2-5.4 M/mm3 Low RBC 3.48 LAB L100.1300 12.0-15.0 g/dl Low HGB 8.6 LAB L100.1400 37-47 % Low HCT 29.2 LAB L100.1500 81-99 fL Normal MCV 83.9 LAB L100.1600 27.0-32.0 pg Low MCH 24.7 LAB L100.1700 32-36 g/gl Low MCHC 29.5 LAB L100.1810 11.6-14.6 % High RDW CV 17.5 LAB L100.1820 35.1-43.9 fl High RDW SD 53.8 LAB L100.1900 150-450 K/mm3 Low PLT 133 LAB L100.2000 6.2-12.0 fl Normal MPV 10.5 Performed By: #### L100.0500 #### [facility] [address] [place], [place], [id number] TROPONIN-I Collected: 04/08/2017 Status: F Source: [place] 6:40 AM [facility] [place] [facility] Order Comment: 'TROP' Serial specimen #1, #2, #3, or #4: 4 TYPE CODE TESTS RESULT OUT OF RANGE REFERENCE UNITS LAB L501.4010 <0.06 ng/mL High 0.07 TROPONIN-I Result Comment: TROPONIN-I EXPECTED VALUES <0.05 NEGATIVE 0.06 - 0.59 AT RISK OF [place] > OR = 0.60 SUGGEST [place] Performed By: #### L501.4010 #### [facility] [address] [facility] [place], [address] THYROID STIM HORMONE Collected: 04/08/2017 Status: F Source: [place] (TSH) 6:40 AM [facility] [place] [facility] TYPE CODE TESTS RESULT OUT OF RANGE REFERENCE UNITS LAB L501.9520 0.358-3.74 uIU/mL Normal TSH 2.83 Performed By: #### L501.9520, L503.6550 #### [facility] [address] [place], [address] FERRITIN Collected: 04/08/2017 Status: F Source: [place] 6:40 AM [facility] [place] [facility] TYPE CODE TESTS RESULT OUT OF RANGE REFERENCE UNITS LAB L503.6550 8-252 ng/mL Normal FERRITIN 11 Performed By: #### L501.9520, L503.6550 #### [facility] [address] [place], [address] HEMOGLOBIN A1C Collected: 04/08/2017 Status: F Source: [place] 6:40 AM [facility] [place] [facility] TYPE CODE TESTS RESULT OUT OF RANGE REFERENCE UNITS LAB L501.9985 4.2-6.3 % Normal HGB A1C 5.9 Performed By: #### L501.9985 #### [facility] [address] [facility] [place], [address] EMERGENCY DEPARTMENT Observed: 04/08/2017 Status: F Source: [place] SUMMARY 1:03 AM [facility] [facility] Medical Records Department [address] [place] [address] Emergency Department Summary 04/07/17 1755 MR#: [id number] Acct: [id number] Name: IAM HARDIN Rep #: [id number] : 1940 76 From: Chuck Weeks MD PCP: Jared Mayorga Status: ADM IN - ER Visit Summary Date of Service: 04/07/17 Chief Complaint: Anemia History of Present Illness: The patient is a 76 F presenting for evaluation secondary to anemia. Patient has a history of a chronic GI bleed that has been undergoing treatment and evaluation for this. She has received both upper and lower colonoscopies within the last month. Patient is undergone medical treatment for this. Patient was seen by her primary care provider secondary to the fact that she has been feeling dizzy and having syncopal episodes. Her primary care provider noted that she had some EKG changes and also that she has significant anemia and recommended that she come into the emergency department for admission to be transfused and seen by cardiology. Patient denies any chest pain. She does state that she still having some black stools. Physical Examination: Vital signs within normal limits. Well- nourished female no acute distress. Conjunctival pallor is noted, moist mucous membranes. Neck supple. Heart rate in the rate and rhythm. Lungs sounds clear to auscultation bilaterally. Abdomen soft nontender. Extremities nontender nonedematous. Skin normal color no rash. Patient alert and oriented. Test Results: EKG shows sinus rhythm at 90 with T-wave inversions in leads I and aVL. CBC shows anemia 7.8, chemistry unremarkable, troponin elevated at 0.09 Emergency Department Course and Treatment: Patient presented secondary to anemia with syncope and EKG changes. Patient had an elevated troponin continues to have EKG changes and continues to have anemia. She was typed and crossmatched for 1 unit, she will be admitted for cardiac evaluation and transfusion as well as probable GI consultation. Disposition: Admission Impression: 1. Anemia 2. GI bleed 3. EKG changes 4. Elevated troponin This note was generated with Memobox dictation software. It may contain incorrect words, spelling, and punctuation that were not noted in review of the chart prior to signing ED Disposition - Plan for ED Patient: Chief Complaint: Abn Labs Referrals: Jared Mayorga MD [Primary Care Provider] - What to do if you have Problems For any increased pain, shortness of breath, bleeding, nausea or vomiting, chest pain, or any unexpected problems, contact your Primary Care Provider. Call [facility] ([phone]) or report to the closest Emergency Room. Call 911 if necessary. 04/08/17 0103 <Electronically signed by Chuck Weeks MD> Date Chuck Weeks MD Cosigner Signature (If Indicated): Date CC: Jared Mayorga IRON+IRON BINDING Collected: 04/08/2017 Status: F Source: [place] CAPACITY 1:00 AM [facility] Order Comment: THIS WITH HER NEXT TROPONIN. TYPE CODE TESTS RESULT OUT OF RANGE REFERENCE UNITS LAB L503.6075 250-450 ug/dL TIBC Normal 315 LAB L503.6150 50-170 ug/dL IRON Normal 62 LAB L503.6250 15.0-55.0 % IRON Normal SATURATION 19.7 Performed By: #### L503.6030 #### [facility] Laboratory [facility]. [place], [place], [address] TROPONIN-I Collected: 04/08/2017 Status: F Source: [place] 1:00 AM [facility] Order Comment: 'TROP' Serial specimen #1, #2, #3, or #4: 3 TYPE CODE TESTS RESULT OUT OF RANGE REFERENCE UNITS LAB L501.4010 <0.06 ng/mL High 0.09 TROPONIN-I Result Comment: TROPONIN-I EXPECTED VALUES <0.05 NEGATIVE 0.06 - 0.59 AT RISK OF [place] > OR = 0.60 SUGGEST WI Performed By: #### L501.4010 #### [facility] Laboratory [address] [facility]. [place], [place], [address] HISTORY AND PHYSICAL Observed: 04/07/2017 Status: F Source: PHY[place]IS EXAM 11:03 PM [facility] Medical Records Department [address] [place] [address] [place] [address] History and Physical 04/07/17 1751 MR#: [id number] Acct: [id number] Name: IAM HARDIN Rep #: [id number] : 1940 76 From: Yolanda REESE PCP: Jared Mayorga Status: ADM IN Y Location: [place] [address] ADDENDUM by Jose Garduno DO on 04/07/17 at 2302 Code Visit Seen independently of Yolanda Kruger today in the emergency room at [facility], she was sent in by her PCP for evaluation of anemia and recent syncopal episode patient had approximately 1 week ago. Patient also complained of feeling lightheaded. Patient has been seen by general surgery (Dr. Koroma) regarding an anemia, she underwent a colonoscopy and an EGD, this showed antral gastritis but no abnormality on the colonoscopy. Patient continued to have abdominal bloating and dyspepsia, she then underwent another EGD recently approximately 2 weeks ago and this showed antral gastritis, H. pylori test was negative but the patient was given treatment for H pylori anyway. Patient complains of melanotic stools today. Patient's recent labs showed a decreased hemoglobin on 04/06/17 at 7.8. Patient's last known hemoglobin according to her PCP was in September 2016, this was between 10 and 11 according to her PCP. In addition to this anemia, patient complained of an episode where she became syncopal approximately a week ago, patient stated that she was looking at her TV set and then everything got blurred and she fell into a chair and woke up 3 hours later. Patient was noted to have an abnormal EKG by her PCP and she was set up for an appointment with cardiology in April 2017 for evaluation. On evaluation in the emergency room today, patient's hemoglobin was 7.8, EKG showed a normal sinus rhythm with nonspecific ST-T wave changes in the lateral wall leads and the lateral precordial leads. Troponin was elevated at 0.09. Heart rate and rhythm was regular without ectopy, there is a 2/6 systolic murmur at the right sternal border, apex, and left sternal border, lungs are clear bilaterally, there were no carotid bruits auscultated, patient was alert and oriented 3 and appropriate. Patient will be admitted for chronic anemia, she will be transfused packed red blood cells, labs will be monitored, and cardiac enzymes will be cycled due to her elevated troponin. Patient has no complaints of any chest pain or shortness of breath. She will undergo workup for her syncope including an echocardiogram and a Doppler of her carotids. I have reviewed Yolanda Kruger's history and physical and medical plan of care and endorse both Inpatient E AND M: [id number] Init Hosp L3 04/07/17 2303 <Electronically signed by Jose Garduno DO> Date Jose Garduno DO cc: HUGH Saundersssica Slick; Jose Garduno DO; Jared Mayorga * Signed Problem List (1) Gastritis Status: Resolved Qualifiers: (2) Epigastric abdominal pain Status: Resolved (3) Black tarry stools Status: Chronic (4) Anemia Status: Acute Qualifiers: (5) Syncope Status: Acute History of Present Illness Date of Admission: 04/07/17 Chief Complaint: Syncopal episodes, low hemoglobin reported by PCP The patient is a 76 year old F who presents to the emergency room after lab work completed by primary care physician showed low hemoglobin. Patient was notified and instructed to come to the emergency room. She states she has had 2 syncopal episodes in the past 2 weeks in which she has not sought medical attention. Patient states episodes of syncope, on rather suddenly. She has ongoing black stools for the past few months as well as intermittent nausea and vomiting. She had EGD by Dr. Koroma 03/19/17 which showed gastritis. Patient had severe irritation of the folds of her antrum. Biopsies were taken and patient was negative for H. pylori. She was treated for H pylori empirically given chronic nature of symptoms regardless of negative biopsies. She denies chest pain, shortness of breath. Denies recent illness. Denies other associated complaints. Her past medical history includes hyperlipidemia, hypertension, type 2 diabetes mellitus, GERD. Past Medical History Past Medical History (Chronic Problems): Chronic Problems (Last Reviewed 03/31/17 @ 08:49 by Reyna Feng) Black tarry stools (Chronic) Allergies niacin Allergy (Verified 04/07/17 15:41) Swelling Cfjmjdt-Ugv-Pts Reductase Inhibitor Allergy (Verified 04/07/17 15:41) Swelling acetaminophen [From Percocet] Adverse Reaction (Verified 04/07/17 15:41) Upset Stomach oxycodone [From Percocet] Adverse Reaction (Verified 04/07/17 15:41) Upset Stomach Tetracyclines Adverse Reaction (Verified 04/07/17 15:41) Nausea/Vom/Diarrhea tramadol Adverse Reaction (Verified 04/07/17 15:41) CONFUSION Home Medications: Ambulatory Orders Medication Instructions Recorded Ergocalciferol [Vitamin D] 50,000 unit PO Q7D 12/22/13 Surgical History: appendectomy, cholecystectomy, - - Hernia repair 2 Psychiatric History: No pertinent psych hx CLINICAL NURSE SPECIALIST History: No pertinent CLINICAL NURSE SPECIALIST history Lives: Alone Smoking Status: Former smoker Alcohol: None Drugs: None - *Family History Maternal History Items: Diabetes Paternal History Items: Unknown Review of Systems Constitutional: Denies: Chills, Fever, Weight Change HEENT: Denies: Head Aches, Sinus Congestion, Sinus Drainage Cardiovascular: Reports: Syncope. Denies: Chest Pain, Chest Pressure, Palpitations Respiratory: Denies: Cough, Shortness of breath at rest, Sputum production Gastrointestinal: Reports: Nausea, Melena, Vomiting. Denies: Abdominal Pain, Constipation, Diarrhea, Hematemesis Genitourinary: Denies: Dysuria Musculoskeletal: Denies: Joint Pain, Joint Tenderness Skin: Denies: Rash, Wounds Neurological: Denies: Numbness, Tingling, Focal weakness Psychiatric: Denies: Anxiety, Depression, Homicidal Ideations, Suicidal Ideations Hematologic/ Lymphatic: Denies: Easy Bruising, Easy Bleeding VTE Information - Inpt Only VTE Present on Admission: No VTE Mechan Device Prophylaxis: SCD's VTE Pharm Prophylaxis ordered?: No Reason prophylaxis not ordered:: Medical Contraindication Patient Problems: Active and Suspected Problems (Last Reviewed 03/31/17 @ 08:49 by Reyna Feng) Syncope (Acute) - Physical Exam General: Alert, Oriented x3, Cooperative, No apparent distress HEENT: Atraumatic, PERRLA, EOMI, Normocephalic Neck: Supple, No JVD, Negative Carotid Bruits Lungs: Clear to auscultation, Normal air movement Cardiovascular: Regular rate, Regular Rhythm, Normal S1, Normal S2, Murmur Abdomen: Bowel Sounds Present, Soft, Non Tender, Non-Distended, Obese Extremities: No clubbing, No cyanosis, No edema, Capillary Refill Less than 3 Seconds Skin: No rashes, No breakdown Musculoskeletal: No Tenderness to Palpation of Joints or Extremities Neurological: Cranial nerves II-XII grossly intact, Neuro grossly intact Psych/Mental Status: Normal Affect, Appropriate Vital Signs Temp Pulse Resp BP Pulse Ox 97.6 F L 90 20 H 127/102 H 97 04/07/17 15:41 04/07/17 17:05 04/07/17 17:05 04/07/17 17:05 04/07/17 17:05 Oxygen Delivery Method Room Air Weight: 92.6 kg Body Mass Index (BMI) 37.3 Finger Stick Blood Glucose 230 Laboratory Tests Past 24 Hrs WBC 4.0 L RBC 3.22 L Hgb 7.8 L WBC RBC Hgb Hct MCV MCH MCHC RDW RDW Differential Plt Count MPV Immature Gran % (Auto) Neut % (Auto) Lymph % (Auto) [place] % (Auto) Assessment/Plan Active and Suspected Problems (Last Reviewed 03/31/17 @ 08:49 by Reyna Feng) Syncope (Acute) 1. Acute on chronic anemia with suspected GI bleed- EGD by Dr. Koroma 03/19/17 showed gastritis. Patient had severe irritation of the folds of her antrum. Biopsies were taken and patient was negative for H. pylori. She was treated for H pylori anyhow given chronic nature of her symptoms. IV PPI. Obtain stool for occult blood. Check iron studies. Type and screen for packed red blood cell. Trend CBC. 2. Indeterminate troponin/EKG changes-EKG in ER showed T- wave inversions in lead I and aVL. Initial troponin 0 0.09. Patient denies chest pain. Trend enzymes. Repeat EKG in a.m. Patient denies cardiac history. Her primary care physician referred her to Dr. Vazquez for syncopal episodes, she was scheduled to see him 04/29/2017. Consider cardiology consult pending further workup. Obtain echocardiogram. Patient does have a cardiac murmur best heard at the aortic listening point. 3. Syncope-patient reports 2 episodes of syncope in the past few weeks. The possibility related to acute anemia versus cardiac event. Further workup as noted above. 4. Hyperlipidemia-patient states allergy to statins. She states her lipids have been well controlled with fish oil supplementation and flaxseed. 5. Hypertension-continue Lasix regimen. 6. Type 2 diabetes hhgdtmwx-Xhsj-Nffsf before meals at bedtime. Continue home Lantus regimen. NovoLog sliding scale insulin. 7. GERD- Continue PPI. DVT prophylaxis-SCDs. Pharmacologic prophylaxis contraindicated given acute anemia. This patient was seen by HUGH Viveros under the supervision of Dr. Garduno. 04/07/171811 <Electronically signed by Yolanda RYANC> Date Yolanda REESE 04/07/171940<Electronically signed by Jose Garduno DO> Cosigner Signature: Date (if applicable) Jose Garduno DO CC: HUGH Kruger; Jose Garduno DO; Jared Mayorga Signed BEDSIDE GLUCOSE Collected: 04/07/2017 Status: F Source: [place] 9:15 PM [facility] TYPE CODE TESTS RESULT OUT OF RANGE REFERENCE UNITS LAB L501.080 70-110 mg/dL Normal BEDSIDE GLU 108 Result Comment: MANAGEMENT OF PATIENT CARE PER NURSING PROTOCOL Performed By: #### L501.080 #### [facility] Laboratory Point of Care [address] [place] [address] TROPONIN-I Collected: 04/07/2017 Status: F Source: [place] 8:37 PM [facility] Order Comment: 'TROP' Serial specimen #1, #2, #3, or #4: 2 TYPE CODE TESTS RESULT OUT OF RANGE REFERENCE UNITS LAB L501.4010 <0.06 ng/mL High 0.09 TROPONIN-I Result Comment: TROPONIN-I EXPECTED VALUES <0.05 NEGATIVE 0.06 - 0.59 AT RISK OF [place] > OR = 0.60 SUGGEST WI Performed By: #### L501.4010 #### [facility] Laboratory [address] [place], [place], [id number] CBC W/DIFF, AUTOMATED Collected: 04/07/2017 Status: F Source: PHYLLIS 4:40 PM [facility] TYPE CODE TESTS RESULT OUT OF RANGE REFERENCE UNITS LAB L100.1000 4.4-11.0 K/mm3 Low WBC 4.0 LAB L100.1200 4.2-5.4 M/mm3 Low RBC 3.22 LAB L100.1300 12.0-15.0 g/dl Low HGB 7.8 LAB L100.1400 37-47 % Low HCT 26.9 LAB L100.1500 81-99 fL Normal MCV 83.5 LAB L100.1600 27.0-32.0 pg Low MCH 24.2 LAB L100.1700 32-36 g/gl Low MCHC 29.0 LAB L100.1810 11.6-14.6 % High RDW CV 17.6 LAB L100.1820 35.1-43.9 fl High RDW SD 54.7 LAB L100.1900 150-450 K/mm3 Low PLT 139 LAB L100.2000 6.2-12.0 fl Normal MPV 10.3 LAB L100.2100 47-70 % Normal NEUT% 59.5 LAB L100.2200 19-41 % Normal LY% 29.5 LAB L100.2300 0-10 % Normal MONO% 9.1 LAB L100.2400 0-5 % Normal EO% 1.3 LAB L100.2500 0-1 % Normal BASO% 0.3 LAB L100.2550 0.0-0.9 % Normal IM GRAN % 0.300 Result Comment: IG% - Immature Granulocytes (promyelocytes, myelocytes and metamyelocytes) > 1% indicates that a LEFT SHIFT is Present. LAB L100.2620 2.0-7.7 X10 3/uL Normal Absolute Neut 2.4 LAB L100.2720 0.83-4.51 X10 3/ul Normal Absolute Lymph 1.17 Performed By: #### L100.0100 #### [facility] Laboratory [address] [place], [place], [address] PROTHROMBIN TIME W/INR Collected: 04/07/2017 Status: F Source: PHY[place] 4:40 PM [facility] TYPE CODE TESTS RESULT OUT OF RANGE REFERENCE UNITS LAB L300.4150 11.7-14.9 SECONDS Normal PROTIME 13.6 LAB L300.4200 Normal INR 1.1 Performed By: #### L300.3900, L300.4310 #### [facility] Laboratory [address] [place], [address] PARTIAL THROMBOPLAST Collected: 04/07/2017 Status: F Source: [place] TIME 4:40 PM [facility] TYPE CODE TESTS RESULT OUT OF REFERENCE UNITS RANGE LAB L300.4310 24.1-36.2 Seconds High PTT 38.8 Performed By: #### L300.3900, L300.4310 #### [facility] Laboratory [address] [place], [address] BASIC METABOLIC Collected: 04/07/2017 Status: F Source: PHY[place]IS PROFILE (BMP) 4:40 PM [facility] Order Comment: 'TROP' Serial specimen #1, #2, #3, or #4: 1 TYPE CODE TESTS RESULT OUT OF RANGE REFERENCE UNITS LAB L501.0100 74-106 mg/dL High GLU 135 Result Comment: Fasting Glucose result greater than or equal to 126 mg/dL suggests DIABETES MELLITUS per A.D.A. criteria. Please note revised GLUCOSE reference range effective 2017. LAB L501.1000 7-18 mg/dL Normal BUN 10 LAB L501.1100 0.55-1.02 mg/dL Normal CREAT,SERUM 0.77 Result Comment: The validity of the calculated GFR AND GFRAA in patients over 70 years has not been determined. Clinical correlation is essential. LAB L501.1110 >60 mL/min Normal EST GFR 78 Result Comment: Non- GFR Calc LAB L501.1115 >60 mL/min Normal EST GFR - AA 94 Result Comment: GFR Calc LAB L501.1255 ml/min Normal Estimated CRCL 37.85 LAB L501.1300 10-20 RATIO Normal BUN/CRE 13.0 LAB L501.2200 8.5-10 mg/dL Low .1 CA 8.2 LAB L501.5300 136-14 mmol/L Normal 5 NA 138 LAB L501.5600 3.5-5. mmol/L Normal 1 K 3.9 LAB L501.5900 98-107 mmol/L Normal CL 104 LAB L501.6100 21.0-3 mmol/L Normal 2.0 CO2 25.0 LAB L501.6200 5-15 Normal GAP 9 Performed By: #### L500.2500, L501.4010 #### [facility] Laboratory [address] [place], [address] TROPONIN-I Collected: 04/07/2017 Status: F Source: [place] 4:40 PM [facility] Order Comment: 'TROP' Serial specimen #1, #2, #3, or #4: 1 TYPE CODE TESTS RESULT OUT OF RANGE REFERENCE UNITS LAB L501.4010 <0.06 ng/mL High 0.09 TROPONIN-I Result Comment: TROPONIN-I EXPECTED VALUES <0.05 NEGATIVE 0.06 - 0.59 AT RISK OF [place] > OR = 0.60 SUGGEST WI Performed By: #### L500.2500, L501.4010 #### [facility] [address] [facility], [address] TYPE AND SCREEN Collected: 04/07/2017 Status: F Source: [place] 4:40 PM [facility] Order Comment: Reason for Type AND Screen/Red Cells: HEMORRHAGE, GI BLEED TYPE CODE TESTS RESULT OUT OF RANGE REFERENCE UNITS LAB B10.0800 O Normal BLOOD TYPE GEL NEGATIVE LAB B100.4000 Normal Antibody NEGATIVE Screen Performed By: #### B101.7450 #### [facility] [address] [facility], [address] RC Collected: 04/07/2017 Status: F Source: [place] 4:40 PM [facility] TYPE CODE TESTS RESULT OUT OF REFERENCE UNITS RANGE LAB U100.0000 [id number] TRANSFUSED PRODUCT: T AND S with Crossmatch, Red Cells COUNT: 1 Performed By: #### U100.0000 #### Non-[facility] Laboratory - refer to report for specific site CBC W/DIFF, AUTOMATED Collected: 04/06/2017 Status: F Source: [place] 4:07 PM [facility] TYPE CODE TESTS RESULT OUT OF RANGE REFERENCE UNITS LAB L100.1000 4.4-11.0 K/mm3 Low WBC 4.0 LAB L100.1200 4.2-5.4 M/mm3 Low RBC 3.25 LAB L100.1300 12.0-15.0 g/dl Low HGB 7.8 LAB L100.1400 37-47 % Low HCT 27.2 LAB L100.1500 81-99 fL Normal MCV 83.7 LAB L100.1600 27.0-32.0 pg Low MCH 24.0 LAB L100.1700 32-36 g/gl Low MCHC 28.7 LAB L100.1810 11.6-14.6 % High RDW CV 17.7 LAB L100.1820 35.1-43.9 fl High RDW SD 54.3 LAB L100.1900 150-450 K/mm3 Normal PLT 157 LAB L100.2000 6.2-12.0 fl Normal MPV 10.6 LAB L100.2100 47-70 % Normal NEUT% 59.6 LAB L100.2200 19-41 % Normal LY% 29.5 LAB L100.2300 0-10 % Normal MONO% 9.1 LAB L100.2400 0-5 % Normal EO% 1.3 LAB L100.2500 0-1 % Normal BASO% 0.5 LAB L100.2550 0.0-0.9 % Normal IM GRAN % 0.000 Result Comment: IG% - Immature Granulocytes (promyelocytes, myelocytes and metamyelocytes) > 1% indicates that a LEFT SHIFT is Present. LAB L100.2620 2.0-7.7 X10 3/uL Normal Absolute Neut 2.4 LAB L100.2720 0.83-4.51 X10 3/ul Normal Absolute Lymph 1.17 Performed By: #### L100.0100 #### [facility] Laboratory [facility] [address] [place], [place], [address] COMPREHENSIVE METABOLIC Collected: 04/06/2017 Status: F Source: PHYLLIS ROACH 4:07 PM [facility] TYPE CODE TESTS RESULT OUT OF RANGE REFERENCE UNITS LAB L501.0100 74-106 mg/dL Normal GLU 96 Result Comment: Please note revised GLUCOSE reference range effective 2017. LAB L501.1000 7-18 mg/dL Normal BUN 13 LAB L501.1100 0.55-1.02 mg/dL Normal CREAT,SERUM 0.75 Result Comment: The validity of the calculated GFR AND GFRAA in patients over 70 years has not been determined. Clinical correlation is essential. LAB L501.1110 >60 mL/min Normal EST GFR 79 Result Comment: Non- GFR Calc LAB L501.1115 >60 mL/min Normal EST GFR - AA 96 Result Comment: GFR Calc LAB L501.1300 10-20 RATIO Normal BUN/CRE 17.2 LAB L501.1500 6.4-8.2 g/dL High T PROT 8.7 LAB L501.1800 3.2-5.0 g/dL Low ALB 2.5 LAB L501.1950 2.2-4.2 g/dL High GLOB 6.2 LAB L501.2000 0.9-2.4 RATIO Low A/G 0.4 LAB L501.2200 8.5-10.1 mg/dL Low CA 8.2 LAB L501.4100 15-37 U/L High AST 45 LAB L501.4305 45-117 U/L High ALK P 290 LAB L501.4405 13-56 U/L Normal ALT 18 Result Comment: Please note revised ALT reference range effective 2017. LAB L501.4600 0.20-1.00 mg/dL Normal T BILI 0.60 LAB L501.5300 136-145 mmol/L Normal NA 136 LAB L501.5600 3.5-5.1 mmol/L Normal K 3.9 LAB L501.5900 98-107 mmol/L Normal CL 102 LAB L501.6100 21.0-32.0 mmol/L Normal CO2 26.0 LAB L501.6200 5-15 Normal GAP 8 Performed By: #### L500.4050, L501.5200, L501.9520, L506.0400 #### [facility] [address] [place], [address] MAGNESIUM Collected: 04/06/2017 Status: F Source: [place] 4:07 PM [facility] TYPE CODE TESTS RESULT OUT OF RANGE REFERENCE UNITS LAB L501.5200 1.6-2.6 mg/dL Normal MG 2.0 Result Comment: Please note revised Magnesium reference range effective 2017. Performed By: #### L500.4050, L501.5200, L501.9520, L506.0400 #### [facility] [address] [facility] [place], [address] THYROID STIM HORMONE Collected: 04/06/2017 Status: F Source: [place] (TSH) 4:07 PM [facility] TYPE CODE TESTS RESULT OUT OF RANGE REFERENCE UNITS LAB L501.9520 0.358-3.74 uIU/mL Normal TSH 2.43 Performed By: #### L500.4050, L501.5200, L501.9520, L506.0400 #### [facility] [address] [place], [address] T4 FREE DIRECT Collected: 04/06/2017 Status: F Source: [place] 4:07 PM [facility] TYPE CODE TESTS RESULT OUT OF RANGE REFERENCE UNITS LAB L506.0400 0.76-1.46 ng/dL Normal T4 FREE 1.19 DIRECT Performed By: #### L500.4050, L501.5200, L501.9520, L506.0400 #### [facility] [address] [place], [address] OPERATIVE REPORT Observed: 03/19/2017 Status: F Source: [place] 9:06 AM [facility] Medical Records Department [address] [place] [address] Operative Report 03/19/17 0904 MR#: [id number] Acct: [id number] Name: IAM HARDIN Rep #: [id number] : 1940 76 From: Alex Koroma MD PCP: Jared Mayorga Status: [facility] Location: [place] [address]- Problem List (1) Gastritis Status: Acute Qualifiers: Gastritis type: other gastritis Chronicity: unspecified Gastritis bleeding: without bleeding Qualified Code(s): K29.60 - Other gastritis without bleeding Report of Operation Date of Procedure: 03/19/17 Pre-Operative Diagnosis: Gastritis Post-Operative Diagnosis: Same Surgery/Procedure Performed:: EGD with biopsies Description of Surgical Findings:: The patient still had severe irritation of the folds of her antrum. These were biopsied once again and I will preemptively treat her for H pylori infection. Specimen's removed: 1. Antrum gastric fold biopsies. 2. Mid esophageal biopsy Description of Procedure: The major risks and benefits associated with the procedure were explained to the patient in detail. The patient verbalized understanding and agreement with the same. The patient was then placed in the left lateral decubitus position. IV sedation was started by anesthesia. The endoscope was then advanced under direct visualization over the tongue, into the esophagus, stomach and duodenum. It was slowly withdrawn and the mucosa was carefully evaluated. Duodenal mucosal abnormalities were not visualized. Antegrade and retrograde views of the stomach were normal and did not reveal a hiatal hernia or ulceration. The gastric folds in the antrum were severely irritated. This is the same as it was during her last EGD a few months ago. These gastric folds were biopsied with cold forceps. The scope was then withdrawn through the GE junction and careful examination did not demonstrate any mucosal abnormalities. No evidence of Vera's esophagus was apparent. Careful examination of the remainder of the esophagus was normal except for some small white spots. I did do a biopsy of the midesophagus to check for esophageal candidiasis. The scope was then withdrawn from the patient and the procedure terminated. It was well tolerated and there were no immediate complications. 03/19/17905 <Electronically signed by Alex Koroma MD> Date Alex Koroma MD CC: Alex Koroma MD; Jared Mayorga Signed GASTRIC BIOPSY Observed: 03/19/2017 Status: F Source: [place] 8:12 AM [facility] [place] Patient: IAM HARDIN : 1940 (76/F) Acct Num: [id number] Phys: Franci RUFFIN,Alex Unit Num: [id number] Loc: EN Specimen: [id number] Received: 03/19/171217 Spec Type: Gastric Bx TISSUES TISSUES: A. Gastric mucous membrane B. Esophagus, NOS COMMENT A. The results of immunohistochemistry for Helicobacter pylori will be reported separately ([id number]). B. GMS stain with matched control was used in the evaluation of this case. Case has been reviewed in consultation with Dr. Luo who concurs with the above diagnosis. IDC:LUCA GROSS DESCRIPTION A - Received in fixative is one container labeled with the patient's name and designated antral biopsy. The specimen consists of multiple irregular fragments of light higginbotham soft tissue that in aggregate measure 1.5 x 0.3 x 0.1 cm. The specimen is totally submitted in one cassette. B - Received in fixative is one container labeled with the patient's name and designated mid esophagus biopsy. The specimen consists of one irregular fragment of light higginbotham soft tissue that measures 0.3 x 0.3 x 0.1 cm. The specimen is totally submitted in one cassette. / SJ:orly 03/19/17 TC:3 CPT: 18523 x2, 96648 HEADER OPERATION: EGD PRE-OP DIAGNOSIS: History of gastritis, abdominal pain TISSUE SUBMITTED: A Antral biopsy, B Mid esophagus biopsy for path and fungal culture MICROSCOPIC DESCRIPTION Slides are reviewed. A. Sections show small collections and groups of plasma cells in the mucosa. Active inflammation is not present. These findings are consistent with mild chronic gastritis. MICROSCOPIC DIAGNOSIS A. Gastric antrum, biopsy: Fragment of gastric mucosa with chronic inflammation. B. Mid esophagus, biopsy: Squamous mucosa with chronic inflammation and changes consistent with reflux. Reactive epithelial change. Fungal organisms consistent with Sonja species. AM: 03/22/17 Signed Cristian [facility] 03/22/17 <signature on file> Performed By: #### PGASB #### [facility] Yadira [address]. [place], [place], [address] BEDSIDE GLUCOSE Collected: 03/19/2017 Status: F Source: [place] 7:13 AM [facility] [place] TYPE CODE TESTS RESULT OUT OF RANGE REFERENCE UNITS LAB L501.080 70-110 mg/dL Normal BEDSIDE GLU 107 Result Comment: MANAGEMENT OF PATIENT CARE PER NURSING PROTOCOL Performed By: #### L501.080 #### [facility] Point of Care [address] [place] [address] 096151 IMMUNOHISTOCHEMISTRY Observed: 03/19/2017 Status: F Source: [place] 12:00 AM [facility] [place] Patient: IAM HARDIN : 1940 (76/F) Acct Num: [id number] Phys: Franci RUFFIN,Alex Unit Num: [id number] Loc: EN Specimen: [id number] Received: 03/22/17 - 7 Spec Type: IMMUNO TISSUES TISSUES: A. Stomach, NOS SPECIMEN INFORMATION: Tissue Source: A Antral biopsy Clinical Info: History of gastritis, abdominal pain Specimen Number: [id number] CPT code: 85434 METHODOLOGY: Deparaffinized sections of prefer/formalin-fixed tissue or PAP/DQ stained slides are incubated with monoclonal/polyclonal antibodies/oligonucleotide probes. Localization is made via biotin free immunoperoxidase method. Appropriate controls are performed and reacted as expected. Results on target cell population are indicated in the following table: RESULTS: ANTIBODY / CLONE RESULT Block A H Pylori (polyclonal) negative These tests were developed and their performance characteristics determined by [facility]. They may not have been cleared or approved by the U.S. Food and Drug Administration. The FDA has determined that such clearance or approval is not necessary. INTERPRETATION: A. Antral biopsy: Negative for Helicobacter pylori organisms. AM:orly 03/23/17 PHYSICIAN AND INSTITUTION [address] [address] Signed Cristian [facility] 03/23/17 <signature on file> Performed By: #### PIMM #### [facility] [address] [place] [address], [id number] ALLERGIES ALLERGIES DATE TYPE / CODE NAME / CODE REACTION SEVERITY SOURCE 03/08/2018 Drug Tetracyclines/F0 Nausea/Vom/Diarr Unknown [place] Allergy/416 36183606(RXNORM) hea [facility] 922543([facility]) Repository 03/08/2018 Drug Dogcpzq-Elo-Oye Swelling Unknown [place] Allergy/416 [facility] 269639([facility] Inhibitor/T97639 [facility] ED CT) 0095(RXNORM) Repository 03/08/2018 Drug niacin/G24212642 Swelling Unknown [place] Allergy/416 2(RXNORM) Community 531513([facility] ED CT) Repository 03/08/2018 Drug oxycodone/S90159 Upset Stomach Unknown [place] Allergy/416 1558(RXNORM) Community 502168([facility] ED CT) Repository 03/08/2018 Drug acetaminophen/F0 Upset Stomach Unknown [place] Allergy/416 91864836(RXNORM) Community 509492([facility] ED CT) Repository 03/08/2018 Drug tramadol/F210222 CONFUSION Unknown [place] Allergy/416 180(RXNORM) [facility] 226061([facility] ED CT) Repository ENCOUNTERS ENCOUNTERS ADMIT/DISCHARGE ACCOUNT ADMITTING ENCOUNTER LOCATION SOURCE NUMBER CLASS 03/12/2018 [id number] Alireza Cifuentes [facility] Inpatient [place] [address] [facility] ing:TCURoom: Repository ELQ23Vvd: 1 03/08/2018/ [id number] [facility] [place] [facility] [place] [address] [facility] ing:PCURoom: Repository HLG213Mvp: 1 03/08/2018 [id number] [facility] [place] [facility] [place] Ambulatory BMSBuilding:B [place] 8 [place] Repository 03/08/2018 [id number] [facility] [place] [facility] [place] BMSBuilding:B [place] 2 [place] Repository 03/08/2018 [id number] [facility] [place] [facility] [place] BMSBuilding:B [place] 3 [place] Repository 03/08/2018 [id number] [facility] [place] [facility] [place] Amb[place] BMSBuilding:B [place] 7 [place] Repository 03/08/2018 [id number] [facility] [place] [facility] [place] Ambulatory BMSBuilding:B [place] 1 [place] Repository 11/12/2017 [id number] Ambulatory [place] [address] [facility] ing:BFHLAB Repository 11/08/2017/ [id number] Emergency [place] [address] [facility] ing:ED Repository 08/05/2017 [id number] Ambulatory [place] Phyll[place] 2 [facility] ing:LAB.FUTUR Repository E 08/02/2017 [id number] Ambulatory [place] [facility] ing:BFHLAB Repository 07/05/2017 [id number] Ambulatory [place] 4 [facility] ing:BFHLAB Repository 06/08/2017 [id number] Ambulatory [place] Phyllis 6 [facility] ing:CVS Repository 06/08/2017 [id number] Ambulatory BMSBuilding:W [place] 4 [facility] Repository 06/03/2017 [id number] Ambulatory [place] 3 [facility] ing:LAB Repository 06/03/2017/ [id number] Ambulatory BMSBuilding:B [place] 8 3 [facility] Repository 05/25/2017/ [id number] Ambulatory BMSBuilding:B [place] 8 4 [facility] Repository 05/23/2017 [id number] Ambulatory BMSBuilding:B [place] 8 [facility] Repository 04/23/2017 [id number] Ambulatory [place] Phyllis 2 [facility] ing:BFHLAB Repository 04/07/2017/ [id number] Juliaeletsliyl, Inpatient [place] Phyllis 8 3 [facility] ing:PCURoom: Repository BDA577Sng: 1 04/07/2017 [id number] Juliaeletsky, Ambulatory BMSBuilding:B [place] 8 [place].[facility] Repository 04/07/2017 [id number] Tereletsky, Ambulatory BMSBuilding:B [place] 3 [place].[facility] Repository 04/07/2017 [id number] Tereletsky, Ambulatory BMSBuilding:B [place] 6 [place] Repository 04/07/2017/ [id number] Ambulatory BMSBuilding:W [place] 8 6 [facility] Repository 04/07/2017/ [id number] Ambulatory BMSBuilding:B [place] 8 7 MS[facility] Repository 04/06/2017 [id number] Ambulatory [place] Phyllis 3 [facility] ing:BFHLAB Repository 03/31/2017/ [id number] Ambulatory BMSBuilding:B [place] 8 3 [facility] Repository 03/19/2017/ [id number] Ambulatory [place] [address] [facility] ing:EN Repository 03/19/2017 [id number] Ambulatory BMSBuilding:B [place] 9 MS.[facility] Repository PAYERS PAYERS ENCOUNTER GUARANTOR PAYER SUBSCRIBER SOURCE 03/12/2018 CLARICE ARZOLA Primary CLARICE ARZOLA [place] OPIE [id number] Insurance:MEDICARE OPIE BEALEDOB: [facility] IMPERIAL PART A [id number] [place] [facility] Repository [address]Ixh: 330 [id number] [phone] (HP) Date:2018-03-12 03/12/2018 Secondary CLARICE ARZOLA [place] Insurance:[place] OPIE BEALEDOB: Community cy Number: [id number] [facility] [id number] Repository Date:6056-59-85[address], [place] [address]HR: 03/12/2018 Tertiary NOT GIVENUNK [place] Insurance:SELF PAY [facility] Number: Effective Repository Date:2018-03-12 03/08/2018 CLARICE AARON Primary CLARICE AARON [place] [id number] Insurance:MEDICARE BEALEDOB: [facility] IMPERIAL PART A [facility] [id number] [place] Number: Repository [address]Flp: 330 [id number] [phone] (HP) Date:2018-03-08 03/08/2018 Secondary CLARICE AARON [place] Insurance:CHAM[place]oli BEALEDOB: Community cy Number: [id number] Hospital [id number] Repository Date:8591-94-68[address], [place] [address]PZ: 03/08/2018 Tertiary NOT GIVENUNK [place] Insurance:SELF PAY [facility] Number: Effective Repository Date:2018-03-08 03/08/2018 CLARICE AARON Primary CLARICE AARON [place] [id number] Insurance:MEDICARE BEALEDOB: Community IMPERIAL PART A [facility] [id number] Number: Repository [address]Cvs: 330 [id number] [phone] () Date:2018-03-08 03/08/2018 Secondary CLARICE AARON [place] Insurance:[place]AMPV[place]oli BEALEDOB: Community cy Number: [id number] Hospital [id number] Repository Date:1149-64-11[address], [place] [address]WT: 03/08/2018 Tertiary NOT GIVENUNK [place] Insurance:SELF PAY [facility] Number: Effective Repository Date:2018-03-08 03/08/2018 CLARICE AARON Primary CLARICE AARON [place] [id number] Insurance:MEDICARE BEALEDOB: Community IMPERIAL PART A [facility] [id number] [facility] [place] Number: Repository [address]Ort: 330 [id number] [phone] () Date:2018-03-08 03/08/2018 Secondary CLARICE AARON [place] Insurance:[place] BEALEDOB: Community cy Number: [id number] Hospital [id number] Repository Date:5308-02-77[address], [place] [address]AL: 03/08/2018 Tertiary NOT GIVENUNK [place] Insurance:SELF PAY [facility] Number: Effective Repository Date:2018-03-08 03/08/2018 CLARICE AARON Primary CLARICE AARON [place] [id number] Insurance:MEDICARE BEALEDOB: Community IMPERIAL PART A [facility] [id number] [place] Number: Repository [address]Hjm: [phone]) [id number] [phone] (HP) Date:2018-03-08 03/08/2018 Secondary CLARICE AARON [place] Insurance:[place] BEALEDOB: Community cy Number: [id number] Hospital [id number] Repository Date:1198-11-17[address]Q [address], [place] [address]XO: 03/08/2018 Tertiary NOT GIVENUNK [place] Insurance:SELF PAY [facility] Number: Effective Repository Date:2018-03-08 03/08/2018 CLARICE AARON Primary CLARICE MIGUELE [place] [id number] Insurance:MEDICARE BEALEDOB: Community IMPERIAL PART A [facility] [id number], [place] Number: Repository [address]Cos: 330 [id number] [phone] () Date:2018-03-08 03/08/2018 Secondary CLARICE AARON [place] Insurance:[place] BEALEDOB: Community cy Number: [id number] Hospital [id number] Repository Date:9122-50-57[address], [place] [address]RS: 03/08/2018 Tertiary NOT GIVENUNK [place] Insurance:SELF PAY [facility] Number: Effective Repository Date:2018-03-08 03/08/2018 CLARICE MIGUELE Primary CLARICE Ortiz OPIE [place] [id number] Insurance:MEDICARE BEALEDOB: Community IMPERIAL PART A [facility] [id number] [facility] [place] Number: Repository [address]Ycp: 330 [id number] [phone] () Date:2018-03-08 03/08/2018 Secondary CLARICE AARON [place] Insurance:[place] BEALEDOB: Community cy Number: [id number] Hospital [id number] Repository Date:9170-97-08FL [address], [place] [address]TI: 03/08/2018 Tertiary NOT GIVENUNK [place] Insurance:SELF PAY [facility] Number: Effective Repository Date:2018-03-08 11/12/2017 CLARICE AARON Primary CLARICE Hansenoster [id number] Insurance:MEDICARE BEALEDOB: Community IMPERIAL PART A [facility] [id number], [place] Number: Repository [address]Ufs: (237) [id number] [phone] (HP) Date:2017-11-12 11/12/2017 Secondary CLARICE AARON [place] Insurance:[place] BEALEDOB: Community cy Number: [id number] Hospital [id number] Repository Date:2508-32-53[address], [place] [address]OI: 11/12/2017 Tertiary NOT GIVENUNK [place] Insurance:SELF PAY [facility] Number: Effective Repository Date:2017-11-12 11/08/2017 CLARICE AARON Primary CLARICE AARON [place] [id number] Insurance:MEDICARE BEALEDOB: Community IMPERIAL PART A [facility] [id number], [place] Number: Repository [address]Uou: [phone] [id number] [phone] () Date:2017-11-08 11/08/2017 Secondary CLARICE AARON [place] [facility]: Community cy Number: [id number] Hospital [id number] Repository Date:2000-86-34[address], [place] [address]PK: 11/08/2017 Tertiary NOT GIVENUNK [place] Insurance:SELF PAY [facility] Number: Effective Repository Date:2017-11-08 08/05/2017 IAM AARON Primary IAM AARON Phyll[place] [id number] Insurance:MEDICARE BEALEDOB: Community IMPERIAL PART A [facility] [id number], [place] Number: Repository [address]Hfs: [phone] [id number] [phone] (HP) Date:2017-08-03 08/05/2017 Secondary IAM Ferguson Insurance:CHAMPVAPoli BEALEDOB: Community cy Number: [id number] Hospital [id number] Repository Date:5538-44-35[address], [place] [address]VP: 08/05/2017 Tertiary NOT GIVENUNK [place] Insurance:SELF PAY [facility] Number: Effective Repository Date:2017-08-03 08/02/2017 IAM AARON Primary IAM Hansenoster [id number] Insurance:MEDICARE BEALEDOB: Community IMPERIAL PART A [facility] [id number], [place] Number: Repository [address]Jwa: 330 [id number] [phone] () Date:2017-08-02 08/02/2017 Secondary IAM Hansenoster Insurance:CHAMPV[place]oli BEALEDOB: Community cy Number: [id number] [id number] Repository Date:2041-61-21V[address], [place] [address]OG: 08/02/2017 Tertiary NOT GIVENUNK [place] Insurance:SELF PAY [facility] Number: Effective Repository Date:2017-08-02 07/05/2017 IAM AARON Primary IAM Hansenoster [id number] Insurance:MEDICARE BEALEDOB: Community IMPERIAL PART A [facility] [id number], [place] Number: Repository [address]Vsn: 330 [id number] [phone] (HP) Date:2017-07-05 07/05/2017 Secondary IAM Ferguson Insurance:[place] BEALEDOB: Community cy Number: [id number] Hospital [id number] Repository Date:1910-09-90[address], [place] [address]BD: 07/05/2017 Tertiary NOT GIVENUNK [place] Insurance:SELF PAY [facility]: Effective Repository Date:2017-07-05 06/08/2017 IAM AARON Primary NOT GIVENUNK [place]yll[place] [id number] Insurance:SELF PAY [facility] [place] Number: Effective Repository [id number]: (330) Date:2017-06-03 [phone] () 06/08/2017 IAM AARON Primary IAM Hansenoster [id number] Insurance:MEDICARE BEALEDOB: Community IMPERIAL PART A [facility] [id number] [place] Number: Repository [address]Gnl: 330 [id number] [phone] () Date:2017-06-03 06/08/2017 Secondary IAM Hansenoster Insurance:[place] BEALEDOB: Community cy Number: [id number] Hospital [id number] Repository Date:6879-53-83[address]KP, [place] [address]BE: 06/08/2017 Tertiary NOT GIVENUNK [place] Insurance:SELF PAY [facility] Number: Effective Repository Date:2017-06-08 06/03/2017 IAM AARON Primary IAM Ferguson [id number] Insurance:MEDICARE BEALEDOB: Community IMPERIAL PART A [facility] [id number] [place]: Repository [address]Rfq: 330 [id number] [phone] () Date:2017-06-03 06/03/2017 Secondary IAM Ferguson Insurance:[place] BEALEDOB: Community cy Number: [id number] Hospital [id number] Repository Date:1661-80-02DY [address], [place] [address]QF: 06/03/2017 Tertiary NOT GIVENUNK [place] Insurance:SELF PAY [facility] Number: Effective Repository Date:2017-06-03 06/03/2017 IAM AARON Primary IAM Hansenoster [id number] Insurance:MEDICARE BEALEDOB: Community IMPERIAL PART A [facility] [id number] [facility] [place] Number: Repository [address]Cbs: 330 [id number] [phone] (HP) Date:2017-06-01 06/03/2017 Secondary IAM AARON [place] Insurance:[place] BEALEDOB: Community cy Number: [id number] Hospital [id number] Repository Date:6515-34-40EM [address], [place] [address]OX: 06/03/2017 Tertiary NOT GIVENUNK [place] Insurance:SELF PAY [facility] Number: Effective Repository Date:2017-06-03 05/25/2017 IAM AARON Primary IAM Hansenoster [id number] Insurance:MEDICARE BEALEDOB: Community IMPERIAL PART A [facility] [id number] [facility] [place] Number: Repository [address]Ior: 330 [id number] [phone] () Date:2017-04-06 05/25/2017 Secondary IAM AARON [place] Insurance:[place] BEALEDOB: Community cy Number: [id number] Hospital [id number] Repository Date:1937-62-74[address], [place] [address]YA: 05/25/2017 Tertiary NOT GIVENUNK [place] Insurance:SELF PAY [facility] Number: Effective Repository Date:2017-05-25 05/23/2017 IAM AARON Primary IAM AARON [place] [id number] Insurance:MEDICARE BEALEDOB: Community IMPERIAL PART A [facility] [id number] [facility] [place] Number: Repository [id number]: 330 [id number] [phone] () Date:2017-05-23 05/23/2017 Secondary IAM AARON [place] Insurance:[place] BEALEDOB: Community cy Number: [id number] Hospital [id number] Repository Date:1869-09-98XZ [address], [place] [address]KC: 05/23/2017 Tertiary NOT GIVENUNK [place] Insurance:SELF PAY [facility] Number: Effective Repository Date:2017-05-23 04/23/2017 IAM AARON Primary IAM Hansenoster [id number] Insurance:MEDICARE BEALEDOB: Community IMPERIAL PART A [facility] [id number], [place] Number: Repository [address]Phk: 330 [id number] [phone] () Date:2017-04-23 04/23/2017 Secondary IAM Hansenoster Insurance:[place]AM[place] BEALEDOB: Community cy Number: [id number] Hospital [id number] Repository Date:7932-75-94[address], [place] [address]AH: 04/23/2017 Tertiary NOT GIVENUNK [place] Insurance:SELF PAY [facility] Number: Effective Repository Date:2017-04-23 04/07/2017 IAM AARON Primary IAM Hansenoster [id number] Insurance:MEDICARE BEALEDOB: Community IMPERIAL PART A [facility] [id number] [facility] [place] Number: Repository [address]Ola: 330 [id number] [phone] () Date:2017-04-07 04/07/2017 Secondary IAM Hansenoster Insurance:[place] BEALEDOB: Community cy Number: [id number] Hospital [id number] Repository Date:4624-35-89[address], [place] [address]GC: 04/07/2017 Tertiary NOT GIVENUNK [place] Insurance:SELF PAY [facility] Number: Effective Repository Date:2017-04-07 04/07/2017 IAM AARON Primary IAM Hansenoster [id number] Insurance:MEDICARE BEALEDOB: Community IMPERIAL PART A [facility] [id number] [facility] [place]: Repository [address]Mqa: 330 [id number] [phone] (HP) Date:2017-04-07 04/07/2017 Secondary AIM Ferguson Insurance:[place]oli BEALEDOB: Community cy Number: [id number] Hospital [id number] Repository Date:5212-55-08HP [address], [place] [address]PG: 04/07/2017 Tertiary NOT GIVENUNK [place] Insurance:SELF PAY [facility] Number: Effective Repository Date:2017-04-07 04/07/2017 IAM AARON Primary IAM Ferguson [id number] Insurance:MEDICARE BEALEDOB: Community IMPERIAL PART A [facility] [id number] [facility] [place] Number: Repository [address]Diu: 330 [id number] [phone] () Date:2017-04-07 04/07/2017 Secondary IAM Hansenoster Insurance:[place] BEALEDOB: Community cy Number: [id number] Hospital [id number] Repository Date:6711-74-81[address]GT, [place] [address]DW: 04/07/2017 Tertiary NOT GIVENUNK [place] Insurance:SELF PAY [facility] Number: Effective Repository Date:2017-04-07 04/07/2017 IAM AARON Primary IAM Hansenoster [id number] Insurance:MEDICARE BEALEDOB: Community IMPERIAL PART A [facility] [id number] [facility] [place]: Repository [address]Bbf: 330 [id number] [phone] () Date:2017-04-07 04/07/2017 Secondary IAM Hansenoster Insurance:[place]oli BEALEDOB: Community cy Number: [id number] Hospital [id number] Repository Date:9748-58-33[address], [place] [address]ID: 04/07/2017 Tertiary NOT GIVENUNK [place] Insurance:SELF PAY [facility] Number: Effective Repository Date:2017-04-07 04/07/2017 IAM AARON Primary IAM Ferguson [id number] Insurance:MEDICARE BEALEDOB: Community IMPERIAL PART A [facility] [facility] [id number] Number: Repository [id number]: 330 [id number] [phone] (HP) Date:2017-04-07 04/07/2017 Secondary IAM [place] Insurance:CHAMPVAPoli BEALEDOB: Community cy Number: [id number] [facility] [id number] Repository Date:[id number], [place] [address]FT: 04/07/2017 Tertiary NOT GIVENUNK Phyllis Insurance:SELF PAY [facility]: Effective Repository Date:2017-04-07 04/07/2017 IAM AARON Primary IAM [place] [id number] Insurance:MEDICARE BEALEDOB: Community IMPERIAL PART A [facility] [id number] [place] Number: Repository [id number]: 330 [id number] [phone] () Date:2017-04-07 04/07/2017 Secondary IAM [place] Insurance:CHAMPVAPoli BEALEDOB: Community cy Number: [id number] [facility] [id number] Repository Date:8124-09-33[address], [place] [address]PM: 04/07/2017 Tertiary NOT GIVENUNK [place] Insurance:SELF PAY [facility] Number: Effective Repository Date:2017-04-07 04/06/2017 IAM AARON Primary IAM [place] [id number] Insurance:MEDICARE BEALEDOB: Community IMPERIAL PART A [facility] [id number] [place] Number: Repository [id number]: 330 [id number] [phone] () Date:2017-04-06 04/06/2017 Secondary IAM AARON [place] Insurance:CHAMPVAPoli BEALEDOB: Community cy Number: [id number] Hospital [id number] Repository Date:[id number], [place] [address]LC: 04/06/2017 Tertiary NOT GIVENUNK [place] Insurance:SELF PAY [facility] Number: Effective Repository Date:2017-04-06 03/31/2017 IAM AARON Primary IAM [place] [id number] Insurance:MEDICARE BEALEDOB: Community IMPERIAL PART A [facility] [id number] Number: Repository [id number]: 330 [id number] [phone] () Date:2017-03-22 03/31/2017 Secondary IAM AARON [place] Insurance:CHAMPVAPoli BEALEDOB: Community cy Number: [id number] [id number] Repository Date:4618-15-91[address], [place] [address]MA: 03/31/2017 Tertiary NOT GIVENUNK Phyllis Insurance:SELF PAY [facility] Number: Effective Repository Date:2017-03-22 03/19/2017 IAM AARON Primary IAM [place] [id number] Insurance:MEDICARE BEALEDOB: Community IMPERIAL PART A [facility] [id number] [facility] [place] Number: Repository [id number]: 330 [id number] [phone] () Date:2017-03-01 03/19/2017 Secondary IAM [place] Insurance:CHAMPVAPoli BEALEDOB: Community cy Number: [id number] [facility] [id number] Repository Date:8145-30-07JS [address], [place] [address]GS: 03/19/2017 Tertiary NOT GIVENUNK [place] Insurance:SELF PAY [facility] Number: Effective Repository Date:2017-03-01 03/19/2017 IAM AARON Primary IAM AARON [place] [id number] Insurance[place]IC[place]OB[place] [facility] [place] [facility] [id number] Number: Repository [id number]: ([phone]) [id number] [phone] () Date:2017-03-01 03/19/2017 Secondary IAM [place] [facility] Number: [id number] Hospital [id number] Repository Date:[id number], [place] [address]AU: 03/19/2017 Tertiary NOT GIVENALINE [place] Insurance:SELF PAY [facility] Number: Effective Repository Date:2017-03-19
== END 2018-03-12 13:35 | disposition skilled nursing facility (03) | DRG 291 ==
LOC: ED 21:30 → PCU 21:49
PROVIDERS: Admitting Provider Internal Medicine; Emergency Provider Emergency Medicine; Family Provider Family Medicine; PCP Family Medicine; Visit Provider Internal Medicine
DX: I50.33 Acute on chronic diastolic (congestive) heart failure (principal); J15.9 Unspecified bacterial pneumonia; E87.1 Hypo-osmolality and hyponatremia; Z68.41 Body mass index [BMI] 40.0-44.9, adult; E78.2 Mixed hyperlipidemia; M35.00 Sjogren syndrome, unspecified; I35.0 Nonrheumatic aortic (valve) stenosis; I27.21 Secondary pulmonary arterial hypertension; E11.9 Type 2 diabetes mellitus without complications; Z79.4 Long term (current) use of insulin; Z87.891 Personal history of nicotine dependence; R82.71 Bacteriuria; I65.21 Occlusion and stenosis of right carotid artery; E66.9 Obesity, unspecified
CPT/HCPCS: 36415; 51702; 71046; 80048; 80061; 81001; 82962; 83036; 83605; 83735; 83880; 84443; 84484; 85025; 85027; 85610; 85730; 87040; 87070; 87077; 87086; 87088; 87186; 87205; 87449; 87633; 93005; 93970; 94640; 94668; 97162; 97166; 97530; 97535; 97802; 99285; J7040; A4216; J1940

== ENCOUNTER 2018-03-12 14:00 | Inpatient (IN) | payer MEDICARE, OTHER, SELFPAY ==
[2018-03-08 22:48] VITALS: BMI 40.8
[2018-03-12 14:21] VITALS: BP 118/72; PULSE 119; RESP 24; TEMP 36.7; O2SAT 100; BMI 41.1
--- NOTE | 2018-03-12 15:05 | PCM.HP.STD ---
Problem List (1) Shortness of breath Status: Acute (2) Acute on chronic diastolic heart failure Status: Acute (3) Hyperlipidemia Status: Chronic (4) Aortic stenosis Status: Chronic (5) Pulmonary hypertension Status: Chronic (6) Vitamin D deficiency Status: Chronic (7) Diabetes mellitus Status: Chronic (8) Allergic rhinitis Status: Chronic (9) Community acquired pneumonia Status: Acute (10) Hyponatremia Status: Acute (11) Stenosis of right carotid artery Status: Chronic (12) Anemia Status: Chronic Qualifiers: History of Present Illness Date of Admission: 03/12/18 Chief Complaint: Here for rehabilitation, strengthening, prior to discharge home alone. The patient is a 77 year old Female with below past medical history presented to [facility] Emergency Department 03/08/2018 with shortness of breath. 03/08/2018 Chest X-ray showed right lower lobe pneumonia. Shortness of breath, worse x 1 week. Cough productive of clear sputum. Increasing bilateral lower extremity edema, weight loss noted. Positive for orthopnea. EKG sinus tachycardia, heart rate 114, left bundle branch block. WBC 4.1, Sodium 127, Cr 1.09, BNP 1574, Lactate 1.5. Blood cultures done. Lasix, Nitropaste, Rocephin,Zithromax given. 03/08/2018 Admit to Hospital. Lasix 40MG IV BID for congestive heart failure. Continue Rocephin, Zithromax. Pneumonia evaluation with urinary antigens, respiratory panel. 03/09/2018 Lasix 40MG IV BID. Continue Rocephin, Zithromax. Monitor hyponatremia. 03/09/2018 Doppler ultrasound of legs NEGATIVE for DVT. 03/10/2018 Lasix decreased to 20MG IV BID. Urine culture grew E. Faecalis, pansensitive, asymptomatic bacteriuria, does not require treatment, but already on Rocephin for pneumonia. Rocephin, Zithromax IV for community acquired pneumonia. 03/11/2018 Lasix changed to Bumex 1MG PO BID. Rocephin, Zithromax changed to Augmentin PO for community acquired pneumonia. Continue aerosol treatments. 03/11/2018 Dr. Krause consulted for hyponatremia. Recommended changing Lasix to Bumex 1mg PO BID. 800cc/day fluid restriction. Hyponatremia related to hypervolemia from congestive heart failure. 03/12/2018 Admit to TCU with debility, here for rehabilitation, strengthening, prior to discharge home alone. Past Medical History Past Medical History (Chronic Problems): Chronic Problems (Last Reviewed 06/03/17 @ 13:43 by Elvi López) Hyperlipidemia (Chronic) Aortic stenosis (Chronic) Pulmonary hypertension (Chronic) Vitamin D deficiency (Chronic) Diabetes mellitus (Chronic) Allergic rhinitis (Chronic) Mixed hyperlipidemia (Chronic) Non-rheumatic aortic stenosis (Chronic) Secondary pulmonary arterial hypertension (Chronic) Stenosis of right carotid artery (Chronic) Abnormal electrocardiogram (Chronic) Syncope (Chronic) Anemia (Chronic) Medical History: Medical History (Last Reviewed 06/03/17 @ 13:43 by Elvi López) Mixed hyperlipidemia (Chronic) E78.2 Non-rheumatic aortic stenosis (Chronic) I35.0 Secondary pulmonary arterial hypertension (Chronic) I27.21 Stenosis of right carotid artery (Chronic) I65.21 Syncope (Chronic) R55 Anemia (Chronic) D64.9 Gastritis K29.70 Hyperlipidemia E78.5 Obesity E66.9 Type 2 diabetes mellitus without complications E11.9 Allergies niacin Allergy (Verified 03/08/18 18:44) Swelling Prawhhs-Uyr-Bhn Reductase Inhibitor Allergy (Verified 03/08/18 18:44) Swelling acetaminophen [From Percocet] Adverse Reaction (Verified 03/08/18 18:44) Upset Stomach oxycodone [From Percocet] Adverse Reaction (Verified 03/08/18 18:44) Upset Stomach Tetracyclines Adverse Reaction (Verified 03/08/18 18:44) Nausea/Vom/Diarrhea tramadol Adverse Reaction (Verified 03/08/18 18:44) CONFUSION Home Medications: Ambulatory Orders Medication Instructions Recorded Flaxseed/Evening Prim/Bilberry 1 ea PO DAILY 12/22/13 [Retaine Flax Softgel] Polyethylene Glycol 3350 [Miralax] 17 gm PO DAILY 12/22/13 Insulin Glargine [Lantus SoloStar 25 units SC QHS 12/02/16 Pen] Fish Oil/Dha/Epa [Fish Oil 1,200 1 each PO DAILY 11/08/17 mg Fish Oil] Mineral Oil/Petrolatum,White 3.5 gm EACHEYE DAILY 11/08/17 [Systane Nighttime Eye Ointment] Propylene Glycol/Peg 400 [Systane 10 ml EACH EYE DAILY 11/08/17 Gel Eye Drops] Meclizine HCl 12.5 mg PO TID PRN PRN 03/08/18 Acetaminophen [Tylenol Extra 1,000 mg PO Q8H PRN PRN 03/12/18 Strength] Albuterol Aerosols [Ventolin 2.5 mg INHALATION Q2H PRN PRN 03/12/18 Aerosols] vial.neb. Bisacodyl [Dulcolax] 10 mg RECTAL DAILY PRN PRN suppos. 03/12/18 Bumetanide [Bumex] 1 mg PO BIDLX 03/12/18 Enoxaparin [Lovenox] 40 mg SC DAILY 03/12/18 Glucerna Shake 120 ml PO TIDCM 03/12/18 Guaifenesin [Mucinex] 1,200 mg PO BID 03/12/18 Mag Hydrox/Al Hydrox/Simeth 30 ml PO Q6H PRN PRN udc 03/12/18 [Mylanta II] Loratadine 10 mg PO DAILY 03/13/18 Pantoprazole Sodium [Protonix] 40 mg PO DAILY 03/13/18 Sennosides/Docusate Sodium 2 each PO BID 03/13/18 [Senna-Docusate Sodium Tablet] Zolpidem Tartrate [Ambien 5 mg PO QHS PRN PRN 03/13/18 (Generic)] Surgical History: Surgical History (Last Reviewed 06/03/17 @ 13:44 by Elvi López) H/O bilateral cataract extraction Z98.41, Z98.42 History of Z98.891 History of appendectomy Z98.890, Z90.49 History of bilateral knee replacement Z98.890, Z96.653 History of esophagogastroduodenoscopy (EGD) Z98.890 18 History of salpingectomy Z98.890, Z90.79 Hx laparoscopic cholecystectomy Z98.890, Z90.49 Hx of left inguinal hernia repair Z98.890, Z87.19 Surgical History: appendectomy, cataract - Bilateral., cholecystectomy, herniorrhaphy - Left inguinal., total knee arthroplasty - Bilateral., - - , salpingectomy. Psychiatric History: No pertinent psych hx LICENSED PROSTHETIST History: No pertinent LICENSED PROSTHETIST history Lives: Alone Smoking Status: Former smoker Tobacco Use: Cigarettes Alcohol: None Drugs: None - *Family History Maternal Family History: Family History (Last Reviewed 06/03/17 @ 13:44 by Elvi López) Mother Diabetes History Items: Diabetes Paternal Family History: Family History (Last Reviewed 06/03/17 @ 13:44 by Elvi López) Mother Diabetes History Items: Unknown VTE Information - Inpt Only VTE Present on Admission: No VTE Mechan Device Prophylaxis: Knee High KALYAN Hose VTE Pharm Prophylaxis ordered?: Yes - Physical Exam Vital Signs Temp Pulse Resp BP Pulse Ox 98.0 F 119 H 24 H 118/72 100 03/12/18 14:21 03/12/18 14:21 03/12/18 14:21 03/12/18 14:21 03/12/18 14:21 Oxygen Flow Rate (L/min) 2 Oxygen Delivery Method Nasal Cannula Weight: 101.968 kg Body Mass Index (BMI) 41.1 Finger Stick Blood Glucose 230 Assessment/Plan All Active Problems (Last Reviewed 06/03/17 @ 13:43 by Elvi López) Community acquired pneumonia (Acute) CHF (Acute) Hyponatremia (Acute) Shortness of breath (Acute) Acute on chronic diastolic heart failure (Acute) Epigastric abdominal pain (Resolved) Gastritis (Resolved) 77 year old female with below past medical history hospitalized for shortness of breath secondary to acute on chronic diastolic heart failure, community acquired pneumonia, complicated by hyponatremia, admitted to TCU with debility, here or rehabilitation, strengthening, prior to discharge home alone. Debility - PT/OT. Pain - Tylenol 1000MG Q8H PRN mild pain, Oxycodone 5MG Q6H PRN severe pain. Bowel - Miralax 17GM daily, Senna/colace 2 tablets BID, Dulcolax 10MG IN daily PRN. Pneumonia vaccinatio - Administer Prevnar 13 and/or Pneumovax 23 as necessary. DVT prophylaxis - Lovenox 40MG SC daily. Shortness of breath - Albuterol 2.5MG Q2H PRN. Acute on chronic diastolic heart failure - Bumex 1MG BID. Vitamin D deficiency - D2 50,000 units per week. Iron deficiency anemia - Ferrex 150MG BID. Allergic Rhinitis - Fexofenadine 180MG daily. Hyperlipidemia - Fish Oil 1200MG daily, consider discontinuation, no clinical benefit in decreasing cardiovascular risk. Nutrition - Glucerna 120ML TID. Congestion - Mucinex 1200MG BID. Diabetes Mellitus II - Lantus 25 units QHS. Dizziness - Meclizine 12.5MG TID PRN. GERD - Omeprazole 40MG daily, consider H2 franny for decreased mcc risk. Dry Eye - Systane eye ointment, eye gel QHS. Resident left TCU prior to being seen.
--- NOTE | 2018-03-12 15:09 | HP.PCM_ITS ---
Problem List (1) Shortness of breath Status: Acute (2) Acute on chronic diastolic heart failure Status: Acute (3) Hyperlipidemia Status: Chronic (4) Aortic stenosis Status: Chronic (5) Pulmonary hypertension Status: Chronic (6) Vitamin D deficiency Status: Chronic (7) Diabetes mellitus Status: Chronic (8) Allergic rhinitis Status: Chronic (9) Community acquired pneumonia Status: Acute (10) Hyponatremia Status: Acute (11) Stenosis of right carotid artery Status: Chronic (12) Anemia Status: Chronic Qualifiers: History of Present Illness Date of Admission: 03/12/18 Chief Complaint: Here for rehabilitation, strengthening, prior to discharge home alone. The patient is a 77 year old Female with below past medical history presented to [facility] Emergency Department 03/08/2018 with shortness of breath. 03/08/2018 Chest X-ray showed right lower lobe pneumonia. Shortness of breath, worse x 1 week. Cough productive of clear sputum. Increasing bilateral lower extremity edema, weight loss noted. Positive for orthopnea. EKG sinus tachycardia, heart rate 114, left bundle branch block. WBC 4.1, Sodium 127, Cr 1.09, BNP 1574, Lactate 1.5. Blood cultures done. Lasix, Nitropaste, Rocephin,Zithromax given. 03/08/2018 Admit to Hospital. Lasix 40MG IV BID for congestive heart failure. Continue Rocephin, Zithromax. Pneumonia evaluation with urinary antigens, respiratory panel. 03/09/2018 Lasix 40MG IV BID. Continue Rocephin, Zithromax. Monitor hyponatremia. 03/09/2018 Doppler ultrasound of legs NEGATIVE for DVT. 03/10/2018 Lasix decreased to 20MG IV BID. Urine culture grew E. Faecalis, pansensitive, asymptomatic bacteriuria, does not require treatment, but already on Rocephin for pneumonia. Rocephin, Zithromax IV for community acquired pneumonia. 03/11/2018 Lasix changed to Bumex 1MG PO BID. Rocephin, Zithromax changed to Augmentin PO for community acquired pneumonia. Continue aerosol treatments. 03/11/2018 Dr. Krause consulted for hyponatremia. Recommended changing Lasix to Bumex 1mg PO BID. 800cc/day fluid restriction. Hyponatremia related to hypervolemia from congestive heart failure. 03/12/2018 Admit to TCU with debility, here for rehabilitation, strengthening, prior to discharge home alone. Past Medical History Past Medical History (Chronic Problems): Chronic Problems (Last Reviewed 06/03/17 @ 13:43 by Elvi López) Hyperlipidemia (Chronic) Aortic stenosis (Chronic) Pulmonary hypertension (Chronic) Vitamin D deficiency (Chronic) Diabetes mellitus (Chronic) Allergic rhinitis (Chronic) Mixed hyperlipidemia (Chronic) Non-rheumatic aortic stenosis (Chronic) Secondary pulmonary arterial hypertension (Chronic) Stenosis of right carotid artery (Chronic) Abnormal electrocardiogram (Chronic) Syncope (Chronic) Anemia (Chronic) Medical History: Medical History (Last Reviewed 06/03/17 @ 13:43 by Elvi López) Mixed hyperlipidemia (Chronic) E78.2 Non-rheumatic aortic stenosis (Chronic) I35.0 Secondary pulmonary arterial hypertension (Chronic) I27.21 Stenosis of right carotid artery (Chronic) I65.21 Syncope (Chronic) R55 Anemia (Chronic) D64.9 Gastritis K29.70 Hyperlipidemia E78.5 Obesity E66.9 Type 2 diabetes mellitus without complications E11.9 Allergies niacin Allergy (Verified 03/08/18 18:44) Swelling Muuutxl-Cax-Qdl Reductase Inhibitor Allergy (Verified 03/08/18 18:44) Swelling acetaminophen [From Percocet] Adverse Reaction (Verified 03/08/18 18:44) Upset Stomach oxycodone [From Percocet] Adverse Reaction (Verified 03/08/18 18:44) Upset Stomach Tetracyclines Adverse Reaction (Verified 03/08/18 18:44) Nausea/Vom/Diarrhea tramadol Adverse Reaction (Verified 03/08/18 18:44) CONFUSION Home Medications: Ambulatory Orders Medication Instructions Recorded Flaxseed/Evening Prim/Bilberry 1 ea PO DAILY 12/22/13 [Retaine Flax Softgel] Polyethylene Glycol 3350 [Miralax] 17 gm PO DAILY 12/22/13 Insulin Glargine [Lantus SoloStar 25 units SC QHS 12/02/16 Pen] Fish Oil/Dha/Epa [Fish Oil 1,200 1 each PO DAILY 11/08/17 mg Fish Oil] Mineral Oil/Petrolatum,White 3.5 gm EACHEYE DAILY 11/08/17 [Systane Nighttime Eye Ointment] Propylene Glycol/Peg 400 [Systane 10 ml EACH EYE DAILY 11/08/17 Gel Eye Drops] Meclizine HCl 12.5 mg PO TID PRN PRN 03/08/18 Acetaminophen [Tylenol Extra 1,000 mg PO Q8H PRN PRN 03/12/18 Strength] Albuterol Aerosols [Ventolin 2.5 mg INHALATION Q2H PRN PRN 03/12/18 Aerosols] vial.neb. Bisacodyl [Dulcolax] 10 mg RECTAL DAILY PRN PRN suppos. 03/12/18 Bumetanide [Bumex] 1 mg PO BIDLX 03/12/18 Enoxaparin [Lovenox] 40 mg SC DAILY 03/12/18 Glucerna Shake 120 ml PO TIDCM 03/12/18 Guaifenesin [Mucinex] 1,200 mg PO BID 03/12/18 Mag Hydrox/Al Hydrox/Simeth 30 ml PO Q6H PRN PRN udc 03/12/18 [Mylanta II] Loratadine 10 mg PO DAILY 03/13/18 Pantoprazole Sodium [Protonix] 40 mg PO DAILY 03/13/18 Sennosides/Docusate Sodium 2 each PO BID 03/13/18 [Senna-Docusate Sodium Tablet] Zolpidem Tartrate [Ambien 5 mg PO QHS PRN PRN 03/13/18 (Generic)] Surgical History: Surgical History (Last Reviewed 06/03/17 @ 13:44 by Elvi López) H/O bilateral cataract extraction Z98.41, Z98.42 History of Z98.891 History of appendectomy Z98.890, Z90.49 History of bilateral knee replacement Z98.890, Z96.653 History of esophagogastroduodenoscopy (EGD) Z98.890 18 History of salpingectomy Z98.890, Z90.79 Hx laparoscopic cholecystectomy Z98.890, Z90.49 Hx of left inguinal hernia repair Z98.890, Z87.19 Surgical History: appendectomy, cataract - Bilateral., cholecystectomy, herniorrhaphy - Left inguinal., total knee arthroplasty - Bilateral., - - C- section, salpingectomy. Psychiatric History: No pertinent psych hx RIVET BUCKER History: No pertinent RIVET BUCKER history Lives: Alone Smoking Status: Former smoker Tobacco Use: Cigarettes Alcohol: None Drugs: None - *Family History Maternal Family History: Family History (Last Reviewed 06/03/17 @ 13:44 by Elvi López) Mother Diabetes History Items: Diabetes Paternal Family History: Family History (Last Reviewed 06/03/17 @ 13:44 by Elvi López) Mother Diabetes History Items: Unknown VTE Information - Inpt Only VTE Present on Admission: No VTE Mechan Device Prophylaxis: Knee High KALYAN Hose VTE Pharm Prophylaxis ordered?: Yes - Physical Exam Vital Signs Temp Pulse Resp BP Pulse Ox 98.0 F 119 H 24 H 118/72 100 03/12/18 14:21 03/12/18 14:21 03/12/18 14:21 03/12/18 14:21 03/12/18 14:21 Oxygen Flow Rate (L/min) 2 Oxygen Delivery Method Nasal Cannula Weight: 101.968 kg Body Mass Index (BMI) 41.1 Finger Stick Blood Glucose 230 Assessment/Plan All Active Problems (Last Reviewed 06/03/17 @ 13:43 by Elvi López) Community acquired pneumonia (Acute) CHF (Acute) Hyponatremia (Acute) Shortness of breath (Acute) Acute on chronic diastolic heart failure (Acute) Epigastric abdominal pain (Resolved) Gastritis (Resolved) 77 year old female with below past medical history hospitalized for shortness of breath secondary to acute on chronic diastolic heart failure, community acquired pneumonia, complicated by hyponatremia, admitted to TCU with debility, here or rehabilitation, strengthening, prior to discharge home alone. * Debility - PT/OT. * Pain - Tylenol 1000MG Q8H PRN mild pain, Oxycodone 5MG Q6H PRN severe pain. * Bowel - Miralax 17GM daily, Senna/colace 2 tablets BID, Dulcolax 10MG [place] daily PRN. * Pneumonia vaccinatio - Administer Prevnar 13 and/or Pneumovax 23 as necessary. * DVT prophylaxis - Lovenox 40MG SC daily. * Shortness of breath - Albuterol 2.5MG Q2H PRN. * Acute on chronic diastolic heart failure - Bumex 1MG BID. * Vitamin D deficiency - D2 50,000 units per week. * Iron deficiency anemia - Ferrex 150MG BID. * Allergic Rhinitis - Fexofenadine 180MG daily. * Hyperlipidemia - Fish Oil 1200MG daily, consider discontinuation, no clinical benefit in decreasing cardiovascular risk. * Nutrition - Glucerna 120ML TID. * Congestion - Mucinex 1200MG BID. * Diabetes Mellitus II - Lantus 25 units QHS. * Dizziness - Meclizine 12.5MG TID PRN. * GERD - Omeprazole 40MG daily, consider H2 franny for decreased long-term risk. * Dry Eye - Systane eye ointment, eye gel QHS. Resident left TCU prior to being seen.
--- NOTE | 2018-03-12 15:16 | NURSING ---
Pt arrived at 14:00 from [facility]
[2018-03-12] MEDS: guaiFENesin 1,200 MG Tablet 1200 MG PO (16:32)
[2018-03-12] MEDS: Senna/Docusate Sodium 1 Tablet 2 TABLET PO (16:32)
[2018-03-12] MEDS: Glucerna Shake 120 ML LIQUID PO (16:32)
[2018-03-12 16:50] LABS: Bedside Glucose 90 mg/dL (70-110)
[2018-03-12] MEDS: Acetaminophen 500 MG Tablet 1000 MG PO (18:15)
--- NOTE | 2018-03-12 19:11 | RAD_ITS ---
STUDY: X-RAY - ABDOMEN/PELVIS REASON FOR EXAM: Female, 77 years old. Abdominal pain. TECHNIQUE: Two AP supine views of the abdomen and pelvis. COMPARISON: None. FINDINGS: Right lower lung airspace disease and layering effusion is present. There is an unremarkable bowel gas pattern. There is no demonstrated free abdominal air. The visualized liver, spleen and kidneys are grossly normal in size and morphology. Normal soft tissue structures. Degenerative changes bilateral hips are present. RAD/Abdomen Single View (Portable) IMPRESSION: No evidence of acute abdominal process. Electronically Signed: Georges Bowden DO at 9:13 EST , Service support ,
[2018-03-12] MEDS: Menthol/Lanolin/Calamine/Znox 113 GM Tube 1 APPLIC TOPICAL (19:56)
[2018-03-12] MEDS: Petrolatum,White 3.75GM OPTH.TUBE 1 APPLIC EACH EYE (19:57)
--- NOTE | 2018-03-12 21:20 | NURSING ---
Pt requesting to have Francisco @ HS. Dr Cifuentes notified; N.O. for Ambeyal 5mg PRN @ .
[2018-03-12 21:21] LABS: Bedside Glucose 98 mg/dL (70-110)
[2018-03-12] MEDS: Zolpidem Tartrate 5 MG Tablet PO (21:29)
[2018-03-12] MEDS: oxyCODONE 5 MG Tablet PO (23:27)
--- NOTE | 2018-03-13 03:40 | NURSING ---
Addendum entered by Aura Mejia 03/13/18 04:37: Pt states she feels relief from br tx. Will continue to monitor. Call light within reach. Original Note: After assisting pt off of bedpan, pt stated I feel dizzy, like I'm going to pass out. VS taken: BP 114/63, HR 112, O2 sat 99% on 2LPM, RR 22, blood sugar 83. Pt reports I feel this way from time to time. Pt also c/o abd pain, tylenol offered and administered at this time. OJ and barby crackers given. Pt states she feels less dizzy after being repositioned. RT notified for PRN br tx. Call light in reach.
[2018-03-13 03:51] LABS: Bedside Glucose 83 mg/dL (70-110)
[2018-03-13] MEDS: Acetaminophen 500 MG Tablet 1000 MG PO ×2 (03:56→14:14)
[2018-03-13] MEDS: Albuterol 2.5 MG/3 ML VIAL.NEB. INHALATION ×2 (04:20→19:52)
[2018-03-13 04:21] VITALS: PULSE 118; RESP 20; O2SAT 100
[2018-03-13 06:37] LABS: Absolute Lymphocyte Count 0.56 X10^3/ul (0.83-4.51); Absolute Neutrophil Count 7.2 X10^3/uL (2.0-7.7); Basophil# 0.01 X10^3/uL; Basophil% 0.1 % (0-1); Eosinophil# 0.01 X10^3/uL; Eosinophils% 0.1 % (0-5); Hemoglobin 13.1 g/dl (12.0-15.0); Lymphocyte # 0.56 X10^3/ul (4.0); Lymphocyte % 6.7 % (19-41); Mean Corp Hgb Conc 34.5 g/gl (32-36); Mean Corpuscular Hgb 31.5 pg (27.0-32.0); Mean Corpuscular Volume 91.3 fL (81-99); Mean Platelet Vol. 10.1 fl (6.2-12.0); Monocyte% 7.2 % (0-10); Neutrophil # 7.19 X10^3/uL (2.7-7.7); Neutrophil % 85.8 % (47-70); Platelet Count 117 K/mm3 (150-450); RBC Distribution Width CV 17.5 % (11.6-14.6); RBC Distribution Width SD 57.5 fl (35.1-43.9); Red Blood Count 4.16 M/mm3 (4.2-5.4); White Blood Count 8.4 K/mm3 (4.4-11.0)
[2018-03-13 06:38] LABS: Differential Indicated SCAN CRITERIA MET; POSITIVE COUNT NO; POSITIVE DIFFERENTIAL YES; POSITIVE MORPHOLOGY NO
[2018-03-13 06:56] LABS: Anion Gap 12 (5-15); BUN 22 mg/dL (7-18); BUN/Creat Ratio 22.2 RATIO (10-20); Calcium,Total 8.1 mg/dL (8.5-10.1); Chloride 90 mmol/L (98-107); Creatinine, Serum 0.99 mg/dL (0.55-1.02); EST Glomerular Filtration Rate 58 mL/min (>60); Est Glom Filt Rate - Afr Amer 70 mL/min (>60); Estimated Creatinine Clearance 37.64 ml/min; Glucose 92 mg/dL (74-106); Potassium 3.8 mmol/L (3.5-5.1); Sodium Level 124 mmol/L (136-145)
[2018-03-13 07:00] LABS: Bedside Glucose 91 mg/dL (70-110)
[2018-03-13] MEDS: Glucerna Shake 120 ML LIQUID PO ×3 (07:41→18:30)
[2018-03-13] MEDS: Enoxaparin 40 MG/0.4 ML Syringe SC (07:42)
[2018-03-13] MEDS: Bumetanide 0.5 MG Tablet 1 MG PO ×2 (07:42→14:08)
[2018-03-13] MEDS: Pantoprazole Sodium 40 MG Tablet PO (07:42)
[2018-03-13] MEDS: guaiFENesin 1,200 MG Tablet 1200 MG PO ×2 (07:42→18:32)
[2018-03-13] MEDS: Senna/Docusate Sodium 1 Tablet 2 TABLET PO ×2 (07:42→18:32)
[2018-03-13] MEDS: Polyethylene Glycol 3350 17 GM PACKET PO (07:43)
[2018-03-13] MEDS: Loratadine 10 MG Tablet PO (07:45)
[2018-03-13] MEDS: Menthol/Lanolin/Calamine/Znox 113 GM Tube 1 APPLIC TOPICAL ×2 (07:45→14:08)
[2018-03-13] MEDS: Tuberculin,Purif.prot.deriv. 50 TU/ML Vial 5 ML ID (11:14)
[2018-03-13 12:10] LABS: Bedside Glucose 97 mg/dL (70-110)
[2018-03-13] MEDS: oxyCODONE 5 MG Tablet PO (14:13)
[2018-03-13 15:44] VITALS: BP 123/69; PULSE 115; RESP 20; TEMP 35.7; O2SAT 96
[2018-03-13 17:26] LABS: Bedside Glucose 89 mg/dL (70-110)
[2018-03-13 19:52] VITALS: PULSE 121; RESP 20; O2SAT 99
--- NOTE | 2018-03-13 22:35 | NURSING ---
Addendum entered by Alisa Aden 03/14/18 03:38: 0100 Pt transferred to PCU Original Note: Per shift change report pt with breathing difficulties. RN immediately into evaluate at 1945 Pt c/o can't breathe Resp 33 NC 4L 98% HR 120 reg B/P 125/97 Temp 98.5 Crackles noted posterior and anterior bases. Exp wheezes posterior. Pt coughing up think yellow sputum with brown tinge. +3 pitting edema noted bilateral lower. Pt reporting difficulty breathing throughout day and does not know how much longer she will last. Per HAND POTTER, SSE provided 1640 this evening. Pt was not able to retain fluids and pt did not have results. Bowls sounds hypoactive. Abd firm. HAND POTTER reporting pt very little urine out put today. Breathing tx provided by resp therapy. Resp therapy decreased NC to 3L. Pt resp 30/min 97%. Pt reported to HAND POTTER she is about ready to give up. Dr Cifuentes notified. N.O. send pt to E.R. Report provided to Tarun in ER. Pt off unit at 2029. Pt son Hesham notified.
--- NOTE | 2018-03-14 08:13 | DCINST_ITS ---
You will use the following diet at home:: No restrictions, Regular Your food should be the consistency of: Regular Your liquids should be the consistency of: Regular/Thin Discharge Activity: Use Walker Weight Bearing Status: Weight bearing as tolerated Call your doctor if you observe: Fever of 101 or Higher, Inability to urinate, Inability to have a bowel movement, Shortness of breath, Chest pain, Uncontrolled pain Allergies/Adverse Reactions: Allergies niacin Allergy (Verified 03/13/18 20:45) Swelling Cduotbd-Rgg-Dwn Reductase Inhibitor Allergy (Verified 03/13/18 20:45) Swelling acetaminophen [From Percocet] Adverse Reaction (Verified 03/13/18 20:45) Upset Stomach oxycodone [From Percocet] Adverse Reaction (Verified 03/13/18 20:45) Upset Stomach Tetracyclines Adverse Reaction (Verified 03/13/18 20:45) Nausea/Vom/Diarrhea tramadol Adverse Reaction (Verified 03/13/18 20:45) CONFUSION Medications to take at Discharge RX: Flaxseed/Evening Prim/Bilberry [Retaine Flax Softgel] 1 ea PO DAILY 12/22/13 RX: Polyethylene Glycol 3350 [Miralax] 17 gm PO DAILY 12/22/13 RX: Insulin Glargine [Lantus SoloStar Pen] 25 units SC QHS 12/02/16 RX: Fish Oil/Dha/Epa [Fish Oil 1,200 mg Fish Oil] 1 each PO DAILY 11/08/17 RX: Mineral Oil/Petrolatum,White [Systane Nighttime Eye Ointment] 3.5 gm EACHEYE DAILY 11/08/17 RX: Propylene Glycol/Peg 400 [Systane Gel Eye Drops] 10 ml EACH EYE DAILY 11/08/17 RX: Meclizine HCl 12.5 mg PO TID PRN PRN 03/08/18 Acetaminophen [Tylenol Extra Strength] 1,000 mg PO Q8H PRN PRN 03/12/18 RX: Albuterol Aerosols [Ventolin Aerosols] 2.5 mg INHALATION Q2H PRN PRN vial.neb. 03/12/18 RX: Bisacodyl [Dulcolax] 10 mg RECTAL DAILY PRN PRN suppos. 03/12/18 RX: Bumetanide [Bumex] 1 mg PO BIDLX 03/12/18 RX: Enoxaparin [Lovenox] 40 mg SC DAILY 03/12/18 RX: Glucerna Shake 120 ml PO TIDCM 03/12/18 RX: Guaifenesin [Mucinex] 1,200 mg PO BID 03/12/18 RX: Mag Hydrox/Al Hydrox/Simeth [Mylanta II] 30 ml PO Q6H PRN PRN udc 03/12/18 Pantoprazole Sodium [Protonix] 40 mg PO DAILY 03/13/18 RX: Loratadine 10 mg PO DAILY 03/13/18 Sennosides/Docusate Sodium [Senna-Docusate Sodium Tablet] 2 each PO BID 03/13/18 Zolpidem Tartrate [Ambien (Generic)] 5 mg PO QHS PRN PRN 03/13/18 Primary Care Physician: Jared Mayorga MD [Primary Care Provider] - Please follow up with your Primary Care Physician in: 1 week. Test Results: Test results from this visit will be discussed in further detail at your follow- up appointment, if applicable. Proposed Discharge Date: 03/14/18
--- NOTE | 2018-03-14 08:13 | PCM.DC.SUM ---
Discharge Date and Diagnosis Date of Admission: 03/12/18 Date of Discharge: 03/14/18 - Secondary Discharge Diagnosis Chronic Problems (Last Reviewed 06/03/17 @ 13:43 by Elvi López) Hyperlipidemia (Chronic) Aortic stenosis (Chronic) Pulmonary hypertension (Chronic) Vitamin D deficiency (Chronic) Diabetes mellitus (Chronic) Allergic rhinitis (Chronic) Mixed hyperlipidemia (Chronic) Non-rheumatic aortic stenosis (Chronic) Secondary pulmonary arterial hypertension (Chronic) Stenosis of right carotid artery (Chronic) Abnormal electrocardiogram (Chronic) Syncope (Chronic) Anemia (Chronic) Hospital Course and Treatment Operations: None Procedures: None Summary of Care Provided: The patient is a 77 year old Female with below past medical history hospitalized for shortness of breath secondary to acute on chronic diastolic heart failure, community acquired pneumonia, complicated by hyponatremia, admitted to TCU with debility, here or rehabilitation, strengthening, prior to discharge home alone. 03/13/2018 Resident unstable, transfer to [facility] Emergency Department for evaluation, admission to hospital. - Physical Exam Vital Signs Temp Pulse Resp BP Pulse Ox 96.3 F L 121 H 20 H 123/69 H 99 03/13/18 15:44 03/13/18 19:52 03/13/18 19:52 03/13/18 15:44 03/13/18 19:52 Oxygen Flow Rate (L/min) 5 Oxygen Delivery Method Nasal Cannula Weight: 105.8 kg Body Mass Index (BMI) 41.1 Finger Stick Blood Glucose 230 Intake and Output for Last 24 Hours 03/12/18 03/13/18 03/14/18 23:59 23:59 23:59 Intake Total 540 / 540 Output Total 100 / 100 Balance 440 / 440 POC Glucose 03/13/18 03/13/18 16:57 12:06 POC Glucose 89 97 Discharge Diet: No Restrictions Discharge Activity: Use Walker Weight Bearing Status: Weight bearing as tolerated Call your doctor if you observe: Fever of 101 or Higher, Inability to urinate, Inability to have a bowel movement, Shortness of breath, Chest pain, Uncontrolled pain Home Medications: Medications to take at Discharge Flaxseed/Evening Prim/Bilberry [Retaine Flax Softgel] 1 ea PO DAILY 12/22/13 Polyethylene Glycol 3350 [Miralax] 17 gm PO DAILY 12/22/13 Insulin Glargine [Lantus SoloStar Pen] 25 units SC QHS 12/02/16 Fish Oil/Dha/Epa [Fish Oil 1,200 mg Fish Oil] 1 each PO DAILY 11/08/17 Mineral Oil/Petrolatum,White [Systane Nighttime Eye Ointment] 3.5 gm EACHEYE DAILY 11/08/17 Propylene Glycol/Peg 400 [Systane Gel Eye Drops] 10 ml EACH EYE DAILY 11/08/17 Meclizine HCl 12.5 mg PO TID PRN PRN 03/08/18 Acetaminophen [Tylenol Extra Strength] 1,000 mg PO Q8H PRN PRN 03/12/18 Albuterol Aerosols [Ventolin Aerosols] 2.5 mg INHALATION Q2H PRN PRN vial.neb. 03/12/18 Bisacodyl [Dulcolax] 10 mg RECTAL DAILY PRN PRN suppos. 03/12/18 Bumetanide [Bumex] 1 mg PO BIDLX 03/12/18 Enoxaparin [Lovenox] 40 mg SC DAILY 03/12/18 Glucerna Shake 120 ml PO TIDCM 03/12/18 Guaifenesin [Mucinex] 1,200 mg PO BID 03/12/18 Mag Hydrox/Al Hydrox/Simeth [Mylanta II] 30 ml PO Q6H PRN PRN udc 03/12/18 Loratadine 10 mg PO DAILY 03/13/18 Pantoprazole Sodium [Protonix] 40 mg PO DAILY 03/13/18 Sennosides/Docusate Sodium [Senna-Docusate Sodium Tablet] 2 each PO BID 03/13/18 Zolpidem Tartrate [Ambien (Generic)] 5 mg PO QHS PRN PRN 03/13/18 Primary Care Physician: Jared Mayorga MD [Primary Care Provider] - Please follow up with your Primary Care Physician in: 1 week. Disposition: Acute care Hospital Minutes spent on discharge:: 30 Patient Condition:: Guarded Medical Necessity - Tobacco Use Smoking Status: Former smoker Tobacco Use: Cigarettes Meaningful Use Info Meaningful Use Diagnoses (Choose all that apply): None applicable
--- NOTE | 2018-03-22 12:11 | MDS.RN ---
Information for the mds was obtained from review of the clinical record, interview of resident, staff, and direct observation of resident's care.
== END 2018-03-13 20:30 | disposition short-term general hospital (02) | DRG 948 ==
PROVIDERS: Admitting Provider Family Medicine Geriatric Medicine; Family Provider Family Medicine; PCP Family Medicine; Referring Provider Family Medicine Geriatric Medicine; Visit Provider Family Medicine Geriatric Medicine
DX: R53.81 Other malaise (principal); I50.32 Chronic diastolic (congestive) heart failure; K21.9 Gastro-esophageal reflux disease without esophagitis; D50.9 Iron deficiency anemia, unspecified; E11.9 Type 2 diabetes mellitus without complications; I27.20 Pulmonary hypertension, unspecified; E78.2 Mixed hyperlipidemia; Z87.891 Personal history of nicotine dependence; E55.9 Vitamin D deficiency, unspecified
CPT/HCPCS: 36415; 74018; 80048; 82962; 85025; 94640; 97162; 97166

== ENCOUNTER 2018-03-13 20:36 | Inpatient (IN) | payer MEDICARE, OTHER, SELFPAY ==
[2018-03-12 14:21] VITALS: BMI 41.1
[2018-03-13 20:37] VITALS: BP 98/76; PULSE 132; RESP 24; TEMP 37.2; O2SAT 94; BMI 41.1
--- NOTE | 2018-03-13 20:39 | ED.RN ---
RN CALLED FOR EKG, PULLED OLD EKGS FOR
[2018-03-13 20:42] VITALS: BP 112/70; PULSE 132; RESP 30; TEMP 36.5; O2SAT 94
[2018-03-13 20:47] VITALS: O2SAT 94
--- NOTE | 2018-03-13 20:50 | RAD_ITS ---
STUDY: X-RAY CHEST REASON FOR EXAM: Female, 77 years old. Increasing cough and shortness of breath TECHNIQUE: Single AP portable view of the chest. COMPARISON: 03/08/2018 FINDINGS: EKG leads overlie the chest Lungs are expanded. There has been overall improvement compared to the previous study with near complete resolution of the previously described interstitial edema and right pleural effusion. Continued follow-up recommended to assure complete resolution. Normal size heart. Normal mediastinum and amauri. Normal visualized pulmonary arteries. There is atherosclerotic calcification of the aortic arch with tortuosity. There are diffuse degenerative changes of the visualized thoracic spine. There is degenerative osteoarthritis of the bilateral shoulders. There is no demonstrated abnormality of the visualized soft tissue structures of the upper abdomen. RAD/Chest 1 View (Portable) IMPRESSION: Partial but not yet complete resolution of previously described interstitial edema and right pleural effusion. Follow-up recommended to assure complete resolution Electronically Signed: Paul Max MD at 21:13 EST , Service support ,
--- NOTE | 2018-03-13 20:50 | EKG12_ITS ---
Test Reason : REPEAT Blood Pressure : / mmHG Vent. Rate : 115 BPM Atrial Rate : 115 BPM P-R Int : 198 ms QRS Dur : 132 ms QT Int : 354 ms P-R-T Axes : 000 -52 109 degrees QTc Int : 489 ms Atrial fluttter Left axis deviation Left bundle branch block Abnormal ECG Confirmed by PREM RUFFIN, DEEPTHI ([id number]), dictionary editor JANETTE TIJERINA ([id number]) on 03/17/2018 8:09:56 AM Referred By: Confirmed By:DEEPTHI AMARO MD
[2018-03-13] MEDS: dilTIAZem 25 MG/5 ML Vial 10 MG IV BOLUS ×2 (20:58→21:46)
[2018-03-13 21:01] LABS: Absolute Lymphocyte Count 0.63 X10^3/ul (0.83-4.51); Absolute Neutrophil Count 10.3 X10^3/uL (2.0-7.7); Hemoglobin 13.5 g/dl (12.0-15.0); Lymphocyte # 0.63 X10^3/ul (4.0); Lymphocyte % 5.3 % (19-41); Mean Corp Hgb Conc 33.8 g/gl (32-36); Mean Platelet Vol. 10.1 fl (6.2-12.0); Monocyte# 0.91 X10^3/uL; Monocyte% 7.7 % (0-10); Neutrophil # 10.32 X10^3/uL (2.7-7.7); Neutrophil % 86.8 % (47-70); Platelet Count 130 K/mm3 (150-450); RBC Distribution Width CV 17.7 % (11.6-14.6); Red Blood Count 4.35 M/mm3 (4.2-5.4); White Blood Count 11.9 K/mm3 (4.4-11.0)
[2018-03-13 21:02] LABS: POSITIVE COUNT NO; POSITIVE DIFFERENTIAL NO; POSITIVE MORPHOLOGY NO
[2018-03-13 21:03] LABS: International Normalized Ratio 1.2; Prothrombin Time (Protime)PT. 15.4 SECONDS (11.7-14.9)
[2018-03-13 21:04] LABS: Partial Thromboplast Time 40.7 Seconds (24.1-36.2)
[2018-03-13 21:18] LABS: Bacteria 0 SEEN /hpf (None Seen); Mucous, Urine 0 SEEN /hpf (<or=2+)
[2018-03-13 21:20] LABS: Color, Urine Yellow (Yellow); Glucose, Dipstick Normal (Normal); Ketone-Dipstick 5 mg/dl (Negative); Leukocyte Esterase-Dipstick 25 /ul (Negative); Nitrite-Dipstick Negative (Negative); Occult Blood-Urine 50 /ul (Negative); Protein-Dipstick 30 mg/dl (Negative); Urine Bilirubin Dipstick Negative (Negative); Urine Clarity Cloudy (Clear); Urine Urobilinogen Normal (Normal)
[2018-03-13 21:21] LABS: ALB/GLOB Ratio 0.3 RATIO (0.9-2.4); AST(SGOT) 34 U/L (15-37); Alanine Aminotransfer ALT/SGPT 13 U/L (13-56); Albumin, Serum 2.2 g/dL (3.2-5.0); Alkaline Phosphatase 178 U/L (45-117); Anion Gap 10 (5-15); BUN 23 mg/dL (7-18); BUN/Creat Ratio 19.5 RATIO (10-20); Calcium,Total 8.1 mg/dL (8.5-10.1); Chloride 89 mmol/L (98-107); Creatinine, Serum 1.18 mg/dL (0.55-1.02); EST Glomerular Filtration Rate 47 mL/min (>60); Est Glom Filt Rate - Afr Amer 57 mL/min (>60); Estimated Creatinine Clearance 31.58 ml/min; Globulin 6.3 g/dL (2.2-4.2); Glucose 108 mg/dL (74-106); Potassium 4.1 mmol/L (3.5-5.1); Protein, Total 8.5 g/dL (6.4-8.2); Sodium Level 122 mmol/L (136-145); Thyroid Stim Hormone (TSH) 8.82 uIU/mL (0.358-3.74)
[2018-03-13 21:27] LABS: Hyaline Cast 5-10 SEEN /lpf (0-5); Red Blood Cells-Urine 0-5 SEEN /hpf (0-5); Squamous Epithelial Cells - UA 0-5 SEEN /hpf (5-10); White Blood Cells 0-5 SEEN /hpf (0-5)
[2018-03-13 21:42] VITALS: BP 118/55; PULSE 115; RESP 27; TEMP 37.2; O2SAT 95
[2018-03-13 22:00] VITALS: BP 118/64; PULSE 115; RESP 22; TEMP 37.2; O2SAT 93
--- NOTE | 2018-03-13 22:20 | EKG12_ITS ---
Test Reason : SOB Blood Pressure : / mmHG Vent. Rate : 134 BPM Atrial Rate : 234 BPM P-R Int : 000 ms QRS Dur : 136 ms QT Int : 334 ms P-R-T Axes : 000 -53 114 degrees QTc Int : 498 ms Atrial flutter with variable A-V block Left axis deviation Left bundle branch block Abnormal ECG Confirmed by PREM RUFFIN, DEEPTHI ([id number]), graphics editor JANETTE TIJERINA ([id number]) on 03/17/2018 8:10:16 AM Referred By: Confirmed By:DEEPTHI AMARO MD
--- NOTE | 2018-03-13 22:37 | CT_ITS ---
STUDY: CTA CHEST REASON FOR EXAM: Female, 77 years old. Dyspnea RADIATION DOSAGE (If Supplied By Facility): CTDIvol = ( 21.06 ) mGy, DLP = ( 718.09 ) mGycm TECHNIQUE: The examination was performed with the intravenous administration of 100ML ml of Isovue 370 contrast material. Post-processing of the angiographic images was performed, with multiplanar reformation and 3D reconstruction. Individualized dose optimization techniques were used for this CT. COMPARISON: None. FINDINGS: Normal enhancement of the main pulmonary artery and right and left pulmonary arteries. Normal enhancement of the bilateral peripheral pulmonary arteries. There is no demonstrated pulmonary embolism. There is prominence of the main pulmonary arteries without peripheral pulmonary vascular congestion, suggesting pulmonary hypertension. There is atherosclerotic calcification of the aortic arch with tortuosity. There is no demonstrated aortic dissection. Heart is moderately enlarged. Mitral valve calcifications are identified. There is reflux of contrast into the IVC suggesting right heart dysfunction. The right atrium is dilated. There are visualized mediastinal lymph nodes, which are within normal size limits, and with normal morphology. Normal hilar regions. Moderate right and small left pleural effusions. There is compressive atelectasis of the right more than left lung base. There are degenerative changes of thoracic spine. Diffuse body wall edema. There is mild ascites of the upper abdomen, partially visualized. CT/CTA Chest W/WO Contrast IMPRESSION: 1. No central or segmental pulmonary embolism. 2. Dilated pulmonary artery suggesting possibility of pulmonary hypertension. 3. Right larger than left pleural effusions, mild ascites and body wall edema suggesting third spacing. 4. Cardiomegaly. Dilated right atrium suggesting right heart dysfunction. Electronically Signed: Sean Lam MD at 23:18 EST , Service support ,
[2018-03-13 23:00] VITALS: BP 118/62; PULSE 115; RESP 26; TEMP 37; O2SAT 95
--- NOTE | 2018-03-13 23:19 | ED.VISSUMM ---
- ER Visit Summary Date of Service: 03/13/18 Chief Complaint: Dyspnea History of Present Illness: The patient is a 77 F who was just admitted into the hospital with congestive heart failure and possible pneumonia. After several days she was transferred to the TCU. Patient has a history of aortic stenosis (mild to moderate), pulmonary hypertension, congestive heart failure, diabetes, and hyper sterile anemia. While in the hospital due to sodium issues her diuretic Lasix was changed to Bumex. I do not see that she is on any rate control medication. Physical Examination: 112/76 temperature 98.9 heart rate of 136 respirations are 35 pulse ox is 94% on room air Gen: Well-nourished well-developed Head: Normocephalic atraumatic Eyes: Perrl EOMI ENT: TMs clear no rhinorrhea moist mucous membranes Neck: Supple no lymphadenopathy no JVD nontender CVS: Tachycardic rate 2 out of 6 systolic murmur Respiratory: Patient is dyspneic. She has rales and decreased breath sounds at the bases chest nontender Abdomen: Soft nontender nondistended normal bowel sounds no masses Back: Nontender Extremity: Nontender 3+ lower extremity edema Skin: Normal color no rash Neuro: alert orientated ?3 CN II-XII intact Psych: Normal affect normal mood Test Results: White count 11.9 platelets are 130. TSH 8.82. Creatinine 1.18 troponin 0 0.023 nitric peptide 3000 urinalysis negative. Chest x-ray shows pulmonary edema with right effusion. CT Mia of the chest was ordered. Emergency Department Course and Treatment: Initial EKG computer read as atrial fibrillation flutter. However I can distinctly see P waves with what is most likely PACs. She received 10 of Cardizem slowed her down to 115. Repeat EKG confirmed sinus tachycardia at that rate. I gave a second dose of Cardizem and she has not come any further down from 115. Patient received Bumex. She has a Burr catheter in place. Impression: 1. CHF This note was generated with irisnote dictation software. It may contain incorrect words, spelling, and punctuation that were not noted in review of the chart prior to signing ED Disposition - Plan for ED Patient: Chief Complaint: Shortness of Breath Referrals: Jared Mayorga MD [Primary Care Provider] -
[2018-03-13] MEDS: Bumetanide 1 MG/4 ML Vial IV (23:42)
[2018-03-14] VITALS (37 sets, daily range): BP systolic 89–130; BP diastolic 47–79; PULSE 86–115; RESP 14–24; TEMP 36.3–36.8; O2SAT 91–100; BMI 41.1
--- NOTE | 2018-03-14 00:12 | PCM.HP.STD ---
Problem List (1) Community acquired pneumonia Status: Acute (2) CHF Status: Acute (3) Hyponatremia Status: Acute (4) Shortness of breath Status: Acute (5) Acute on chronic diastolic heart failure Status: Acute (6) Hyperlipidemia Status: Chronic (7) Aortic stenosis Status: Chronic (8) Pulmonary hypertension Status: Chronic (9) Vitamin D deficiency Status: Chronic (10) Diabetes mellitus Status: Chronic (11) Allergic rhinitis Status: Chronic (12) Mixed hyperlipidemia Status: Chronic (13) Non-rheumatic aortic stenosis Status: Chronic (14) Secondary pulmonary arterial hypertension Status: Chronic (15) Stenosis of right carotid artery Status: Chronic (16) Abnormal electrocardiogram Status: Chronic (17) Syncope Status: Chronic (18) Anemia Status: Chronic Qualifiers: History of Present Illness Date of Admission: 03/14/18 Chief Complaint: Shortness of breath for 2 week The patient is a 77 year old F with multiple comorbidities as listed above who was recently admitted on 03/08 and discharged on 03/12 to TCU and then sent to ER on 03/13 for worsening of shortness of breath and tachycardia. During the hospital course patient was treated with IV Lasix twice daily which was changed to Bumex 1 mg twice daily after worsening hyponatremia and [place] antique furniture repairer was consulted. Patient also had right carotid acquired pneumonia for which she got 4 days of IV ceftriaxone and Zithromax and discharged on Augmentin. Patient also had asymptomatic bacteriuria which grew E faecalis which was pansensitive. In the ED, patient is short of breath, respiratory rate 30/min, pulse ox 94% on room air, sinus tachycardia 132 bpm. EKG was done and shows sinus tachycardia with LAD and left bundle branch block. Chest x-ray shows right pleural effusion and interstitial edema for which further chest CT was done. PE ruled out but shows dilated pulmonary artery suggestive of pulmonary hypertension. Moderate right pleural effusion and small left pleural effusions with compressive atelectasis, mild ascites and body wall edema suggesting third spacing. Patient is obviously short of breath and said she could not sleep for last 3 days. Patient also complained of abdominal pain/tightness for which abdominal x-ray was done and tissue which does not show acute change so most probably secondary to ascites and abdominal wall edema. Past Medical History Past Medical History (Chronic Problems): Chronic Problems (Last Reviewed 06/03/17 @ 13:43 by Elvi A Maribel) Hyperlipidemia (Chronic) Aortic stenosis (Chronic) Pulmonary hypertension (Chronic) Vitamin D deficiency (Chronic) Diabetes mellitus (Chronic) Allergic rhinitis (Chronic) Mixed hyperlipidemia (Chronic) Non-rheumatic aortic stenosis (Chronic) Secondary pulmonary arterial hypertension (Chronic) Stenosis of right carotid artery (Chronic) Abnormal electrocardiogram (Chronic) Syncope (Chronic) Anemia (Chronic) Medical History: Medical History (Last Reviewed 06/03/17 @ 13:43 by Elvi López) Mixed hyperlipidemia (Chronic) E78.2 Non-rheumatic aortic stenosis (Chronic) I35.0 Secondary pulmonary arterial hypertension (Chronic) I27.21 Stenosis of right carotid artery (Chronic) I65.21 Syncope (Chronic) R55 Anemia (Chronic) D64.9 Gastritis K29.70 Hyperlipidemia E78.5 Obesity E66.9 Type 2 diabetes mellitus without complications E11.9 Allergies niacin Allergy (Verified 03/13/18 20:45) Swelling [id number]-[id number] Reductase Inhibitor Allergy (Verified 03/13/18 20:45) Swelling acetaminophen [From Percocet] Adverse Reaction (Verified 03/13/18 20:45) Upset Stomach oxycodone [From Percocet] Adverse Reaction (Verified 03/13/18 20:45) Upset Stomach Tetracyclines Adverse Reaction (Verified 03/13/18 20:45) Nausea/Vom/Diarrhea tramadol Adverse Reaction (Verified 03/13/18 20:45) CONFUSION Home Medications: Ambulatory Orders Medication Instructions Recorded Flaxseed/Evening Prim/Bilberry 1 ea PO DAILY 12/22/13 [Retaine Flax Softgel] Polyethylene Glycol 3350 [Miralax] 17 gm PO DAILY 12/22/13 Insulin Glargine [Lantus SoloStar 25 units SC QHS 12/02/16 Pen] Fish Oil/Dha/Epa [Fish Oil 1,200 1 each PO DAILY 11/08/17 mg Fish Oil] Mineral Oil/Petrolatum,White 3.5 gm EACHEYE DAILY 11/08/17 [Systane Nighttime Eye Ointment] Propylene Glycol/Peg 400 [Systane 10 ml EACH EYE DAILY 11/08/17 Gel Eye Drops] Meclizine HCl 12.5 mg PO TID PRN PRN 03/08/18 Acetaminophen [Tylenol Extra 1,000 mg PO Q8H PRN PRN 03/12/18 Strength] Albuterol Aerosols [Ventolin 2.5 mg INHALATION Q2H PRN PRN 03/12/18 Aerosols] vial.neb. Bisacodyl [Dulcolax] 10 mg RECTAL DAILY PRN PRN suppos. 03/12/18 Bumetanide [Bumex] 1 mg PO BIDLX 03/12/18 Enoxaparin [Lovenox] 40 mg SC DAILY 03/12/18 Glucerna Shake 120 ml PO TIDCM 03/12/18 Guaifenesin [Mucinex] 1,200 mg PO BID 03/12/18 Mag Hydrox/Al Hydrox/Simeth 30 ml PO Q6H PRN PRN udc 03/12/18 [Mylanta II] Loratadine 10 mg PO DAILY 03/13/18 Pantoprazole Sodium [Protonix] 40 mg PO DAILY 03/13/18 Sennosides/Docusate Sodium 2 each PO BID 03/13/18 [Senna-Docusate Sodium Tablet] Zolpidem Tartrate [Ambien 5 mg PO QHS PRN PRN 03/13/18 (Generic)] Surgical History: Surgical History (Last Reviewed 06/03/17 @ 13:44 by Elvi López) H/O bilateral cataract extraction Z98.41, Z98.42 History of Z98.891 History of appendectomy Z98.890, Z90.49 History of bilateral knee replacement Z98.890, Z96.653 History of esophagogastroduodenoscopy (EGD) Z98.890 03/19/17 History of salpingectomy Z98.890, Z90.79 Hx laparoscopic cholecystectomy Z98.890, Z90.49 Hx of left inguinal hernia repair Z98.890, Z87.19 Surgical History: appendectomy, cataract - Bilateral., cholecystectomy, herniorrhaphy - Left inguinal., total knee arthroplasty - Bilateral., - - , salpingectomy. Psychiatric History: No pertinent psych hx GEOLOGICAL SCIENCE TEACHER History: No pertinent GEOLOGICAL SCIENCE TEACHER history Smoking Status: Never smoker - *Family History Maternal Family History: Family History (Last Reviewed 06/03/17 @ 13:44 by Elvi López) Mother Diabetes History Items: Diabetes Paternal Family History: Family History (Last Reviewed 06/03/17 @ 13:44 by Elvi López) Mother Diabetes History Items: Unknown Review of Systems Constitutional: Reports: Malaise, Weakness HEENT: Denies: Head Aches, Sinus Congestion, Sinus Drainage Cardiovascular: Denies: Chest Pain, Chest Pressure, Chest Tightness, Palpitations Respiratory: Reports: Shortness of Breath, Shortness of breath at rest, Shortness of breath upon exertion. Denies: Cough, Sputum production Gastrointestinal: Reports: Abdominal Pain. Denies: Nausea, Vomiting Genitourinary: Denies: Dysuria Musculoskeletal: Denies: Joint Pain, Joint Tenderness Skin: Denies: Rash, Wounds Neurological: Denies: Numbness, Tingling, Focal weakness Psychiatric: Denies: Anxiety, Depression, Homicidal Ideations, Suicidal Ideations Hematologic/ Lymphatic: Denies: Easy Bruising, Easy Bleeding VTE Information - Inpt Only VTE Present on Admission: No VTE Pharm Prophylaxis ordered?: Yes Patient Problems: Active and Suspected Problems (Last Reviewed 06/03/17 @ 13:43 by Elvi López) Shortness of breath (Acute) Acute on chronic diastolic heart failure (Acute) - Physical Exam General: Alert, Oriented x3, Cooperative HEENT: Atraumatic, PERRLA, EOMI, Normocephalic Oral: Dry Mucosa Neck: Supple, No JVD, Negative Carotid Bruits Lungs: Diminished - Air entry diminished more on right lung than left lung. Bilateral pleural effusion., Short of Breath, Wheezes Cardiovascular: Regular Rhythm, Normal S1, Normal S2, Murmur, Tachycardic Abdomen: Bowel Sounds Present, Soft, Non Tender, Non-Distended Extremities: Capillary Refill Less than 3 Seconds, Edema Skin: No rashes, No breakdown Musculoskeletal: No Tenderness to Palpation of Joints or Extremities, Arthritic Changes, Muscle Wasting Neurological: Cranial nerves II-XII grossly intact, Deep Tendon Reflexes 2+/4 and Symmetrical, Neuro grossly intact Psych/Mental Status: Normal Affect, Appropriate Vital Signs Temp Pulse Resp BP Pulse Ox 98.6 F 115 H 26 H 118/62 95 03/13/18 23:00 03/13/18 23:00 03/13/18 23:00 03/13/18 23:00 03/13/18 23:00 Oxygen Flow Rate (L/min) 2 Oxygen Delivery Method Nasal Cannula Weight: 224 lb 10.417 oz Body Mass Index (BMI) 41.1 Finger Stick Blood Glucose 230 Laboratory Tests Past 24 Hrs 03/13/18 03/13/18 03/13/18 20:45 20:45 20:45 WBC 11.9 H RBC 4.35 Hgb 13.5 Hct 40.0 MCV 92.0 MCH 31.0 MCHC 33.8 RDW 17.7 H RDW Differential 60.0 H Plt Count 130 L MPV 10.1 Immature Gran % (Auto) 0.200 Neut % (Auto) 86.8 H Lymph % (Auto) 5.3 L [place] % (Auto) 7.7 Eos % (Auto) 0.0 Baso % (Auto) 0.0 Absolute Neuts (auto) 10.3 H Absolute Lymphs (auto) 0.63 L Total Counted Not Reportable PT 15.4 H INR 1.2 APTT 40.7 H Sodium 122 L Potassium 4.1 Chloride 89 L Carbon Dioxide 23.0 Anion Gap 10 BUN 23 H Creatinine 1.18 H Estim Creat Clear Calc 31.58 Est GFR (MDRD) Af Amer 57 L Est GFR (MDRD) Non-Af 47 L BUN/Creatinine Ratio 19.5 Glucose 108 H Calcium 8.1 L Magnesium 2.0 Total Bilirubin 1.20 H AST 34 ALT 13 Alkaline Phosphatase 178 H Troponin I 0.023 B-Natriuretic Peptide Total Protein 8.5 H Albumin 2.2 L Globulin 6.3 H Albumin/Globulin Ratio 0.3 L TSH 8.82 H Urine Color Urine Clarity Urine pH Ur Specific [place] Urine Protein Urine Glucose (UA) Urine Ketones Urine Occult Blood Urine Nitrite Urine Bilirubin Urine Urobilinogen Ur Leukocyte Esterase Urine RBC Urine WBC Ur Squamous Epith Cells Urine Bacteria Hyaline Casts Urine Mucus 03/13/18 03/13/18 20:45 21:10 WBC RBC Hgb Hct MCV MCH MCHC RDW RDW Differential Plt Count MPV Immature Gran % (Auto) Neut % (Auto) Lymph % (Auto) [place] % (Auto) Eos % (Auto) Baso % (Auto) Absolute Neuts (auto) Absolute Lymphs (auto) Total Counted PT INR APTT Sodium Potassium Chloride Carbon Dioxide Anion Gap BUN Creatinine Estim Creat Clear Calc Est GFR (MDRD) Af Amer Est GFR (MDRD) Non-Af BUN/Creatinine Ratio Glucose Calcium Magnesium Total Bilirubin AST ALT Alkaline Phosphatase Troponin I B-Natriuretic Peptide 3002.8 H Total Protein Albumin Globulin Albumin/Globulin Ratio TSH Urine Color Yellow Urine Clarity Cloudy Urine pH 5.0 Ur Specific [place] 1.020 Urine Protein 30 H Urine Glucose (UA) Normal Urine Ketones 5 H Urine Occult Blood 50 H Urine Nitrite Negative Urine Bilirubin Negative Urine Urobilinogen Normal Ur Leukocyte Esterase 25 H Urine RBC 0-5 SEEN Urine WBC 0-5 SEEN Ur Squamous Epith Cells 0-5 SEEN Urine Bacteria 0 SEEN Hyaline Casts 5-10 SEEN Urine Mucus 0 SEEN Assessment/Plan All Active Problems (Last Reviewed 06/03/17 @ 13:43 by Elvi López) Community acquired pneumonia (Acute) CHF (Acute) Hyponatremia (Acute) Shortness of breath (Acute) Acute on chronic diastolic heart failure (Acute) Epigastric abdominal pain (Resolved) Gastritis (Resolved) The patient is a 77 year old F with multiple comorbidities as listed above who was recently admitted on 03/08 and discharged on 03/12 to TCU and then sent to ER on 03/13 for worsening of shortness of breath and tachycardia. During the hospital course patient was treated with IV Lasix twice daily which was changed to Bumex 1 mg twice daily after worsening hyponatremia and [place] antique furniture repairer was consulted. Patient also had right carotid acquired pneumonia for which she got 4 days of IV ceftriaxone and Zithromax and discharged on Augmentin. Patient also had asymptomatic bacteriuria which grew E faecalis which was pansensitive. In the ED, patient is short of breath, respiratory rate 30/min, pulse ox 94% on room air, sinus tachycardia 132 bpm. EKG was done and shows sinus tachycardia with LAD and left bundle branch block. Chest x-ray shows right pleural effusion and interstitial edema for which further chest CT was done. PE ruled out but shows dilated pulmonary artery suggestive of pulmonary hypertension. Moderate right pleural effusion and small left pleural effusions with compressive atelectasis, mild ascites and body wall edema suggesting third spacing. Patient is obviously short of breath and said she could not sleep for last 3 days. Patient also complained of abdominal pain/tightness for which abdominal x-ray was done and tissue which does not show acute change so most probably secondary to ascites and abdominal wall edema. 1. Anasarca with CHF exacerbation, possible acute on chronic heart failure with preserved EF, bilateral pleural effusion, mild ascites and interstitial abdominal wall and lower extremities edema: The patient is being admitted in PCU. Started on IV Bumex drip. Cardiology consult. Repeat 2D echo. Serial cardiac enzymes. Monitor intake and output. Monitor BP and avoid hypotension. Consult cardiology. Patient follows Dr. Vazquez. BNP 3000 Patient had echo and a stress echo in March 2017 for syncope and reported as EF 65% with normal diastole with no regional wall motion abnormalities. LA moderately enlarged. Mild to moderate aortic stenosis, mean AV gradient 14 mmHg, mild TR, RVSP 43 mmHg suggestive of mild pulmonary hypertension. Mild diffuse mitral valve thickening and severe calcification with trivial MR but no MS. 2. Bilateral pleural effusion, right more than left with symptomatic dyspnea, most probably secondary to heart failure: ultrasound-guided thoracocentesis for tomorrow a.m. Fluid analysis panel ordered. Consult pulmonary. 3. Valvular heart disease: Mild to moderate ostial stenosis, mitral valve thickening and calcification with trivial MR, and mild pulmonary hypertension: As mentioned above 4. Right lower lobe community acquired pneumonia. Patient needs 3 more days of Augmentin. UA is negative with pyuria. Protein 30. 5. CKD stage III, probably secondary to CHF and diuretics: Consult [place] nephrology. Patient is on Bumex drip. Monitor intake and output. Burr catheter was inserted in ED. 6. Hyponatremia, hypotonic and hypervolemic: Needs Bumex drip. Certified Hyperbaric Technician opinion requested Mixed hyperlipidemia, Sjogren's syndrome. Stable. Home medication reconciliation done. DVT prophylaxis: On Lovenox 40 mg subcu daily. Discontinue if platelet count drops less than 90,000 or hemoglobin less than 8 g% Patient is seen and examined in the presence of [id number], Ms. Calvillo, and discussed the reason of admission, plan and management. End of life goal care/advance directive: Discussed with the patient and her daughter. She has living will at home. She does not want intubation and ventilator but she is okay with CPR and vasopressors. Total time spent in [id number] encounter in discussion of advanced directive 18 minutes. Clinical Impression(s) from Imaging Studies Chest X-Ray 03/13/18 20:50 IMPRESSION: Partial but not yet complete resolution of previously described interstitial edema and right pleural effusion. Follow-up recommended to assure complete resolution Chest CTA 03/13/18 22:37 IMPRESSION: 1. No central or segmental pulmonary embolism. 2. Dilated pulmonary artery suggesting possibility of pulmonary hypertension. 3. Right larger than left pleural effusions, mild ascites and body wall edema suggesting third spacing. 4. Cardiomegaly. Dilated right atrium suggesting right heart dysfunction. Code Visit Inpatient E&M: 93424 Init Hosp L3
[2018-03-14] MEDS: metOLazone 5 MG Tablet PO (01:53)
[2018-03-14] MEDS: Bumetanide 12.5 MG in CONTAINER,EMPTY 1 BAG 2 MG CONT INF ×3 (01:54→22:36)
[2018-03-14] MEDS: Ondansetron 4 MG/2 ML Vial IV (02:09)
[2018-03-14] MEDS: Morphine 2 MG/ML Syringe IV (02:09)
[2018-03-14 04:10] LABS: Hematocrit 39.1 % (37-47); Hemoglobin 13.3 g/dl (12.0-15.0); Mean Corpuscular Volume 91.1 fL (81-99); Mean Platelet Vol. 10.4 fl (6.2-12.0); Platelet Count 145 K/mm3 (150-450); RBC Distribution Width CV 17.4 % (11.6-14.6); RBC Distribution Width SD 57.1 fl (35.1-43.9); Red Blood Count 4.29 M/mm3 (4.2-5.4); White Blood Count 11.8 K/mm3 (4.4-11.0)
[2018-03-14 04:12] LABS: Scan Indicated on CBC? Y/N NO
[2018-03-14 04:21] LABS: Anion Gap 13 (5-15); BUN 26 mg/dL (7-18); BUN/Creat Ratio 21.5 RATIO (10-20); Calcium,Total 8.3 mg/dL (8.5-10.1); Chloride 89 mmol/L (98-107); Creatinine, Serum 1.21 mg/dL (0.55-1.02); EST Glomerular Filtration Rate 46 mL/min (>60); Est Glom Filt Rate - Afr Amer 55 mL/min (>60); Estimated Creatinine Clearance 30.79 ml/min; Glucose 89 mg/dL (74-106); Magnesium 2.3 mg/dL (1.6-2.6); Sodium Level 125 mmol/L (136-145)
[2018-03-14 05:44] LABS: International Normalized Ratio 1.2; Prothrombin Time (Protime)PT. 15.6 SECONDS (11.7-14.9)
[2018-03-14 05:45] LABS: Partial Thromboplast Time 42.2 Seconds (24.1-36.2)
--- NOTE | 2018-03-14 05:55 | ECHOD_ITS ---
Version 2 Reason For Study: CHF Procedure This was a 2D Doppler, Color Flow transthoracic echocardiogram. Pt scanned supine... Exam performed portable in patient room. Left Ventricle Normal LV size. Left ventricular systolic function is lower limits of normal. The estimated ejection fraction is 30 %. No regional wall motion abnormalities noted. Right Ventricle Normal RV size. Mild global right ventricular systolic dysfunction. Atria The left atrium is moderately enlarged. The right atrium is mildly enlarged. Mitral Valve There is moderate mitral annular calcification. Mild (1+) eccentric mitral valve insufficiency. Tricuspid Valve Normal tricuspid valve. Moderate (2+) tricuspid valve insufficiency. Pulmonary artery systolic pressure is 42 mmHg. Aortic Valve Trisinus/trileaflet aortic valve. Moderate focal aortic valve calcification. Peak aortic valve gradient 27 mmHg. Mean aortic valve gradient 20 mmHg. Calculated aortic valve area (continuity equation) is 0.9 cm2. Pulmonic Valve The pulmonic valve is not well visualized. Great Vessels Calcified aortic root. The pulmonary artery is normal size. The inferior vena cava is dilated. Pericardium/Pleural No pericardial effusion. Medication Definity deferred due to elevated PAP. MMode/2D Measurements & Calculations LVIDd: 5.7 cm IVSd: 0.96 cm LVOT diam: 2.0 cm LVIDs: 4.9 cm LVPWd: 0.91 cm RVDd: 4.9 cm FS: 14.9 % LVOT area: 3.2 cm2 Ao root diam: 3.5 cm LAV(MOD-bp): 85.3 ml Aortic Valve Planimetry: 0.94 cm2 LAV(MOD-bp) Indexed: 42.5 ml/m2 LAV(MOD-sp2): 80.0 ml LAV(MOD-sp4): 88.8 ml LA dimension(2D): 4.6 cm LA A4 area: 25.9 cm2 RA A4 area: 21.6 cm2 Time Measurements MV dec time: 0.14 sec Doppler Measurements & Calculations MV E max stefan: 130.9 cm/sec Lat Peak E' Stefan: 8.6 cm/sec Med Peak E' Stefan: 4.2 cm/sec E/E' lat: 15.3 E/E' med: 31.0 MV V2 max: 148.5 cm/sec Ao V2 max: 260.8 cm/sec LV V1 max: 70.3 cm/sec MV max P.8 mmHg Ao max P.4 mmHg LV V1 max P.0 mmHg MV V2 mean: 91.3 cm/sec Ao V2 mean: 207.9 cm/sec LV V1 mean P.0 mmHg MV mean P.0 mmHg Ao mean P.7 mmHg LV V1 mean: 47.8 cm/sec MV V2 VTI: 22.5 cm Ao V2 VTI: 48.9 cm LV V1 VTI: 12.8 cm MVA(VTI): 1.8 cm2 JAVI(I,D): 0.85 cm2 JAVI(V,D): 0.87 cm2 SV(LVOT): 41.4 ml TR max stefan: 298.4 cm/sec MV P1/2t-pr_phl: 52.8 msec TR max P.6 mmHg Interpretation Summary Normal LV size. Left ventricular systolic function is lower limits of normal. The estimated ejection fraction is 30 %. There is moderate mitral annular calcification. Mild (1+) eccentric mitral valve insufficiency. Moderate (2+) tricuspid valve insufficiency. Moderate focal aortic valve calcification. Calculated aortic valve area (continuity equation) is 0.9 cm2. Low flow low gradient Compared to previous study, the left ventricular systolic function has worsened.. Ordering Physician: Jordan Seymour Referring Physician: OSWALDO CONN Performed By: Elida Bird, RDCS, RVT
--- NOTE | 2018-03-14 05:55 | EKG12_ITS ---
Test Reason : AM EKG Blood Pressure : / mmHG Vent. Rate : 113 BPM Atrial Rate : 113 BPM P-R Int : 188 ms QRS Dur : 136 ms QT Int : 360 ms P-R-T Axes : 000 -54 116 degrees QTc Int : 493 ms Atrial flutter Left axis deviation Left bundle branch block Abnormal ECG Confirmed by PREM RUFFIN, DEEPTHI ([id number]), loan expeditor JANETTE TIJERINA ([id number] on 03/17/2018 8:32:30 AM Referred By: DR JOLLY Confirmed By:DEEPTHI AMARO MD
[2018-03-14] MEDS: Albuterol 2.5 MG/3 ML VIAL.NEB. INHALATION ×2 (06:35→13:04)
[2018-03-14 07:13] LABS: ALB/GLOB Ratio 0.4 RATIO (0.9-2.4); Globulin 6.1 g/dL (2.2-4.2); LDH 193 U/L (84-246); Protein, Total 8.3 g/dL (6.4-8.2)
[2018-03-14 07:15] LABS: Bedside Glucose 82 mg/dL (70-110)
--- NOTE | 2018-03-14 07:15 | PCM.CONS.C ---
Reason for Consult Date of Consultation: 03/14/18 Reason for Consultation: Shortness of breath History of Present Illness: The patient is a 77 year old F with multiple comorbidities who was recently admitted on 03/08 and discharged on 03/12 to TCU and then sent to ER on 03/13 for worsening of shortness of breath and tachycardia. During the hospital course patient was treated with IV Lasix twice daily which was changed to Bumex 1 mg twice daily after worsening hyponatremia and [place] aeronautical drafter was consulted. Patient also had a community acquired pneumonia for which she got 4 days of IV ceftriaxone and Zithromax and discharged on Augmentin. Patient also had asymptomatic bacteriuria which grew E faecalis which was pansensitive. In the ED, patient is short of breath, respiratory rate 30/min, pulse ox 94% on room air, sinus tachycardia 132 bpm. EKG was done and shows probable atrial flutter left bundle branch block. Chest x-ray shows right pleural effusion and interstitial edema for which further chest CT was done. PE ruled out but shows dilated pulmonary artery suggestive of pulmonary hypertension. Moderate right pleural effusion and small left pleural effusions with compressive atelectasis, mild ascites and body wall edema suggesting third spacing. Patient is obviously short of breath and said she could not sleep for last 3 days. She however says that she has been having these symptoms for the last 2-1/2 weeks. She has also noted significant pedal edema. EKGs which have been performed on the floor and reviewed demonstrate probable atrial flutter with 2-1 conduction. Past Medical History Allergies/Adverse Reactions: Allergies niacin Allergy (Verified 03/13/18 20:45) Swelling Sscznza-Yzh-Fxr Reductase Inhibitor Allergy (Verified 03/13/18 20:45) Swelling acetaminophen [From Percocet] Adverse Reaction (Verified 03/13/18 20:45) Upset Stomach oxycodone [From Percocet] Adverse Reaction (Verified 03/13/18 20:45) Upset Stomach Tetracyclines Adverse Reaction (Verified 03/13/18 20:45) Nausea/Vom/Diarrhea tramadol Adverse Reaction (Verified 03/13/18 20:45) CONFUSION Home Medications: Ambulatory Orders Medication Instructions Recorded Flaxseed/Evening Prim/Bilberry 1 ea PO DAILY 12/22/13 [Retaine Flax Softgel] Polyethylene Glycol 3350 [Miralax] 17 gm PO DAILY 12/22/13 Insulin Glargine [Lantus SoloStar 25 units SC QHS 12/02/16 Pen] Fish Oil/Dha/Epa [Fish Oil 1,200 1 each PO DAILY 11/08/17 mg Fish Oil] Mineral Oil/Petrolatum,White 3.5 gm EACHEYE DAILY 11/08/17 [Systane Nighttime Eye Ointment] Propylene Glycol/Peg 400 [Systane 10 ml EACH EYE DAILY 11/08/17 Gel Eye Drops] Meclizine HCl 12.5 mg PO TID PRN PRN 03/08/18 Acetaminophen [Tylenol Extra 1,000 mg PO Q8H PRN PRN 03/12/18 Strength] Albuterol Aerosols [Ventolin 2.5 mg INHALATION Q2H PRN PRN 03/12/18 Aerosols] vial.neb. Bisacodyl [Dulcolax] 10 mg RECTAL DAILY PRN PRN suppos. 03/12/18 Bumetanide [Bumex] 1 mg PO BIDLX 03/12/18 Enoxaparin [Lovenox] 40 mg SC DAILY 03/12/18 Glucerna Shake 120 ml PO TIDCM 03/12/18 Guaifenesin [Mucinex] 1,200 mg PO BID 03/12/18 Mag Hydrox/Al Hydrox/Simeth 30 ml PO Q6H PRN PRN udc 03/12/18 [Mylanta II] Loratadine 10 mg PO DAILY 03/13/18 Pantoprazole Sodium [Protonix] 40 mg PO DAILY 03/13/18 Sennosides/Docusate Sodium 2 each PO BID 03/13/18 [Senna-Docusate Sodium Tablet] Zolpidem Tartrate [Ambien 5 mg PO QHS PRN PRN 03/13/18 (Generic)] Past Medical History (Chronic Problems): Chronic Problems (Last Reviewed 06/03/17 @ 13:43 by Elvi López) Hyperlipidemia (Chronic) Aortic stenosis (Chronic) Pulmonary hypertension (Chronic) Vitamin D deficiency (Chronic) Diabetes mellitus (Chronic) Allergic rhinitis (Chronic) Mixed hyperlipidemia (Chronic) Non-rheumatic aortic stenosis (Chronic) Secondary pulmonary arterial hypertension (Chronic) Stenosis of right carotid artery (Chronic) Abnormal electrocardiogram (Chronic) Syncope (Chronic) Anemia (Chronic) Surgical History: appendectomy, cataract - Bilateral., cholecystectomy, herniorrhaphy - Left inguinal., total knee arthroplasty - Bilateral., - - , salpingectomy. 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: No pertinent TOW TRUCK OPERATOR history - *Family History Maternal Family History: Family History (Last Reviewed 06/03/17 @ 13:44 by Elvi López) Mother Diabetes History Items: Diabetes Paternal Family History: Family History (Last Reviewed 06/03/17 @ 13:44 by Elvi López) Mother Diabetes History Items: Unknown Smoking Status: Never smoker Alcohol: None Drugs: None Review of Systems - Review of Systems General: Denies: Fever, Night Sweats, Fatigue HEENT: Denies: Vision Change Cardiovascular: Reports: Shortness of Breath, Shortness of Breath at Rest, Shortness of Breath with Exertion, Peripheral Edema, Palpitations. Denies: Chest Discomfort, Orthopnea, PND, Lightheadedness, Dizziness, Near Syncope, Syncope Respiratory: Denies: Cough, Sputum Production, Hemoptysis Gastrointestinal: Denies: Hematemesis, Hematochezia, Melena Genitourinary: Denies: Dysuria, Hematuria Muscoloskeletal: Denies: Myalgias Skin: Denies: Rash Neurological: Denies: Dizziness Psychiatric: Denies: Anxiety Hematologic/ Lymphatic: Denies: Anemia Subjectve: Patient seen and evaluated. Appears to be fairly comfortable. Objective: Vital Signs Temp Pulse Resp BP Pulse Ox 98.2 F 113 H 15 115/64 91 03/14/18 02:00 03/14/18 06:00 03/14/18 06:00 03/14/18 06:00 03/14/18 06:00 Oxygen Flow Rate (L/min) 2 Oxygen Delivery Method Nasal Cannula Weight: 224 lb 13.944 oz Body Mass Index (BMI) 41.1 Finger Stick Blood Glucose 230 Intake and Output for Last 24 Hours 03/12/18 03/13/18 03/14/18 23:59 23:59 23:59 Intake Total 108.4 / 108.4 Output Total 410 / 410 Balance -301.6 / -301.6 General: Awake, Alert, Oriented x 3 HEENT: PERRL, EOMI, Sclera Non Icteric Neck: Supple, Good ROM, No Lymph Node Enlargement Lungs: Diminished Joshua Bases Cardiovascular: Regular Rhythm, Normal S1, Normal S2, No Rubs, No Gallops Murmur Murmur: Grade 1/6, Early Systolic, LLSB Vascular: No Carotid Bruits, Normal Femoral Pulses, Normal Radial Pulses, Normal Dorsalis Pedal Pulse, Normal Posterior Tibial Pulses Abdomen: Bowel Sounds Present, Soft, Non Tender, No HSM, No Organomegaly Extremities: No Cyanosis, No Clubbing, Bilateral Edema +1 Musculoskeletal: No Erythema Skin: No Rashes Lymphatic: No Lymph Node Enlargement Neurological: No Focal Motor or Sensory Deficit Psych/Mental Status: Appropriate 03/13/18 20:45: WBC 11.9 H, RBC 4.35, Hgb 13.5, Hct 40.0, MCV 92.0, MCH 31.0, MCHC 33.8, RDW 17.7 H, RDW Differential 60.0 H, Plt Count 130 L, MPV 10.1, Immature Gran % (Auto) 0.200, Neut % (Auto) 86.8 H, Lymph % (Auto) 5.3 L, [place] % (Auto) 7.7, Eos % (Auto) 0.0, Baso % (Auto) 0.0, Absolute Neuts (auto) 10.3 H, Total Counted Not Reportable 03/13/18 20:45: PT 15.4 H, INR 1.2, APTT 40.7 H 03/13/18 20:45: Sodium 122 L, Potassium 4.1, Chloride 89 L, Carbon Dioxide 23.0, Anion Gap 10, BUN 23 H, Creatinine 1.18 H, Est GFR (MDRD) Af Amer 57 L, Est GFR (MDRD) Non-Af 47 L, BUN/Creatinine Ratio 19.5, Glucose 108 H, Calcium 8.1 L, Magnesium 2.0, Total Bilirubin 1.20 H, Troponin I 0.023 03/13/18 20:45: B-Natriuretic Peptide 3002.8 H 03/13/18 21:10: Urine Color Yellow, Urine Clarity Cloudy, Urine pH 5.0, Ur Specific [place] 1.020, Urine Protein 30 H, Urine Glucose (UA) Normal, Urine Ketones 5 H, Urine Occult Blood 50 H, Urine Nitrite Negative, Urine Bilirubin Negative, Urine Urobilinogen Normal, Ur Leukocyte Esterase 25 H, Urine RBC 0-5 SEEN, Urine WBC 0-5 SEEN 01/28/19 01:10: Troponin I 0.032 03/14/18 04:00: Sodium 125 L, Potassium 4.0, Chloride 89 L, Carbon Dioxide 23.0, Anion Gap 13, BUN 26 H, Creatinine 1.21 H, Est GFR (MDRD) Af Amer 55 L, Est GFR (MDRD) Non-Af 46 L, BUN/Creatinine Ratio 21.5 H, Glucose 89, Calcium 8.3 L, Magnesium 2.3 03/14/18 04:00: WBC 11.8 H, RBC 4.29, Hgb 13.3, Hct 39.1, MCV 91.1, MCH 31.0, MCHC 34.0, RDW 17.4 H, RDW Differential 57.1 H, Plt Count 145 L, MPV 10.4 03/14/18 04:00: Troponin I 0.022 03/14/18 04:00: PT 15.6 H, INR 1.2, APTT 42.2 H 03/14/18 06:40: Troponin I 0.028 Rhythm: EKG: Atrial flutter with 2-1 conduction ECHO: Preserved left ventricular ejection fraction. Mitral annular calcification noted. Aortic stenosis mild with a mean gradient of 14 mmHg. Stress Test: Cardiac Cath: PCI: CT Surgery: Holter monitor: EPS: PPM: CXR: Chest CT Scan: Assessment/Plan 1. Congestive heart failure-acute diastolic The patient presents with shortness of breath and anasarca as well as tachycardia. It appears that she has been in atrial flutter with a rapid response rate which has not been controlled. This is likely the etiology for her shortness of breath. Agree with diuresis with intravenous Bumex Would need to continue JORDYN inhibitor Continue beta-franny 2. Atrial flutter with variable block Patient appears to be in atrial flutter with variable block. The exact duration is unclear at this time. Would recommend rate control with intravenous Cardizem and beta-franny Will anticoagulate with oral apixaban 3. Hypertension Patient appears to be hypertensive which is under good control and will continue. 4. Valvular heart disease Patient has aortic stenosis which appears to be mild as well as mitral annular calcification. Will pursue expectant management. Thank you for allowing me to participate in the care of your patient. Please don't hesitate to call if any issues arise
--- NOTE | 2018-03-14 07:19 | CON.PCM_ITS ---
Reason for Consult Date of Consultation: 03/14/18 Reason for Consultation: Shortness of breath History of Present Illness: The patient is a 77 year old F with multiple comorbidities who was recently admitted on 03/08 and discharged on 03/12 to TCU and then sent to ER on 03/13 for worsening of shortness of breath and tachycardia. During the hospital course patient was treated with IV Lasix twice daily which was changed to Bumex 1 mg twice daily after worsening hyponatremia and [place] shagger was consulted. Patient also had a community acquired pneumonia for which she got 4 days of IV ceftriaxone and Zithromax and discharged on Augmentin. Patient also had asymptomatic bacteriuria which grew E faecalis which was pansensitive. In the ED, patient is short of breath, respiratory rate 30/min, pulse ox 94% on room air, sinus tachycardia 132 bpm. EKG was done and shows probable atrial flutter left bundle branch block. Chest x-ray shows right pleural effusion and interstitial edema for which further chest CT was done. PE ruled out but shows dilated pulmonary artery suggestive of pulmonary hypertension. Moderate right pleural effusion and small left pleural effusions with compressive atelectasis, mild ascites and body wall edema suggesting third spacing. Patient is obviously short of breath and said she could not sleep for last 3 days. She however says that she has been having these symptoms for the last 2- 1/2 weeks. She has also noted significant pedal edema. EKGs which have been performed on the floor and reviewed demonstrate probable atrial flutter with 2-1 conduction. Past Medical History Allergies/Adverse Reactions: Allergies niacin Allergy (Verified 03/13/18 20:45) Swelling Isinprn-Nxg-Lij Reductase Inhibitor Allergy (Verified 03/13/18 20:45) Swelling acetaminophen [From Percocet] Adverse Reaction (Verified 03/13/18 20:45) Upset Stomach oxycodone [From Percocet] Adverse Reaction (Verified 03/13/18 20:45) Upset Stomach Tetracyclines Adverse Reaction (Verified 03/13/18 20:45) Nausea/Vom/Diarrhea tramadol Adverse Reaction (Verified 03/13/18 20:45) CONFUSION Home Medications: Ambulatory Orders Medication Instructions Recorded Flaxseed/Evening Prim/Bilberry 1 ea PO DAILY 12/22/13 [Retaine Flax Softgel] Polyethylene Glycol 3350 [Miralax] 17 gm PO DAILY 12/22/13 Insulin Glargine [Lantus SoloStar 25 units SC QHS 12/02/16 Pen] Fish Oil/Dha/Epa [Fish Oil 1,200 1 each PO DAILY 11/08/17 mg Fish Oil] Mineral Oil/Petrolatum,White 3.5 gm EACHEYE DAILY 11/08/17 [Systane Nighttime Eye Ointment] Propylene Glycol/Peg 400 [Systane 10 ml EACH EYE DAILY 11/08/17 Gel Eye Drops] Meclizine HCl 12.5 mg PO TID PRN PRN 03/08/18 Acetaminophen [Tylenol Extra 1,000 mg PO Q8H PRN PRN 03/12/18 Strength] Albuterol Aerosols [Ventolin 2.5 mg INHALATION Q2H PRN PRN 03/12/18 Aerosols] vial.neb. Bisacodyl [Dulcolax] 10 mg RECTAL DAILY PRN PRN suppos. 03/12/18 Bumetanide [Bumex] 1 mg PO BIDLX 03/12/18 Enoxaparin [Lovenox] 40 mg SC DAILY 03/12/18 Glucerna Shake 120 ml PO TIDCM 03/12/18 Guaifenesin [Mucinex] 1,200 mg PO BID 03/12/18 Mag Hydrox/Al Hydrox/Simeth 30 ml PO Q6H PRN PRN udc 03/12/18 [Mylanta II] Loratadine 10 mg PO DAILY 03/13/18 Pantoprazole Sodium [Protonix] 40 mg PO DAILY 03/13/18 Sennosides/Docusate Sodium 2 each PO BID 03/13/18 [Senna-Docusate Sodium Tablet] Zolpidem Tartrate [Ambien 5 mg PO QHS PRN PRN 03/13/18 (Generic)] Past Medical History (Chronic Problems): Chronic Problems (Last Reviewed 06/03/17 @ 13:43 by Elvi López) Hyperlipidemia (Chronic) Aortic stenosis (Chronic) Pulmonary hypertension (Chronic) Vitamin D deficiency (Chronic) Diabetes mellitus (Chronic) Allergic rhinitis (Chronic) Mixed hyperlipidemia (Chronic) Non-rheumatic aortic stenosis (Chronic) Secondary pulmonary arterial hypertension (Chronic) Stenosis of right carotid artery (Chronic) Abnormal electrocardiogram (Chronic) Syncope (Chronic) Anemia (Chronic) Surgical History: appendectomy, cataract - Bilateral., cholecystectomy, herniorrhaphy - Left inguinal., total knee arthroplasty - Bilateral., - - C- section, salpingectomy. 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 Denies: Chest Discomfort, Orthopnea, PND, Lightheadedness, Dizziness, Near Syncope, Syncope Respiratory: Denies: Cough, Sputum Production, Hemoptysis Gastrointestinal: Denies: Hematemesis, Hematochezia, Melena Genitourinary: Denies: Dysuria, Hematuria Muscoloskeletal: Denies: Myalgias Skin: Denies: Rash Neurological: Denies: Dizziness Psychiatric: Denies: Anxiety Hematologic/ Lymphatic: Denies: Anemia Subjectve: Patient seen and evaluated. Appears to be fairly comfortable. Objective: Vital Signs Temp Pulse Resp BP Pulse Ox 98.2 F 113 H 15 115/64 91 03/14/18 02:00 03/14/18 06:00 03/14/18 06:00 03/14/18 06:00 03/14/18 06:00 Oxygen Flow Rate (L/min) 2 Oxygen Delivery Method Nasal Cannula Weight: 224 lb 13.944 oz Body Mass Index (BMI) 41.1 Finger Stick Blood Glucose 230 Intake and Output for Last 24 Hours 03/12/18 03/13/18 03/14/18 23:59 23:59 23:59 Intake Total 108.4 / 108.4 Output Total 410 / 410 Balance -301.6 / -301.6 General: Awake, Alert, Oriented x 3 HEENT: PERRL, EOMI, Sclera Non Icteric Neck: Supple, Good ROM, No Lymph Node Enlargement Lungs: Diminished Joshua Bases Cardiovascular: Regular Rhythm, Normal S1, Normal S2, No Rubs, No Gallops Murmur Murmur: Grade 1/6, Early Systolic, LLSB Vascular: No Carotid Bruits, Normal Femoral Pulses, Normal Radial Pulses, Normal Dorsalis Pedal Pulse, Normal Posterior Tibial Pulses Abdomen: Bowel Sounds Present, Soft, Non Tender, No HSM, No Organomegaly Extremities: No Cyanosis, No Clubbing, Bilateral Edema +1 Musculoskeletal: No Erythema Skin: No Rashes Lymphatic: No Lymph Node Enlargement Neurological: No Focal Motor or Sensory Deficit Psych/Mental Status: Appropriate 03/13/18 20:45: WBC 11.9 H, RBC 4.35, Hgb 13.5, Hct 40.0, MCV 92.0, MCH 31.0, MCHC 33.8, RDW 17.7 H, RDW Differential 60.0 H, Plt Count 130 L, MPV 10.1, Immature Gran % (Auto) 0.200, Neut % (Auto) 86.8 H, Lymph % (Auto) 5.3 L, [place] % (Auto) 7.7, Eos % (Auto) 0.0, Baso % (Auto) 0.0, Absolute Neuts (auto) 10.3 H, Total Counted Not Reportable 03/13/18 20:45: PT 15.4 H, INR 1.2, APTT 40.7 H 03/13/18 20:45: Sodium 122 L, Potassium 4.1, Chloride 89 L, Carbon Dioxide 23.0, Anion Gap 10, BUN 23 H, Creatinine 1.18 H, Est GFR (MDRD) Af Amer 57 L, Est GFR (MDRD) Non-Af 47 L, BUN/Creatinine Ratio 19.5, Glucose 108 H, Calcium 8.1 L, Magnesium 2.0, Total Bilirubin 1.20 H, Troponin I 0.023 03/13/18 20:45: B-Natriuretic Peptide 3002.8 H 03/13/18 21:10: Urine Color Yellow, Urine Clarity Cloudy, Urine pH 5.0, Ur Specific [place] 1.020, Urine Protein 30 H, Urine Glucose (UA) Normal, Urine Ketones 5 H, Urine Occult Blood 50 H, Urine Nitrite Negative, Urine Bilirubin Negative, Urine Urobilinogen Normal, Ur Leukocyte Esterase 25 H, Urine RBC 0-5 SEEN, Urine WBC 0-5 SEEN 01/28/19 01:10: Troponin I 0.032 03/14/18 04:00: Sodium 125 L, Potassium 4.0, Chloride 89 L, Carbon Dioxide 23.0, Anion Gap 13, BUN 26 H, Creatinine 1.21 H, Est GFR (MDRD) Af Amer 55 L, Est GFR (MDRD) Non-Af 46 L, BUN/Creatinine Ratio 21.5 H, Glucose 89, Calcium 8.3 L, Magnesium 2.3 03/14/18 04:00: WBC 11.8 H, RBC 4.29, Hgb 13.3, Hct 39.1, MCV 91.1, MCH 31.0, MCHC 34.0, RDW 17.4 H, RDW Differential 57.1 H, Plt Count 145 L, MPV 10.4 03/14/18 04:00: Troponin I 0.022 03/14/18 04:00: PT 15.6 H, INR 1.2, APTT 42.2 H 03/14/18 06:40: Troponin I 0.028 Rhythm: EKG: Atrial flutter with 2-1 conduction ECHO: Preserved left ventricular ejection fraction. Mitral annular calcification noted. Aortic stenosis mild with a mean gradient of 14 mmHg. Stress Test: Cardiac Cath: PCI: CT Surgery: Holter monitor: EPS: PPM: CXR: Chest CT Scan: Assessment/Plan 1. Congestive heart failure-acute diastolic * The patient presents with shortness of breath and anasarca as well as tachycardia. It appears that she has been in atrial flutter with a rapid response rate which has not been controlled. This is likely the etiology for her shortness of breath. * Agree with diuresis with intravenous Bumex * Would need to continue JORDYN inhibitor * Continue beta-franny * 2. Atrial flutter with variable block * Patient appears to be in atrial flutter with variable block. The exact duration is unclear at this time. Would recommend rate control with intravenous Cardizem and beta-franny * Will anticoagulate with oral apixaban * 3. Hypertension * Patient appears to be hypertensive which is under good control and will continue. * 4. Valvular heart disease * Patient has aortic stenosis which appears to be mild as well as mitral annular calcification. * Will pursue expectant management. * * Thank you for allowing me to participate in the care of your patient. Please don't hesitate to call if any issues arise
--- NOTE | 2018-03-14 07:37 | PCM.CONS.GEN ---
Reason for Consult Date of Consultation: 03/14/18 Reason for Consultation: Bilateral pleural effusion, need thoracentesis, pulmonary hypertension History of Present Illness: The patient is a 77-year-old female, with a history as outlined below, who presented to the emergency department from the transitional care unit with shortness of breath. The patient was just admitted to the hospital March 08, during which time, she was treated for community-acquired pneumonia and CHF exacerbation. The patient was discharged to the transitional care unit on Bumex 1 mg by mouth twice daily. The patient follows with Dr. Vazquez on an outpatient basis due to underlying aortic stenosis, which was not felt to be severe enough to require valve replacement surgery. The patient has underlying heart failure with preserved ejection fraction along with mild pulmonary hypertension. On presentation to the emergency department, the patient was noted to be afebrile, tachycardic and hemodynamically stable. She was maintaining appropriate oxygen saturations on room air. Laboratory evaluation revealed a mildly elevated white blood cell count to 12,000. Chemistry profile was notable for a sodium of 122, chloride of 89, creatinine of 1.18 and a BNP of greater than 3000. A CTA chest was obtained in the emergency department and revealed no evidence for pulmonary embolism. There was stigmata of pulmonary hypertension along with pulmonary edema, moderate right and small left pleural effusions. EKG revealed probable atrial flutter. The patient was subsequently started on IV diuretics and admitted to the progressive care unit for ongoing management. Past Medical History Past Medical History (Chronic Problems): Chronic Problems (Last Reviewed 06/03/17 @ 13:43 by Elvi López) Hyperlipidemia (Chronic) Aortic stenosis (Chronic) Pulmonary hypertension (Chronic) Vitamin D deficiency (Chronic) Diabetes mellitus (Chronic) Allergic rhinitis (Chronic) Mixed hyperlipidemia (Chronic) Non-rheumatic aortic stenosis (Chronic) Secondary pulmonary arterial hypertension (Chronic) Stenosis of right carotid artery (Chronic) Abnormal electrocardiogram (Chronic) Syncope (Chronic) Anemia (Chronic) Medical History: Medical History (Last Reviewed 06/03/17 @ 13:43 by Elvi López) Mixed hyperlipidemia (Chronic) E78.2 Non-rheumatic aortic stenosis (Chronic) I35.0 Secondary pulmonary arterial hypertension (Chronic) I27.21 Stenosis of right carotid artery (Chronic) I65.21 Syncope (Chronic) R55 Anemia (Chronic) D64.9 Gastritis K29.70 Hyperlipidemia E78.5 Obesity E66.9 Type 2 diabetes mellitus without complications E11.9 Allergies niacin Allergy (Verified 03/13/18 20:45) Swelling Phqfvaf-Upq-[id number] Reductase Inhibitor Allergy (Verified 03/13/18 20:45) Swelling acetaminophen [From Percocet] Adverse Reaction (Verified 03/13/18 20:45) Upset Stomach oxycodone [From Percocet] Adverse Reaction (Verified 03/13/18 20:45) Upset Stomach Tetracyclines Adverse Reaction (Verified 03/13/18 20:45) Nausea/Vom/Diarrhea tramadol Adverse Reaction (Verified 03/13/18 20:45) CONFUSION Home Medications: Ambulatory Orders Medication Instructions Recorded Flaxseed/Evening Prim/Bilberry 1 ea PO DAILY 12/22/13 [Retaine Flax Softgel] Polyethylene Glycol 3350 [Miralax] 17 gm PO DAILY 12/22/13 Insulin Glargine [Lantus SoloStar 25 units SC QHS 12/02/16 Pen] Fish Oil/Dha/Epa [Fish Oil 1,200 1 each PO DAILY 11/08/17 mg Fish Oil] Mineral Oil/Petrolatum,White 3.5 gm EACHEYE DAILY 11/08/17 [Systane Nighttime Eye Ointment] Propylene Glycol/Peg 400 [Systane 10 ml EACH EYE DAILY 11/08/17 Gel Eye Drops] Meclizine HCl 12.5 mg PO TID PRN PRN 03/08/18 Acetaminophen [Tylenol Extra 1,000 mg PO Q8H PRN PRN 03/12/18 Strength] Albuterol Aerosols [Ventolin 2.5 mg INHALATION Q2H PRN PRN 03/12/18 Aerosols] vial.neb. Bisacodyl [Dulcolax] 10 mg RECTAL DAILY PRN PRN suppos. 03/12/18 Bumetanide [Bumex] 1 mg PO BIDLX 03/12/18 Enoxaparin [Lovenox] 40 mg SC DAILY 03/12/18 Glucerna Shake 120 ml PO TIDCM 03/12/18 Guaifenesin [Mucinex] 1,200 mg PO BID 03/12/18 Mag Hydrox/Al Hydrox/Simeth 30 ml PO Q6H PRN PRN udc 03/12/18 [Mylanta II] Loratadine 10 mg PO DAILY 03/13/18 Pantoprazole Sodium [Protonix] 40 mg PO DAILY 03/13/18 Sennosides/Docusate Sodium 2 each PO BID 03/13/18 [Senna-Docusate Sodium Tablet] Zolpidem Tartrate [Ambien 5 mg PO QHS PRN PRN 03/13/18 (Generic)] Surgical History: Surgical History (Last Reviewed 06/03/17 @ 13:44 by Elvi López) H/O bilateral cataract extraction Z98.41, Z98.42 History of Z98.891 History of appendectomy Z98.890, Z90.49 History of bilateral knee replacement Z98.890, Z96.653 History of esophagogastroduodenoscopy (EGD) Z98.890 18 History of salpingectomy Z98.890, Z90.79 Hx laparoscopic cholecystectomy Z98.890, Z90.49 Hx of left inguinal hernia repair Z98.890, Z87.19 Surgical History: appendectomy, cataract - Bilateral., cholecystectomy, herniorrhaphy - Left inguinal., total knee arthroplasty - Bilateral., - - , salpingectomy. Psychiatric History: No pertinent psych hx [employer] History: No pertinent [employer] history Smoking Status: Never smoker Alcohol: None Drugs: None - *Family History Maternal Family History: Family History (Last Reviewed 06/03/17 @ 13:44 by Elvi López) Mother Diabetes History Items: Diabetes Paternal Family History: Family History (Last Reviewed 06/03/17 @ 13:44 by Elvi López) Mother Diabetes History Items: Unknown Review of Systems Constitutional: Denies: Chills, Fever Eyes: Denies: Blurred vision, Double vision HEENT: Denies: Head Aches, Sinus Congestion, Sinus Drainage Cardiovascular: Denies: Chest Pain, Palpitations Respiratory: Reports: Cough, Shortness of Breath Gastrointestinal: Denies: Abdominal Pain, Nausea, Vomiting Genitourinary: Denies: Dysuria Musculoskeletal: Denies: Joint Pain, Joint Tenderness Skin: Denies: Rash, Wounds Neurological: Denies: Numbness, Tingling, Focal weakness Psychiatric: Denies: Anxiety, Depression, Homicidal Ideations, Suicidal Ideations Hematologic/ Lymphatic: Denies: Easy Bruising, Easy Bleeding Objective: The patient's most recent lab work, culture data and imaging studies have all been personally reviewed. - Physical Exam General: Alert, Cooperative, No apparent distress HEENT: Atraumatic, PERRLA, Normocephalic Oral: No Gingival or Mucosal Lesions/ Ulcerations Neck: Supple, No Nodes, Trachea Midline Lungs: No rhonchi, No wheeze, Diminished, Rales Cardiovascular: Regular Rhythm, Normal S1, Normal S2, Murmur Abdomen: Bowel Sounds Present, Soft, Non Tender, Obese Extremities: No clubbing, No cyanosis, Edema Skin: No breakdown Musculoskeletal: No Tenderness to Palpation of Joints or Extremities Lymphatic: No Cervical, Supraclavicular, or Inguinal Adenopathy Neurological: Neuro grossly intact Psych/Mental Status: Normal Affect, Appropriate Vital Signs Temp Pulse Resp BP Pulse Ox 36.8 C 114 H 15 107/56 L 97 03/14/18 02:00 03/14/18 07:00 03/14/18 07:00 03/14/18 07:00 03/14/18 07:00 Oxygen Flow Rate (L/min) 2 Oxygen Delivery Method Room Air Weight: 224 lb 13.944 oz Body Mass Index (BMI) 41.1 Finger Stick Blood Glucose 230 Intake and Output for Last 24 Hours 03/12/18 03/13/18 03/14/18 23:59 23:59 23:59 Intake Total 108.4 / 108.4 Output Total 510 / 510 Balance -401.6 / -401.6 Laboratory Tests Past 24 Hrs 03/13/18 03/13/18 03/13/18 20:45 20:45 20:45 WBC 11.9 H RBC 4.35 Hgb 13.5 Hct 40.0 MCV 92.0 MCH 31.0 MCHC 33.8 RDW 17.7 H RDW Differential 60.0 H Plt Count 130 L MPV 10.1 Immature Gran % (Auto) 0.200 Neut % (Auto) 86.8 H Lymph % (Auto) 5.3 L [place] % (Auto) 7.7 Eos % (Auto) 0.0 Baso % (Auto) 0.0 Absolute Neuts (auto) 10.3 H Absolute Lymphs (auto) 0.63 L Total Counted Not Reportable PT 15.4 H INR 1.2 APTT 40.7 H Sodium 122 L Potassium 4.1 Chloride 89 L Carbon Dioxide 23.0 Anion Gap 10 BUN 23 H Creatinine 1.18 H Estim Creat Clear Calc 31.58 Est GFR (MDRD) Af Amer 57 L Est GFR (MDRD) Non-Af 47 L BUN/Creatinine Ratio 19.5 Glucose 108 H Calcium 8.1 L Magnesium 2.0 Total Bilirubin 1.20 H AST 34 ALT 13 Alkaline Phosphatase 178 H Lactate Dehydrogenase Troponin I 0.023 B-Natriuretic Peptide Total Protein 8.5 H Albumin 2.2 L Globulin 6.3 H Albumin/Globulin Ratio 0.3 L TSH 8.82 H Urine Color Urine Clarity Urine pH Ur Specific [place] Urine Protein Urine Glucose (UA) Urine Ketones Urine Occult Blood Urine Nitrite Urine Bilirubin Urine Urobilinogen Ur Leukocyte Esterase Urine RBC Urine WBC Ur Squamous Epith Cells Urine Bacteria Hyaline Casts Urine Mucus 03/13/18 03/13/18 03/14/18 20:45 21:10 01:10 WBC RBC Hgb Hct MCV MCH MCHC RDW RDW Differential Plt Count MPV Immature Gran % (Auto) Neut % (Auto) Lymph % (Auto) [place] % (Auto) Eos % (Auto) Baso % (Auto) Absolute Neuts (auto) Absolute Lymphs (auto) Total Counted PT INR APTT Sodium Potassium Chloride Carbon Dioxide Anion Gap BUN Creatinine Estim Creat Clear Calc Est GFR (MDRD) Af Amer Est GFR (MDRD) Non-Af BUN/Creatinine Ratio Glucose Calcium Magnesium Total Bilirubin AST ALT Alkaline Phosphatase Lactate Dehydrogenase Troponin I 0.032 B-Natriuretic Peptide 3002.8 H Total Protein Albumin Globulin Albumin/Globulin Ratio TSH Urine Color Yellow Urine Clarity Cloudy Urine pH 5.0 Ur Specific [place] 1.020 Urine Protein 30 H Urine Glucose (UA) Normal Urine Ketones 5 H Urine Occult Blood 50 H Urine Nitrite Negative Urine Bilirubin Negative Urine Urobilinogen Normal Ur Leukocyte Esterase 25 H Urine RBC 0-5 SEEN Urine WBC 0-5 SEEN Ur Squamous Epith Cells 0-5 SEEN Urine Bacteria 0 SEEN Hyaline Casts 5-10 SEEN Urine Mucus 0 SEEN 03/14/18 03/14/18 03/14/18 04:00 04:00 04:00 WBC 11.8 H RBC 4.29 Hgb 13.3 Hct 39.1 MCV 91.1 MCH 31.0 MCHC 34.0 RDW 17.4 H RDW Differential 57.1 H Plt Count 145 L MPV 10.4 Immature Gran % (Auto) Neut % (Auto) Lymph % (Auto) [place] % (Auto) Eos % (Auto) Baso % (Auto) Absolute Neuts (auto) Absolute Lymphs (auto) Total Counted PT INR APTT Sodium 125 L Potassium 4.0 Chloride 89 L Carbon Dioxide 23.0 Anion Gap 13 BUN 26 H Creatinine 1.21 H Estim Creat Clear Calc 30.79 Est GFR (MDRD) Af Amer 55 L Est GFR (MDRD) Non-Af 46 L BUN/Creatinine Ratio 21.5 H Glucose 89 Calcium 8.3 L Magnesium 2.3 Total Bilirubin AST ALT Alkaline Phosphatase Lactate Dehydrogenase Troponin I 0.022 B-Natriuretic Peptide Total Protein Albumin Globulin Albumin/Globulin Ratio TSH Urine Color Urine Clarity Urine pH Ur Specific [place] Urine Protein Urine Glucose (UA) Urine Ketones Urine Occult Blood Urine Nitrite Urine Bilirubin Urine Urobilinogen Ur Leukocyte Esterase Urine RBC Urine WBC Ur Squamous Epith Cells Urine Bacteria Hyaline Casts Urine Mucus 03/14/18 03/14/18 03/14/18 04:00 06:40 06:40 WBC RBC Hgb Hct MCV MCH MCHC RDW RDW Differential Plt Count MPV Immature Gran % (Auto) Neut % (Auto) Lymph % (Auto) [place] % (Auto) Eos % (Auto) Baso % (Auto) Absolute Neuts (auto) Absolute Lymphs (auto) Total Counted PT 15.6 H INR 1.2 APTT 42.2 H Sodium Potassium Chloride Carbon Dioxide Anion Gap BUN Creatinine Estim Creat Clear Calc Est GFR (MDRD) Af Amer Est GFR (MDRD) Non-Af BUN/Creatinine Ratio Glucose Calcium Magnesium Total Bilirubin AST ALT Alkaline Phosphatase Lactate Dehydrogenase 193 Troponin I 0.028 B-Natriuretic Peptide Total Protein 8.3 H Albumin Globulin 6.1 H Albumin/Globulin Ratio 0.4 L TSH Urine Color Urine Clarity Urine pH Ur Specific [place] Urine Protein Urine Glucose (UA) Urine Ketones Urine Occult Blood Urine Nitrite Urine Bilirubin Urine Urobilinogen Ur Leukocyte Esterase Urine RBC Urine WBC Ur Squamous Epith Cells Urine Bacteria Hyaline Casts Urine Mucus POC Glucose 03/14/18 06:56 POC Glucose 82 Clinical Impression(s) from Imaging Studies Chest X-Ray 03/13/18 20:50 IMPRESSION: Partial but not yet complete resolution of previously described interstitial edema and right pleural effusion. Follow-up recommended to assure complete resolution Electronically Signed: Paul Max MD at 21:13 EST , Service support , Chest CTA 03/13/18 22:37 IMPRESSION: 1. No central or segmental pulmonary embolism. 2. Dilated pulmonary artery suggesting possibility of pulmonary hypertension. 3. Right larger than left pleural effusions, mild ascites and body wall edema suggesting third spacing. 4. Cardiomegaly. Dilated right atrium suggesting right heart dysfunction. Electronically Signed: Sean Lam MD at 23:18 EST , Service support , Assessment/Plan All Active Problems (Last Reviewed 06/03/17 @ 13:43 by Elvi López) Community acquired pneumonia (Acute) CHF (Acute) Hyponatremia (Acute) Shortness of breath (Acute) Acute on chronic diastolic heart failure (Acute) Epigastric abdominal pain (Resolved) Gastritis (Resolved) RECOMMENDATIONS: 1. Discontinue morphine sulfate, given underlying renal insufficiency 2. Continue diuretics as ordered. 3. Wean supplemental oxygen as tolerated. 4. There is no indication for thoracentesis. IMPRESSIONS: 1. Acute hypoxic respiratory insufficiency secondary to decompensated heart failure While the patient's chest imaging did reveal bilateral pleural effusions, it is quite evident from her clinical state that the patient is experiencing an episode of acute heart failure decompensation. Cardiology is currently following. I agree with current management, including aggressive diuresis. Recommend placing 1.5 L fluid restriction. Wean supplemental oxygen as tolerated. Encourage aggressive incentive spirometer use. I do not see an acute indication for a thoracentesis at this time. 2. Atrial flutter with rapid ventricular response Continue current medical management with rate control strategy and anticoagulation with Eliquis. 3. Acute kidney injury/hyponatremia Likely secondary to decompensated heart failure and subsequent hypervolemia. Continue diuretics as ordered. Nephrology is following. No indication for renal replacement therapy. 4. Advanced age/diabetes mellitus/GERD/valvular heart disease Complicates care, management, recovery and prognosis. Likely okay to continue home medications as indicated. This note was generated with [employer] software. It may contain incorrect words, spelling, and punctuation that were not noted in checking the note before signing. Given that the patient's issues are primarily cardiac in nature, will sign off. Please call with any additional questions. Code Visit Inpatient E&M: 57318 Init Hosp L3
--- NOTE | 2018-03-14 07:44 | CON.PCM_ITS ---
Reason for Consult Date of Consultation: 03/14/18 Reason for Consultation: Bilateral pleural effusion, need thoracentesis, pulmonary hypertension History of Present Illness: The patient is a 77-year-old female, with a history as outlined below, who presented to the emergency department from the transitional care unit with shortness of breath. The patient was just admitted to the hospital March 08, during which time, she was treated for community-acquired pneumonia and CHF exacerbation. The patient was discharged to the transitional care unit on Bumex 1 mg by mouth twice daily. The patient follows with Dr. Vazquez on an outpatient basis due to underlying aortic stenosis, which was not felt to be severe enough to require valve replacement surgery. The patient has underlying heart failure with preserved ejection fraction along with mild pulmonary hypertension. On presentation to the emergency department, the patient was noted to be afebrile, tachycardic and hemodynamically stable. She was maintaining appropriate oxygen saturations on room air. Laboratory evaluation revealed a mildly elevated white blood cell count to 12,000. Chemistry profile was notable for a sodium of 122, chloride of 89, creatinine of 1.18 and a BNP of greater than 3000. A CTA chest was obtained in the emergency department and revealed no evidence for pulmonary embolism. There was stigmata of pulmonary hypertension along with pulmonary edema, moderate right and small left pleural effusions. EKG revealed probable atrial flutter. The patient was subsequently started on IV diuretics and admitted to the progressive care unit for ongoing management. Past Medical History Past Medical History (Chronic Problems): Chronic Problems (Last Reviewed 06/03/17 @ 13:43 by Elvi López) Hyperlipidemia (Chronic) Aortic stenosis (Chronic) Pulmonary hypertension (Chronic) Vitamin D deficiency (Chronic) Diabetes mellitus (Chronic) Allergic rhinitis (Chronic) Mixed hyperlipidemia (Chronic) Non-rheumatic aortic stenosis (Chronic) Secondary pulmonary arterial hypertension (Chronic) Stenosis of right carotid artery (Chronic) Abnormal electrocardiogram (Chronic) Syncope (Chronic) Anemia (Chronic) Medical History: Medical History (Last Reviewed 06/03/17 @ 13:43 by Elvi López) Mixed hyperlipidemia (Chronic) E78.2 Non-rheumatic aortic stenosis (Chronic) I35.0 Secondary pulmonary arterial hypertension (Chronic) I27.21 Stenosis of right carotid artery (Chronic) I65.21 Syncope (Chronic) R55 Anemia (Chronic) D64.9 Gastritis K29.70 Hyperlipidemia E78.5 Obesity E66.9 Type 2 diabetes mellitus without complications E11.9 Allergies niacin Allergy (Verified 03/13/18 20:45) Swelling Xydovak-Tdv-Hvp Reductase Inhibitor Allergy (Verified 03/13/18 20:45) Swelling acetaminophen [From Percocet] Adverse Reaction (Verified 03/13/18 20:45) Upset Stomach oxycodone [From Percocet] Adverse Reaction (Verified 03/13/18 20:45) Upset Stomach Tetracyclines Adverse Reaction (Verified 03/13/18 20:45) Nausea/Vom/Diarrhea tramadol Adverse Reaction (Verified 03/13/18 20:45) CONFUSION Home Medications: Ambulatory Orders Medication Instructions Recorded Flaxseed/Evening Prim/Bilberry 1 ea PO DAILY 12/22/13 [Retaine Flax Softgel] Polyethylene Glycol 3350 [Miralax] 17 gm PO DAILY 12/22/13 Insulin Glargine [Lantus SoloStar 25 units SC QHS 12/02/16 Pen] Fish Oil/Dha/Epa [Fish Oil 1,200 1 each PO DAILY 11/08/17 mg Fish Oil] Mineral Oil/Petrolatum,White 3.5 gm EACHEYE DAILY 11/08/17 [Systane Nighttime Eye Ointment] Propylene Glycol/Peg 400 [Systane 10 ml EACH EYE DAILY 11/08/17 Gel Eye Drops] Meclizine HCl 12.5 mg PO TID PRN PRN 03/08/18 Acetaminophen [Tylenol Extra 1,000 mg PO Q8H PRN PRN 03/12/18 Strength] Albuterol Aerosols [Ventolin 2.5 mg INHALATION Q2H PRN PRN 03/12/18 Aerosols] vial.neb. Bisacodyl [Dulcolax] 10 mg RECTAL DAILY PRN PRN suppos. 03/12/18 Bumetanide [Bumex] 1 mg PO BIDLX 03/12/18 Enoxaparin [Lovenox] 40 mg SC DAILY 03/12/18 Glucerna Shake 120 ml PO TIDCM 03/12/18 Guaifenesin [Mucinex] 1,200 mg PO BID 03/12/18 Mag Hydrox/Al Hydrox/Simeth 30 ml PO Q6H PRN PRN udc 03/12/18 [Mylanta II] Loratadine 10 mg PO DAILY 03/13/18 Pantoprazole Sodium [Protonix] 40 mg PO DAILY 03/13/18 Sennosides/Docusate Sodium 2 each PO BID 03/13/18 [Senna-Docusate Sodium Tablet] Zolpidem Tartrate [Ambien 5 mg PO QHS PRN PRN 03/13/18 (Generic)] Surgical History: Surgical History (Last Reviewed 06/03/17 @ 13:44 by Elvi López) H/O bilateral cataract extraction Z98.41, Z98.42 History of Z98.891 History of appendectomy Z98.890, Z90.49 History of bilateral knee replacement Z98.890, Z96.653 History of esophagogastroduodenoscopy (EGD) Z98.890 18 History of salpingectomy Z98.890, Z90.79 Hx laparoscopic cholecystectomy Z98.890, Z90.49 Hx of left inguinal hernia repair Z98.890, Z87.19 Surgical History: appendectomy, cataract - Bilateral., cholecystectomy, herniorrhaphy - Left inguinal., total knee arthroplasty - Bilateral., - - C- section, salpingectomy. 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: No pertinent FABRIC AND ACCESSORIES ESTIMATOR history Smoking Status: Never smoker Alcohol: None Drugs: None - *Family History Maternal Family History: Family History (Last Reviewed 06/03/17 @ 13:44 by Elvi López) Mother Diabetes History Items: Diabetes Paternal Family History: Family History (Last Reviewed 06/03/17 @ 13:44 by Elvi López) Mother Diabetes History Items: Unknown Review of Systems Constitutional: Denies: Chills, Fever Eyes: Denies: Blurred vision, Double vision HEENT: Denies: Head Aches, Sinus Congestion, Sinus Drainage Cardiovascular: Denies: Chest Pain, Palpitations Respiratory: Reports: Cough, Shortness of Breath Gastrointestinal: Denies: Abdominal Pain, Nausea, Vomiting Genitourinary: Denies: Dysuria Musculoskeletal: Denies: Joint Pain, Joint Tenderness Skin: Denies: Rash, Wounds Neurological: Denies: Numbness, Tingling, Focal weakness Psychiatric: Denies: Anxiety, Depression, Homicidal Ideations, Suicidal Idea tions Hematologic/ Lymphatic: Denies: Easy Bruising, Easy Bleeding Objective: The patient's most recent lab work, culture data and imaging studies have all been personally reviewed. - Physical Exam General: Alert, Cooperative, No apparent distress HEENT: Atraumatic, PERRLA, Normocephalic Oral: No Gingival or Mucosal Lesions/ Ulcerations Neck: Supple, No Nodes, Trachea Midline Lungs: No rhonchi, No wheeze, Diminished, Rales Cardiovascular: Regular Rhythm, Normal S1, Normal S2, Murmur Abdomen: Bowel Sounds Present, Soft, Non Tender, Obese Extremities: No clubbing, No cyanosis, Edema Skin: No breakdown Musculoskeletal: No Tenderness to Palpation of Joints or Extremities Lymphatic: No Cervical, Supraclavicular, or Inguinal Adenopathy Neurological: Neuro grossly intact Psych/Mental Status: Normal Affect, Appropriate Vital Signs Temp Pulse Resp BP Pulse Ox 36.8 C 114 H 15 107/56 L 97 03/14/18 02:00 03/14/18 07:00 03/14/18 07:00 03/14/18 07:00 03/14/18 07:00 Oxygen Flow Rate (L/min) 2 Oxygen Delivery Method Room Air Weight: 224 lb 13.944 oz Body Mass Index (BMI) 41.1 Finger Stick Blood Glucose 230 Intake and Output for Last 24 Hours 03/12/18 03/13/18 03/14/18 23:59 23:59 23:59 Intake Total 108.4 / 108.4 Output Total 510 / 510 Balance -401.6 / -401.6 Laboratory Tests Past 24 Hrs 03/13/18 03/13/18 03/13/18 20:45 20:45 20:45 WBC 11.9 H RBC 4.35 Hgb 13.5 Hct 40.0 MCV 92.0 MCH 31.0 MCHC 33.8 RDW 17.7 H RDW Differential 60.0 H Plt Count 130 L MPV 10.1 Immature Gran % (Auto) 0.200 Neut % (Auto) 86.8 H Lymph % (Auto) 5.3 L [place] % (Auto) 7.7 Eos % (Auto) 0.0 Baso % (Auto) 0.0 Absolute Neuts (auto) 10.3 H Absolute Lymphs (auto) 0.63 L Total Counted Not Reportable PT 15.4 H INR 1.2 APTT 40.7 H Sodium 122 L Potassium 4.1 Chloride 89 L Carbon Dioxide 23.0 Anion Gap 10 BUN 23 H Creatinine 1.18 H Estim Creat Clear Calc 31.58 Est GFR (MDRD) Af Amer 57 L Est GFR (MDRD) Non-Af 47 L BUN/Creatinine Ratio 19.5 Glucose 108 H Calcium 8.1 L Magnesium 2.0 Total Bilirubin 1.20 H AST 34 ALT 13 Alkaline Phosphatase 178 H Lactate Dehydrogenase Troponin I 0.023 B-Natriuretic Peptide Total Protein 8.5 H Albumin 2.2 L Globulin 6.3 H Albumin/Globulin Ratio 0.3 L TSH 8.82 H Urine Color Urine Clarity Urine pH Ur Specific Perry Urine Protein Urine Glucose (UA) Urine Ketones Urine Occult Blood Urine Nitrite Urine Bilirubin Urine Urobilinogen Ur Leukocyte Esterase Urine RBC Urine WBC Ur Squamous Epith Cells Urine Bacteria Hyaline Casts Urine Mucus 03/13/18 03/13/18 03/14/18 20:45 21:10 01:10 WBC RBC Hgb Hct MCV MCH MCHC RDW RDW Differential Plt Count MPV Immature Gran % (Auto) Neut % (Auto) Lymph % (Auto) Converse % (Auto) Eos % (Auto) Baso % (Auto) Absolute Neuts (auto) Absolute Lymphs (auto) Total Counted PT INR APTT Sodium Potassium Chloride Carbon Dioxide Anion Gap BUN Creatinine Estim Creat Clear Calc Est GFR (MDRD) Af Amer Est GFR (MDRD) Non-Af BUN/Creatinine Ratio Glucose Calcium Magnesium Total Bilirubin AST ALT Alkaline Phosphatase Lactate Dehydrogenase Troponin I 0.032 B-Natriuretic Peptide 3002.8 H Total Protein Albumin Globulin Albumin/Globulin Ratio TSH Urine Color Yellow Urine Clarity Cloudy Urine pH 5.0 Ur Specific Perry 1.020 Urine Protein 30 H Urine Glucose (UA) Normal Urine Ketones 5 H Urine Occult Blood 50 H Urine Nitrite Negative Urine Bilirubin Negative Urine Urobilinogen Normal Ur Leukocyte Esterase 25 H Urine RBC 0-5 SEEN Urine WBC 0-5 SEEN Ur Squamous Epith Cells 0-5 SEEN Urine Bacteria 0 SEEN Hyaline Casts 5-10 SEEN Urine Mucus 0 SEEN 03/14/18 03/14/18 03/14/18 04:00 04:00 04:00 WBC 11.8 H RBC 4.29 Hgb 13.3 Hct 39.1 MCV 91.1 MCH 31.0 MCHC 34.0 RDW 17.4 H RDW Differential 57.1 H Plt Count 145 L MPV 10.4 Immature Gran % (Auto) Neut % (Auto) Lymph % (Auto) Converse % (Auto) Eos % (Auto) Baso % (Auto) Absolute Neuts (auto) Absolute Lymphs (auto) Total Counted PT INR APTT Sodium 125 L Potassium 4.0 Chloride 89 L Carbon Dioxide 23.0 Anion Gap 13 BUN 26 H Creatinine 1.21 H Estim Creat Clear Calc 30.79 Est GFR (MDRD) Af Amer 55 L Est GFR (MDRD) Non-Af 46 L BUN/Creatinine Ratio 21.5 H Glucose 89 Calcium 8.3 L Magnesium 2.3 Total Bilirubin AST ALT Alkaline Phosphatase Lactate Dehydrogenase Troponin I 0.022 B-Natriuretic Peptide Total Protein Albumin Globulin Albumin/Globulin Ratio TSH Urine Color Urine Clarity Urine pH Ur Specific Perry Urine Protein Urine Glucose (UA) Urine Ketones Urine Occult Blood Urine Nitrite Urine Bilirubin Urine Urobilinogen Ur Leukocyte Esterase Urine RBC Urine WBC Ur Squamous Epith Cells Urine Bacteria Hyaline Casts Urine Mucus 03/14/18 03/14/18 03/14/18 04:00 06:40 06:40 WBC RBC Hgb Hct MCV MCH MCHC RDW RDW Differential Plt Count MPV Immature Gran % (Auto) Neut % (Auto) Lymph % (Auto) Converse % (Auto) Eos % (Auto) Baso % (Auto) Absolute Neuts (auto) Absolute Lymphs (auto) Total Counted PT 15.6 H INR 1.2 APTT 42.2 H Sodium Potassium Chloride Carbon Dioxide Anion Gap BUN Creatinine Estim Creat Clear Calc Est GFR (MDRD) Af Amer Est GFR (MDRD) Non-Af BUN/Creatinine Ratio Glucose Calcium Magnesium Total Bilirubin AST ALT Alkaline Phosphatase Lactate Dehydrogenase 193 Troponin I 0.028 B-Natriuretic Peptide Total Protein 8.3 H Albumin Globulin 6.1 H Albumin/Globulin Ratio 0.4 L TSH Urine Color Urine Clarity Urine pH Ur Specific Perry Urine Protein Urine Glucose (UA) Urine Ketones Urine Occult Blood Urine Nitrite Urine Bilirubin Urine Urobilinogen Ur Leukocyte Esterase Urine RBC Urine WBC Ur Squamous Epith Cells Urine Bacteria Hyaline Casts Urine Mucus POC Glucose 03/14/18 06:56 POC Glucose 82 Clinical Impression(s) from Imaging Studies Chest X-Ray 03/13/18 20:50 IMPRESSION: Partial but not yet complete resolution of previously described interstitial edema and right pleural effusion. Follow-up recommended to assure complete resolution Electronically Signed: Paul Max MD at 21:13 EST , Service support , Chest CTA 03/13/18 22:37 IMPRESSION: 1. No central or segmental pulmonary embolism. 2. Dilated pulmonary artery suggesting possibility of pulmonary hypertension. 3. Right larger than left pleural effusions, mild ascites and body wall edema suggesting third spacing. 4. Cardiomegaly. Dilated right atrium suggesting right heart dysfunction. Electronically Signed: Sean Lam MD at 23:18 EST , Service support , Assessment/Plan All Active Problems (Last Reviewed 06/03/17 @ 13:43 by Elvi López) Community acquired pneumonia (Acute) CHF (Acute) Hyponatremia (Acute) Shortness of breath (Acute) Acute on chronic diastolic heart failure (Acute) Epigastric abdominal pain (Resolved) Gastritis (Resolved) RECOMMENDATIONS: 1. Discontinue morphine sulfate, given underlying renal insufficiency 2. Continue diuretics as ordered. 3. Wean supplemental oxygen as tolerated. 4. There is no indication for thoracentesis. IMPRESSIONS: 1. Acute hypoxic respiratory insufficiency secondary to decompensated heart failure While the patient's chest imaging did reveal bilateral pleural effusions, it is quite evident from her clinical state that the patient is experiencing an episode of acute heart failure decompensation. Cardiology is currently following. I agree with current management, including aggressive diuresis. Recommend placing 1.5 L fluid restriction. Wean supplemental oxygen as tolerated. Encourage aggressive incentive spirometer use. I do not see an acute indication for a thoracentesis at this time. 2. Atrial flutter with rapid ventricular response Continue current medical management with rate control strategy and anticoagulation with Eliquis. 3. Acute kidney injury/hyponatremia Likely secondary to decompensated heart failure and subsequent hypervolemia. Continue diuretics as ordered. Nephrology is following. No indication for renal replacement therapy. 4. Advanced age/diabetes mellitus/GERD/valvular heart disease Complicates care, management, recovery and prognosis. Likely okay to continue home medications as indicated. This note was generated with [employer] software. It may contain incorrect words, spelling, and punctuation that were not noted in checking the note before signing. Given that the patient's issues are primarily cardiac in nature, will sign off. Please call with any additional questions. Code Visit Inpatient E&M: 49162 Init Hosp L3
[2018-03-14] MEDS: dilTIAZem 25 MG/5 ML Vial 20 MG IV BOLUS (08:23)
[2018-03-14] MEDS: Amox/Clavulanate 875 MG Tablet PO ×2 (08:28→18:25)
[2018-03-14] MEDS: Glycerin/Hypromellose/PEG400 15 ml Bottle 1 DRP EACH EYE (08:29)
[2018-03-14] MEDS: Loratadine 10 MG Tablet PO (08:31)
[2018-03-14] MEDS: Senna/Docusate Sodium 1 Tablet PO ×2 (08:31→21:50)
[2018-03-14] MEDS: Metoprolol Tartrate 25 MG Tablet 12.5 MG PO ×2 (08:31→21:50)
[2018-03-14] MEDS: Pantoprazole Sodium 40 MG Tablet PO (08:31)
[2018-03-14] MEDS: Glucerna Shake 120 ML LIQUID PO ×2 (08:32→18:25)
[2018-03-14] MEDS: Polyethylene Glycol 3350 17 GM PACKET PO (08:33)
[2018-03-14] MEDS: guaiFENesin 1,200 MG Tablet 1200 MG PO ×2 (08:33→21:50)
--- NOTE | 2018-03-14 09:39 | PCM.PN.BLA ---
Progress Note Patient was seen and examined. Recently admitted and discharged with community-acquired pneumonia in acute on chronic systolic CHF. Patient was readmitted this morning with progressive shortness of breath and found to have A flutter/A. fib, acute on chronic systolic CHF Started on Bumex drip, Cardizem drip. Cardiology, footwear sales coordinator, nephrology consulted - appreciate recommendations Patient's son was at the bedside, all questions answered. Continues to be short of breath with bouts of cough productive of yellowish sputum Vitals will be monitored closely, incentive spirometer and PEP encouraged
[2018-03-14] MEDS: APIXABAN 5 MG TABLET PO ×2 (09:45→21:50)
--- NOTE | 2018-03-14 11:14 | PCM.CONS.R ---
Problem List (1) Hyponatremia Status: Acute (2) Acute on chronic diastolic heart failure Status: Acute Consultation - Renal 03/14/18 PCP/ Referring MD: Requesting physician: Dr Seymour Primary care physician: Jared Mayorga MD Reason for Consultation:: Hyponatremia - History of Present Illness History of Present Illness: The patient is a 77 year old F admitted with progressively worsening dyspnea and fluid retention. renal consulted for CKD stage 3 and hyponatremia. was admitted here recently with similar issues. apparently gained significant weight over the last 4 days, now admitted with fluid overload. CT chest in ER with no PE. started on bumex drip by Dr Seymour overnight. currently denies any complaints except for edema and breathing issues. - Allergies Allergies: Allergies niacin Allergy (Verified 03/13/18 20:45) Swelling Ezhezlr-Lcz-Avd Reductase Inhibitor Allergy (Verified 03/13/18 20:45) Swelling acetaminophen [From Percocet] Adverse Reaction (Verified 03/13/18 20:45) Upset Stomach oxycodone [From Percocet] Adverse Reaction (Verified 03/13/18 20:45) Upset Stomach Tetracyclines Adverse Reaction (Verified 03/13/18 20:45) Nausea/Vom/Diarrhea tramadol Adverse Reaction (Verified 03/13/18 20:45) CONFUSION - Current Medications Current Medications: Current Medications Al Hydroxide/Mg Hydroxide (Mylanta Ii) 30 ml PO Q6H PRN PRN PRN Reason: Gastric Burning Albuterol Sulfate (Ventolin Aerosols) 2.5 mg INHALATION Q2H PRN PRN PRN Reason: SHORTNESS OF BREATH Last Admin: 03/14/18 06:35 Dose: 2.5 mg Amoxicillin/Clavulanate Potassium (Aug[facility]in Tablet) [facility] Stop: 03/17/18 08:01 Last Admin: 03/14/18 08:28 Dose: 875 mg Apixaban (Eliquis) 5 mg PO BID [facility] Last Admin: 03/14/18 09:45 Dose: 5 mg Bisacodyl (Dulcolax) 10 mg RECTAL DAILY PRN PRN PRN Reason: Constipation Dextrose (D50w Syringe) 0 gm IV X1 PRN; Protocol PRN Reason: Hypoglycemia Diltiazem HCl (Cardizem) 20 mg IV BOLUS X1 ONE Stop: 03/14/18 07:10 Last Admin: 03/14/18 08:23 Dose: 20 mg Glucagon () 1 mg IM .X1 PRN PRN Reason: Hypoglycemia Guaifenesin (Mucinex) 1,200 mg PO BID [facility] Last Admin: 03/14/18 08:33 Dose: 1,200 mg Bumetanide 12.5 mg/ (Miscellaneous Information) 50 mls @ 2 mls/hr CONT INF .Q25H [facility]; Protocol Last Admin: 03/14/18 01:54 Dose: 2 mls/hr Sodium Chloride () 250 mls @ 15 mls/hr IV .[id number] PRN PRN Reason: SALINE FLUSH Diltiazem HCl 125 mg/ Dextrose 125 mls @ 10 mls/hr IV .[id number] [facility] Last Admin: 03/14/18 08:22 Dose: 10 mls/hr Influenza Virus Vaccine Quadrival (Fluarix/Fluzone) 0.5 ml IM .ONCE ONE Stop: 03/14/18 10:01 Last Admin: 03/14/18 08:33 Dose: Not Given Insulin Glargine (Lantus (Bkc)) 10 units SC QHS [facility] Insulin Human Lispro (Humalog Kwikpen (Bkc)) 0 unit SQ ACHS [facility]; Protocol Last Admin: 03/14/18 08:01 Dose: Not Given Loratadine (Claritin) 10 mg PO DAILY [facility] Last Admin: 03/14/18 08:31 Dose: 10 mg Meclizine HCl (Antivert) 12.5 mg PO TID PRN PRN PRN Reason: DIZZINESS Metoprolol Tartrate (Lopressor (Beta Best)) 5 mg IV Q6H PRN PRN PRN Reason: HR>120/m Metoprolol Tartrate (Lopressor (Beta Best)) 12.5 mg PO BID [facility] Last Admin: 03/14/18 08:31 Dose: 12.5 mg Morphine Sulfate () 2 mg IV Q3H PRN PRN PRN Reason: Severe Pain (pain scale 6-10) Last Admin: 03/14/18 02:09 Dose: 2 mg Multi-Ingredient Cream (Lacrilube) 1 applic OP DAILY@2200 [facility] Nutritional Formula (Lactose Free) (Glucerna Shake) 120 ml PO TIDCM [facility] Last Admin: 03/14/18 08:32 Dose: 120 ml Ondansetron HCl (Zofran) 4 mg IV Q8H PRN PRN PRN Reason: Nausea Last Admin: 03/14/18 02:09 Dose: 4 mg Pantoprazole Sodium (Protonix) 40 mg PO DAILY [facility] Last Admin: 03/14/18 08:31 Dose: 40 mg Polyethylene Glycol (Miralax) 17 gm PO DAILY [facility] Last Admin: 03/14/18 08:33 Dose: 17 gm Senna/Docusate Sodium (Senokot-S, Misty-Colace) 1 tablet PO BID [facility] Last Admin: 03/14/18 08:31 Dose: 1 tablet Sodium Chloride () 5 - 15 ml IV UD PRN PRN Reason: SALINE FLUSH Zolpidem Tartrate (Ambien (Generic)) 5 mg PO QHS PRN PRN PRN Reason: INSOMNIA - Past Medical History Past Medical History (Chronic Problems): Chronic Problems (Last Reviewed 06/03/17 @ 13:43 by Elvi López) Hyperlipidemia (Chronic) Aortic stenosis (Chronic) Pulmonary hypertension (Chronic) Vitamin D deficiency (Chronic) Diabetes mellitus (Chronic) Allergic rhinitis (Chronic) Mixed hyperlipidemia (Chronic) Non-rheumatic aortic stenosis (Chronic) Secondary pulmonary arterial hypertension (Chronic) Stenosis of right carotid artery (Chronic) Abnormal electrocardiogram (Chronic) Syncope (Chronic) Anemia (Chronic) - Past Surgical History Surgical History: appendectomy, cataract - Bilateral., cholecystectomy, herniorrhaphy - Left inguinal., total knee arthroplasty - Bilateral., - - , salpingectomy. - Social History Smoking Status: Never smoker Alcohol: None Drugs: None - Family History Maternal Family History: Family History (Last Reviewed 06/03/17 @ 13:44 by Elvi López) Mother Diabetes History Items: Diabetes Paternal Family History: Family History (Last Reviewed 06/03/17 @ 13:44 by Elvi López) Mother Diabetes History Items: Unknown Review of Systems Constitutional: Reports: Weight Change. Denies: Chills, Fever HEENT: Denies: Head Aches, Sinus Congestion, Sinus Drainage Cardiovascular: Denies: Chest Pain, Palpitations Respiratory: Reports: Shortness of Breath, Shortness of breath at rest. Denies: Cough, Sputum production Gastrointestinal: Denies: Abdominal Pain, Nausea, Vomiting Genitourinary: Denies: Dysuria Musculoskeletal: Denies: Joint Pain, Joint Tenderness Skin: Denies: Rash, Wounds Neurological: Denies: Numbness, Tingling, Focal weakness Psychiatric: Denies: Anxiety, Depression, Homicidal Ideations, Suicidal Ideations Hematologic/ Lymphatic: Denies: Easy Bruising, Easy Bleeding - Physical Exam General: Alert, Oriented x3, Cooperative HEENT: Atraumatic, PERRLA, EOMI, Normocephalic Neck: Supple, No JVD, Negative Carotid Bruits Lungs: Clear to auscultation, Normal air movement Cardiovascular: Regular rate, No murmurs Abdomen: Bowel Sounds Present, Soft, Non Tender Extremities: Capillary Refill Less than 3 Seconds, Edema Skin: No rashes, No breakdown Musculoskeletal: No Tenderness to Palpation of Joints or Extremities Neurological: Cranial nerves II-XII grossly intact Psych/Mental Status: Normal Affect, Appropriate Vital Signs Temp Pulse Resp BP Pulse Ox 97.6 F L 115 H 23 H 113/58 L 97 03/14/18 09:00 03/14/18 10:00 03/14/18 10:00 03/14/18 10:00 03/14/18 08:59 Oxygen Flow Rate (L/min) 3 Oxygen Delivery Method Nasal Cannula Weight: 102 kg Body Mass Index (BMI) 41.1 Finger Stick Blood Glucose 230 Intake and Output for Last 24 Hours 03/12/18 03/13/18 03/14/18 23:59 23:59 23:59 Intake Total 308.4 / 308.4 Output Total 755 / 755 Balance -446.6 / -446.6 Laboratory Tests Past 24 Hrs 03/13/18 03/13/18 03/13/18 20:45 20:45 20:45 WBC 11.9 H RBC 4.35 Hgb 13.5 Hct 40.0 MCV 92.0 MCH 31.0 MCHC 33.8 RDW 17.7 H RDW Differential 60.0 H Plt Count 130 L MPV 10.1 Immature Gran % (Auto) 0.200 Neut % (Auto) 86.8 H Lymph % (Auto) 5.3 L [place] % (Auto) 7.7 Eos % (Auto) 0.0 Baso % (Auto) 0.0 Absolute Neuts (auto) 10.3 H Absolute Lymphs (auto) 0.63 L Total Counted Not Reportable PT 15.4 H INR 1.2 APTT 40.7 H Sodium 122 L Potassium 4.1 Chloride 89 L Carbon Dioxide 23.0 Anion Gap 10 BUN 23 H Creatinine 1.18 H Estim Creat Clear Calc 31.58 Est GFR (MDRD) Af Amer 57 L Est GFR (MDRD) Non-Af 47 L BUN/Creatinine Ratio 19.5 Glucose 108 H Calcium 8.1 L Magnesium 2.0 Total Bilirubin 1.20 H AST 34 ALT 13 Alkaline Phosphatase 178 H Lactate Dehydrogenase Troponin I 0.023 B-Natriuretic Peptide Total Protein 8.5 H Albumin 2.2 L Globulin 6.3 H Albumin/Globulin Ratio 0.3 L TSH 8.82 H Urine Color Urine Clarity Urine pH Ur Specific [place] Urine Protein Urine Glucose (UA) Urine Ketones Urine Occult Blood Urine Nitrite Urine Bilirubin Urine Urobilinogen Ur Leukocyte Esterase Urine RBC Urine WBC Ur Squamous Epith Cells Urine Bacteria Hyaline Casts Urine Mucus 03/13/18 03/13/18 03/14/18 20:45 21:10 01:10 WBC RBC Hgb Hct MCV MCH MCHC RDW RDW Differential Plt Count MPV Immature Gran % (Auto) Neut % (Auto) Lymph % (Auto) [place] % (Auto) Eos % (Auto) Baso % (Auto) Absolute Neuts (auto) Absolute Lymphs (auto) Total Counted PT INR APTT Sodium Potassium Chloride Carbon Dioxide Anion Gap BUN Creatinine Estim Creat Clear Calc Est GFR (MDRD) Af Amer Est GFR (MDRD) Non-Af BUN/Creatinine Ratio Glucose Calcium Magnesium Total Bilirubin AST ALT Alkaline Phosphatase Lactate Dehydrogenase Troponin I 0.032 B-Natriuretic Peptide 3002.8 H Total Protein Albumin Globulin Albumin/Globulin Ratio TSH Urine Color Yellow Urine Clarity Cloudy Urine pH 5.0 Ur Specific [place] 1.020 Urine Protein 30 H Urine Glucose (UA) Normal Urine Ketones 5 H Urine Occult Blood 50 H Urine Nitrite Negative Urine Bilirubin Negative Urine Urobilinogen Normal Ur Leukocyte Esterase 25 H Urine RBC 0-5 SEEN Urine WBC 0-5 SEEN Ur Squamous Epith Cells 0-5 SEEN Urine Bacteria 0 SEEN Hyaline Casts 5-10 SEEN Urine Mucus 0 SEEN 03/14/18 03/14/18 03/14/18 04:00 04:00 04:00 WBC 11.8 H RBC 4.29 Hgb 13.3 Hct 39.1 MCV 91.1 MCH 31.0 MCHC 34.0 RDW 17.4 H RDW Differential 57.1 H Plt Count 145 L MPV 10.4 Immature Gran % (Auto) Neut % (Auto) Lymph % (Auto) [place] % (Auto) Eos % (Auto) Baso % (Auto) Absolute Neuts (auto) Absolute Lymphs (auto) Total Counted PT INR APTT Sodium 125 L Potassium 4.0 Chloride 89 L Carbon Dioxide 23.0 Anion Gap 13 BUN 26 H Creatinine 1.21 H Estim Creat Clear Calc 30.79 Est GFR (MDRD) Af Amer 55 L Est GFR (MDRD) Non-Af 46 L BUN/Creatinine Ratio 21.5 H Glucose 89 Calcium 8.3 L Magnesium 2.3 Total Bilirubin AST ALT Alkaline Phosphatase Lactate Dehydrogenase Troponin I 0.022 B-Natriuretic Peptide Total Protein Albumin Globulin Albumin/Globulin Ratio TSH Urine Color Urine Clarity Urine pH Ur Specific [place] Urine Protein Urine Glucose (UA) Urine Ketones Urine Occult Blood Urine Nitrite Urine Bilirubin Urine Urobilinogen Ur Leukocyte Esterase Urine RBC Urine WBC Ur Squamous Epith Cells Urine Bacteria Hyaline Casts Urine Mucus 03/14/18 03/14/18 03/14/18 04:00 06:40 06:40 WBC RBC Hgb Hct MCV MCH MCHC RDW RDW Differential Plt Count MPV Immature Gran % (Auto) Neut % (Auto) Lymph % (Auto) [place] % (Auto) Eos % (Auto) Baso % (Auto) Absolute Neuts (auto) Absolute Lymphs (auto) Total Counted PT 15.6 H INR 1.2 APTT 42.2 H Sodium Potassium Chloride Carbon Dioxide Anion Gap BUN Creatinine Estim Creat Clear Calc Est GFR (MDRD) Af Amer Est GFR (MDRD) Non-Af BUN/Creatinine Ratio Glucose Calcium Magnesium Total Bilirubin AST ALT Alkaline Phosphatase Lactate Dehydrogenase 193 Troponin I 0.028 B-Natriuretic Peptide Total Protein 8.3 H Albumin Globulin 6.1 H Albumin/Globulin Ratio 0.4 L TSH Urine Color Urine Clarity Urine pH Ur Specific [place] Urine Protein Urine Glucose (UA) Urine Ketones Urine Occult Blood Urine Nitrite Urine Bilirubin Urine Urobilinogen Ur Leukocyte Esterase Urine RBC Urine WBC Ur Squamous Epith Cells Urine Bacteria Hyaline Casts Urine Mucus POC Glucose 03/14/18 06:56 POC Glucose 82 Assessment/Plan All Active Problems (Last Reviewed 06/03/17 @ 13:43 by Elvi López) Community acquired pneumonia (Acute) CHF (Acute) Hyponatremia (Acute) Shortness of breath (Acute) Acute on chronic diastolic heart failure (Acute) Epigastric abdominal pain (Resolved) Gastritis (Resolved) CKD stage 3. Creatinine is overall stable. no significant change from before Hyponatremia. severe. clinically significantly volume overloaded. somewhat better today. treat as hypervolemic hyponatremia. continue bumex drip. if sodium remains less than 130 in couple days will try samsca on as needed basiss CHF. significant volume overload. on bumex drip.
--- NOTE | 2018-03-14 11:19 | CON.PCM_ITS ---
Problem List (1) Hyponatremia Status: Acute (2) Acute on chronic diastolic heart failure Status: Acute Consultation - Renal 03/14/18 PCP/ Referring MD: Requesting physician: Dr Seymour Primary care physician: Jared Mayorga MD Reason for Consultation:: Hyponatremia - History of Present Illness History of Present Illness: The patient is a 77 year old F admitted with progressively worsening dyspnea and fluid retention. renal consulted for CKD stage 3 and hyponatremia. was admitted here recently with similar issues. apparently gained significant weight over the last 4 days, now admitted with fluid overload. CT chest in ER with no PE. started on bumex drip by Dr Seymour overnight. currently denies any complaints except for edema and breathing issues. - Allergies Allergies: Allergies niacin Allergy (Verified 03/13/18 20:45) Swelling Jyqaexr-Gru-Fpk Reductase Inhibitor Allergy (Verified 03/13/18 20:45) Swelling acetaminophen [From Percocet] Adverse Reaction (Verified 03/13/18 20:45) Upset Stomach oxycodone [From Percocet] Adverse Reaction (Verified 03/13/18 20:45) Upset Stomach Tetracyclines Adverse Reaction (Verified 03/13/18 20:45) Nausea/Vom/Diarrhea tramadol Adverse Reaction (Verified 03/13/18 20:45) CONFUSION - Current Medications Current Medications: Current Medications Al Hydroxide/Mg Hydroxide (Mylanta Ii) 30 ml PO Q6H PRN PRN PRN Reason: Gastric Burning Albuterol Sulfate (Ventolin Aerosols) 2.5 mg INHALATION Q2H PRN PRN PRN Reason: SHORTNESS OF BREATH Last Admin: 03/14/18 06:35 Dose: 2.5 mg Amoxicillin/Clavulanate Potassium ([facility]t) [facility] Stop: 03/17/18 08:01 Last Admin: 03/14/18 08:28 Dose: 875 mg Apixaban (Eliquis) 5 mg PO BID [facility] Last Admin: 03/14/18 09:45 Dose: 5 mg Bisacodyl (Dulcolax) 10 mg RECTAL DAILY PRN PRN PRN Reason: Constipation Dextrose (D50w Syringe) 0 gm IV X1 PRN; Protocol PRN Reason: Hypoglycemia Diltiazem HCl (Cardizem) 20 mg IV BOLUS X1 ONE Stop: 03/14/18 07:10 Last Admin: 03/14/18 08:23 Dose: 20 mg Glucagon () 1 mg IM .X1 PRN PRN Reason: Hypoglycemia Guaifenesin (Mucinex) 1,200 mg PO BID [facility] Last Admin: 03/14/18 08:33 Dose: 1,200 mg Bumetanide 12.5 mg/ (Miscellaneous Information) 50 mls @ 2 mls/hr CONT INF .Q25H [facility]; Protocol Last Admin: 03/14/18 01:54 Dose: 2 mls/hr Sodium Chloride () 250 mls @ 15 mls/hr IV .[id number] PRN PRN Reason: SALINE FLUSH Diltiazem HCl 125 mg/ Dextrose 125 mls @ 10 mls/hr IV .[id number] [facility] Last Admin: 03/14/18 08:22 Dose: 10 mls/hr Influenza Virus Vaccine Quadrival (Fluarix/Fluzone) 0.5 ml IM .ONCE ONE Stop: 03/14/18 10:01 Last Admin: 03/14/18 08:33 Dose: Not Given Insulin Glargine (Lantus (Bkc)) 10 units SC QHS [facility] Insulin Human Lispro (Humalog Kwikpen (Bkc)) 0 unit SQ ACHS [facility]; Protocol Last Admin: 03/14/18 08:01 Dose: Not Given Loratadine (Claritin) 10 mg PO DAILY [facility] Last Admin: 03/14/18 08:31 Dose: 10 mg Meclizine HCl (Antivert) 12.5 mg PO TID PRN PRN PRN Reason: DIZZINESS Metoprolol Tartrate (Lopressor (Beta Best)) 5 mg IV Q6H PRN PRN PRN Reason: HR>120/m Metoprolol Tartrate (Lopressor (Beta Best)) 12.5 mg PO BID [facility] Last Admin: 03/14/18 08:31 Dose: 12.5 mg Morphine Sulfate () 2 mg IV Q3H PRN PRN PRN Reason: Severe Pain (pain scale 6-10) Last Admin: 03/14/18 02:09 Dose: 2 mg Multi-Ingredient Cream (Lacrilube) 1 applic OP DAILY@2200 [facility] Nutritional Formula (Lactose Free) (Glucerna Shake) 120 ml PO TIDCM [facility] Last Admin: 03/14/18 08:32 Dose: 120 ml Ondansetron HCl (Zofran) 4 mg IV Q8H PRN PRN PRN Reason: Nausea Last Admin: 03/14/18 02:09 Dose: 4 mg Pantoprazole Sodium (Protonix) 40 mg PO DAILY [facility] Last Admin: 03/14/18 08:31 Dose: 40 mg Polyethylene Glycol (Miralax) 17 gm PO DAILY [facility] Last Admin: 03/14/18 08:33 Dose: 17 gm Senna/Docusate Sodium (Senokot-S, Misty-Colace) 1 tablet PO BID [facility] Last Admin: 03/14/18 08:31 Dose: 1 tablet Sodium Chloride () 5 - 15 ml IV UD PRN PRN Reason: SALINE FLUSH Zolpidem Tartrate (Ambien (Generic)) 5 mg PO QHS PRN PRN PRN Reason: INSOMNIA - Past Medical History Past Medical History (Chronic Problems): Chronic Problems (Last Reviewed 06/03/17 @ 13:43 by Elvi López) Hyperlipidemia (Chronic) Aortic stenosis (Chronic) Pulmonary hypertension (Chronic) Vitamin D deficiency (Chronic) Diabetes mellitus (Chronic) Allergic rhinitis (Chronic) Mixed hyperlipidemia (Chronic) Non-rheumatic aortic stenosis (Chronic) Secondary pulmonary arterial hypertension (Chronic) Stenosis of right carotid artery (Chronic) Abnormal electrocardiogram (Chronic) Syncope (Chronic) Anemia (Chronic) - Past Surgical History Surgical History: appendectomy, cataract - Bilateral., cholecystectomy, herniorrhaphy - Left inguinal., total knee arthroplasty - Bilateral., - - C- section, salpingectomy. - Social History Smoking Status: Never smoker Alcohol: None Drugs: None - Family History Maternal Family History: Family History (Last Reviewed 06/03/17 @ 13:44 by Elvi López) Mother Diabetes History Items: Diabetes Paternal Family History: Family History (Last Reviewed 06/03/17 @ 13:44 by Elvi López) Mother Diabetes History Items: Unknown Review of Systems Constitutional: Reports: Weight Change. Denies: Chills, Fever HEENT: Denies: Head Aches, Sinus Congestion, Sinus Drainage Cardiovascular: Denies: Chest Pain, Palpitations Respiratory: Reports: Shortness of Breath, Shortness of breath at rest. Denies: Cough, Sputum production Gastrointestinal: Denies: Abdominal Pain, Nausea, Vomiting Genitourinary: Denies: Dysuria Musculoskeletal: Denies: Joint Pain, Joint Tenderness Skin: Denies: Rash, Wounds Neurological: Denies: Numbness, Tingling, Focal weakness Psychiatric: Denies: Anxiety, Depression, Homicidal Ideations, Suicidal Ideations Hematologic/ Lymphatic: Denies: Easy Bruising, Easy Bleeding - Physical Exam General: Alert, Oriented x3, Cooperative HEENT: Atraumatic, PERRLA, EOMI, Normocephalic Neck: Supple, No JVD, Negative Carotid Bruits Lungs: Clear to auscultation, Normal air movement Cardiovascular: Regular rate, No murmurs Abdomen: Bowel Sounds Present, Soft, Non Tender Extremities: Capillary Refill Less than 3 Seconds, Edema Skin: No rashes, No breakdown Musculoskeletal: No Tenderness to Palpation of Joints or Extremities Neurological: Cranial nerves II-XII grossly intact Psych/Mental Status: Normal Affect, Appropriate Vital Signs Temp Pulse Resp BP Pulse Ox 97.6 F L 115 H 23 H 113/58 L 97 03/14/18 09:00 03/14/18 10:00 03/14/18 10:00 03/14/18 10:00 03/14/18 08:59 Oxygen Flow Rate (L/min) 3 Oxygen Delivery Method Nasal Cannula Weight: 102 kg Body Mass Index (BMI) 41.1 Finger Stick Blood Glucose 230 Intake and Output for Last 24 Hours 03/12/18 03/13/18 03/14/18 23:59 23:59 23:59 Intake Total 308.4 / 308.4 Output Total 755 / 755 Balance -446.6 / -446.6 Laboratory Tests Past 24 Hrs 03/13/18 03/13/18 03/13/18 20:45 20:45 20:45 WBC 11.9 H RBC 4.35 Hgb 13.5 Hct 40.0 MCV 92.0 MCH 31.0 MCHC 33.8 RDW 17.7 H RDW Differential 60.0 H Plt Count 130 L MPV 10.1 Immature Gran % (Auto) 0.200 Neut % (Auto) 86.8 H Lymph % (Auto) 5.3 L [place] % (Auto) 7.7 Eos % (Auto) 0.0 Baso % (Auto) 0.0 Absolute Neuts (auto) 10.3 H Absolute Lymphs (auto) 0.63 L Total Counted Not Reportable PT 15.4 H INR 1.2 APTT 40.7 H Sodium 122 L Potassium 4.1 Chloride 89 L Carbon Dioxide 23.0 Anion Gap 10 BUN 23 H Creatinine 1.18 H Estim Creat Clear Calc 31.58 Est GFR (MDRD) Af Amer 57 L Est GFR (MDRD) Non-Af 47 L BUN/Creatinine Ratio 19.5 Glucose 108 H Calcium 8.1 L Magnesium 2.0 Total Bilirubin 1.20 H AST 34 ALT 13 Alkaline Phosphatase 178 H Lactate Dehydrogenase Troponin I 0.023 B-Natriuretic Peptide Total Protein 8.5 H Albumin 2.2 L Globulin 6.3 H Albumin/Globulin Ratio 0.3 L TSH 8.82 H Urine Color Urine Clarity Urine pH Ur Specific [place] Urine Protein Urine Glucose (UA) Urine Ketones Urine Occult Blood Urine Nitrite Urine Bilirubin Urine Urobilinogen Ur Leukocyte Esterase Urine RBC Urine WBC Ur Squamous Epith Cells Urine Bacteria Hyaline Casts Urine Mucus 03/13/18 03/13/18 03/14/18 20:45 21:10 01:10 WBC RBC Hgb Hct MCV MCH MCHC RDW RDW Differential Plt Count MPV Immature Gran % (Auto) Neut % (Auto) Lymph % (Auto) [place] % (Auto) Eos % (Auto) Baso % (Auto) Absolute Neuts (auto) Absolute Lymphs (auto) Total Counted PT INR APTT Sodium Potassium Chloride Carbon Dioxide Anion Gap BUN Creatinine Estim Creat Clear Calc Est GFR (MDRD) Af Amer Est GFR (MDRD) Non-Af BUN/Creatinine Ratio Glucose Calcium Magnesium Total Bilirubin AST ALT Alkaline Phosphatase Lactate Dehydrogenase Troponin I 0.032 B-Natriuretic Peptide 3002.8 H Total Protein Albumin Globulin Albumin/Globulin Ratio TSH Urine Color Yellow Urine Clarity Cloudy Urine pH 5.0 Ur Specific [place] 1.020 Urine Protein 30 H Urine Glucose (UA) Normal Urine Ketones 5 H Urine Occult Blood 50 H Urine Nitrite Negative Urine Bilirubin Negative Urine Urobilinogen Normal Ur Leukocyte Esterase 25 H Urine RBC 0-5 SEEN Urine WBC 0-5 SEEN Ur Squamous Epith Cells 0-5 SEEN Urine Bacteria 0 SEEN Hyaline Casts 5-10 SEEN Urine Mucus 0 SEEN 03/14/18 03/14/18 03/14/18 04:00 04:00 04:00 WBC 11.8 H RBC 4.29 Hgb 13.3 Hct 39.1 MCV 91.1 MCH 31.0 MCHC 34.0 RDW 17.4 H RDW Differential 57.1 H Plt Count 145 L MPV 10.4 Immature Gran % (Auto) Neut % (Auto) Lymph % (Auto) [place] % (Auto) Eos % (Auto) Baso % (Auto) Absolute Neuts (auto) Absolute Lymphs (auto) Total Counted PT INR APTT Sodium 125 L Potassium 4.0 Chloride 89 L Carbon Dioxide 23.0 Anion Gap 13 BUN 26 H Creatinine 1.21 H Estim Creat Clear Calc 30.79 Est GFR (MDRD) Af Amer 55 L Est GFR (MDRD) Non-Af 46 L BUN/Creatinine Ratio 21.5 H Glucose 89 Calcium 8.3 L Magnesium 2.3 Total Bilirubin AST ALT Alkaline Phosphatase Lactate Dehydrogenase Troponin I 0.022 B-Natriuretic Peptide Total Protein Albumin Globulin Albumin/Globulin Ratio TSH Urine Color Urine Clarity Urine pH Ur Specific [place] Urine Protein Urine Glucose (UA) Urine Ketones Urine Occult Blood Urine Nitrite Urine Bilirubin Urine Urobilinogen Ur Leukocyte Esterase Urine RBC Urine WBC Ur Squamous Epith Cells Urine Bacteria Hyaline Casts Urine Mucus 03/14/18 03/14/18 03/14/18 04:00 06:40 06:40 WBC RBC Hgb Hct MCV MCH MCHC RDW RDW Differential Plt Count MPV Immature Gran % (Auto) Neut % (Auto) Lymph % (Auto) [place] % (Auto) Eos % (Auto) Baso % (Auto) Absolute Neuts (auto) Absolute Lymphs (auto) Total Counted PT 15.6 H INR 1.2 APTT 42.2 H Sodium Potassium Chloride Carbon Dioxide Anion Gap BUN Creatinine Estim Creat Clear Calc Est GFR (MDRD) Af Amer Est GFR (MDRD) Non-Af BUN/Creatinine Ratio Glucose Calcium Magnesium Total Bilirubin AST ALT Alkaline Phosphatase Lactate Dehydrogenase 193 Troponin I 0.028 B-Natriuretic Peptide Total Protein 8.3 H Albumin Globulin 6.1 H Albumin/Globulin Ratio 0.4 L TSH Urine Color Urine Clarity Urine pH Ur Specific [place] Urine Protein Urine Glucose (UA) Urine Ketones Urine Occult Blood Urine Nitrite Urine Bilirubin Urine Urobilinogen Ur Leukocyte Esterase Urine RBC Urine WBC Ur Squamous Epith Cells Urine Bacteria Hyaline Casts Urine Mucus POC Glucose 03/14/18 06:56 POC Glucose 82 Assessment/Plan All Active Problems (Last Reviewed 06/03/17 @ 13:43 by Elvi López) Community acquired pneumonia (Acute) CHF (Acute) Hyponatremia (Acute) Shortness of breath (Acute) Acute on chronic diastolic heart failure (Acute) Epigastric abdominal pain (Resolved) Gastritis (Resolved) CKD stage 3. Creatinine is overall stable. no significant change from before Hyponatremia. severe. clinically significantly volume overloaded. somewhat better today. treat as hypervolemic hyponatremia. continue bumex drip. if sodium remains less than 130 in couple days will try samsca on as needed basiss CHF. significant volume overload. on bumex drip.
[2018-03-14 11:20] LABS: Bedside Glucose 101 mg/dL (70-110)
--- NOTE | 2018-03-14 11:39 | CASEMGMT ---
OSVALDO Vazica Nadia spoke w/Abby in TCU earlier, pt can return when ready to TCU. SW spoke w/pt and son Isiah in the room, confirmed the plan is for pt to return to TCU when ready. Son asked to speak w/physician. SW explained will text physician to see if she is available to speak w/son. SW did text physician. Plan is for pt to return to TCU when ready. JANIA Siegel, EDUCATION OFFICER
--- NOTE | 2018-03-14 11:44 | CASEMGMT ---
SW spoke w/pt and pt's son Isiah in room. As per Isiah, son Hesham is POA. Unable to bring in forms at this time. JANIA Siegel, ADMINISTRATIVE OPERATIONS COORDINATOR
[2018-03-14] MEDS: Acetaminophen 500 MG Tablet 1000 MG PO (15:08)
[2018-03-14] MEDS: Ipratropium/Albuterol Sulfate 3 ML AMPUL.NEB INHALATION (15:35)
[2018-03-14 16:46] LABS: Bedside Glucose 81 mg/dL (70-110)
[2018-03-14] MEDS: 0.9% NaCl Peripheral Flush Adult/Peds IV (21:50)
[2018-03-14] MEDS: MELATONIN 3 MG TABLET PO (21:50)
[2018-03-14] MEDS: Petrolatum,White 3.75GM OPTH.TUBE 1 APPLIC OP (21:51)
[2018-03-14 22:01] LABS: Bedside Glucose 106 mg/dL (70-110)
[2018-03-15] VITALS (49 sets, daily range): BP systolic 66–153; BP diastolic 40–124; PULSE 74–110; RESP 15–26; TEMP 36.3–36.8; O2SAT 87–98
[2018-03-15] MEDS: Bumetanide 12.5 MG in CONTAINER,EMPTY 1 BAG 2 MG CONT INF (04:42)
[2018-03-15] MEDS: 0.9% NaCl Peripheral Flush Adult/Peds IV ×2 (05:45→21:16)
[2018-03-15] MEDS: Ipratropium/Albuterol Sulfate 3 ML AMPUL.NEB INHALATION ×4 (07:04→19:16)
[2018-03-15 07:06] LABS: Bedside Glucose 150 mg/dL (70-110)
--- NOTE | 2018-03-15 07:23 | PCM.PN.CARD ---
Subjectve: Patient seen and evaluated. Continues to do well. Objective: Vital Signs Temp Pulse Resp BP Pulse Ox 98.3 F 106 H 22 H 112/69 95 03/15/18 03:05 03/15/18 07:00 03/15/18 07:00 03/15/18 07:00 03/15/18 07:00 Oxygen Flow Rate (L/min) 3 Oxygen Delivery Method Nasal Cannula Weight: 223 lb 12.307 oz Body Mass Index (BMI) 41.1 Finger Stick Blood Glucose 81 Intake and Output for Last 24 Hours 03/13/18 03/14/18 03/15/18 23:59 23:59 23:59 Intake Total 933.4 / 933.4 382 / 382 Output Total 1386 / 1386 180 / 180 Balance -452.6 / -452.6 202 / 202 General: Awake, Alert, Oriented x 3 HEENT: PERRL, EOMI, Sclera Non Icteric Neck: Supple, Good ROM, No Lymph Node Enlargement Lungs: Clear to auscultation Cardiovascular: Regular Rhythm, Normal S1, Normal S2, No Murmurs, No Rubs, No Gallops Murmur Murmur: Grade 1/6, Early Systolic, LLSB Vascular: No Carotid Bruits, Normal Femoral Pulses, Normal Radial Pulses, Normal Dorsalis Pedal Pulse, Normal Posterior Tibial Pulses Abdomen: Bowel Sounds Present, Soft, Non Tender, No HSM, No Organomegaly Extremities: No Cyanosis, No Clubbing, Bilateral Edema +2 Musculoskeletal: No Erythema Lymphatic: No Lymph Node Enlargement Neurological: No Focal Motor or Sensory Deficit Psych/Mental Status: Appropriate Rhythm: EKG: ECHO: Stress Test: Cardiac Cath: PCI: CT Surgery: Holter monitor: EPS: PPM: CXR: Chest CT Scan: Medical Necessity - Tobacco Use Smoking Status: Never smoker Assessment/Plan 1. Congestive heart failure-acute diastolic The patient presents with shortness of breath and anasarca as well as tachycardia. It appears that she has been in atrial flutter with a rapid response rate which has not been controlled. This is likely the etiology for her shortness of breath. Agree with diuresis with intravenous Lasix Would need to continue JORDYN inhibitor Continue beta-franny and would increase the dose 2. Atrial flutter with variable block Patient appears to be in atrial flutter with variable block. The exact duration is unclear at this time. Would recommend rate control with intravenous Cardizem and beta-franny and will attempt to transition the above today Will anticoagulate with oral apixaban 3. Hypertension Patient appears to be hypertensive which is under good control and will continue. 4. Valvular heart disease Patient has aortic stenosis which appears to be mild as well as mitral annular calcification. Will pursue expectant management. She appears to have low flow low gradient aortic stenosis. This will be addressed when she is heart of heart failure. 5. Cardiomyopathy She has a global cardiomyopathy with an estimated ejection fraction of 30% We will continue beta-franny Will add JORDYN inhibitor as tolerated monitoring renal function and being careful of her aortic stenosis Thank you for allowing me to participate in the care of your patient. Please don't hesitate to call if any issues arise
--- NOTE | 2018-03-15 07:26 | PN.CARD_ITS ---
Subjectve: Patient seen and evaluated. Continues to do well. Objective: Vital Signs Temp Pulse Resp BP Pulse Ox 98.3 F 106 H 22 H 112/69 95 03/15/18 03:05 03/15/18 07:00 03/15/18 07:00 03/15/18 07:00 03/15/18 07:00 Oxygen Flow Rate (L/min) 3 Oxygen Delivery Method Nasal Cannula Weight: 223 lb 12.307 oz Body Mass Index (BMI) 41.1 Finger Stick Blood Glucose 81 Intake and Output for Last 24 Hours 03/13/18 03/14/18 03/15/18 23:59 23:59 23:59 Intake Total 933.4 / 933.4 382 / 382 Output Total 1386 / 1386 180 / 180 Balance -452.6 / -452.6 202 / 202 General: Awake, Alert, Oriented x 3 HEENT: PERRL, EOMI, Sclera Non Icteric Neck: Supple, Good ROM, No Lymph Node Enlargement Lungs: Clear to auscultation Cardiovascular: Regular Rhythm, Normal S1, Normal S2, No Murmurs, No Rubs, No Gallops Murmur Murmur: Grade 1/6, Early Systolic, LLSB Vascular: No Carotid Bruits, Normal Femoral Pulses, Normal Radial Pulses, Normal Dorsalis Pedal Pulse, Normal Posterior Tibial Pulses Abdomen: Bowel Sounds Present, Soft, Non Tender, No HSM, No Organomegaly Extremities: No Cyanosis, No Clubbing, Bilateral Edema +2 Musculoskeletal: No Erythema Lymphatic: No Lymph Node Enlargement Neurological: No Focal Motor or Sensory Deficit Psych/Mental Status: Appropriate Rhythm: EKG: ECHO: Stress Test: Cardiac Cath: PCI: CT Surgery: Holter monitor: EPS: PPM: CXR: Chest CT Scan: Medical Necessity - Tobacco Use Smoking Status: Never smoker Assessment/Plan 1. Congestive heart failure-acute diastolic * The patient presents with shortness of breath and anasarca as well as tachycardia. It appears that she has been in atrial flutter with a rapid response rate which has not been controlled. This is likely the etiology for her shortness of breath. * Agree with diuresis with intravenous Lasix * Would need to continue JORDYN inhibitor * Continue beta-franny and would increase the dose * 2. Atrial flutter with variable block * Patient appears to be in atrial flutter with variable block. The exact dura tion is unclear at this time. Would recommend rate control with intravenous Cardizem and beta-franny and will attempt to transition the above today * Will anticoagulate with oral apixaban * 3. Hypertension * Patient appears to be hypertensive which is under good control and will continue. * 4. Valvular heart disease * Patient has aortic stenosis which appears to be mild as well as mitral annular calcification. * Will pursue expectant management. * She appears to have low flow low gradient aortic stenosis. This will be addressed when she is heart of heart failure. * 5. Cardiomyopathy * She has a global cardiomyopathy with an estimated ejection fraction of 30% * We will continue beta-franny * Will add JORDYN inhibitor as tolerated monitoring renal function and being careful of her aortic stenosis * * Thank you for allowing me to participate in the care of your patient. Please don't hesitate to call if any issues arise
[2018-03-15] MEDS: Amox/Clavulanate 875 MG Tablet PO (08:21)
[2018-03-15] MEDS: Glucerna Shake 120 ML LIQUID PO (08:25)
[2018-03-15] MEDS: Insulin Lispro 100 UNIT/ML INSULN.PEN SQ ×3 (08:26→23:23)
[2018-03-15] MEDS: Metoprolol Tartrate 50 MG Tablet PO (08:26)
[2018-03-15] MEDS: Senna/Docusate Sodium 1 Tablet PO (08:30)
[2018-03-15] MEDS: Loratadine 10 MG Tablet PO (08:30)
[2018-03-15] MEDS: Pantoprazole Sodium 40 MG Tablet PO (08:30)
[2018-03-15] MEDS: APIXABAN 5 MG TABLET PO (08:30)
[2018-03-15] MEDS: guaiFENesin 1,200 MG Tablet 1200 MG PO (08:30)
[2018-03-15] MEDS: Polyethylene Glycol 3350 17 GM PACKET PO (08:31)
[2018-03-15] MEDS: Albuterol 2.5 MG/3 ML VIAL.NEB. INHALATION (09:56)
[2018-03-15] MEDS: Spironolactone 25 MG Tablet PO (10:30)
[2018-03-15] MEDS: Furosemide 40 MG/4 ML Vial IV (10:30)
[2018-03-15] MEDS: guaiFENesin Dm 10 ML UDC PO (10:40)
[2018-03-15 11:21] LABS: Bedside Glucose 194 mg/dL (70-110)
--- NOTE | 2018-03-15 11:53 | PCM.PN.REN ---
Subjective: breathing is off today - Physical Exam General: Alert, Oriented x3, Cooperative HEENT: Atraumatic, PERRLA, EOMI, Normocephalic Neck: Supple, No JVD, Negative Carotid Bruits Lungs: Clear to auscultation, Normal air movement Cardiovascular: Regular rate, No murmurs Abdomen: Bowel Sounds Present, Soft, Non Tender Extremities: Capillary Refill Less than 3 Seconds, Edema Skin: No rashes, No breakdown Musculoskeletal: No Tenderness to Palpation of Joints or Extremities Neurological: Cranial nerves II-XII grossly intact Psych/Mental Status: Normal Affect, Appropriate Vital Signs Temp Pulse Resp BP Pulse Ox 97.5 F L 107 H 20 H 135/65 H 92 03/15/18 09:00 03/15/18 11:14 03/15/18 11:14 03/15/18 11:00 03/15/18 11:00 Oxygen Flow Rate (L/min) 3 Oxygen Delivery Method Nasal Cannula Weight: 101.5 kg Body Mass Index (BMI) 41.1 Finger Stick Blood Glucose 81 Intake and Output for Last 24 Hours 03/13/18 03/14/18 03/15/18 23:59 23:59 23:59 Intake Total 933.4 / 933.4 382 / 382 Output Total 1386 / 1386 180 / 180 Balance -452.6 / -452.6 202 / 202 POC Glucose 03/15/18 03/15/18 03/14/18 11:15 06:53 21:34 POC Glucose 194 H 150 H 106 03/14/18 16:37 POC Glucose 81 Medical Necessity - Tobacco Use Smoking Status: Never smoker Assessment/Plan All Active Problems (Last Reviewed 06/03/17 @ 13:43 by Elvi López) Community acquired pneumonia (Acute) CHF (Acute) Hyponatremia (Acute) Shortness of breath (Acute) Acute on chronic diastolic heart failure (Acute) Epigastric abdominal pain (Resolved) Gastritis (Resolved) CKD stage 3. Creatinine is overall stable. no significant change from before Hyponatremia. severe. clinically significantly volume overloaded. somewhat better today. treat as hypervolemic hyponatremia. continue IV lasix as per cardiology. CHF. significant volume overload. on IV lasix as per cardiology. overall significantly overloaded. will likely need more diuretics. urine output is around 1.2 L.
[2018-03-15] MEDS: Acetaminophen 500 MG Tablet 1000 MG PO (12:43)
--- NOTE | 2018-03-15 16:18 | RAD_ITS ---
STUDY: X-RAY - ABDOMEN/PELVIS REASON FOR EXAM: Female, 77 years old. Abdominal pain TECHNIQUE: Two AP supine views of the abdomen and pelvis. Study is limited. COMPARISON: March 12, 2018 abdominal study FINDINGS: Bases on the [id number]. There are distended loops of bowel in the midabdomen. The spleen and kidneys are obscured. There are diffuse degenerative changes of the visualized lumbar spine. RAD/Abdomen Single View (Portable) IMPRESSION: Indeterminate distended loops of bowel in the mid abdomen for which further evaluation is recommended with CT scan of the abdomen and pelvis. Electronically Signed: Tarsha Araiza MD at 17:03 EST Tel , Service support ,
--- NOTE | 2018-03-15 16:49 | PN_ITS ---
Subjective: The patient is a 77-year old female with a past medical history of morbid obesity, lipidemia, mild nonrheumatic aortic stenosis, pulmonary hypertension, Sjogren's syndrome, vitamin D deficiency, diabetes mellitus type 2, allergic rhinitis, right carotid stenosis and anemia who presented to the emergency department at [facility] on 03/14/2018 complaining of increasing shortness of breath over the preceding 2 weeks. She had recently been admitted to the hospital on 03/08/2018 and discharged on 03/12/2018 for acute on chronic diastolic CHF and CAP. She was discharged to the transitional care unit. She was sent back to the hospital on 03/13/2018 for increasing shortness of breath and tachycardia. Chest CT showed no pulmonary emboli but did show a dilated pulmonary artery suggestive of pulmonary hypertension, moderate right pleural effusion and small left pleural effusion with compressive atelectasis. There was ascites and edema of the nominal wall secondary to anasarca. EKG done in the emergency room showed probable atrial flutter with left bundle branch block. Significant lab included a low sodium at 122 with a chloride of 89. BUN was 23 with a creatinine of 1.18. BNP was 3003 and troponin was 0.023. TSH was 8.82. She was admitted to a monitored bed on PCU and cardiology and nephrology consults were ordered. She was continued on her beta-franny and IV Cardizem infusion was started. Anticoagulation with apixaban was ordered. She was started on Bumex. Dr. Mahajan felt the hyponatremia is due to gross volume overload. Echocardiogram revealed global hypokinesis with a 30% ejection fraction, moderate mitral annular calcification, moderate TR, moderate focal aortic valve calcification with a calculated valve area of 0.9 cm?. All events of the past 24 hours of been reviewed. Afebrile since admission. Current blood pressure is 91/56. Heart rate has ranged from 76-107 today. She is 92% saturated on 3 L nasal cannula. Fluid balance since admission on 03/14/2018 is +359. Her nurse reports that she has had only 10 cc of urine since noon today. She is now complaining of abdominal pain but, denies nausea. breathing is worse today.....possibly related to the distended abd Albumin is 2.2. Serial troponins have been negative. KUB per my review shows dilated R colon at 10-11 CM, no air in the rectum and dilated loops of small bowel. Converted to IV Lasix 40 mg twice daily and Spironolactone [address] Alba today. She is still on 40 mg of Solu-Medrol every 8 hours. - Physical Exam General: Alert, Oriented x3, Cooperative, Well developed, Well nourished, - - she has a grayish discoloration of the skin of the face and looks ill HEENT: Atraumatic, PERRLA, EOMI Oral: No Gingival or Mucosal Lesions/ Ulcerations, Dry Mucosa Neck: Supple, JVD, Bilateral Lungs: Clear to auscultation - anterioral and lateral, No rhonchi, No wheeze, Diminished, - - Tachypnea, no conversational dyspnea Cardiovascular: Irregular Rate, - - systolic MM at the apex, soft. No gallop appreciated. Telemetry with AF/flutter with BBB...mostly controlled Abdomen: Hypoactive Bowel Sounds, Distended - and hypertympanic, Obese, Tender - diffusely, - - she has pitting edema in both flanks Extremities: No cyanosis, Edema - $+ to the groin BL, painful to palpate Skin: No rashes Neurological: Cranial nerves II-XII grossly intact, Neuro grossly intact Psych/Mental Status: Appropriate, Flat Affect Vital Signs Temp Pulse Resp BP Pulse Ox 97.5 F L 76 18 91/56 L 92 03/15/18 15:00 03/15/18 15:03 03/15/18 15:00 03/15/18 15:00 03/15/18 15:00 Oxygen Flow Rate (L/min) 3 Oxygen Delivery Method Nasal Cannula Weight: 223 lb 12.307 oz Body Mass Index (BMI) 41.1 Finger Stick Blood Glucose 81 Intake and Output for Last 24 Hours 03/13/18 03/14/18 03/15/18 23:59 23:59 23:59 Intake Total 933.4 / 933.4 1067 / 1067 Output Total 1386 / 1386 255 / 255 Balance -452.6 / -452.6 812 / 812 POC Glucose 03/15/18 03/15/18 03/14/18 11:15 06:53 21:34 POC Glucose 194 H 150 H 106 03/14/18 16:37 POC Glucose 81 Medical Necessity - Tobacco Use Smoking Status: Never smoker Assessment/Plan All Active Problems (Last Reviewed 06/03/17 @ 13:43 by Elvi López) Community acquired pneumonia (Acute) CHF (Acute) Hyponatremia (Acute) Shortness of breath (Acute) Acute on chronic diastolic heart failure (Acute) Epigastric abdominal pain (Resolved) Gastritis (Resolved) Impressions 1. anasarca with ascites and BL pleural effusions 2. Acute hypoxic respiratory insufficiency secondary to decompensated congestive heart failure. 3. Atrial flutter with rapid ventricular response-currently controlled with Cardizem infusion 4. Acute kidney injury 5. Hyponatremia-related to fluid overload per nephrology consult 6. Diabetes mellitus type 2 7. GERD 8. Morbid obesity 9. Hyperlipidemia 10. Mild nonrheumatic aortic stenosis 11. Pulmonary hypertension 12. Sjogren's syndrome 13. Right carotid stenosis Consult Dr. Collado for abdominal distension and pain NPO Insert NG tube CT of the abdomen and pelvis with oral contrast only Stat CBCD, BMP, lactic acid, liver panel Continue the cardizem for rate control and continue the Metoprolol PO and clamp NG for 1 hour after the dose. Check a C. DIFF...has been on antibiotics for presumed CAP at the last admission.....started 03/08 May need to stop the Lasix and start IV fluids Code Visit Inpatient E&M: [id number] [facility] L3
--- NOTE | 2018-03-15 17:08 | CT_ITS ---
STUDY: CT ABDOMEN AND PELVIS WITHOUT CONTRAST REASON FOR EXAM: Female, 77 years old. Epigastric pain with distention, recent NG tube placed. Recent stay for pneumonia and gastritis. RADIATION DOSAGE (If Supplied By Facility): CTDIvol = ( 19.98 ) mGy, DLP = ( 1003.27 ) mGycm TECHNIQUE: Transaxial 2.5 mm images were obtained from the dome of the diaphragm to the symphysis pubis with oral contrast, and without intravenous contrast. Sagittal and coronal images were reconstructed. This examination is limited for the evaluation of gastrointestinal, solid organs and vascular structures due to the lack of intravenous and oral contrast. There is obesity, the entirety of soft tissue is not imaged. Individualized dose optimization techniques were used for this CT. COMPARISON: CT abdomen and pelvis 10/30/2014. CHF 03/13/2018. FINDINGS: Moderate bilateral pleural effusions right greater than left, stable since previous CT chest. Atelectatic and compressive changes in the bases. There is cardiac enlargement. There is coronary artery and valvular calcification. There is significant diffuse anasarca. Obesity. Liver is enlarged with lobular contour possibly secondary to cirrhosis. There are surgical clips in the gallbladder fossa consistent with a prior cholecystectomy. There is mild splenomegaly. Limited visualized pancreas. There is moderate ascites in the perihepatic and perisplenic space along the stomach, right greater than left colonic gutters tracking with moderate fluid in the pelvis. poorly visualized bilateral adrenal glands. Faint hyperattenuation in the renal parenchyma and collecting system as well as liver parenchyma likely secondary to recent contrast application.. NG tube with catheter tip at the gastric body level. Visualized decompressed stomach. Normal small intestine. Moderate amount of retained probable liquid stool in the right colon with air distention from CT scan to transverse colon. There are multiple colonic diverticula consistent with diverticulosis. There is non-visualization of the appendix. There is tethering of mesentery in the mid and right abdomen. There is no evidence of obstruction. There is atherosclerosis of the abdominal aorta, greater branches and pelvic arteries without aneurysm or leak. Normal inferior vena cava. Normal retroperitoneum. Burr catheter decompressing the urinary bladder containing minimal contrast.The uterus is age appropriate. There is a small umbilical hernia containing fat. There are diffuse degenerative changes of the visualized spine, scoliosis, osteopenia. CT/Abdomen/Pel W ORAL Cont Only IMPRESSION: Hepatic cirrhosis, splenomegaly, ascites, cardiomegaly, coronary artery disease, bilateral pleural effusions with atelectatic changes in the basis, appear stable. Anasarca may have increased. There is no abscess, collection, perforation or obstruction. Moderate amount of retained fecal material and distention of the right colon to the level of the transverse colon, mild tethering of mesentery without obstruction are indeterminate findings. Poorly visualized adrenal glands and pancreas, colonic diverticulosis, degenerative changes, osteopenia, fat-containing hiatal hernia and presumed cholecystectomy felt to be nonacute findings. Electronically Signed: Bernadette Webb MD at 1:24 EST , Service support ,
[2018-03-15 17:20] LABS: Bedside Glucose 187 mg/dL (70-110)
[2018-03-15 17:58] LABS: Absolute Lymphocyte Count 0.63 X10^3/ul (0.83-4.51); Absolute Neutrophil Count 6.3 X10^3/uL (2.0-7.7); Hemoglobin 13.3 g/dl (12.0-15.0); Lymphocyte # 0.63 X10^3/ul (4.0); Lymphocyte % 8.6 % (19-41); Mean Corp Hgb Conc 33.3 g/gl (32-36); Mean Corpuscular Hgb 30.5 pg (27.0-32.0); Mean Corpuscular Volume 91.7 fL (81-99); Mean Platelet Vol. 10.2 fl (6.2-12.0); Monocyte# 0.37 X10^3/uL; Neutrophil # 6.32 X10^3/uL (2.7-7.7); Neutrophil % 86.3 % (47-70); Platelet Count 191 K/mm3 (150-450); RBC Distribution Width CV 17.5 % (11.6-14.6); RBC Distribution Width SD 59.6 fl (35.1-43.9); Red Blood Count 4.36 M/mm3 (4.2-5.4); White Blood Count 7.3 K/mm3 (4.4-11.0)
[2018-03-15 17:59] LABS: POSITIVE COUNT NO; POSITIVE DIFFERENTIAL NO; POSITIVE MORPHOLOGY NO
--- NOTE | 2018-03-15 18:20 | RAD_ITS ---
STUDY: X-RAY - ABDOMEN/PELVIS REASON FOR EXAM: Female, 77 years old. NGT placement. TECHNIQUE: A single image of the lower chest and upper abdomen. COMPARISON: Abdomen, March 15, 2018) 1625 hours) FINDINGS: There is infiltrate in the bilateral lung bases. There is now an NG tube with its tip in the left upper quadrant. There is air seen within mildly distended colonic loops. There is no demonstrated free abdominal air. The visualized liver, spleen and kidneys are grossly normal in size and morphology. Normal soft tissue structures. There are diffuse degenerative changes of the visualized lumbar spine. RAD/Abdomen Single View IMPRESSION: 1. NG tube as described. 2. Mild colonic distention. 3. Infiltrate at the left lung base. Electronically Signed: Kleber Camacho DO at 19:06 EST Tel [phone], Service support ,
[2018-03-15 18:25] LABS: Anion Gap 14 (5-15); BUN 41 mg/dL (7-18); BUN/Creat Ratio 22.3 RATIO (10-20); Calcium,Total 8.5 mg/dL (8.5-10.1); Chloride 85 mmol/L (98-107); Creatinine, Serum 1.84 mg/dL (0.55-1.02); EST Glomerular Filtration Rate 28 mL/min (>60); Est Glom Filt Rate - Afr Amer 34 mL/min (>60); Estimated Creatinine Clearance 20.25 ml/min; Glucose 191 mg/dL (74-106); Potassium 4.6 mmol/L (3.5-5.1); Sodium Level 120 mmol/L (136-145)
[2018-03-15 18:30] LABS: Lactic Acid 2.4 mmol/L (0.4-2.0)
[2018-03-15 18:49] LABS: Magnesium 2.7 mg/dL (1.6-2.6); Phosphorus 5.9 mg/dL (2.5-4.9)
[2018-03-15 20:54] LABS: International Normalized Ratio 1.9; Prothrombin Time (Protime)PT. 22.1 SECONDS (11.7-14.9)
[2018-03-15 20:55] LABS: Partial Thromboplast Time 47.4 Seconds (24.1-36.2)
[2018-03-15] MEDS: levoFLOXacin IV 500 MG/100 ML BAG 100 MG IV (21:11)
[2018-03-15] MEDS: 0.9% Normal Saline 1,000 ML 50 ML IV (21:11)
[2018-03-15] MEDS: Tetracaine/Benzocaine/Butamben 1 APPLIC TOPICAL (21:12)
[2018-03-15] MEDS: Petrolatum,White 3.75GM OPTH.TUBE 1 APPLIC OP (21:16)
[2018-03-15 21:41] LABS: Reflex Lactate? Y
[2018-03-15 21:54] LABS: Lactic Acid 1.9 mmol/L (0.4-2.0)
[2018-03-15] MEDS: HEPARIN/D5w 25,000 UNITS 25,000 UNITS/250 ML IV.SOLN. 14 UNITS IV (22:20)
[2018-03-15 23:30] LABS: Bedside Glucose 201 mg/dL (70-110)
--- NOTE | 2018-03-15 23:48 | CON.PCM_ITS ---
Reason for Consult Date of Consultation: 03/15/18 Reason for Consultation: abdominal distention, questionable colonic pseu doobstruction History of Present Illness: The patient is a 77 year old F with a complaint today of abdominal distention and abdominal pain with a KUB demonstrating colonic distention worrisome for colonic pseudoobstruction. The patient is a very complicated past medical history of morbid obesity, hyperlipidemia, severe aortic stenosis with an estimated aortic valve area of 0.9, pulmonary hypertension, congestive heart failure with a cardiac ejection fraction of 30%, Sjogren syndrome, diabetes, carotid stenosis and anemia who presented to [facility] with increasing shortness of breath and increasing lower extremity edema over the past few weeks. She was initially admitted on March 08 and discharged on March 12 with a diagnosis of acute on chronic congestive heart failure and community-acquired pneumonia. She was then transferred to the transitional care unit but was returned to the hospital for worsening shortness of breath and tachycardia. CT scan of the chest demonstrated no pulmonary emboli but felt to demonstrate significant pulmonary hypertension with at the time which was a moderate right pleural effusion and a small left pleural effusion. There was noted to be ascites and edema of the tissues felt to be secondary to anasarca. The patient was readmitted was started on diuretics and anticoagulated due to was felt to be gross fluid overload. today the patient noted the above complaints. She be was obtained which demonstrated right colon dilatation to 10-11 cm and distention of the transverse colon slightly less so. No small bowel distention was noted on the plain films. A nasogastric tube was placed which was somewhat challenging due to the patient's Sj?gren syndrome. A follow-up KUB was obtained which demonstrated to my review good placement of the NG tube. I was consulted. The patient now notes resolution of her abdominal pain. She states she has not had flatus but has had 2 bowel movements today.stool was sent for C. difficile.in addition to severe anasarca, the patient has electrolyte abnormalities with her sodium currently at 120. I discussed with Dr. Diaz plans for a CT scan of the abdomen and pelvis with oral and no IV contrast. this demonstrated again bilateral pleural effusions, cardiac enlargement, significant anasarca with edema of the soft tissue structures and a degree of ascites. The NG tube was noted to be in the gastric body with the stomach decompressed. The small bowel appeared normal. Contrast appeared to travel at least to the mid small bowel portion. there was both liquid stool and air in the cecum and transverse colon with a small amount of air in the descending colon. while there was some degree of colonic distention, this was not felt to represent a true colonic pseudoobstruction. the cecum measured 7 cm at its largest transverse diameter. It lay somewhat obliquely in the abdomen which explains why on the plain film this appeared to be 11 cm distention. Past Medical History Past Medical History (Chronic Problems): Chronic Problems (Last Reviewed 06/03/17 @ 13:43 by Elvi López) Hyperlipidemia (Chronic) Aortic stenosis (Chronic) Pulmonary hypertension (Chronic) Vitamin D deficiency (Chronic) Diabetes mellitus (Chronic) Allergic rhinitis (Chronic) Mixed hyperlipidemia (Chronic) Non-rheumatic aortic stenosis (Chronic) Secondary pulmonary arterial hypertension (Chronic) Stenosis of right carotid artery (Chronic) Abnormal electrocardiogram (Chronic) Syncope (Chronic) Anemia (Chronic) Medical History: Medical History (Last Reviewed 06/03/17 @ 13:43 by Elvi López) Mixed hyperlipidemia (Chronic) E78.2 Non-rheumatic aortic stenosis (Chronic) I35.0 Secondary pulmonary arterial hypertension (Chronic) I27.21 Stenosis of right carotid artery (Chronic) I65.21 Syncope (Chronic) R55 Anemia (Chronic) D64.9 Gastritis K29.70 Hyperlipidemia E78.5 Obesity E66.9 Type 2 diabetes mellitus without complications E11.9 Allergies niacin Allergy (Verified 03/13/18 20:45) Swelling Mialthm-Xji-Tku Reductase Inhibitor Allergy (Verified 03/13/18 20:45) Swelling acetaminophen [From Percocet] Adverse Reaction (Verified 03/13/18 20:45) Upset Stomach oxycodone [From Percocet] Adverse Reaction (Verified 03/13/18 20:45) Upset Stomach Tetracyclines Adverse Reaction (Verified 03/13/18 20:45) Nausea/Vom/Diarrhea tramadol Adverse Reaction (Verified 03/13/18 20:45) CONFUSION Home Medications: Ambulatory Orders Medication Instructions Recorded Flaxseed/Evening Prim/Bilberry 1 ea PO DAILY 12/22/13 [Retaine Flax Softgel] Polyethylene Glycol 3350 [Miralax] 17 gm PO DAILY 12/22/13 Insulin Glargine [Lantus SoloStar 25 units SC QHS 12/02/16 Pen] Fish Oil/Dha/Epa [Fish Oil 1,200 1 each PO DAILY 11/08/17 mg Fish Oil] Mineral Oil/Petrolatum,White 3.5 gm EACHEYE DAILY 11/08/17 [Systane Nighttime Eye Ointment] Propylene Glycol/Peg 400 [Systane 10 ml EACH EYE DAILY 11/08/17 Gel Eye Drops] Meclizine HCl 12.5 mg PO TID PRN PRN 03/08/18 Acetaminophen [Tylenol Extra 1,000 mg PO Q8H PRN PRN 03/12/18 Strength] Albuterol Aerosols [Ventolin 2.5 mg INHALATION Q2H PRN PRN 03/12/18 Aerosols] vial.neb. Bisacodyl [Dulcolax] 10 mg RECTAL DAILY PRN PRN suppos. 03/12/18 Bumetanide [Bumex] 1 mg PO BIDLX 03/12/18 Enoxaparin [Lovenox] 40 mg SC DAILY 03/12/18 Glucerna Shake 120 ml PO TIDCM 03/12/18 Guaifenesin [Mucinex] 1,200 mg PO BID 03/12/18 Mag Hydrox/Al Hydrox/Simeth 30 ml PO Q6H PRN PRN udc 03/12/18 [Mylanta II] Loratadine 10 mg PO DAILY 03/13/18 Pantoprazole Sodium [Protonix] 40 mg PO DAILY 03/13/18 Sennosides/Docusate Sodium 2 each PO BID 03/13/18 [Senna-Docusate Sodium Tablet] Zolpidem Tartrate [Ambien 5 mg PO QHS PRN PRN 03/13/18 (Generic)] Surgical History: Surgical History (Last Reviewed 06/03/17 @ 13:44 by Elvi López) H/O bilateral cataract extraction Z98.41, Z98.42 History of Z98.891 History of appendectomy Z98.890, Z90.49 History of bilateral knee replacement Z98.890, Z96.653 History of esophagogastroduodenoscopy (EGD) Z98.890 18 History of salpingectomy Z98.890, Z90.79 Hx laparoscopic cholecystectomy Z98.890, Z90.49 Hx of left inguinal hernia repair Z98.890, Z87.19 Surgical History: appendectomy, cataract - Bilateral., cholecystectomy, herniorrhaphy - Left inguinal., total knee arthroplasty - Bilateral., - - C- section, salpingectomy. 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 Denies: Constipation, Diarrhea, Hematemesis, Hematochezia, Nausea, Melena, Vomiting Skin: Reports: Dryness - Physical Exam General: Alert, Oriented x3, - - short of breath with some degree of distress HEENT: Atraumatic, PERRLA, EOMI, Normocephalic Lungs: Diminished, Rales, Rhonchi, Tachypneic, Using Accessory Muscles Cardiovascular: Regular rate, - - systolic ejection murmur consistent with her known aortic stenosis Abdomen: Bowel Sounds Present, Soft, Non Tender, Distended, Obese Extremities: Edema - very significant pitting edema throughout Vital Signs Temp Pulse Resp BP Pulse Ox 97.6 F L 78 20 H 96/61 93 03/15/18 23:15 03/15/18 23:15 03/15/18 23:15 03/15/18 23:15 03/15/18 23:15 Oxygen Flow Rate (L/min) 3 Oxygen Delivery Method Nasal Cannula Weight: 101.5 kg Body Mass Index (BMI) 41.1 Finger Stick Blood Glucose 81 Intake and Output for Last 24 Hours 03/13/18 03/14/18 03/15/18 23:59 23:59 23:59 Intake Total 933.4 / 933.4 1295 / 1295 Output Total 1386 / 1386 275 / 275 Balance -452.6 / -452.6 1020 / 1020 Laboratory Tests Past 24 Hrs 03/15/18 03/15/18 03/15/18 17:30 17:30 17:30 WBC 7.3 RBC 4.36 Hgb 13.3 Hct 40.0 MCV 91.7 MCH 30.5 MCHC 33.3 RDW 17.5 H RDW Differential 59.6 H Plt Count 191 MPV 10.2 Immature Gran % (Auto) 0.100 Neut % (Auto) 86.3 H Lymph % (Auto) 8.6 L [place] % (Auto) 5.0 Eos % (Auto) 0.0 Baso % (Auto) 0.0 Absolute Neuts (auto) 6.3 Absolute Lymphs (auto) 0.63 L Total Counted Not Reportable PT INR APTT Sodium 120 L Potassium 4.6 Chloride 85 L Carbon Dioxide 21.0 Anion Gap 14 BUN 41 H Creatinine 1.84 H Estim Creat Clear Calc 20.25 Est GFR (MDRD) Af Amer 34 L Est GFR (MDRD) Non-Af 28 L BUN/Creatinine Ratio 22.3 H Glucose 191 H Lactic Acid Calcium 8.5 Phosphorus 5.9 H Magnesium 2.7 H 03/15/18 03/15/18 03/15/18 17:30 17:30 21:15 WBC RBC Hgb Hct MCV MCH MCHC RDW RDW Differential Plt Count MPV Immature Gran % (Auto) Neut % (Auto) Lymph % (Auto) [place] % (Auto) Eos % (Auto) Baso % (Auto) Absolute Neuts (auto) Absolute Lymphs (auto) Total Counted PT 22.1 H INR 1.9 APTT 47.4 H Sodium Potassium Chloride Carbon Dioxide Anion Gap BUN Creatinine Estim Creat Clear Calc Est GFR (MDRD) Af Amer Est GFR (MDRD) Non-Af BUN/Creatinine Ratio Glucose Lactic Acid 2.4 H 1.9 Calcium Phosphorus Magnesium POC Glucose 03/15/18 03/15/18 03/15/18 23:22 17:00 11:15 POC Glucose 201 H 187 H 194 H 03/15/18 06:53 POC Glucose 150 H Assessment/Plan All Active Problems (Last Reviewed 06/03/17 @ 13:43 by Elvi López) Community acquired pneumonia (Acute) CHF (Acute) Hyponatremia (Acute) Shortness of breath (Acute) Acute on chronic diastolic heart failure (Acute) Epigastric abdominal pain (Resolved) Gastritis (Resolved) moderate colonic distention without signs of true small bowel obstruction or colonic pseudoobstruction, severe anasarca, electrolyte abnormalities, severe congestive heart failure. I would plan to obtain a KUB in the morning to assess that the small bowel contrast was traveled to the cecum although given the obesity and degree of anasarca edema may be difficult to evaluate the CT contrast. If the bowel gas pattern appears similar or no worse, I would consider either removing the NG tube or using the NG tube for continuous gastric feeds and checking residuals to assure that he she is tolerating these feeds. would agree with continued diuresis as her blood pressure allows. Would consider electrolyte correction with hypertonic saline and/or albumin infusion to see if this is able to improve her blood pressure and urine output. any all of the above factors could be responsible for colonic pseudoobstruction/delayed intestinal transit. At this point in time I don't see significant dilation that would necessitate colonic decompression. Happy to follow patient with you.
[2018-03-16] VITALS (17 sets, daily range): BP systolic 97–124; BP diastolic 56–68; PULSE 83–104; RESP 18–22; TEMP 35.5–36.4; O2SAT 84–100
[2018-03-16 04:13] LABS: Hematocrit 36.8 % (37-47); Hemoglobin 12.6 g/dl (12.0-15.0); Mean Corp Hgb Conc 34.2 g/gl (32-36); Mean Corpuscular Volume 90.4 fL (81-99); Mean Platelet Vol. 10.3 fl (6.2-12.0); Platelet Count 173 K/mm3 (150-450); RBC Distribution Width CV 17.1 % (11.6-14.6); RBC Distribution Width SD 54.8 fl (35.1-43.9); Red Blood Count 4.07 M/mm3 (4.2-5.4); White Blood Count 6.5 K/mm3 (4.4-11.0)
--- NOTE | 2018-03-16 04:15 | PCM.PN.BLA ---
Progress Note Patient seen and examined with Dr. Collado earlier in the evening. s/p NG tube placement for abdominal distension; going for CT scan of abdomen with contrast Remained on Cardizem drip; SBP <90, decreased Cardizem rate to 2.5mg, still was hypotensive, discontinued cardizem as HR was between 80-100. Started on IVF by Dr. Diaz; BP remained low, continued at 75mls/hr x 1000mls; held IV lasix last night SBP remained stable between 90-110mmHg. CT abdomen and pelvis showed moderate stools, ascites, liver cirrhosis Discussed with Dr. Collado, will get KUB in am Will keep NG tube in pending am KUB Vitals at 4am are stable with HR ~80s, off cardizem, IVF running, will need to be discontinued and ??IV lasix resumed. Off stepdown status; in regular PCU card/telemetry monitoring. Patient may need IV albumin with Lasix as she is really very much third spaced from severe hypoalbuminemia which is the main driving problem here. I discussed code status -patient does not want to be on the ventilator. Her was on a ventilator and was miserable. She however states that she does not want to be on the ventilator if there is nothing that can be done for her. Explained that you can not be full code and not have CPR done. Family was in the room, and the general consensus was for patient to be in full code. If ever she goes into a cardiopulmonary arrest, they wanted CPR/aggressive resuscitation to be done, and they would then decide going forward what to do. But they know that they do not want to keep him on the ventilator unnecessarily Time spent discussing CODE STATUS, going over the plan of care was 25 minutes Code Visit Procedures: 85697 Advncd Care Plan 30 Min
[2018-03-16 04:19] LABS: Scan Indicated on CBC? Y/N NO
[2018-03-16 04:22] LABS: Partial Thromboplast Time 249.8 Seconds (24.1-36.2)
[2018-03-16 04:37] LABS: ALB/GLOB Ratio 0.4 RATIO (0.9-2.4); AST(SGOT) 36 U/L (15-37); Alanine Aminotransfer ALT/SGPT 15 U/L (13-56); Albumin, Serum 2.1 g/dL (3.2-5.0); Alkaline Phosphatase 181 U/L (45-117); Anion Gap 16 (5-15); BUN 47 mg/dL (7-18); Calcium,Total 7.9 mg/dL (8.5-10.1); Chloride 85 mmol/L (98-107); Creatinine, Serum 2.04 mg/dL (0.55-1.02); EST Glomerular Filtration Rate 25 mL/min (>60); Est Glom Filt Rate - Afr Amer 30 mL/min (>60); Estimated Creatinine Clearance 18.27 ml/min; Globulin 5.9 g/dL (2.2-4.2); Glucose 173 mg/dL (74-106); Potassium 4.5 mmol/L (3.5-5.1); Sodium Level 121 mmol/L (136-145)
--- NOTE | 2018-03-16 05:55 | RAD_ITS ---
STUDY: X-RAY - ABDOMEN/PELVIS REASON FOR EXAM: Female, 77 years old. Abdominal pain. TECHNIQUE: Two AP supine views of the abdomen and pelvis. COMPARISON: Comparison is made with prior study dated September 12, 2018. FINDINGS: The NG tube is not visualized at this time. A small amount of oral contrast is seen in the right hemicolon. There is a 16.7 cm x 11.7 cm rounded air collection in the right lower quadrant. This may represent a dilated cecum. Follow-up is recommended. The visualized liver, spleen and kidneys are grossly normal in size and morphology. Normal soft tissue structures. There are diffuse degenerative changes of the visualized lumbar spine. RAD/Abdomen Single View IMPRESSION: Final suggestive of dilated cecum as described. Follow-up is recommended. Electronically Signed: Declan Posada MD at 12:42 EST , Service support ,
[2018-03-16] MEDS: Insulin Lispro 100 UNIT/ML INSULN.PEN SQ ×4 (06:40→22:31)
--- NOTE | 2018-03-16 06:40 | PN.SURG_ITS ---
Subjective: no abdominal pain, pulled out NG and PICC line - Physical Exam General: Cooperative, No apparent distress Lungs: Diminished, Rales, Rhonchi Cardiovascular: Regular rate, Murmur Abdomen: Soft, Hypoactive Bowel Sounds, Distended Extremities: Edema Vital Signs Temp Pulse Resp BP Pulse Ox 97.4 F L 92 18 101/68 94 03/16/18 03:15 03/16/18 03:36 03/16/18 03:15 03/16/18 03:15 03/16/18 03:15 Oxygen Flow Rate (L/min) 5 Oxygen Delivery Method Nasal Cannula Weight: 101.5 kg Body Mass Index (BMI) 41.1 Finger Stick Blood Glucose 81 Intake and Output for Last 24 Hours 03/14/18 03/15/18 03/16/18 23:59 23:59 23:59 Intake Total 933.4 / 933.4 1604.8 / 1604.8 Output Total 1386 / 1386 400 / 400 Balance -452.6 / -452.6 1204.8 / 1204.8 Laboratory Tests Past 24 Hrs 03/15/18 03/15/18 03/15/18 17:30 17:30 17:30 WBC 7.3 RBC 4.36 Hgb 13.3 Hct 40.0 MCV 91.7 MCH 30.5 MCHC 33.3 RDW 17.5 H RDW Differential 59.6 H Plt Count 191 MPV 10.2 Immature Gran % (Auto) 0.100 Neut % (Auto) 86.3 H Lymph % (Auto) 8.6 L [place] % (Auto) 5.0 Eos % (Auto) 0.0 Baso % (Auto) 0.0 Absolute Neuts (auto) 6.3 Absolute Lymphs (auto) 0.63 L Total Counted Not Reportable PT INR APTT Sodium 120 L Potassium 4.6 Chloride 85 L Carbon Dioxide 21.0 Anion Gap 14 BUN 41 H Creatinine 1.84 H Estim Creat Clear Calc 20.25 Est GFR (MDRD) Af Amer 34 L Est GFR (MDRD) Non-Af 28 L BUN/Creatinine Ratio 22.3 H Glucose 191 H Lactic Acid Calcium 8.5 Phosphorus 5.9 H Magnesium 2.7 H Total Bilirubin AST ALT Alkaline Phosphatase Total Protein Albumin Globulin Albumin/Globulin Ratio 03/15/18 03/15/18 03/15/18 17:30 17:30 21:15 WBC RBC Hgb Hct MCV MCH MCHC RDW RDW Differential Plt Count MPV Immature Gran % (Auto) Neut % (Auto) Lymph % (Auto) [place] % (Auto) Eos % (Auto) Baso % (Auto) Absolute Neuts (auto) Absolute Lymphs (auto) Total Counted PT 22.1 H INR 1.9 APTT 47.4 H Sodium Potassium Chloride Carbon Dioxide Anion Gap BUN Creatinine Estim Creat Clear Calc Est GFR (MDRD) Af Amer Est GFR (MDRD) Non-Af BUN/Creatinine Ratio Glucose Lactic Acid 2.4 H 1.9 Calcium Phosphorus Magnesium Total Bilirubin AST ALT Alkaline Phosphatase Total Protein Albumin Globulin Albumin/Globulin Ratio 03/16/18 03/16/18 03/16/18 03:56 03:56 03:56 WBC 6.5 RBC 4.07 L Hgb 12.6 Hct 36.8 L MCV 90.4 MCH 31.0 MCHC 34.2 RDW 17.1 H RDW Differential 54.8 H Plt Count 173 MPV 10.3 Immature Gran % (Auto) Neut % (Auto) Lymph % (Auto) [place] % (Auto) Eos % (Auto) Baso % (Auto) Absolute Neuts (auto) Absolute Lymphs (auto) Total Counted PT INR APTT 249.8 H* Sodium 121 L Potassium 4.5 Chloride 85 L Carbon Dioxide 20.0 L Anion Gap 16 H BUN 47 H Creatinine 2.04 H Estim Creat Clear Calc 18.27 Est GFR (MDRD) Af Amer 30 L Est GFR (MDRD) Non-Af 25 L BUN/Creatinine Ratio 23.0 H Glucose 173 H Lactic Acid Calcium 7.9 L Phosphorus Magnesium Total Bilirubin 0.80 AST 36 ALT 15 Alkaline Phosphatase 181 H Total Protein 8.0 Albumin 2.1 L Globulin 5.9 H Albumin/Globulin Ratio 0.4 L POC Glucose 03/15/18 03/15/18 03/15/18 23:22 17:00 11:15 POC Glucose 201 H 187 H 194 H 03/15/18 06:53 POC Glucose 150 H Medical Necessity - Tobacco Use Smoking Status: Never smoker Assessment/Plan All Active Problems (Last Reviewed 06/03/17 @ 13:43 by Elvi López) Community acquired pneumonia (Acute) CHF (Acute) Hyponatremia (Acute) Shortness of breath (Acute) Acute on chronic diastolic heart failure (Acute) Epigastric abdominal pain (Resolved) Gastritis (Resolved) moderate colonic distention without signs of true small bowel obstruction or colonic pseudoobstruction, severe anasarca, electrolyte abnormalities, severe congestive heart failure. I would plan to obtain a KUB this morning to assess that the small bowel contrast was traveled to the cecum although given the obesity and degree of anasarca edema may be difficult to evaluate the CT contrast. If the bowel gas pattern appears similar or no worse, I would plan for ensure would agree with continued diuresis as her blood pressure allows. Would consider electrolyte correction with hypertonic saline and/or albumin infusion to see if this is able to improve her blood pressure and urine output. any all of the above factors could be responsible for colonic pseudoobstruction/delayed intestinal transit. At this point in time I don't see significant dilation that would necessitate colonic decompression. Happy to follow patient with you.
[2018-03-16 06:56] LABS: Bedside Glucose 185 mg/dL (70-110)
[2018-03-16] MEDS: Ipratropium/Albuterol Sulfate 3 ML AMPUL.NEB INHALATION ×5 (08:01→23:00)
--- NOTE | 2018-03-16 08:09 | PCM.PN.CARD ---
Subjectve: Patient seen and evaluated. Appears to be less responsive than yesterday. Objective: Vital Signs Temp Pulse Resp BP Pulse Ox 97.4 F L 92 18 101/68 94 03/16/18 03:15 03/16/18 03:36 03/16/18 03:15 03/16/18 03:15 03/16/18 03:15 Oxygen Flow Rate (L/min) 5 Oxygen Delivery Method Nasal Cannula Weight: 229 lb 0.964 oz Body Mass Index (BMI) 41.1 Finger Stick Blood Glucose 81 Intake and Output for Last 24 Hours 03/14/18 03/15/18 03/16/18 23:59 23:59 23:59 Intake Total 933.4 / 933.4 1604.8 / 1604.8 701.9 / 701.9 Output Total 1386 / 1386 400 / 400 50 / 50 Balance -452.6 / -452.6 1204.8 / 1204.8 651.9 / 651.9 General: Awake, Lethargic HEENT: PERRL, EOMI, Sclera Non Icteric Neck: Supple, Good ROM, No Lymph Node Enlargement Lungs: Diminished Joshua Bases Cardiovascular: Irregular Rhythm, Normal S1, Normal S2, No Murmurs, No Rubs, No Gallops Vascular: No Carotid Bruits, Normal Femoral Pulses, Normal Radial Pulses, Normal Dorsalis Pedal Pulse, Normal Posterior Tibial Pulses Abdomen: Bowel Sounds Present, Soft, Non Tender, No HSM, No Organomegaly Extremities: No Cyanosis, No Clubbing, Bilateral Edema +2 Neurological: No Focal Motor or Sensory Deficit 03/15/18 17:30: Phosphorus 5.9 H, Magnesium 2.7 H 03/15/18 17:30: WBC 7.3, RBC 4.36, Hgb 13.3, Hct 40.0, MCV 91.7, MCH 30.5, MCHC 33.3, RDW 17.5 H, RDW Differential 59.6 H, Plt Count 191, MPV 10.2, Immature Gran % (Auto) 0.100, Neut % (Auto) 86.3 H, Lymph % (Auto) 8.6 L, [place] % (Auto) 5.0, Eos % (Auto) 0.0, Baso % (Auto) 0.0, Absolute Neuts (auto) 6.3, Total Counted Not Reportable 03/15/18 17:30: Sodium 120 L, Potassium 4.6, Chloride 85 L, Carbon Dioxide 21.0, Anion Gap 14, BUN 41 H, Creatinine 1.84 H, Est GFR (MDRD) Af Amer 34 L, Est GFR (MDRD) Non-Af 28 L, BUN/Creatinine Ratio 22.3 H, Glucose 191 H, Calcium 8.5 03/15/18 17:30: Lactic Acid 2.4 H 03/15/18 17:30: PT 22.1 H, INR 1.9, APTT 47.4 H 03/15/18 21:15: Lactic Acid 1.9 03/16/18 03:56: WBC 6.5, RBC 4.07 L, Hgb 12.6, Hct 36.8 L, MCV 90.4, MCH 31.0, MCHC 34.2, RDW 17.1 H, RDW Differential 54.8 H, Plt Count 173, MPV 10.3 03/16/18 03:56: Sodium 121 L, Potassium 4.5, Chloride 85 L, Carbon Dioxide 20.0 L, Anion Gap 16 H, BUN 47 H, Creatinine 2.04 H, Est GFR (MDRD) Af Amer 30 L, Est GFR (MDRD) Non-Af 25 L, BUN/Creatinine Ratio 23.0 H, Glucose 173 H, Calcium 7.9 L, Total Bilirubin 0.80 03/16/18 03:56: APTT 249.8 H* Rhythm: EKG: ECHO: Stress Test: Cardiac Cath: PCI: CT Surgery: Holter monitor: EPS: PPM: CXR: Chest CT Scan: Medical Necessity - Tobacco Use Smoking Status: Never smoker Assessment/Plan 1. Congestive heart failure-acute diastolic The patient presents with shortness of breath and anasarca as well as tachycardia. It appears that she has been in atrial flutter with a rapid response rate which has not been controlled. This is likely the etiology for her shortness of breath. Will discuss with hospitalist about IV fluid requirements balancing with diuresis Continue beta-franny. 2. Atrial flutter with variable block Patient appears to be in atrial flutter with variable block. The exact duration is unclear at this time. Would recommend rate control with intravenous Cardizem and beta-franny and will attempt to transition the above today Will anticoagulate with oral apixaban-which appears has been discontinued pending possible surgical evaluation 3. Hypertension Patient appears to be hypertensive which is under good control and will continue. 4. Valvular heart disease Patient has aortic stenosis which appears to be mild as well as mitral annular calcification. Will pursue expectant management. She appears to have low flow low gradient aortic stenosis. This will be addressed when she is heart of heart failure. 5. Cardiomyopathy She has a global cardiomyopathy with an estimated ejection fraction of 30% We will continue beta-franny Will discontinue JORDYN inhibitor due to the hypotension. Thank you for allowing me to participate in the care of your patient. Please don't hesitate to call if any issues arise
--- NOTE | 2018-03-16 08:13 | PN.CARD_ITS ---
Subjectve: Patient seen and evaluated. Appears to be less responsive than yesterday. Objective: Vital Signs Temp Pulse Resp BP Pulse Ox 97.4 F L 92 18 101/68 94 03/16/18 03:15 03/16/18 03:36 03/16/18 03:15 03/16/18 03:15 03/16/18 03:15 Oxygen Flow Rate (L/min) 5 Oxygen Delivery Method Nasal Cannula Weight: 229 lb 0.964 oz Body Mass Index (BMI) 41.1 Finger Stick Blood Glucose 81 Intake and Output for Last 24 Hours 03/14/18 03/15/18 03/16/18 23:59 23:59 23:59 Intake Total 933.4 / 933.4 1604.8 / 1604.8 701.9 / 701.9 Output Total 1386 / 1386 400 / 400 50 / 50 Balance -452.6 / -452.6 1204.8 / 1204.8 651.9 / 651.9 General: Awake, Lethargic HEENT: PERRL, EOMI, Sclera Non Icteric Neck: Supple, Good ROM, No Lymph Node Enlargement Lungs: Diminished Joshua Bases Cardiovascular: Irregular Rhythm, Normal S1, Normal S2, No Murmurs, No Rubs, No Gallops Vascular: No Carotid Bruits, Normal Femoral Pulses, Normal Radial Pulses, Normal Dorsalis Pedal Pulse, Normal Posterior Tibial Pulses Abdomen: Bowel Sounds Present, Soft, Non Tender, No HSM, No Organomegaly Extremities: No Cyanosis, No Clubbing, Bilateral Edema +2 Neurological: No Focal Motor or Sensory Deficit 03/15/18 17:30: Phosphorus 5.9 H, Magnesium 2.7 H 03/15/18 17:30: WBC 7.3, RBC 4.36, Hgb 13.3, Hct 40.0, MCV 91.7, MCH 30.5, MCHC 33.3, RDW 17.5 H, RDW Differential 59.6 H, Plt Count 191, MPV 10.2, Immature Gran % (Auto) 0.100, Neut % (Auto) 86.3 H, Lymph % (Auto) 8.6 L, [place] % (Auto) 5.0, Eos % (Auto) 0.0, Baso % (Auto) 0.0, Absolute Neuts (auto) 6.3, Total Counted Not Reportable 03/15/18 17:30: Sodium 120 L, Potassium 4.6, Chloride 85 L, Carbon Dioxide 21.0, Anion Gap 14, BUN 41 H, Creatinine 1.84 H, Est GFR (MDRD) Af Amer 34 L, Est GFR (MDRD) Non-Af 28 L, BUN/Creatinine Ratio 22.3 H, Glucose 191 H, Calcium 8.5 03/15/18 17:30: Lactic Acid 2.4 H 03/15/18 17:30: PT 22.1 H, INR 1.9, APTT 47.4 H 03/15/18 21:15: Lactic Acid 1.9 03/16/18 03:56: WBC 6.5, RBC 4.07 L, Hgb 12.6, Hct 36.8 L, MCV 90.4, MCH 31.0, MCHC 34.2, RDW 17.1 H, RDW Differential 54.8 H, Plt Count 173, MPV 10.3 03/16/18 03:56: Sodium 121 L, Potassium 4.5, Chloride 85 L, Carbon Dioxide 20.0 L, Anion Gap 16 H, BUN 47 H, Creatinine 2.04 H, Est GFR (MDRD) Af Amer 30 L, Est GFR (MDRD) Non-Af 25 L, BUN/Creatinine Ratio 23.0 H, Glucose 173 H, Calcium 7.9 L, Total Bilirubin 0.80 03/16/18 03:56: APTT 249.8 H* Rhythm: EKG: ECHO: Stress Test: Cardiac Cath: PCI: CT Surgery: Holter monitor: EPS: PPM: CXR: Chest CT Scan: Medical Necessity - Tobacco Use Smoking Status: Never smoker Assessment/Plan 1. Congestive heart failure-acute diastolic * The patient presents with shortness of breath and anasarca as well as tachycardia. It appears that she has been in atrial flutter with a rapid response rate which has not been controlled. This is likely the etiology for her shortness of breath. * Will discuss with hospitalist about IV fluid requirements balancing with diuresis * Continue beta-franny. * 2. Atrial flutter with variable block * Patient appears to be in atrial flutter with variable block. The exact duration is unclear at this time. Would recommend rate control with intravenous Cardizem and beta-franny and will attempt to transition the above today * Will anticoagulate with oral apixaban-which appears has been discontinued pending possible surgical evaluation * 3. Hypertension * Patient appears to be hypertensive which is under good control and will continue. * 4. Valvular heart disease * Patient has aortic stenosis which appears to be mild as well as mitral annular calcification. * Will pursue expectant management. * She appears to have low flow low gradient aortic stenosis. This will be addressed when she is heart of heart failure. * 5. Cardiomyopathy * She has a global cardiomyopathy with an estimated ejection fraction of 30% * We will continue beta-franny * Will discontinue JORDYN inhibitor due to the hypotension. * * Thank you for allowing me to participate in the care of your patient. Please don't hesitate to call if any issues arise
[2018-03-16 11:06] LABS: Bedside Glucose 177 mg/dL (70-110)
[2018-03-16] MEDS: Metoprolol Tartrate 50 MG Tablet PO ×2 (12:00→22:07)
--- NOTE | 2018-03-16 12:19 | EKG12_ITS ---
Test Reason : RHYTHM CHECK Blood Pressure : / mmHG Vent. Rate : 104 BPM Atrial Rate : 104 BPM P-R Int : 178 ms QRS Dur : 142 ms QT Int : 360 ms P-R-T Axes : 000 -53 122 degrees QTc Int : 473 ms Sinus tachycardia Left axis deviation Left bundle branch block Abnormal ECG When compared with ECG of 14-MAR-2018 05:08, Previous ECG has undetermined rhythm, needs review Confirmed by ONEYDA RUFFIN, DARION ([id number]), web editor JANETTE TIJERINA ([id number]) on 03/22/2018 9:04:39 AM Referred By: TEJ Confirmed By:DARION CALL MD
--- NOTE | 2018-03-16 12:30 | PN.RENAL_ITS ---
Subjective: no new complaints events noted. reviewed CT abd and labs. reviewed Dr Law note - Physical Exam General: Alert, Oriented x3, Cooperative HEENT: Atraumatic, PERRLA, EOMI, Normocephalic Neck: Supple, No JVD, Negative Carotid Bruits Lungs: Clear to auscultation, Normal air movement Cardiovascular: Regular rate, No murmurs Abdomen: Bowel Sounds Present, Soft, Non Tender Extremities: Capillary Refill Less than 3 Seconds, Edema Skin: No rashes, No breakdown Musculoskeletal: No Tenderness to Palpation of Joints or Extremities Neurological: Cranial nerves II-XII grossly intact Psych/Mental Status: Normal Affect, Appropriate Vital Signs Temp Pulse Resp BP Pulse Ox 96 F L 103 H 21 H 124/62 H 99 03/16/18 08:00 03/16/18 12:00 03/16/18 10:55 03/16/18 08:00 03/16/18 08:01 Oxygen Flow Rate (L/min) 4 Oxygen Delivery Method Nasal Cannula Weight: 103.9 kg Body Mass Index (BMI) 41.1 Finger Stick Blood Glucose 81 Intake and Output for Last 24 Hours 03/14/18 03/15/18 03/16/18 23:59 23:59 23:59 Intake Total 933.4 / 933.4 1604.8 / 1604.8 701.9 / 701.9 Output Total 1386 / 1386 400 / 400 50 / 50 Balance -452.6 / -452.6 1204.8 / 1204.8 651.9 / 651.9 Microbiology Past 72 Hours 03/16/18 06:50 C. difficile DNA Amplification - Final Stool Laboratory Tests Past 24 Hrs 03/15/18 03/15/18 03/15/18 17:30 17:30 17:30 WBC 7.3 RBC 4.36 Hgb 13.3 Hct 40.0 MCV 91.7 MCH 30.5 MCHC 33.3 RDW 17.5 H RDW Differential 59.6 H Plt Count 191 MPV 10.2 Immature Gran % (Auto) 0.100 Neut % (Auto) 86.3 H Lymph % (Auto) 8.6 L [place] % (Auto) 5.0 Eos % (Auto) 0.0 Baso % (Auto) 0.0 Absolute Neuts (auto) 6.3 Absolute Lymphs (auto) 0.63 L Total Counted Not Reportable PT INR APTT Sodium 120 L Potassium 4.6 Chloride 85 L Carbon Dioxide 21.0 Anion Gap 14 BUN 41 H Creatinine 1.84 H Estim Creat Clear Calc 20.25 Est GFR (MDRD) Af Amer 34 L Est GFR (MDRD) Non-Af 28 L BUN/Creatinine Ratio 22.3 H Glucose 191 H Lactic Acid Calcium 8.5 Phosphorus 5.9 H Magnesium 2.7 H Total Bilirubin AST ALT Alkaline Phosphatase Total Protein Albumin Globulin Albumin/Globulin Ratio 03/15/18 03/15/18 03/15/18 17:30 17:30 21:15 WBC RBC Hgb Hct MCV MCH MCHC RDW RDW Differential Plt Count MPV Immature Gran % (Auto) Neut % (Auto) Lymph % (Auto) [place] % (Auto) Eos % (Auto) Baso % (Auto) Absolute Neuts (auto) Absolute Lymphs (auto) Total Counted PT 22.1 H INR 1.9 APTT 47.4 H Sodium Potassium Chloride Carbon Dioxide Anion Gap BUN Creatinine Estim Creat Clear Calc Est GFR (MDRD) Af Amer Est GFR (MDRD) Non-Af BUN/Creatinine Ratio Glucose Lactic Acid 2.4 H 1.9 Calcium Phosphorus Magnesium Total Bilirubin AST ALT Alkaline Phosphatase Total Protein Albumin Globulin Albumin/Globulin Ratio 03/16/18 03/16/18 03/16/18 03:56 03:56 03:56 WBC 6.5 RBC 4.07 L Hgb 12.6 Hct 36.8 L MCV 90.4 MCH 31.0 MCHC 34.2 RDW 17.1 H RDW Differential 54.8 H Plt Count 173 MPV 10.3 Immature Gran % (Auto) Neut % (Auto) Lymph % (Auto) [place] % (Auto) Eos % (Auto) Baso % (Auto) Absolute Neuts (auto) Absolute Lymphs (auto) Total Counted PT INR APTT 249.8 H* Sodium 121 L Potassium 4.5 Chloride 85 L Carbon Dioxide 20.0 L Anion Gap 16 H BUN 47 H Creatinine 2.04 H Estim Creat Clear Calc 18.27 Est GFR (MDRD) Af Amer 30 L Est GFR (MDRD) Non-Af 25 L BUN/Creatinine Ratio 23.0 H Glucose 173 H Lactic Acid Calcium 7.9 L Phosphorus Magnesium Total Bilirubin 0.80 AST 36 ALT 15 Alkaline Phosphatase 181 H Total Protein 8.0 Albumin 2.1 L Globulin 5.9 H Albumin/Globulin Ratio 0.4 L POC Glucose 03/16/18 03/16/18 03/15/18 11:03 06:34 23:22 POC Glucose 177 H 185 H 201 H 03/15/18 17:00 POC Glucose 187 H Medical Necessity - Tobacco Use Smoking Status: Never smoker Assessment/Plan All Active Problems (Last Reviewed 06/03/17 @ 13:43 by Elvi López) Community acquired pneumonia (Acute) CHF (Acute) Hyponatremia (Acute) Shortness of breath (Acute) Acute on chronic diastolic heart failure (Acute) Epigastric abdominal pain (Resolved) Gastritis (Resolved) CKD stage 3. CONSTANTINE decompensated in last 2 days. creatinine is worse now. likely due to combination of CRS HRS. will push for diuresis as below Hyponatremia. severe. clinically significantly volume overloaded. sodium is at 121. resume lasix 40 mg TID IV CHF. significant volume overload. resume lasix CT abd shows cirrhosis, no hepatitis on file. prior SPEP was negative. salo Diaz and Dr Alba
[2018-03-16] MEDS: Glucerna Shake 120 ML LIQUID PO (14:04)
[2018-03-16] MEDS: Furosemide 40 MG/4 ML Vial IV ×2 (14:04→22:05)
[2018-03-16] MEDS: 0.9% NaCl Peripheral Flush Adult/Peds IV (14:05)
[2018-03-16 16:51] LABS: Bedside Glucose 189 mg/dL (70-110)
[2018-03-16 19:03] LABS: International Normalized Ratio 1.6; Prothrombin Time (Protime)PT. 18.9 SECONDS (11.7-14.9)
--- NOTE | 2018-03-16 20:23 | PCM.PROGNOTE ---
Subjective: All events of the past 24 hours of been reviewed. [address] scan of the abdomen and pelvis did not show bowel obstruction and the contrast passed through to the cecum. The CT did show a nodular liver consistent with cirrhosis. Review of an old ultrasound done in 2013 shows that she had fatty infiltration of the liver at that time and a CT scan of the abdomen and pelvis in October 2014 also showed fatty infiltration. Unfortunately she pulled out her NG tube and also her midline this morning. She tells me that her abdomen is less painful today although it is still distended. She denies nausea and has had no vomiting. She is tolerating liquids. She remains afebrile. Vital signs are stable. The blood pressure has improved and is currently 106/56. The heart rate has ranged from 92-104 bpm today. Urine output on 03/15/2018 was 300 cc and she has had 195 cc of urine today. She was seen by Dr. Mahajan who has restarted Lasix 40 mg IV 3 times daily. Her weight has increased from 224 pounds and 10 ounces on 2718-229 pounds and 0.96 ounces today. White blood cell count remains within normal limits at 6.5. Hemoglobin is 12.6 and platelets are normal. PT is prolonged at 18.9 and the INR is 1.6 and the patient has been off Eliquis for 24 hours. Serum sodium today is 121 and the BUN is 47 with a creatinine of 2.04, up from 1.18 at admission. She ells me today that she has been told in the past she had Hep B.......and thinks she was told at one time she had cirrhosis. she has had a blood transfusion in the past in 2017. Never a drinker and no hx of tattoos Objective: PHYSICAL EXAM: GENERAL: alert, oriented X 3, Cooperative, NAD, no conversational dyspnea ORAL: dry mucosa, no mucosal lesions NECK: + JVD, supple, trachea midline LUNGS: CTA but very diminished delia n the bases , symmetric chest expansion, no accessory muscle use HEART: irreg, Normal S1 and S2, no rub, no gallop TELEMETRY: remains in AF/flutter with adequate rate control ABDOMEN: firm, distended, pitting edema in the flanks, non-tender to palpation today EXTREMITIES: 4+ edema, no cyanosis, skin is tight and painful to palpate SKIN: No rashes, no breakdown NEUROLOGIC: no focal neurologic deficits PSYCH: appropriate, normal affect, pleasant......more alert today - Physical Exam Vital Signs Temp Pulse Resp BP Pulse Ox 97.5 F L 98 20 H 106/56 L 99 03/16/18 16:00 03/16/18 16:00 03/16/18 16:00 03/16/18 16:00 03/16/18 16:00 Oxygen Flow Rate (L/min) 4 Oxygen Delivery Method Nasal Cannula Weight: 229 lb 0.964 oz Body Mass Index (BMI) 41.1 Finger Stick Blood Glucose 81 Intake and Output for Last 24 Hours 03/14/18 03/15/18 03/16/18 23:59 23:59 23:59 Intake Total 933.4 / 933.4 1604.8 / 1604.8 1084.9 / 1084.9 Output Total 1386 / 1386 400 / 400 195 / 195 Balance -452.6 / -452.6 1204.8 / 1204.8 889.9 / 889.9 Microbiology Past 72 Hours 03/16/18 06:50 C. difficile DNA Amplification - Final Stool Laboratory Tests Past 24 Hrs 03/15/18 03/15/18 03/16/18 17:30 21:15 03:56 WBC 6.5 RBC 4.07 L Hgb 12.6 Hct 36.8 L MCV 90.4 MCH 31.0 MCHC 34.2 RDW 17.1 H RDW Differential 54.8 H Plt Count 173 MPV 10.3 PT 22.1 H INR 1.9 APTT 47.4 H Sodium Potassium Chloride Carbon Dioxide Anion Gap BUN Creatinine Estim Creat Clear Calc Est GFR (MDRD) Af Amer Est GFR (MDRD) Non-Af BUN/Creatinine Ratio Glucose Lactic Acid 1.9 Calcium Total Bilirubin AST ALT Alkaline Phosphatase Total Protein Albumin Globulin Albumin/Globulin Ratio 03/16/18 03/16/18 03/16/18 03:56 03:56 18:04 WBC RBC Hgb Hct MCV MCH MCHC RDW RDW Differential Plt Count MPV PT 18.9 H INR 1.6 APTT 249.8 H* Sodium 121 L Potassium 4.5 Chloride 85 L Carbon Dioxide 20.0 L Anion Gap 16 H BUN 47 H Creatinine 2.04 H Estim Creat Clear Calc 18.27 Est GFR (MDRD) Af Amer 30 L Est GFR (MDRD) Non-Af 25 L BUN/Creatinine Ratio 23.0 H Glucose 173 H Lactic Acid Calcium 7.9 L Total Bilirubin 0.80 AST 36 ALT 15 Alkaline Phosphatase 181 H Total Protein 8.0 Albumin 2.1 L Globulin 5.9 H Albumin/Globulin Ratio 0.4 L POC Glucose 03/16/18 03/16/18 03/16/18 16:28 11:03 06:34 POC Glucose 189 H 177 H 185 H 03/15/18 23:22 POC Glucose 201 H Medical Necessity - Tobacco Use Smoking Status: Never smoker Assessment/Plan All Active Problems (Last Reviewed 06/03/17 @ 13:43 by Elvi López) Community acquired pneumonia (Acute) CHF (Acute) Hyponatremia (Acute) Shortness of breath (Acute) Acute on chronic diastolic heart failure (Acute) Epigastric abdominal pain (Resolved) Gastritis (Resolved) Impressions 1. anasarca with ascites and BL pleural effusions 2. Acute hypoxic respiratory insufficiency secondary to decompensated congestive heart failure. 3. Atrial flutter with rapid ventricular response-currently controlled with Cardizem infusion 4. Oliguric acute kidney injury - HRS? due to decreased IV volume related to severe hypoalbuminemia? 5. Hyponatremia-related to fluid overload per nephrology consult 6. Diabetes mellitus type 2 7. GERD 8. Morbid obesity 9. Hyperlipidemia 10. Mild nonrheumatic aortic stenosis 11. Pulmonary hypertension 12. Sjogren's syndrome 13. Right carotid stenosis 14. PT prolongation - still due to effects of the Eliquis discontinued 24 hours ago? or to to chronic liver disease? 15. Cirrhosis suspected on the CT of the abdomen - due to KEATING? Hepatitis? pulmonary HTN? TR? 16. Moderate malnutrition Intravenous Lasix restarted at 40 mg IV 3 times daily. Will order 3 doses total of albumin 25 g to be given 1 hour prior to the Lasix doses and then discontinued after 3 doses Recheck PT/INR in the a.m. Hold Eliquis and heparin has been discontinued Paracentesis in the a.m.-this was discussed with the patient and her daughter and they are both agreeable if it makes her more comfortable Order diagnostic labs on the parasitic fluid Hepatitis panel ordered Ammonia level in the a.m. Full liquid diet today Consult the fashion intern for recommendations on how to increase the protein and calorie intake without increasing salt and fluid too much CODE STATUS: Discussed code status at length with the patient and her daughter Maricarmen including the difference between FULL CODE, DNR CCA and DNR CC status. All questions were answered. An order for DNR CC arrest was entered into the computer. A total of 20 minutes face to face time was devoted to advanced care planning. A MOLST form was completed and placed on the chart. Code Visit Inpatient E&M: 74299 Subs Hosp L3
[2018-03-16] MEDS: Albumin Human 25% (100 mL) 25 GM/100 ML BAG IV (22:03)
[2018-03-16] MEDS: Pantoprazole Sodium 20 MG Tablet PO (22:04)
[2018-03-16] MEDS: levoFLOXacin IV 250 MG/50 ML BAG 50 MG IV (22:04)
[2018-03-16] MEDS: Petrolatum,White 3.75GM OPTH.TUBE 1 APPLIC OP (22:05)
[2018-03-16 22:40] LABS: Bedside Glucose 200 mg/dL (70-110)
[2018-03-17] VITALS (19 sets, daily range): BP systolic 103–116; BP diastolic 51–71; PULSE 97–103; RESP 18–20; TEMP 36.3–37.2; O2SAT 88–97
[2018-03-17] MEDS: Morphine 2 MG/ML Syringe IV ×3 (00:45→19:14)
[2018-03-17] MEDS: 0.9% NaCl Peripheral Flush Adult/Peds IV ×8 (03:20→21:17)
[2018-03-17 03:59] LABS: International Normalized Ratio 1.5; Prothrombin Time (Protime)PT. 18.2 SECONDS (11.7-14.9)
[2018-03-17 04:16] LABS: ALB/GLOB Ratio 0.4 RATIO (0.9-2.4); AST(SGOT) 37 U/L (15-37); Alanine Aminotransfer ALT/SGPT 16 U/L (13-56); Albumin, Serum 2.3 g/dL (3.2-5.0); Alkaline Phosphatase 174 U/L (45-117); Anion Gap 15 (5-15); BUN 55 mg/dL (7-18); BUN/Creat Ratio 23.5 RATIO (10-20); Calcium,Total 7.9 mg/dL (8.5-10.1); Chloride 85 mmol/L (98-107); Creatinine, Serum 2.34 mg/dL (0.55-1.02); EST Glomerular Filtration Rate 21 mL/min (>60); Est Glom Filt Rate - Afr Amer 26 mL/min (>60); Estimated Creatinine Clearance 15.92 ml/min; Globulin 5.5 g/dL (2.2-4.2); Glucose 167 mg/dL (74-106); Phosphorus 6.1 mg/dL (2.5-4.9); Potassium 4.8 mmol/L (3.5-5.1); Protein, Total 7.8 g/dL (6.4-8.2); Sodium Level 121 mmol/L (136-145)
[2018-03-17] MEDS: Albumin Human 25% (100 mL) 25 GM/100 ML BAG IV ×2 (05:41→14:26)
[2018-03-17] MEDS: Furosemide 40 MG/4 ML Vial IV ×3 (06:23→21:14)
[2018-03-17 07:00] LABS: Bedside Glucose 189 mg/dL (70-110)
--- NOTE | 2018-03-17 07:26 | PN.CARD_ITS ---
Subjectve: Patient seen and evaluated Objective: Vital Signs Temp Pulse Resp BP Pulse Ox 98.7 F 97 20 H 104/59 L 97 03/17/18 04:00 03/17/18 04:00 03/17/18 04:00 03/17/18 04:00 03/17/18 04:00 Oxygen Flow Rate (L/min) 4 Oxygen Delivery Method Nasal Cannula Weight: 229 lb 0.964 oz Body Mass Index (BMI) 41.1 Finger Stick Blood Glucose 81 Intake and Output for Last 24 Hours 03/15/18 03/16/18 03/17/18 23:59 23:59 23:59 Intake Total 1604.8 / 1604.8 1084.9 / 1084.9 383 / 383 Output Total 400 / 400 195 / 195 375 / 375 Balance 1204.8 / 1204.8 889.9 / 889.9 8 / 8 General: Awake, Alert, Oriented x 3, Ill Appearing HEENT: PERRL, EOMI, Sclera Non Icteric Oral: Moist Mucosa Neck: Supple, Good ROM, No Lymph Node Enlargement Lungs: Clear to auscultation Cardiovascular: Regular Rhythm, Normal S1, Normal S2, No Murmurs, No Rubs, No Gallops Vascular: No Carotid Bruits, Normal Femoral Pulses, Normal Radial Pulses, Normal Dorsalis Pedal Pulse, Normal Posterior Tibial Pulses Abdomen: Non Tender, No HSM, No Organomegaly, Hypoactive Bowel Sounds, Distended Extremities: No Cyanosis, No Clubbing, Bilateral Edema +2 Musculoskeletal: No Erythema Skin: No Rashes Neurological: No Focal Motor or Sensory Deficit Psych/Mental Status: Appropriate 03/16/18 18:04: PT 18.9 H, INR 1.6 03/17/18 03:30: Sodium 121 L, Potassium 4.8, Chloride 85 L, Carbon Dioxide 21.0, Anion Gap 15, BUN 55 H, Creatinine 2.34 H, Est GFR (MDRD) Af Amer 26 L, Est GFR (MDRD) Non-Af 21 L, BUN/Creatinine Ratio 23.5 H, Glucose 167 H, Calcium 7.9 L, Phosphorus 6.1 H, Total Bilirubin 0.80 03/17/18 03:30: PT 18.2 H, INR 1.5 Rhythm: EKG: ECHO: Stress Test: Cardiac Cath: PCI: CT Surgery: Holter monitor: EPS: PPM: CXR: Chest CT Scan: Medical Necessity - Tobacco Use Smoking Status: Never smoker Assessment/Plan 1. Congestive heart failure-acute diastolic * The patient presents with shortness of breath and anasarca as well as tachycardia. It appears that she has been in atrial flutter with a rapid response rate which has not been controlled. This is likely the etiology for her shortness of breath. * Will discuss with hospitalist about IV fluid requirements balancing with diuresis * Continue beta-franny. * 2. Atrial flutter with variable block * Patient appears to be in atrial flutter with variable block. The exact d uration is unclear at this time. Would recommend rate control with intravenous Cardizem and beta-franny and will attempt to transition the above today * Will anticoagulate with oral apixaban-which appears has been discontinued pending possible surgical evaluation * 3. Hypertension * Patient appears to be hypertensive which is under good control and will continue. * 4. Valvular heart disease * Patient has aortic stenosis which appears to be mild as well as mitral annular calcification. * Will pursue expectant management. * She appears to have low flow low gradient aortic stenosis. This will be addressed when she is heart of heart failure. * 5. Cardiomyopathy * She has a global cardiomyopathy with an estimated ejection fraction of 30% * We will continue beta-franny * Will discontinue JORDYN inhibitor due to the hypotension. * * Overall long-term prognosis is rather guarded. We will continue with cautious diuresis balancing with fluid requirements. Above discussed with hospitalist and renal service. * * Thank you for allowing me to participate in the care of your patient. Please don't hesitate to call if any issues arise
[2018-03-17] MEDS: Ipratropium/Albuterol Sulfate 3 ML AMPUL.NEB INHALATION ×4 (07:31→19:25)
--- NOTE | 2018-03-17 07:58 | PCM.PN.SRG ---
Subjective: I just want to go home. - Physical Exam General: Oriented x3, Cooperative Lungs: Diminished, - - distant, Cardiovascular: Regular rate, Murmur Abdomen: Bowel Sounds Present, Soft, Hypoactive Bowel Sounds, Distended Extremities: Edema Vital Signs Temp Pulse Resp BP Pulse Ox 98.7 F 98 20 H 104/59 L 96 03/17/18 04:00 03/17/18 07:29 03/17/18 07:29 03/17/18 04:00 03/17/18 07:29 Oxygen Flow Rate (L/min) 4 Oxygen Delivery Method Nasal Cannula Weight: 103.9 kg Body Mass Index (BMI) 41.1 Finger Stick Blood Glucose 81 Intake and Output for Last 24 Hours 03/15/18 03/16/18 03/17/18 23:59 23:59 23:59 Intake Total 1604.8 / 1604.8 1084.9 / 1084.9 383 / 383 Output Total 400 / 400 195 / 195 375 / 375 Balance 1204.8 / 1204.8 889.9 / 889.9 8 / 8 Microbiology Past 72 Hours 03/16/18 06:50 C. difficile DNA Amplification - Final Stool Laboratory Tests Past 24 Hrs 03/16/18 03/17/18 03/17/18 18:04 03:30 03:30 PT 18.9 H INR 1.6 Sodium 121 L Potassium 4.8 Chloride 85 L Carbon Dioxide 21.0 Anion Gap 15 BUN 55 H Creatinine 2.34 H Estim Creat Clear Calc 15.92 Est GFR (MDRD) Af Amer 26 L Est GFR (MDRD) Non-Af 21 L BUN/Creatinine Ratio 23.5 H Glucose 167 H Calcium 7.9 L Phosphorus 6.1 H Total Bilirubin 0.80 AST 37 ALT 16 Alkaline Phosphatase 174 H Ammonia Total Protein 7.8 Albumin 2.3 L Globulin 5.5 H Albumin/Globulin Ratio 0.4 L Hepatitis A IgM Ab Pending Hepatitis A Ab Total Pending Hep Bs Antigen Pending Hep B Core Total Ab Pending Hep B Core IgM Ab Pending 03/17/18 03/17/18 03:30 03:30 PT 18.2 H INR 1.5 Sodium Potassium Chloride Carbon Dioxide Anion Gap BUN Creatinine Estim Creat Clear Calc Est GFR (MDRD) Af Amer Est GFR (MDRD) Non-Af BUN/Creatinine Ratio Glucose Calcium Phosphorus Total Bilirubin AST ALT Alkaline Phosphatase Ammonia 31.0 Total Protein Albumin Globulin Albumin/Globulin Ratio Hepatitis A IgM Ab Hepatitis A Ab Total Hep Bs Antigen Hep B Core Total Ab Hep B Core IgM Ab POC Glucose 03/17/18 03/16/18 03/16/18 06:49 22:29 16:28 POC Glucose 189 H 200 H 189 H 03/16/18 11:03 POC Glucose 177 H Medical Necessity - Tobacco Use Smoking Status: Never smoker Assessment/Plan All Active Problems (Last Reviewed 06/03/17 @ 13:43 by Elvi López) Community acquired pneumonia (Acute) CHF (Acute) Hyponatremia (Acute) Shortness of breath (Acute) Acute on chronic diastolic heart failure (Acute) Epigastric abdominal pain (Resolved) Gastritis (Resolved) moderate colonic distention without signs of true small bowel obstruction or colonic pseudoobstruction, severe anasarca, electrolyte abnormalities, severe congestive heart failure. KUB yesterday demonstrated contrast to cecum. I would plan for ensure would agree with continued diuresis as her blood pressure allows - but patient no oliguric. Would consider electrolyte correction with hypertonic saline and/or albumin infusion to see if this is able to improve her blood pressure and urine output. At this point, would consider dialysis if patient agreeable, but after talking with patient, anticipate she would prefer to go home with hospice. At this point in time I don't see significant dilation that would necessitate colonic decompression. Happy to follow patient with you.
[2018-03-17] MEDS: Insulin Lispro 100 UNIT/ML INSULN.PEN SQ ×3 (09:37→17:11)
[2018-03-17] MEDS: Glycerin/Hypromellose/PEG400 15 ml Bottle 1 DRP EACH EYE (09:39)
[2018-03-17] MEDS: Pantoprazole Sodium 20 MG Tablet PO ×2 (09:40→21:13)
[2018-03-17] MEDS: Metoprolol Tartrate 50 MG Tablet PO ×2 (09:40→21:14)
[2018-03-17 11:41] LABS: Bedside Glucose 162 mg/dL (70-110)
[2018-03-17] MEDS: Glucerna Shake 120 ML LIQUID PO (14:26)
--- NOTE | 2018-03-17 15:03 | PCM.PN.REN ---
Subjective: no significant urine output - Physical Exam General: Alert, Oriented x3, Cooperative HEENT: Atraumatic, PERRLA, EOMI, Normocephalic Neck: Supple, No JVD, Negative Carotid Bruits Lungs: Clear to auscultation, Normal air movement Cardiovascular: Regular rate, No murmurs Abdomen: Bowel Sounds Present, Soft, Non Tender Extremities: Capillary Refill Less than 3 Seconds, Edema Skin: No rashes, No breakdown Musculoskeletal: No Tenderness to Palpation of Joints or Extremities Neurological: Cranial nerves II-XII grossly intact Psych/Mental Status: Normal Affect, Appropriate Vital Signs Temp Pulse Resp BP Pulse Ox 98.0 F 100 20 H 112/57 L 95 03/17/18 14:48 03/17/18 15:02 03/17/18 15:02 03/17/18 14:48 03/17/18 14:48 Oxygen Flow Rate (L/min) 4 Oxygen Delivery Method Nasal Cannula Weight: 105.5 kg Body Mass Index (BMI) 41.1 Finger Stick Blood Glucose 81 Intake and Output for Last 24 Hours 03/15/18 03/16/18 03/17/18 23:59 23:59 23:59 Intake Total 1604.8 / 1604.8 1084.9 / 1084.9 508 / 508 Output Total 400 / 400 195 / 195 475 / 475 Balance 1204.8 / 1204.8 889.9 / 889.9 33 / 33 Microbiology Past 72 Hours 03/16/18 06:50 C. difficile DNA Amplification - Final Stool Laboratory Tests Past 24 Hrs 03/16/18 03/17/18 03/17/18 18:04 03:30 03:30 PT 18.9 H INR 1.6 Sodium 121 L Potassium 4.8 Chloride 85 L Carbon Dioxide 21.0 Anion Gap 15 BUN 55 H Creatinine 2.34 H Estim Creat Clear Calc 15.92 Est GFR (MDRD) Af Amer 26 L Est GFR (MDRD) Non-Af 21 L BUN/Creatinine Ratio 23.5 H Glucose 167 H Calcium 7.9 L Phosphorus 6.1 H Total Bilirubin 0.80 AST 37 ALT 16 Alkaline Phosphatase 174 H Ammonia Total Protein 7.8 Albumin 2.3 L Globulin 5.5 H Albumin/Globulin Ratio 0.4 L Hepatitis A IgM Ab Pending Hepatitis A Ab Total Pending Hep Bs Antigen Pending Hep B Core Total Ab Pending Hep B Core IgM Ab Pending Hepatitis C Ab (EIA) 03/17/18 03/17/18 03/17/18 03:30 03:30 03:30 PT 18.2 H INR 1.5 Sodium Potassium Chloride Carbon Dioxide Anion Gap BUN Creatinine Estim Creat Clear Calc Est GFR (MDRD) Af Amer Est GFR (MDRD) Non-Af BUN/Creatinine Ratio Glucose Calcium Phosphorus Total Bilirubin AST ALT Alkaline Phosphatase Ammonia 31.0 Total Protein Albumin Globulin Albumin/Globulin Ratio Hepatitis A IgM Ab Hepatitis A Ab Total Hep Bs Antigen Hep B Core Total Ab Hep B Core IgM Ab Hepatitis C Ab (EIA) Pending POC Glucose 03/17/18 03/17/18 03/16/18 11:31 06:49 22:29 POC Glucose 162 H 189 H 200 H 03/16/18 16:28 POC Glucose 189 H Medical Necessity - Tobacco Use Smoking Status: Never smoker Assessment/Plan All Active Problems (Last Reviewed 06/03/17 @ 13:43 by Elvi López) Community acquired pneumonia (Acute) CHF (Acute) Hyponatremia (Acute) Shortness of breath (Acute) Acute on chronic diastolic heart failure (Acute) Epigastric abdominal pain (Resolved) Gastritis (Resolved) CKD stage 3. CONSTANTINE decompensated in last 2 days. creatinine is worse now. likely due to combination of CRS HRS. Hyponatremia. severe. clinically significantly volume overloaded. sodium is at 121. continue lasix 40 mg TID IV CHF. significant volume overload. on lasix CT abd shows cirrhosis, no hepatitis on file. prior SPEP was negative. she now has liver cirrhosis of unclear etiology, CHF with low EF and renal failure. Multi organ failure. planning for hospice. appropriate given her several comorbidities.
[2018-03-17 17:20] LABS: Bedside Glucose 170 mg/dL (70-110)
--- NOTE | 2018-03-17 18:33 | PCM.PROGNOTE ---
Subjective: All events of the past 24 hours of been reviewed Remains afebrile. Blood pressure has improved and has ranged from 104 over 59-112/57 today. Heart rate on the vital signs appears to be controlled Telemetry: AFlutter with mostly controlled VR - no significant ventricular ectopy She is 95% saturated on a 4 L nasal cannula today. Fluid balance on 03/16/2018 was +890. Urine output was 195. So far today she has had 758 in and 700 cc of urine out. All lab was personally reviewed. PT is 18.2 today and stable. Sodium is stable at 121 and the BUN today is 55 with a creatinine of 2.34 which is up from 2.04 on 03/16/2018. Phosphorus is high at 6 0.1 today and the albumin is up to 2.3 from 1.5 following 3 doses of 25 g of salt poor albumin. Hepatitis panel is pending. Blood sugars are adequately controlled. Her biggest complaint today is that she has not slept in 3 nights and she would like to have a sleeping pill tonight. She would also like to advance the diet. Denies N/V. Denies abdominal pain. Dr. Posada attempted paracentesis today but, no significant fluid to drain Objective: PHYSICAL EXAM: GENERAL: alert, oriented X 3, Cooperative, NAD, no conversational dyspnea, looks tired ORAL: dry mucosa, no mucosal lesions NECK: + JVD, supple, trachea midline LUNGS: CTA but very diminished delia n the bases, no rales, no wheezes, symmetric chest expansion, no accessory muscle use, not tachypneic at rest HEART: irreg, Normal S1 and S2, no rub, no gallop TELEMETRY: remains in AF/flutter with adequate rate control ABDOMEN: firm, distended, pitting edema in the flanks, non-tender to palpation today EXTREMITIES: 4+ edema, no cyanosis, skin is tight and painful to palpate SKIN: No rashes, no breakdown NEUROLOGIC: no focal neurologic deficits PSYCH: appropriate, normal affect, pleasant. - Physical Exam Vital Signs Temp Pulse Resp BP Pulse Ox 98.0 F 100 20 H 112/57 L 95 03/17/18 14:48 03/17/18 15:12 03/17/18 15:02 03/17/18 14:48 03/17/18 14:48 Oxygen Flow Rate (L/min) 4 Oxygen Delivery Method Nasal Cannula Weight: 232 lb 9.403 oz Body Mass Index (BMI) 41.1 Finger Stick Blood Glucose 81 Intake and Output for Last 24 Hours 03/15/18 03/16/18 03/17/18 23:59 23:59 23:59 Intake Total 1604.8 / 1604.8 1084.9 / 1084.9 758 / 758 Output Total 400 / 400 195 / 195 700 / 700 Balance 1204.8 / 1204.8 889.9 / 889.9 58 / 58 Microbiology Past 72 Hours 03/16/18 06:50 C. difficile DNA Amplification - Final Stool Laboratory Tests Past 24 Hrs 03/16/18 03/17/18 03/17/18 18:04 03:30 03:30 PT 18.9 H INR 1.6 Sodium 121 L Potassium 4.8 Chloride 85 L Carbon Dioxide 21.0 Anion Gap 15 BUN 55 H Creatinine 2.34 H Estim Creat Clear Calc 15.92 Est GFR (MDRD) Af Amer 26 L Est GFR (MDRD) Non-Af 21 L BUN/Creatinine Ratio 23.5 H Glucose 167 H Calcium 7.9 L Phosphorus 6.1 H Total Bilirubin 0.80 AST 37 ALT 16 Alkaline Phosphatase 174 H Ammonia Total Protein 7.8 Albumin 2.3 L Globulin 5.5 H Albumin/Globulin Ratio 0.4 L Hepatitis A IgM Ab Pending Hepatitis A Ab Total Pending Hep Bs Antigen Pending Hep B Core Total Ab Pending Hep B Core IgM Ab Pending Hepatitis C Ab (EIA) 03/17/18 03/17/18 03/17/18 03:30 03:30 03:30 PT 18.2 H INR 1.5 Sodium Potassium Chloride Carbon Dioxide Anion Gap BUN Creatinine Estim Creat Clear Calc Est GFR (MDRD) Af Amer Est GFR (MDRD) Non-Af BUN/Creatinine Ratio Glucose Calcium Phosphorus Total Bilirubin AST ALT Alkaline Phosphatase Ammonia 31.0 Total Protein Albumin Globulin Albumin/Globulin Ratio Hepatitis A IgM Ab Hepatitis A Ab Total Hep Bs Antigen Hep B Core Total Ab Hep B Core IgM Ab Hepatitis C Ab (EIA) Pending POC Glucose 03/17/18 03/17/18 03/17/18 17:06 11:31 06:49 POC Glucose 170 H 162 H 189 H 03/16/18 22:29 POC Glucose 200 H Medical Necessity - Tobacco Use Smoking Status: Never smoker Assessment/Plan All Active Problems (Last Reviewed 06/03/17 @ 13:43 by Elvi López) Community acquired pneumonia (Acute) CHF (Acute) Hyponatremia (Acute) Shortness of breath (Acute) Acute on chronic diastolic heart failure (Acute) Epigastric abdominal pain (Resolved) Gastritis (Resolved) Impressions 1. anasarca with ascites and BL pleural effusions - no significant ascites to tap on the paracentesis today so the procedure was cancelled 2. Acute hypoxic respiratory insufficiency secondary to decompensated systolic congestive heart failure. 3. Atrial flutter with rapid ventricular response-currently controlled with metoprolol and the BP is WNL 4. Oliguric acute kidney injury until today and today after the 3 doses of albumin the urine OP has been 700 cc 5. Hyponatremia-related to fluid overload per nephrology consult 6. Diabetes mellitus type 2-blood sugars are adequately controlled 7. GERD 8. Morbid obesity 9. Hyperlipidemia 10. Mild nonrheumatic aortic stenosis 11. Pulmonary hypertension 12. Sjogren's syndrome 13. Right carotid stenosis 14. PT prolongation - still due to effects of the Eliquis discontinued 24 hours ago? or to to chronic liver disease? 15. Cirrhosis suspected on the CT of the abdomen - due to KEATING? Hepatitis? pulmonary HTN? TR? Cardiac cirrhosis? 16. Moderate malnutrition I had a discussion with Myron and dtr Maricarmen and Myron is not ready to give up. We discussed a possible hospice consult but, she is not ready at this time and wants to live but not suffer. She wants to keep trying to get better. Will keep the DNR CCA code status Continue Lasix 40 mg IV 3 times daily Recheck renal profile in the a.m. I hesitate to restart Eliquis in light of the prolonged PT and evidence of cirrhosis on the CT scan of the abdomen but will start warfarin 1 mg daily for persistent atrial fib/flutter Hepatitis panel is pending Ativan 0.5 mg PO at HS nightly She would like to get up in a chair tomorrow and will order PT/OT consults Code Visit Inpatient E&M: [id number] [facility] Hosp L3
[2018-03-17 19:19] LABS: T4 Free Direct 1.01 ng/dL (0.76-1.46)
--- NOTE | 2018-03-17 20:30 | US_ITS ---
STUDY: ABDOMINAL ULTRASOUND -4 quadrants. REASON FOR VISIT: Female, 77 years old. Assessment for ascites and possible paracentesis. TECHNIQUE: Ultrasound evaluation of the 4 quadrants was performed with real-time and static kasper-scale imaging. TECHNICAL QUALITY: Adequate. COMPARISON: None. FINDINGS: A small amount of ascitic fluid is seen in the right lower quadrant. Not enough fluid for safe paracentesis. US/Abdomen Limited IMPRESSION: Small amount of fluid in the right lower quadrant. Not enough fluid for paracentesis. Electronically Signed: Declan Posada MD at 14:16 EST , Service support ,
[2018-03-17] MEDS: Petrolatum,White 3.75GM OPTH.TUBE 1 APPLIC OP (21:13)
[2018-03-17] MEDS: LORazepam 0.5 MG Tablet PO (21:17)
[2018-03-17 21:45] LABS: Bedside Glucose 138 mg/dL (70-110)
[2018-03-18] VITALS (20 sets, daily range): BP systolic 94–117; BP diastolic 55–79; PULSE 99–105; RESP 12–24; TEMP 36.3–36.6; O2SAT 90–99
[2018-03-18] MEDS: LORazepam 0.5 MG Tablet PO ×2 (00:36→21:13)
[2018-03-18] MEDS: 0.9% NaCl Peripheral Flush Adult/Peds IV ×6 (01:27→14:29)
[2018-03-18] MEDS: Morphine 2 MG/ML Syringe IV ×2 (01:27→05:52)
[2018-03-18 04:59] LABS: International Normalized Ratio 1.5; Prothrombin Time (Protime)PT. 18.2 SECONDS (11.7-14.9)
[2018-03-18 05:06] LABS: Anion Gap 14 (5-15); BUN 67 mg/dL (7-18); BUN/Creat Ratio 29.5 RATIO (10-20); Chloride 85 mmol/L (98-107); Creatinine, Serum 2.27 mg/dL (0.55-1.02); EST Glomerular Filtration Rate 22 mL/min (>60); Est Glom Filt Rate - Afr Amer 27 mL/min (>60); Estimated Creatinine Clearance 16.41 ml/min; Glucose 129 mg/dL (74-106); Potassium 4.7 mmol/L (3.5-5.1); Sodium Level 120 mmol/L (136-145)
[2018-03-18 05:07] LABS: HEPATITIS B SURFACE AG Negative (Negative); Hepatitis A IgM Antibody Negative (Negative); Hepatitis B Core AB IgM Negative (Negative); Hepatitis B Core Ab Total Negative (Negative); Hepatitis C Ab 0.1 s/co ratio (0.0-0.9)
[2018-03-18] MEDS: Furosemide 40 MG/4 ML Vial IV (05:24)
[2018-03-18] MEDS: Ipratropium/Albuterol Sulfate 3 ML AMPUL.NEB INHALATION ×2 (06:08→20:10)
[2018-03-18 06:56] LABS: Bedside Glucose 126 mg/dL (70-110)
--- NOTE | 2018-03-18 08:07 | PCM.PN.CARD ---
Subjectve: Patient seen and evaluated. Objective: Vital Signs Temp Pulse Resp BP Pulse Ox 97.9 F 105 H 24 H 106/62 92 03/18/18 05:22 03/18/18 06:08 03/18/18 06:08 03/18/18 05:22 03/18/18 06:11 Oxygen Flow Rate (L/min) 11 Oxygen Delivery Method Nasal Cannula Weight: 235 lb 0.204 oz Body Mass Index (BMI) 41.1 Finger Stick Blood Glucose 81 Intake and Output for Last 24 Hours 03/16/18 03/17/18 03/18/18 23:59 23:59 23:59 Intake Total 1084.9 / 1084.9 878 / 878 60 / 60 Output Total 195 / 195 800 / 800 125 / 125 Balance 889.9 / 889.9 78 / 78 -65 / -65 General: Awake, Alert, Oriented x 3 HEENT: PERRL, EOMI, Sclera Non Icteric Neck: Supple, Good ROM, No Lymph Node Enlargement Lungs: Clear to auscultation Cardiovascular: Regular Rhythm, Normal S1, Normal S2, No Murmurs, No Rubs, No Gallops Extremities: Bilateral Edema +2 Neurological: No Focal Motor or Sensory Deficit 03/18/18 04:30: Sodium 120 L, Potassium 4.7, Chloride 85 L, Carbon Dioxide 21.0, Anion Gap 14, BUN 67 H, Creatinine 2.27 H, Est GFR (MDRD) Af Amer 27 L, Est GFR (MDRD) Non-Af 22 L, BUN/Creatinine Ratio 29.5 H, Glucose 129 H, Calcium 8.0 L 03/18/18 04:30: PT 18.2 H, INR 1.5 Rhythm: EKG: ECHO: Stress Test: Cardiac Cath: PCI: CT Surgery: Holter monitor: EPS: PPM: CXR: Chest CT Scan: Medical Necessity - Tobacco Use Smoking Status: Never smoker Assessment/Plan 1. Congestive heart failure-acute diastolic The patient presents with shortness of breath and anasarca as well as tachycardia. It appears that she has been in atrial flutter with a rapid response rate which has not been controlled. This is likely the etiology for her shortness of breath. Will continue with intravenous diuresis at this time as per nephrology Continue beta-franny. 2. Atrial flutter with variable block Patient appears to be in atrial flutter with variable block. The exact duration is unclear at this time. Would recommend rate control with intravenous Cardizem and beta-franny and will attempt to transition the above today Will anticoagulate with oral apixaban-which appears has been discontinued pending possible surgical evaluation 3. Hypertension Patient appears to be hypertensive which is under good control and will continue. 4. Valvular heart disease Patient has aortic stenosis which appears to be mild as well as mitral annular calcification. Will pursue expectant management. She appears to have low flow low gradient aortic stenosis. This will be addressed when she is heart of heart failure. 5. Cardiomyopathy She has a global cardiomyopathy with an estimated ejection fraction of 30% We will continue beta-franny Will discontinue JORDYN inhibitor due to the hypotension. Overall long-term prognosis is rather guarded. We will continue with cautious diuresis balancing with fluid requirements. Above discussed with hospitalist and renal service. Thank you for allowing me to participate in the care of your patient. Please don't hesitate to call if any issues arise
--- NOTE | 2018-03-18 08:12 | PN.CARD_ITS ---
Subjectve: Patient seen and evaluated. Objective: Vital Signs Temp Pulse Resp BP Pulse Ox 97.9 F 105 H 24 H 106/62 92 03/18/18 05:22 03/18/18 06:08 03/18/18 06:08 03/18/18 05:22 03/18/18 06:11 Oxygen Flow Rate (L/min) 11 Oxygen Delivery Method Nasal Cannula Weight: 235 lb 0.204 oz Body Mass Index (BMI) 41.1 Finger Stick Blood Glucose 81 Intake and Output for Last 24 Hours 03/16/18 03/17/18 03/18/18 23:59 23:59 23:59 Intake Total 1084.9 / 1084.9 878 / 878 60 / 60 Output Total 195 / 195 800 / 800 125 / 125 Balance 889.9 / 889.9 78 / 78 -65 / -65 General: Awake, Alert, Oriented x 3 HEENT: PERRL, EOMI, Sclera Non Icteric Neck: Supple, Good ROM, No Lymph Node Enlargement Lungs: Clear to auscultation Cardiovascular: Regular Rhythm, Normal S1, Normal S2, No Murmurs, No Rubs, No Gallops Extremities: Bilateral Edema +2 Neurological: No Focal Motor or Sensory Deficit 03/18/18 04:30: Sodium 120 L, Potassium 4.7, Chloride 85 L, Carbon Dioxide 21.0, Anion Gap 14, BUN 67 H, Creatinine 2.27 H, Est GFR (MDRD) Af Amer 27 L, Est GFR (MDRD) Non-Af 22 L, BUN/Creatinine Ratio 29.5 H, Glucose 129 H, Calcium 8.0 L 03/18/18 04:30: PT 18.2 H, INR 1.5 Rhythm: EKG: ECHO: Stress Test: Cardiac Cath: PCI: CT Surgery: Holter monitor: EPS: PPM: CXR: Chest CT Scan: Medical Necessity - Tobacco Use Smoking Status: Never smoker Assessment/Plan 1. Congestive heart failure-acute diastolic * The patient presents with shortness of breath and anasarca as well as tachycardia. It appears that she has been in atrial flutter with a rapid response rate which has not been controlled. This is likely the etiology for her shortness of breath. * Will continue with intravenous diuresis at this time as per nephrology * Continue beta-franny. * 2. Atrial flutter with variable block * Patient appears to be in atrial flutter with variable block. The exact duration is unclear at this time. Would recommend rate control with intra venous Cardizem and beta-franny and will attempt to transition the above today * Will anticoagulate with oral apixaban-which appears has been discontinued pending possible surgical evaluation * 3. Hypertension * Patient appears to be hypertensive which is under good control and will continue. * 4. Valvular heart disease * Patient has aortic stenosis which appears to be mild as well as mitral annular calcification. * Will pursue expectant management. * She appears to have low flow low gradient aortic stenosis. This will be addressed when she is heart of heart failure. * 5. Cardiomyopathy * She has a global cardiomyopathy with an estimated ejection fraction of 30% * We will continue beta-franny * Will discontinue JORDYN inhibitor due to the hypotension. * * Overall long-term prognosis is rather guarded. We will continue with cautious diuresis balancing with fluid requirements. Above discussed with hospitalist and renal service. * * Thank you for allowing me to participate in the care of your patient. Please don't hesitate to call if any issues arise
[2018-03-18] MEDS: Glucerna Shake 120 ML LIQUID PO ×2 (09:59→17:51)
[2018-03-18] MEDS: Metoprolol Tartrate 50 MG Tablet PO ×2 (10:00→21:24)
[2018-03-18] MEDS: Pantoprazole Sodium 20 MG Tablet PO ×2 (10:00→21:25)
[2018-03-18] MEDS: Glycerin/Hypromellose/PEG400 15 ml Bottle 1 DRP EACH EYE (10:03)
[2018-03-18 11:10] LABS: Hep B Surface Antibodies Non Reactive (.); Hep C Antibodies 0.1 s/co ratio (0.0-0.9)
[2018-03-18 11:12] LABS: Hepatitis A AB, Total Positive (Negative)
[2018-03-18 11:45] LABS: Bedside Glucose 126 mg/dL (70-110)
--- NOTE | 2018-03-18 12:43 | PCM.PN.REN ---
Subjective: no new complaints - Physical Exam General: Alert, Oriented x3, Cooperative HEENT: Atraumatic, PERRLA, EOMI, Normocephalic Neck: Supple, No JVD, Negative Carotid Bruits Lungs: Clear to auscultation, Normal air movement Cardiovascular: Regular rate, No murmurs Abdomen: Bowel Sounds Present, Soft, Non Tender Extremities: Capillary Refill Less than 3 Seconds, Edema Skin: No rashes, No breakdown Musculoskeletal: No Tenderness to Palpation of Joints or Extremities Vital Signs Temp Pulse Resp BP Pulse Ox 97.9 F 105 H 14 117/71 98 03/18/18 09:56 03/18/18 11:21 03/18/18 09:56 03/18/18 10:00 03/18/18 09:56 Oxygen Flow Rate (L/min) 9 Oxygen Delivery Method Nasal Cannula Weight: 106.6 kg Body Mass Index (BMI) 41.1 Finger Stick Blood Glucose 81 Intake and Output for Last 24 Hours 03/16/18 03/17/18 03/18/18 23:59 23:59 23:59 Intake Total 1084.9 / 1084.9 878 / 878 60 / 60 Output Total 195 / 195 800 / 800 125 / 125 Balance 889.9 / 889.9 78 / 78 -65 / -65 Microbiology Past 72 Hours 03/16/18 06:50 C. difficile DNA Amplification - Final Stool Laboratory Tests Past 24 Hrs 03/17/18 03/17/18 03/17/18 03:30 03:30 03:30 PT INR Sodium Potassium Chloride Carbon Dioxide Anion Gap BUN Creatinine Estim Creat Clear Calc Est GFR (MDRD) Af Amer Est GFR (MDRD) Non-Af BUN/Creatinine Ratio Glucose Calcium Free T4 1.01 Free T3 pg/dL 1.0 L Hepatitis A IgM Ab Negative Hepatitis A Ab Total Positive H Hep Bs Antigen Negative Hep B Core Total Ab Negative Hep B Core IgM Ab Negative Hepatitis C Ab (EIA) 0.1 Hepatitis C Ab Confirm 0.1 Hepatitis C Comment Comment 03/18/18 03/18/18 04:30 04:30 PT 18.2 H INR 1.5 Sodium 120 L Potassium 4.7 Chloride 85 L Carbon Dioxide 21.0 Anion Gap 14 BUN 67 H Creatinine 2.27 H Estim Creat Clear Calc 16.41 Est GFR (MDRD) Af Amer 27 L Est GFR (MDRD) Non-Af 22 L BUN/Creatinine Ratio 29.5 H Glucose 129 H Calcium 8.0 L Free T4 Free T3 pg/dL Hepatitis A IgM Ab Hepatitis A Ab Total Hep Bs Antigen Hep B Core Total Ab Hep B Core IgM Ab Hepatitis C Ab (EIA) Hepatitis C Ab Confirm Hepatitis C Comment POC Glucose 03/18/18 03/18/18 03/17/18 11:40 06:53 21:06 POC Glucose 126 H 126 H 138 H 03/17/18 17:06 POC Glucose 170 H Medical Necessity - Tobacco Use Smoking Status: Never smoker Assessment/Plan All Active Problems (Last Reviewed 06/03/17 @ 13:43 by Elvi López) Community acquired pneumonia (Acute) CHF (Acute) Hyponatremia (Acute) Shortness of breath (Acute) Acute on chronic diastolic heart failure (Acute) Epigastric abdominal pain (Resolved) Gastritis (Resolved) CKD stage 3. CONSTANTINE decompensated in last 3 days. creatinine about the same today. likely due to combination of CRS HRS. Hyponatremia. severe. clinically significantly volume overloaded. sodium is at 120. CHF. significant volume overload. on lasix CT abd shows cirrhosis, no hepatitis on file. prior SPEP was negative. she now has liver cirrhosis of unclear etiology, CHF with low EF and renal failure. Today I had a detailed discussion with patient and daughter. explained ongoing events including cirrhosis of unclear etiology, CHF with low EF in setting of A Flutter and now CONSTANTINE, volume overload. poor response to IV bolus lasix presented option of palliative approach. patient says she is not ready to give up yet. she is agreeable to DNRCCA for now but would like to continue medical treatment for now only other option would be to pursue aggressive diuresis to treat volume overload. explained that the renal function may get worse with higher doses of lasix but she really does not have any other choice. she is ok with this for now. I did mention the possibility of needing dialysis if renal function worsens. she says she will consider it if it gets to that point but would like to try IV diuresis first all questions answered d/w Dr Diaz
--- NOTE | 2018-03-18 16:23 | PCM.PROGNOTE ---
Subjective: All events the past 24 hours been reviewed. Continues to be afebrile. Vital signs are stable. Heart rate is adequately controlled. Respiratory rate is 14 and she is 98-99% saturated on a 9 L nasal cannula. Fluid balance on 03/17/2018 was +78 cc and she had 800 cc of urine output. Urine output is again decreased and she has been started on a continuous Lasix infusion by Dr. Mahajan. Blood sugars are adequately controlled. All lab was personally reviewed. Sodium is 120 today with a chloride of 85. The BUN is 67 with a creatinine of 2.[address] Alba's and Dr. Mahajan's notes and appreciate their input. I discussed with Dr. Mahajan and the patient told him today that she would like to continue tx and would even be open to HD if necessary. Telemetry: rhythm is regular today and the rate is about 100....no significant ventricular ectopy and no Flutter waves observed. She is sleeping when I entered the room....has been getting infrequent small dose of MS to help her relax and sleep Objective: GENERAL: sleepy and more lethargic today........does not look good....color is poor and she seems to be failing more ORAL: dry mucosa, no mucosal lesions NECK: + JVD, supple, trachea midline LUNGS: CTA but very diminished delia in the bases, no rales, no wheezes, symmetric chest expansion, no accessory muscle use, not tachypneic at rest, HOB is at 75 degrees HEART: regular today, Normal S1 and S2, no rub, no gallop TELEMETRY: NSR with HR of 100 and no significant ventricular ectopy ABDOMEN: firm, distended, pitting edema in the flanks, non-tender to palpation today EXTREMITIES: 4+ edema, no cyanosis, skin is tight and painful to palpate SKIN: No rashes, no breakdown NEUROLOGIC: no focal neurologic deficits - Physical Exam Vital Signs Temp Pulse Resp BP Pulse Ox 97.9 F 99 14 104/55 L 99 03/18/18 15:03 03/18/18 15:03 03/18/18 15:03 03/18/18 15:03 03/18/18 15:03 Oxygen Flow Rate (L/min) 9 Oxygen Delivery Method Nasal Cannula Weight: 235 lb 0.204 oz Body Mass Index (BMI) 41.1 Finger Stick Blood Glucose 81 Intake and Output for Last 24 Hours 03/16/18 03/17/18 03/18/18 23:59 23:59 23:59 Intake Total 1084.9 / 1084.9 878 / 878 180 / 180 Output Total 195 / 195 800 / 800 200 / 200 Balance 889.9 / 889.9 78 / 78 -20 / -20 Microbiology Past 72 Hours 03/16/18 06:50 C. difficile DNA Amplification - Final Stool Laboratory Tests Past 24 Hrs 03/17/18 03/17/18 03/17/18 03:30 03:30 03:30 PT INR Sodium Potassium Chloride Carbon Dioxide Anion Gap BUN Creatinine Estim Creat Clear Calc Est GFR (MDRD) Af Amer Est GFR (MDRD) Non-Af BUN/Creatinine Ratio Glucose Calcium Free T4 1.01 Free T3 pg/dL 1.0 L Hepatitis A IgM Ab Negative Hepatitis A Ab Total Positive H Hep Bs Antigen Negative Hep B Core Total Ab Negative Hep B Core IgM Ab Negative Hepatitis C Ab (EIA) 0.1 Hepatitis C Ab Confirm 0.1 Hepatitis C Comment Comment 03/18/18 03/18/18 04:30 04:30 PT 18.2 H INR 1.5 Sodium 120 L Potassium 4.7 Chloride 85 L Carbon Dioxide 21.0 Anion Gap 14 BUN 67 H Creatinine 2.27 H Estim Creat Clear Calc 16.41 Est GFR (MDRD) Af Amer 27 L Est GFR (MDRD) Non-Af 22 L BUN/Creatinine Ratio 29.5 H Glucose 129 H Calcium 8.0 L Free T4 Free T3 pg/dL Hepatitis A IgM Ab Hepatitis A Ab Total Hep Bs Antigen Hep B Core Total Ab Hep B Core IgM Ab Hepatitis C Ab (EIA) Hepatitis C Ab Confirm Hepatitis C Comment POC Glucose 03/18/18 03/18/18 03/17/18 11:40 06:53 21:06 POC Glucose 126 H 126 H 138 H 03/17/18 17:06 POC Glucose 170 H Medical Necessity - Tobacco Use Smoking Status: Never smoker Assessment/Plan All Active Problems (Last Reviewed 06/03/17 @ 13:43 by Elvi López) Community acquired pneumonia (Acute) CHF (Acute) Hyponatremia (Acute) Shortness of breath (Acute) Acute on chronic diastolic heart failure (Acute) Epigastric abdominal pain (Resolved) Gastritis (Resolved) Impressions 1. anasarca with ascites and BL pleural effusions - no significant ascites to tap on the paracentesis today so the procedure was cancelled - I suspect that she had Aflutter with RVR initially and then developed a tachycardia induced cardiomyopathy and then CHF....the etiology of the ascites may be cardiac and have nothing to do with cirrhosis....Only Hep A antibody is + and the Hep A IGM is negative 2. Acute hypoxic respiratory insufficiency secondary to decompensated systolic congestive heart failure. 3. Atrial flutter with rapid ventricular response - went into NSR since yesterday 4. Oliguric acute kidney injury - 5. Hyponatremia-related to fluid overload 6. Diabetes mellitus type 2-blood sugars are adequately controlled 7. GERD 8. Morbid obesity 9. Hyperlipidemia 10. Mild nonrheumatic aortic stenosis 11. Pulmonary hypertension 12. Sjogren's syndrome 13. Right carotid stenosis 14. PT prolongation - still due to effects of the Eliquis discontinued 24 hours ago? or to to chronic liver disease? 15. Cirrhosis suspected on the CT of the abdomen - due to KEATING? Hepatitis? pulmonary HTN? TR? Cardiac cirrhosis? 16. Moderate malnutrition DC the warfarin and start Eliquis Lasix infusion started by and will continue to monitor the urine OP and the kidney function Recheck the lab in the AM Continue metoprolol 50 mg p.o. twice daily PT held today due to marked weakness with increased lethargy today Code Visit Inpatient E&M: 75739 Subs Hosp L2
[2018-03-18 17:41] LABS: Bedside Glucose 112 mg/dL (70-110)
[2018-03-18] MEDS: APIXABAN 2.5 MG TABLET PO (21:24)
[2018-03-18] MEDS: Petrolatum,White 3.75GM OPTH.TUBE 1 APPLIC OP (21:24)
[2018-03-18 22:16] LABS: Bedside Glucose 127 mg/dL (70-110)
[2018-03-19] VITALS (21 sets, daily range): BP systolic 100–116; BP diastolic 56–79; PULSE 88–105; RESP 17–20; TEMP 36.2–36.4; O2SAT 94–98
[2018-03-19 01:21] LABS: Bedside Glucose 117 mg/dL (70-110)
[2018-03-19] MEDS: 0.9% NaCl Peripheral Flush Adult/Peds IV ×3 (04:34→23:10)
[2018-03-19 04:57] LABS: Anion Gap 14 (5-15); BUN 70 mg/dL (7-18); Chloride 85 mmol/L (98-107); Creatinine, Serum 2.19 mg/dL (0.55-1.02); EST Glomerular Filtration Rate 23 mL/min (>60); Est Glom Filt Rate - Afr Amer 28 mL/min (>60); Estimated Creatinine Clearance 17.01 ml/min; Glucose 119 mg/dL (74-106); Phosphorus 5.1 mg/dL (2.5-4.9); Potassium 4.4 mmol/L (3.5-5.1); Sodium Level 122 mmol/L (136-145)
[2018-03-19] MEDS: Ipratropium/Albuterol Sulfate 3 ML AMPUL.NEB INHALATION ×3 (06:57→19:17)
[2018-03-19 07:01] LABS: Bedside Glucose 119 mg/dL (70-110)
[2018-03-19] MEDS: APIXABAN 2.5 MG TABLET PO ×2 (09:50→21:20)
[2018-03-19] MEDS: metOLazone 5 MG Tablet PO ×2 (09:51→21:21)
[2018-03-19] MEDS: Metoprolol Tartrate 50 MG Tablet PO ×2 (09:51→21:20)
[2018-03-19] MEDS: Pantoprazole Sodium 20 MG Tablet PO ×2 (09:51→21:21)
[2018-03-19] MEDS: Glycerin/Hypromellose/PEG400 15 ml Bottle 1 DRP EACH EYE (09:52)
[2018-03-19] MEDS: Morphine 2 MG/ML Syringe IV ×3 (11:43→23:08)
[2018-03-19 12:00] LABS: Bedside Glucose 125 mg/dL (70-110)
--- NOTE | 2018-03-19 13:25 | NURSING ---
Student nurse charting reviewed.
--- NOTE | 2018-03-19 15:08 | PCM.PROGNOTE ---
Subjective: All events of the past 24 hours of been reviewed. Patient remains afebrile since admission Vital signs are stable. She is currently 95-97% saturated on an 8 L nasal cannula. Oral intake is poor Fluid balance on 03/18/2018 was -31 and she had 550 cc of urine. Fluid balance since midnight is -953 and she has had 1175 cc of urine. Weight today is 229 pounds, down from 235 on 03/18/2018. She has developed a cough. She is c/o not sleeping.......I think she does not realize she has been sleeping. she did receive Ativan 0.5 mg twice last night All lab was personally reviewed - Creat has come down to 2.19 from 2.34 on 03/17/2018. Potassium is 4.4 today and the serum sodium is 122. Phosphorus is high at 5.1. Blood sugars are well controlled. Denies abdominal pain, nausea Objective: GENERAL: sleepy and more lethargic today........does not look good....color is poor, she is getting weaker by the day ORAL: dry mucosa, no mucosal lesions NECK: + JVD, supple, trachea midline LUNGS: today she has developed coarse crackles on the right anteriorly that persist after several deep breaths, She is coughing, no wheezes, symmetric chest expansion, no accessory muscle use, not tachypneic at rest, HOB is at 75 degrees HEART: regular today, Normal S1 and S2, no rub, no gallop TELEMETRY: NSR/AF with HR of 100 and no significant ventricular ectopy ABDOMEN: firm, distended, pitting edema in the flanks, non-tender to palpation today, hypoactive BS's EXTREMITIES: pitting edema to the groin with edema in the posterior thighs , no cyanosis, skin is tight and painful to palpate SKIN: No rashes, no breakdown, multiple bruises NEUROLOGIC: no focal neurologic deficits - Physical Exam Vital Signs Temp Pulse Resp BP Pulse Ox 97.5 F L 99 20 H 105/66 95 03/19/18 11:54 03/19/18 13:20 03/19/18 13:20 03/19/18 11:54 03/19/18 11:54 Oxygen Flow Rate (L/min) 8 Oxygen Delivery Method Nasal Cannula Weight: 229 lb 4.492 oz Body Mass Index (BMI) 41.1 Finger Stick Blood Glucose 81 Intake and Output for Last 24 Hours 03/17/18 03/18/18 03/19/18 23:59 23:59 23:59 Intake Total 878 / 878 518.8 / 518.8 222 / 222 Output Total 800 / 800 550 / 550 1175 / 1175 Balance 78 / 78 -31.2 / -31.2 -953 / -953 Laboratory Tests Past 24 Hrs 03/19/18 04:25 Sodium 122 L Potassium 4.4 Chloride 85 L Carbon Dioxide 23.0 Anion Gap 14 BUN 70 H Creatinine 2.19 H Estim Creat Clear Calc 17.01 Est GFR (MDRD) Af Amer 28 L Est GFR (MDRD) Non-Af 23 L BUN/Creatinine Ratio 32.0 H Glucose 119 H Calcium 8.0 L Phosphorus 5.1 H POC Glucose 03/19/18 03/19/18 03/19/18 11:50 06:54 01:12 POC Glucose 125 H 119 H 117 H 03/18/18 03/18/18 21:18 17:34 POC Glucose 127 H 112 H Medical Necessity - Tobacco Use Smoking Status: Never smoker Assessment/Plan All Active Problems (Last Reviewed 06/03/17 @ 13:43 by Elvi López) Community acquired pneumonia (Acute) CHF (Acute) Hyponatremia (Acute) Shortness of breath (Acute) Acute on chronic diastolic heart failure (Acute) Epigastric abdominal pain (Resolved) Gastritis (Resolved) Impressions 1. anasarca with ascites and BL pleural effusions - no significant ascites to tap on the paracentesis. I suspect that she had Aflutter with RVR initially and then developed a tachycardia induced cardiomyopathy and then CHF....the etiology of the ascites may be cardiac and have nothing to do with cirrhosis....Only Hep A antibody is + and the Hep A IGM is negative 2. Acute hypoxic respiratory insufficiency secondary to decompensated biventricular systolic congestive heart failure. 3. Atrial flutter with rapid ventricular response - went into NSR on 03/18 with periods of AF 4. Oliguric acute kidney injury - 5. Hyponatremia-related to fluid overload 6. Diabetes mellitus type 2-blood sugars are adequately controlled 7. GERD 8. Morbid obesity 9. Hyperlipidemia 10. Mild nonrheumatic aortic stenosis 11. Pulmonary hypertension 12. Sjogren's syndrome 13. Right carotid stenosis 14. PT prolongation - still due to effects of the Eliquis discontinued 24 hours ago? or to to chronic liver disease? 15. Cirrhosis suspected on the CT of the abdomen - due to KEATING? Hepatitis? pulmonary HTN? TR? Cardiac cirrhosis? 16. Moderate malnutrition 17. Biventricular systolic CHF Continue the Lasix drip Recheck a renal profile in the AM Check CBC with diff in the AM CXR now - cough with coarse crackles on the right - concern for pneumonia At some point may need to consider a feeding tube.......she is getting progressively more weak and not eating. D/W Dr. vergara - he added Metolazone today Melatonin 10 mg at HS for c/o insomnia Met with her dtr Maricarmen and answered all questions Code Visit Inpatient E&M: 32624 Subs Hosp L3
--- NOTE | 2018-03-19 15:30 | RAD_ITS ---
STUDY: X-RAY CHEST REASON FOR EXAM: Female, 77 years old. Cough TECHNIQUE: Single frontal view of the chest. COMPARISON: CT and radiograph dated March 13, 2018 FINDINGS: There are patchy opacity throughout the right lung and within the left mid and lower lung. There is blunting of the costophrenic angles. There is cardiomegaly. Normal mediastinum and amauri. Normal visualized pulmonary arteries. There is atherosclerotic calcification of the aortic arch with tortuosity. Normal visualized thoracic spine. Normal visualized ribs, clavicles, and shoulders. There is no demonstrated abnormality of the visualized soft tissue structures of the upper abdomen. RAD/Chest 1 View (Portable) IMPRESSION: Bilateral patchy opacities concerning for underlying edema and/or pneumonia. Bilateral pleural effusions. Electronically Signed: Bev Frey MD at 17:05 EST Tel , Service support ,
--- NOTE | 2018-03-19 15:45 | PCM.PN.REN ---
Subjective: no new complaints - Physical Exam General: Alert, Oriented x3, Cooperative HEENT: Atraumatic, PERRLA, EOMI, Normocephalic Neck: Supple, No JVD, Negative Carotid Bruits Lungs: Clear to auscultation, Normal air movement Cardiovascular: Regular rate, No murmurs Abdomen: Bowel Sounds Present, Soft, Non Tender Extremities: Capillary Refill Less than 3 Seconds, Edema Skin: No rashes, No breakdown Musculoskeletal: No Tenderness to Palpation of Joints or Extremities Neurological: Cranial nerves II-XII grossly intact Psych/Mental Status: Normal Affect, Appropriate Vital Signs Temp Pulse Resp BP Pulse Ox 97.5 F L 99 20 H 105/66 95 03/19/18 11:54 03/19/18 13:20 03/19/18 13:20 03/19/18 11:54 03/19/18 11:54 Oxygen Flow Rate (L/min) 8 Oxygen Delivery Method Nasal Cannula Weight: 104 kg Body Mass Index (BMI) 41.1 Finger Stick Blood Glucose 81 Intake and Output for Last 24 Hours 03/17/18 03/18/18 03/19/18 23:59 23:59 23:59 Intake Total 878 / 878 518.8 / 518.8 222 / 222 Output Total 800 / 800 550 / 550 1175 / 1175 Balance 78 / 78 -31.2 / -31.2 -953 / -953 Laboratory Tests Past 24 Hrs 03/19/18 04:25 Sodium 122 L Potassium 4.4 Chloride 85 L Carbon Dioxide 23.0 Anion Gap 14 BUN 70 H Creatinine 2.19 H Estim Creat Clear Calc 17.01 Est GFR (MDRD) Af Amer 28 L Est GFR (MDRD) Non-Af 23 L BUN/Creatinine Ratio 32.0 H Glucose 119 H Calcium 8.0 L Phosphorus 5.1 H POC Glucose 03/19/18 03/19/18 03/19/18 11:50 06:54 01:12 POC Glucose 125 H 119 H 117 H 03/18/18 03/18/18 21:18 17:34 POC Glucose 127 H 112 H Medical Necessity - Tobacco Use Smoking Status: Never smoker Assessment/Plan All Active Problems (Last Reviewed 06/03/17 @ 13:43 by Elvi López) Community acquired pneumonia (Acute) CHF (Acute) Hyponatremia (Acute) Shortness of breath (Acute) Acute on chronic diastolic heart failure (Acute) Epigastric abdominal pain (Resolved) Gastritis (Resolved) CKD stage 3. CONSTANTINE decompensated in last 3 days. creatinine better. likely due to combination of CRS HRS. Hyponatremia. severe. clinically significantly volume overloaded. sodium is at 122. CHF. significant volume overload. on lasix drip and added metolazone today am CT abd shows cirrhosis, no hepatitis on file. prior SPEP was negative. she now has liver cirrhosis of unclear etiology, CHF with low EF and renal failure. detailed discussion with patient and daughter. explained ongoing events including cirrhosis of unclear etiology, CHF with low EF in setting of A Flutter and now COSNTANTINE, volume overload. presented option of palliative approach. patient says she is not ready to give up yet. she is agreeable to DNRCCA for now but would like to continue medical treatment for now tolerating IV lasix ok so far, add metolazone today and assess. d/w Dr Diaz
[2018-03-19 16:21] LABS: Mucous, Urine 0 SEEN /hpf (<or=2+); Red Blood Cells-Urine 0 SEEN /hpf (0-5)
[2018-03-19 16:29] LABS: Color, Urine Yellow (Yellow); Glucose, Dipstick Normal (Normal); Ketone-Dipstick Negative (Negative); Leukocyte Esterase-Dipstick 500 /ul (Negative); Nitrite-Dipstick Negative (Negative); Occult Blood-Urine 250 /ul (Negative); Protein-Dipstick 30 mg/dl (Negative); Specific Gravity, Urine 1.015 (1.002-1.030); Urine Bilirubin Dipstick Negative (Negative); Urine Clarity Clear (Clear); Urine Urobilinogen Normal (Normal)
[2018-03-19 16:43] LABS: Bacteria 2+ /hpf (None Seen); Squamous Epithelial Cells - UA 0-5 SEEN /hpf (5-10); White Blood Cells 10-25 SEEN /hpf (0-5); Yeast-Urine 2+ /hpf (None Seen)
[2018-03-19 16:56] LABS: Bedside Glucose 100 mg/dL (70-110)
[2018-03-19] MEDS: Petrolatum,White 3.75GM OPTH.TUBE 1 APPLIC OP (21:20)
[2018-03-19] MEDS: MELATONIN 10 MG TABLET PO (21:20)
[2018-03-19 22:11] LABS: Bedside Glucose 112 mg/dL (70-110)
[2018-03-20] VITALS (18 sets, daily range): BP systolic 105–118; BP diastolic 53–97; PULSE 88–104; RESP 13–22; TEMP 36.3–36.5; O2SAT 91–96
[2018-03-20] MEDS: LORazepam 0.5 MG Tablet PO (01:56)
[2018-03-20] MEDS: Morphine 2 MG/ML Syringe 1 MG IV (01:56)
[2018-03-20] MEDS: 0.9% NaCl Peripheral Flush Adult/Peds IV ×6 (01:57→05:13)
[2018-03-20 02:46] LABS: Bedside Glucose 97 mg/dL (70-110)
[2018-03-20 05:07] LABS: Absolute Neutrophil Count 9.5 X10^3/uL (2.0-7.7); Eosinophil# 0.01 X10^3/uL; Eosinophils% 0.1 % (0-5); Hemoglobin 11.9 g/dl (12.0-15.0); Mean Corpuscular Hgb 30.6 pg (27.0-32.0); Mean Platelet Vol. 9.7 fl (6.2-12.0); Neutrophil % 94.7 % (47-70); Platelet Count 102 K/mm3 (150-450); RBC Distribution Width CV 16.7 % (11.6-14.6); RBC Distribution Width SD 54.6 fl (35.1-43.9); Red Blood Count 3.89 M/mm3 (4.2-5.4)
[2018-03-20] MEDS: Morphine 2 MG/ML Syringe IV (05:11)
[2018-03-20 05:19] LABS: Differential Indicated SCAN CRITERIA MET; POSITIVE COUNT NO; POSITIVE DIFFERENTIAL YES; POSITIVE MORPHOLOGY NO
[2018-03-20 05:21] LABS: Anion Gap 17 (5-15); BUN 70 mg/dL (7-18); BUN/Creat Ratio 40.2 RATIO (10-20); Calcium,Total 8.1 mg/dL (8.5-10.1); Chloride 84 mmol/L (98-107); Creatinine, Serum 1.74 mg/dL (0.55-1.02); EST Glomerular Filtration Rate 30 mL/min (>60); Est Glom Filt Rate - Afr Amer 37 mL/min (>60); Estimated Creatinine Clearance 21.41 ml/min; Glucose 95 mg/dL (74-106); Phosphorus 4.4 mg/dL (2.5-4.9); Sodium Level 124 mmol/L (136-145)
[2018-03-20] MEDS: Potassium Chloride 10mEq/100mL 10 MEQ/100 ML IV.SOLN. 100 MEQ IV BOLUS ×6 (06:35→13:05)
[2018-03-20 07:06] LABS: Bedside Glucose 87 mg/dL (70-110)
--- NOTE | 2018-03-20 07:39 | CPS ---
pt is too weak to do PEP therapy but Vest Therapy causes her pain.
[2018-03-20] MEDS: APIXABAN 2.5 MG TABLET PO ×2 (09:14→21:10)
[2018-03-20] MEDS: Metoprolol Tartrate 50 MG Tablet PO ×2 (09:14→21:11)
[2018-03-20] MEDS: Glycerin/Hypromellose/PEG400 15 ml Bottle 1 DRP EACH EYE (09:14)
[2018-03-20] MEDS: Pantoprazole Sodium 20 MG Tablet PO ×2 (09:15→21:11)
[2018-03-20] MEDS: metOLazone 5 MG Tablet PO ×2 (09:16→21:11)
--- NOTE | 2018-03-20 09:25 | PN_ITS ---
Subjective: The patient is a 77-year-old female with a past medical history of morbid obesity, hyperlipidemia, mild nonrheumatic aortic stenosis, pulmonary hype rtension, Sjogren's syndrome, vitamin D deficiency, diabetes mellitus type 2, allergic rhinitis, right carotid stenosis and chronic anemia who was initially admitted to [facility] on 03/08/2018 for community-acquired pneumonia and acute on chronic diastolic congestive heart failure. At discharge she was transferred to the transitional care unit on 03/12/2018. She was readmitted on 03/14/2018 with atrial flutter with rapid ventricular response, acute on chronic diastolic congestive heart failure and anasarca. She has BL pleural effusions and ascites. Paracentesis was attempted but there was not enough fluid to tap. she had oliguric ARF and is being followed by Dr. Mahajan. She is currently on a Lasix drip at 20 mg/hr and Metolazone BID. All events of the past 24 hours been reviewed. She has been afebrile for the duration of her hospital visit. Vital signs are stable. She is 91-96% saturated on an 8 L nasal cannula. Fluid balance on 03/19/2018 was -1908 cc. She is -743 cc overnight. Weight today is 225 pounds and 8 ounces, down from 235 pounds and 0.2 ounces on 03/18/2018. All lab was personally reviewed. White blood cell count is normal at 10 today with 94.7 neutrophils. Hemoglobin is 11.9 and platelets are 102,000. The sodium is up to 124 with diuresis. Potassium is low at 3.0 today. The BUN is 70 with a creatinine of 1.74, down from 2.34 on 03/17 Tells me that she slept last night and she feels better today. Not coughing. She looks more rested and is alert. Objective: GENERAL: more alert today and has a more positive outlook, she is appropriate ORAL: dry mucosa, no mucosal lesions NECK: + JVD, supple, trachea midline LUNGS: coarse crackles on the right anteriorly have resolved, She is coughing, no wheezes, symmetric chest expansion, no accessory muscle use, not tachypneic at rest, HOB is at 75 degrees HEART: regular today, Normal S1 and S2, no rub, no gallop TELEMETRY: NSR/AF with HR of 100 and no significant ventricular ectopy ABDOMEN: firm, distended, pitting edema in the flanks, non-tender to palpation today, hypoactive BS's EXTREMITIES: pitting edema to the groin with edema in the posterior thighs , no cyanosis, skin is tight and painful to palpate SKIN: No rashes, no breakdown, multiple bruises NEUROLOGIC: no focal neurologic deficits urine in the jacques bag is somewhat cloudy and the UA shows 10-25 WBC's with 2+ bacteria and 2+ yeast - Physical Exam Vital Signs Temp Pulse Resp BP Pulse Ox 97.4 F L 99 17 118/97 H 96 03/20/18 09:13 03/20/18 09:13 03/20/18 09:13 03/20/18 09:13 03/20/18 09:13 Oxygen Flow Rate (L/min) 8 Oxygen Delivery Method Nasal Cannula Weight: 225 lb 8.526 oz Body Mass Index (BMI) 41.1 Finger Stick Blood Glucose 81 Intake and Output for Last 24 Hours 03/18/18 03/19/18 03/20/18 23:59 23:59 23:59 Intake Total 518.8 / 518.8 666.8 / 666.8 131.5 / 131.5 Output Total 550 / 550 2575 / 2575 875 / 875 Balance -31.2 / -31.2 -1908.2 / -1908.2 -743.5 / -743.5 Laboratory Tests Past 24 Hrs 03/19/18 03/20/18 03/20/18 16:00 04:30 04:30 WBC 10.0 RBC 3.89 L Hgb 11.9 L Hct 35.0 L MCV 90.0 MCH 30.6 MCHC 34.0 RDW 16.7 H RDW Differential 54.6 H Plt Count 102 L MPV 9.7 Immature Gran % (Auto) 0.200 Neut % (Auto) 94.7 H Lymph % (Auto) 3.0 L [place] % (Auto) 2.0 Eos % (Auto) 0.1 Baso % (Auto) 0.0 Absolute Neuts (auto) 9.5 H Absolute Lymphs (auto) 0.30 L Total Counted Not Reportable Differential Comment Sodium 124 L Potassium 3.0 L Chloride 84 L Carbon Dioxide 23.0 Anion Gap 17 H BUN 70 H Creatinine 1.74 H Estim Creat Clear Calc 21.41 Est GFR (MDRD) Af Amer 37 L Est GFR (MDRD) Non-Af 30 L BUN/Creatinine Ratio 40.2 H Glucose 95 Calcium 8.1 L Phosphorus 4.4 Urine Color Yellow Urine Clarity Clear Urine pH 6.0 Ur Specific [place] 1.015 Urine Protein 30 H Urine Glucose (UA) Normal Urine Ketones Negative Urine Occult Blood 250 H Urine Nitrite Negative Urine Bilirubin Negative Urine Urobilinogen Normal Ur Leukocyte Esterase 500 H Urine RBC 0 SEEN Urine WBC 10-25 SEEN Ur Squamous Epith Cells 0-5 SEEN Urine Bacteria 2+ Urine Mucus 0 SEEN Urine Yeast 2+ POC Glucose 03/20/18 03/20/18 03/19/18 06:51 02:39 21:16 POC Glucose 87 97 112 H 03/19/18 03/19/18 16:30 11:50 POC Glucose 100 125 H Medical Necessity - Tobacco Use Smoking Status: Never smoker Assessment/Plan All Active Problems (Last Reviewed 06/03/17 @ 13:43 by Elvi López) Community acquired pneumonia (Acute) CHF (Acute) Hyponatremia (Acute) Shortness of breath (Acute) Acute on chronic diastolic heart failure (Acute) Epigastric abdominal pain (Resolved) Gastritis (Resolved) Impressions 1. anasarca with ascites and BL pleural effusions - no significant ascites to tap on the paracentesis. I suspect that she had Aflutter with RVR initially and then developed a tachycardia induced cardiomyopathy and then CHF....the etiology of the ascites may be cardiac and have nothing to do with cirrhosis....Only Hep A antibody is + and the Hep A IGM is negative 2. Acute hypoxic respiratory insufficiency secondary to decompensated biventricular systolic congestive heart failure. 3. Atrial flutter with rapid ventricular response - went into NSR on 03/18 with periods of AF 4. Oliguric acute kidney injury - 5. Hyponatremia-related to fluid overload 6. Diabetes mellitus type 2-blood sugars are adequately controlled 7. GERD 8. Morbid obesity 9. Hyperlipidemia 10. Mild nonrheumatic aortic stenosis 11. Pulmonary hypertension 12. Sjogren's syndrome 13. Right carotid stenosis 14. PT prolongation - still due to effects of the Eliquis discontinued 24 hours ago? or to to chronic liver disease? 15. Cirrhosis suspected on the CT of the abdomen - due to KEATING? Hepatitis? pulmonary HTN? TR? Cardiac cirrhosis? 16. Moderate malnutrition 17. Biventricular systolic CHF 18. possible UTI - or the pyuria is due to yeast 19. Hyperphosphatemia-resolved Continue the Lasix drip and the Metolazone Recheck a renal profile in the AM Melatonin 10 mg at HS for c/o insomnia Met with her dtr Maricarmen and answered all questionsStart Keisha and await the results of the urine culture sent 2/2 Needs SNF at [place] Code Visit Inpatient E&M: 72870 Subs Hosp L2
[2018-03-20 12:26] LABS: Bedside Glucose 96 mg/dL (70-110)
--- NOTE | 2018-03-20 15:57 | PCM.PN.REN ---
Subjective: no new complaints edema somewhat better - Physical Exam General: Alert, Oriented x3, Cooperative HEENT: Atraumatic, PERRLA, EOMI, Normocephalic Neck: Supple, No JVD, Negative Carotid Bruits Lungs: Clear to auscultation, Normal air movement Cardiovascular: Regular rate, No murmurs Abdomen: Bowel Sounds Present, Soft, Non Tender Extremities: No edema, Capillary Refill Less than 3 Seconds Skin: No rashes, No breakdown Musculoskeletal: No Tenderness to Palpation of Joints or Extremities Neurological: Cranial nerves II-XII grossly intact Psych/Mental Status: Normal Affect, Appropriate Vital Signs Temp Pulse Resp BP Pulse Ox 97.5 F L 99 17 111/67 95 03/20/18 13:15 03/20/18 15:00 03/20/18 13:15 03/20/18 13:15 03/20/18 13:15 Oxygen Flow Rate (L/min) 8 Oxygen Delivery Method Nasal Cannula Weight: 102.3 kg Body Mass Index (BMI) 41.1 Finger Stick Blood Glucose 81 Intake and Output for Last 24 Hours 03/18/18 03/19/18 03/20/18 23:59 23:59 23:59 Intake Total 518.8 / 518.8 666.8 / 666.8 142.5 / 142.5 Output Total 550 / 550 2575 / 2575 1425 / 1425 Balance -31.2 / -31.2 -1908.2 / -1908.2 -1282.5 / -1282.5 Laboratory Tests Past 24 Hrs 03/19/18 03/20/18 03/20/18 16:00 04:30 04:30 WBC 10.0 RBC 3.89 L Hgb 11.9 L Hct 35.0 L MCV 90.0 MCH 30.6 MCHC 34.0 RDW 16.7 H RDW Differential 54.6 H Plt Count 102 L MPV 9.7 Immature Gran % (Auto) 0.200 Neut % (Auto) 94.7 H Lymph % (Auto) 3.0 L [place] % (Auto) 2.0 Eos % (Auto) 0.1 Baso % (Auto) 0.0 Absolute Neuts (auto) 9.5 H Absolute Lymphs (auto) 0.30 L Total Counted Not Reportable Differential Comment Sodium 124 L Potassium 3.0 L Chloride 84 L Carbon Dioxide 23.0 Anion Gap 17 H BUN 70 H Creatinine 1.74 H Estim Creat Clear Calc 21.41 Est GFR (MDRD) Af Amer 37 L Est GFR (MDRD) Non-Af 30 L BUN/Creatinine Ratio 40.2 H Glucose 95 Calcium 8.1 L Phosphorus 4.4 Urine Color Yellow Urine Clarity Clear Urine pH 6.0 Ur Specific [place] 1.015 Urine Protein 30 H Urine Glucose (UA) Normal Urine Ketones Negative Urine Occult Blood 250 H Urine Nitrite Negative Urine Bilirubin Negative Urine Urobilinogen Normal Ur Leukocyte Esterase 500 H Urine RBC 0 SEEN Urine WBC 10-25 SEEN Ur Squamous Epith Cells 0-5 SEEN Urine Bacteria 2+ Urine Mucus 0 SEEN Urine Yeast 2+ POC Glucose 03/20/18 03/20/18 03/20/18 11:46 06:51 02:39 POC Glucose 96 87 97 03/19/18 03/19/18 21:16 16:30 POC Glucose 112 H 100 Medical Necessity - Tobacco Use Smoking Status: Never smoker Assessment/Plan All Active Problems (Last Reviewed 06/03/17 @ 13:43 by Elvi López) Community acquired pneumonia (Acute) CHF (Acute) Hyponatremia (Acute) Shortness of breath (Acute) Acute on chronic diastolic heart failure (Acute) Epigastric abdominal pain (Resolved) Gastritis (Resolved) CKD stage 3. CONSTANTINE creatinine better. likely due to combination of CRS HRS. Hyponatremia. severe. clinically significantly volume overloaded. sodium is at 124. CHF. significant volume overload. on lasix drip and added metolazone. urine output better, more than [address] abd shows cirrhosis, no hepatitis on file. prior SPEP was negative. she now has liver cirrhosis of unclear etiology, CHF with low EF and renal failure. Hypokalemia. received 60 meq this am IV. add oral too. needs aggressive K repletion to avoid contraction alkalosis d/w Dr Diaz
[2018-03-20] MEDS: Ipratropium/Albuterol Sulfate 3 ML AMPUL.NEB INHALATION (19:00)
[2018-03-20] MEDS: Petrolatum,White 3.75GM OPTH.TUBE 1 APPLIC OP (21:10)
[2018-03-20] MEDS: MELATONIN 10 MG TABLET PO (21:11)
[2018-03-20 22:11] LABS: Bedside Glucose 110 mg/dL (70-110)
[2018-03-21] VITALS (21 sets, daily range): BP systolic 117–138; BP diastolic 51–69; PULSE 87–108; RESP 12–22; TEMP 36.1–36.6; O2SAT 90–100
[2018-03-21 01:22] LABS: Bedside Glucose 108 mg/dL (70-110)
[2018-03-21] MEDS: 0.9% NaCl Peripheral Flush Adult/Peds IV ×4 (05:15→22:18)
[2018-03-21] MEDS: Morphine 2 MG/ML Syringe IV ×3 (05:15→22:18)
[2018-03-21] MEDS: Ipratropium/Albuterol Sulfate 3 ML AMPUL.NEB INHALATION ×3 (06:41→20:53)
[2018-03-21 07:01] LABS: Bedside Glucose 109 mg/dL (70-110)
--- NOTE | 2018-03-21 07:18 | CPS ---
patient too painful for vest
--- NOTE | 2018-03-21 07:56 | PN.CARD_ITS ---
Subjectve: Patient seen and evaluated. Appears to be stable this morning. Says she wants to go home. Still edematous Objective: Vital Signs Temp Pulse Resp BP Pulse Ox 97.6 F L 98 20 H 131/67 H 90 03/21/18 05:06 03/21/18 07:17 03/21/18 07:17 03/21/18 05:06 03/21/18 07:17 Oxygen Flow Rate (L/min) 10 Oxygen Delivery Method Nasal Cannula Weight: 223 lb 1.725 oz Body Mass Index (BMI) 41.1 Finger Stick Blood Glucose 81 Intake and Output for Last 24 Hours 03/19/18 03/20/18 03/21/18 23:59 23:59 23:59 Intake Total 666.8 / 666.8 207.0 / 207.0 12.4 / 12.4 Output Total 2575 / 2575 2450 / 2450 525 / 525 Balance -1908.2 / -1908.2 -2243.0 / -2243.0 -512.6 / -512.6 General: Awake, Alert, Oriented x 3 HEENT: PERRL, EOMI, Sclera Non Icteric Neck: Supple, Good ROM, No Lymph Node Enlargement Lungs: Diminished Joshua Bases Cardiovascular: Regular Rhythm, Normal S1, Normal S2, No Murmurs, No Rubs, No Gallops Vascular: No Carotid Bruits, Normal Femoral Pulses, Normal Radial Pulses, Normal Dorsalis Pedal Pulse, Normal Posterior Tibial Pulses Abdomen: Bowel Sounds Present, Soft, Non Tender, No HSM, No Organomegaly Extremities: No Cyanosis, No Clubbing, Bilateral Edema +2 Neurological: No Focal Motor or Sensory Deficit Psych/Mental Status: Appropriate Rhythm: EKG: ECHO: Stress Test: Cardiac Cath: PCI: CT Surgery: Holter monitor: EPS: PPM: CXR: Chest CT Scan: Medical Necessity - Tobacco Use Smoking Status: Never smoker Assessment/Plan 1. Congestive heart failure-acute diastolic * The patient presents with shortness of breath and anasarca as well as tachycardia. It appears that she has been in atrial flutter with a rapid response rate which has not been controlled. This is likely the etiology for her shortness of breath. * Will continue with intravenous diuresis at this time as per nephrology * Continue beta-franny. * 2. Atrial flutter with variable block * Patient appears to be in atrial flutter with variable block. The exact duration is unclear at this time. Would recommend rate control with intravenous Cardizem and beta-franny * Will anticoagulate with oral apixaban- * 3. Hypertension * Patient appears to be hypertensive which is under good control and will continue. * 4. Valvular heart disease * Patient has aortic stenosis which appears to be mild as well as mitral annular calcification. * Will pursue expectant management. * She appears to have low flow low gradient aortic stenosis. This will be addressed when she is heart of heart failure. * 5. Cardiomyopathy * She has a global cardiomyopathy with an estimated ejection fraction of 30% * We will continue beta-franny * * Overall long-term prognosis is rather guarded. We will continue with cautious diuresis balancing with fluid requirements. Above discussed with hospitalist and renal service. * * Thank you for allowing me to participate in the care of your patient. Please don't hesitate to call if any issues arise
[2018-03-21 09:39] LABS: Albumin, Serum 2.4 g/dL (3.2-5.0); BUN 64 mg/dL (7-18); Calcium,Total 8.1 mg/dL (8.5-10.1); Chloride 85 mmol/L (98-107); Creatinine, Serum 1.39 mg/dL (0.55-1.02); EST Glomerular Filtration Rate 39 mL/min (>60); Est Glom Filt Rate - Afr Amer 47 mL/min (>60); Estimated Creatinine Clearance 26.81 ml/min; Glucose 114 mg/dL (74-106); Phosphorus 3.5 mg/dL (2.5-4.9); Potassium 2.7 mmol/L (3.5-5.1); Sodium Level 123 mmol/L (136-145)
--- NOTE | 2018-03-21 10:33 | CASEMGMT ---
HEALTH PROMOTER spoke with patient and she has agreed to Hospice. SW spoke with patient and confirmed this. SW asked if she would like family present. She said she did not care she just wants out of here. SW asked if her son, Hesham is her POA and she confirmed this. SW faxed information to Hospice. SW called Hospice and spoke with Maria L in admissions. She will call patient to set up appt. Grisel LOPEZ
--- NOTE | 2018-03-21 11:07 | CPS ---
patient wore bipap for ten minutes then requested that I take it off, and states she does not want it. nursing informed.
[2018-03-21 12:01] LABS: Bedside Glucose 130 mg/dL (70-110)
--- NOTE | 2018-03-21 12:10 | PCM.PN.REN ---
Subjective: no new complaints breathing is ok - Physical Exam General: Alert, Oriented x3, Cooperative HEENT: Atraumatic, PERRLA, EOMI, Normocephalic Neck: Supple, No JVD, Negative Carotid Bruits Lungs: Clear to auscultation, Normal air movement Cardiovascular: Regular rate, No murmurs Abdomen: Bowel Sounds Present, Soft, Non Tender Extremities: Capillary Refill Less than 3 Seconds, Edema Skin: No rashes, No breakdown Musculoskeletal: No Tenderness to Palpation of Joints or Extremities Neurological: Cranial nerves II-XII grossly intact Psych/Mental Status: Normal Affect, Appropriate Vital Signs Temp Pulse Resp BP Pulse Ox 97.8 F 105 H 22 H 138/66 H 100 03/21/18 09:02 03/21/18 11:57 03/21/18 11:05 03/21/18 09:02 03/21/18 10:45 Oxygen Flow Rate (L/min) 9 Oxygen Delivery Method Nasal Cannula Weight: 101.2 kg Body Mass Index (BMI) 41.1 Finger Stick Blood Glucose 81 Intake and Output for Last 24 Hours 03/19/18 03/20/18 03/21/18 23:59 23:59 23:59 Intake Total 666.8 / 666.8 207.0 / 207.0 12.4 / 12.4 Output Total 2575 / 2575 2450 / 2450 525 / 525 Balance -1908.2 / -1908.2 -2243.0 / -2243.0 -512.6 / -512.6 Microbiology Past 72 Hours 03/19/18 16:00 Urine Culture - Preliminary Urine Catheter - Burr Yeast Laboratory Tests Past 24 Hrs 03/21/18 09:05 Sodium 123 L Potassium 2.7 L* Chloride 85 L Carbon Dioxide 24.0 BUN 64 H Creatinine 1.39 H Estim Creat Clear Calc 26.81 Est GFR (MDRD) Af Amer 47 L Est GFR (MDRD) Non-Af 39 L BUN/Creatinine Ratio 46.0 H Glucose 114 H Calcium 8.1 L Phosphorus 3.5 Albumin 2.4 L POC Glucose 03/21/18 03/21/18 03/20/18 11:40 06:53 21:03 POC Glucose 130 H 109 110 03/20/18 03/20/18 17:25 11:46 POC Glucose 108 96 Medical Necessity - Tobacco Use Smoking Status: Never smoker Assessment/Plan All Active Problems (Last Reviewed 06/03/17 @ 13:43 by Elvi López) Community acquired pneumonia (Acute) CHF (Acute) Hyponatremia (Acute) Shortness of breath (Acute) Acute on chronic diastolic heart failure (Acute) Epigastric abdominal pain (Resolved) Gastritis (Resolved) CKD stage 3. CONSTANTINE creatinine better. likely due to combination of CRS HRS. Hyponatremia. severe. clinically significantly volume overloaded. sodium is at 123. CHF. significant volume overload. on lasix drip and added metolazone. urine output better, more than [address] abd shows cirrhosis, no hepatitis on file. prior SPEP was negative. she now has liver cirrhosis of unclear etiology, CHF with low EF and renal failure. Hypokalemia. K ordered d/w Dr Garduno. possible hospice
--- NOTE | 2018-03-21 12:48 | CASEMGMT ---
Maria L from Hospice came in to talk with patient. However, patient was sound asleep. Maria L called patient's Healthcare POA, Hesham and he will be in today at 430. Maria L will come back at that time and discuss Hospice with patient and her son. OSVALDO updated RN, CAN SLIDER, and charger operator helper. Grisel ALMODOVAR SHOTGUN SHELL REPRINTING UNIT OPERATOR
[2018-03-21] MEDS: Potassium Chloride 10mEq/100mL 10 MEQ/100 ML IV.SOLN. 100 MEQ IV BOLUS ×6 (13:30→20:16)
--- NOTE | 2018-03-21 14:59 | PN_ITS ---
Subjective: Patient seen and examined. Complaining of extreme fatigue and continued shortness of breath. Reports she would like to talk with hospice about their services. - Physical Exam General: Alert, Oriented x3, - - Fatigued appearing HEENT: Atraumatic, PERRLA, EOMI, Normocephalic Oral: Dry Mucosa Neck: Supple, No JVD, Negative Carotid Bruits Lungs: Diminished, Rhonchi Cardiovascular: Regular Rhythm, Normal S1, Normal S2, No murmurs, Tachycardic Abdomen: Bowel Sounds Present, Soft, Non Tender, Non-Distended, Obese Extremities: No clubbing, No cyanosis, Capillary Refill Less than 3 Seconds, Edema - Bilateral lower extremities Skin: No rashes, No breakdown, - - Scattered ecchymosis Musculoskeletal: No Tenderness to Palpation of Joints or Extremities Neurological: Cranial nerves II-XII grossly intact, Neuro grossly intact Psych/Mental Status: Flat Affect Vital Signs Temp Pulse Resp BP Pulse Ox 97.4 F L 100 14 123/55 H 90 03/21/18 14:34 03/21/18 14:34 03/21/18 14:34 03/21/18 14:34 03/21/18 14:34 Oxygen Flow Rate (L/min) 10 Oxygen Delivery Method Nasal Cannula Weight: 223 lb 1.725 oz Body Mass Index (BMI) 41.1 Finger Stick Blood Glucose 81 Intake and Output for Last 24 Hours 03/19/18 03/20/18 03/21/18 23:59 23:59 23:59 Intake Total 666.8 / 666.8 207.0 / 207.0 268.8 / 268.8 Output Total 2575 / 2575 2450 / 2450 1550 / 1550 Balance -1908.2 / -1908.2 -2243.0 / -2243.0 -1281.2 / -1281.2 Microbiology Past 72 Hours 03/19/18 16:00 Urine Culture - Final Urine Catheter - Burr Presumptive C albicans Laboratory Tests Past 24 Hrs 03/21/18 09:05 Sodium 123 L Potassium 2.7 L* Chloride 85 L Carbon Dioxide 24.0 BUN 64 H Creatinine 1.39 H Estim Creat Clear Calc 26.81 Est GFR (MDRD) Af Amer 47 L Est GFR (MDRD) Non-Af 39 L BUN/Creatinine Ratio 46.0 H Glucose 114 H Calcium 8.1 L Phosphorus 3.5 Albumin 2.4 L POC Glucose 03/21/18 03/21/18 03/20/18 11:40 06:53 21:03 POC Glucose 130 H 109 110 03/20/18 17:25 POC Glucose 108 Medical Necessity - Tobacco Use Smoking Status: Never smoker Assessment/Plan All Active Problems (Last Reviewed 06/03/17 @ 13:43 by Elvi López) Community acquired pneumonia (Acute) CHF (Acute) Hyponatremia (Acute) Shortness of breath (Acute) Acute on chronic diastolic heart failure (Acute) Epigastric abdominal pain (Resolved) Gastritis (Resolved) 1. Acute on chronic systolic CHF with associated anasarca/ascites/bilateral pleural effusions-echocardiogram with EF 30%, mild mitral valve insufficiency, moderate tricuspid valve insufficiency, low flow gradient aortic stenosis. On Lasix drip and metolazone. Cardiology following. Strict I&O. Daily weight. Mehrdad wraps bilateral lower extremities. 2. Acute hypoxic respiratory failure secondary to #1-currently requiring high flow oxygen. BiPAP ordered, patient unable to tolerate. 3. Atrial flutter with RVR-currently sinus tachycardia. Continue Eliquis, met oprolol. 4. Acute kidney injury on chronic kidney disease stage III- CONSTANTINE resolved. 5. Liver cirrhosis-unclear etiology. 6. Type 2 diabetes ipyxdoco-Dyeq-Aqard ACHS with sliding scale insulin. 7. Moderate protein calorie malnutrition- nutrition consult. 8. Hyperlipidemia- continue statin. 9. GERD- continue PPI. 10. Morbid obesity-Encouraged diet and lifestyle modifications. DVT prophylaxis- Eliquis. Discharge planning: Possible hospice. Patient to meet with hospice this afternoon. This patient was seen by HUGH Viveros under the supervision of Dr. Garduno.
[2018-03-21] MEDS: BACITRACIN 15 GM Tube 1 APPLIC TOPICAL ×2 (15:01→22:16)
[2018-03-21] MEDS: Bisacodyl 10 MG Suppository RECTAL (15:07)
--- NOTE | 2018-03-21 15:27 | NURSING ---
Called and updated Karli ([id number]) on patient condition.
--- NOTE | 2018-03-21 20:55 | CPS ---
pt refuses to use bipap
[2018-03-21 21:31] LABS: Bedside Glucose 119 mg/dL (70-110)
[2018-03-21] MEDS: Metoprolol Tartrate 50 MG Tablet PO (22:16)
[2018-03-21] MEDS: Petrolatum,White 3.75GM OPTH.TUBE 1 APPLIC OP (22:16)
[2018-03-21] MEDS: Pantoprazole Sodium 20 MG Tablet PO (22:16)
[2018-03-21] MEDS: MELATONIN 10 MG TABLET PO (22:17)
[2018-03-21] MEDS: metOLazone 5 MG Tablet PO (22:17)
[2018-03-21] MEDS: APIXABAN 2.5 MG TABLET PO (22:17)
[2018-03-21 22:32] LABS: Bedside Glucose 119 mg/dL (70-110)
[2018-03-22] VITALS (22 sets, daily range): BP systolic 111–130; BP diastolic 54–71; PULSE 90–106; RESP 12–32; TEMP 36.2–36.6; O2SAT 88–95
--- NOTE | 2018-03-22 00:03 | CPS ---
pt refused vest therapy at this time, pt wanted to sleep
[2018-03-22 00:36] LABS: Bedside Glucose 116 mg/dL (70-110)
[2018-03-22] MEDS: 0.9% NaCl Peripheral Flush Adult/Peds IV ×2 (02:17→06:53)
[2018-03-22] MEDS: Morphine 2 MG/ML Syringe IV ×2 (02:17→06:53)
[2018-03-22] MEDS: BACITRACIN 15 GM Tube 1 APPLIC TOPICAL ×3 (05:49→20:53)
[2018-03-22] MEDS: Ipratropium/Albuterol Sulfate 3 ML AMPUL.NEB INHALATION ×3 (06:45→19:10)
[2018-03-22 06:56] LABS: Bedside Glucose 112 mg/dL (70-110)
--- NOTE | 2018-03-22 07:48 | PN.CARD_ITS ---
Subjectve: Patient seen and evaluated. Status quo ante Objective: Vital Signs Temp Pulse Resp BP Pulse Ox 97.2 F L 101 H 24 H 118/55 L 92 03/22/18 07:46 03/22/18 07:46 03/22/18 07:46 03/22/18 07:46 03/22/18 07:46 Oxygen Flow Rate (L/min) 12 Oxygen Delivery Method Nasal Cannula Weight: 224 lb 13.944 oz Body Mass Index (BMI) 41.1 Finger Stick Blood Glucose 81 Intake and Output for Last 24 Hours 03/20/18 03/21/18 03/22/18 23:59 23:59 23:59 Intake Total 207.0 / 207.0 1051.6 / 1051.6 30.6 / 30.6 Output Total 2450 / 2450 3000 / 3000 825 / 825 Balance -2243.0 / -2243.0 -1948.4 / -1948.4 -794.4 / -794.4 General: Awake, Alert, Oriented x 3, Ill Appearing HEENT: PERRL, EOMI, Sclera Non Icteric Neck: Supple, Good ROM, No Lymph Node Enlargement Lungs: Clear to auscultation Cardiovascular: Regular Rhythm, Normal S1, Normal S2, No Murmurs, No Rubs, No Gallops Vascular: No Carotid Bruits, Normal Femoral Pulses, Normal Radial Pulses, Normal Dorsalis Pedal Pulse, Normal Posterior Tibial Pulses Abdomen: Bowel Sounds Present, Soft, Non Tender, No HSM, No Organomegaly Extremities: No Cyanosis, No Clubbing, No edema Musculoskeletal: No Erythema Skin: No Rashes Lymphatic: No Lymph Node Enlargement Neurological: No Focal Motor or Sensory Deficit Psych/Mental Status: Appropriate 03/21/18 09:05: Sodium 123 L, Potassium 2.7 L*, Chloride 85 L, Carbon Dioxide 24.0, BUN 64 H, Creatinine 1.39 H, Est GFR (MDRD) Af Amer 47 L, Est GFR (MDRD) Non-Af 39 L, BUN/Creatinine Ratio 46.0 H, Glucose 114 H, Calcium 8.1 L, Phosphorus 3.5 Rhythm: EKG: ECHO: Stress Test: Cardiac Cath: PCI: CT Surgery: Holter monitor: EPS: PPM: CXR: Chest CT Scan: Medical Necessity - Tobacco Use Smoking Status: Never smoker Assessment/Plan 1. Congestive heart failure-acute diastolic * The patient presents with shortness of breath and anasarca as well as tachycardia. It appears that she has been in atrial flutter with a rapid response rate which has not been controlled. This is likely the etiology for her shortness of breath. * Will continue with intravenous diuresis at this time as per nephrology. Patient appears to be diuresing better at this time. * Continue beta-franny. * 2. Atrial flutter with variable block * Patient appears to be in atrial flutter with variable block. The exact duration is unclear at this time. Would recommend rate control with intravenous Cardizem and beta-franny * Will anticoagulate with oral apixaban- * 3. Hypertension * Patient appears to be hypertensive which is under good control and will continue. * 4. Valvular heart disease * Patient has aortic stenosis which appears to be mild as well as mitral annular calcification. * Will pursue expectant management. * She appears to have low flow low gradient aortic stenosis. This will be addressed when she is heart of heart failure. * 5. Cardiomyopathy * She has a global cardiomyopathy with an estimated ejection fraction of 30% * We will continue beta-franny * * Overall long-term prognosis is rather guarded. We will continue with cautious diuresis balancing with fluid requirements. * Thank you for allowing me to participate in the care of your patient. Please don't hesitate to call if any issues arise
--- NOTE | 2018-03-22 09:51 | CASEMGMT ---
TELEVISION WRITER asked SW about Hospice conversation. Patient told her that Hospice never came to [facility]. SW called Hospice and spoke with Mary as Marleevasu is not in yet. Marleevasu came to [facility] and spoke with family. She tried to talk with patient, but she was not able to participate in conversation. Family wanted to talk amongst themselves this evening and then decide. Maria L will call SW when she gets in today. SW will update TELEVISION WRITER. Grisel ALMODOVAR MSW
[2018-03-22] MEDS: APIXABAN 2.5 MG TABLET PO ×2 (10:12→20:52)
[2018-03-22] MEDS: Pantoprazole Sodium 20 MG Tablet PO (10:12)
[2018-03-22] MEDS: metOLazone 5 MG Tablet PO ×2 (10:12→20:52)
[2018-03-22] MEDS: Metoprolol Tartrate 50 MG Tablet PO ×2 (10:12→20:52)
[2018-03-22] MEDS: Glycerin/Hypromellose/PEG400 15 ml Bottle 1 DRP EACH EYE (10:13)
[2018-03-22 11:21] LABS: Bedside Glucose 106 mg/dL (70-110)
--- NOTE | 2018-03-22 11:53 | PCM.PN.REN ---
Subjective: no new complaints - Physical Exam General: Alert, Oriented x3, Cooperative HEENT: Atraumatic, PERRLA, EOMI, Normocephalic Neck: Supple, No JVD, Negative Carotid Bruits Lungs: Clear to auscultation, Normal air movement Cardiovascular: Regular rate, No murmurs Abdomen: Bowel Sounds Present, Soft, Non Tender Extremities: Capillary Refill Less than 3 Seconds, Edema Skin: No rashes, No breakdown Musculoskeletal: No Tenderness to Palpation of Joints or Extremities Vital Signs Temp Pulse Resp BP Pulse Ox 97.3 F L 90 18 117/64 94 03/22/18 10:06 03/22/18 10:54 03/22/18 10:06 03/22/18 10:12 03/22/18 10:06 Oxygen Flow Rate (L/min) 13 Oxygen Delivery Method Nasal Cannula Weight: 102 kg Body Mass Index (BMI) 41.1 Finger Stick Blood Glucose 81 Intake and Output for Last 24 Hours 03/20/18 03/21/18 03/22/18 23:59 23:59 23:59 Intake Total 207.0 / 207.0 1051.6 / 1051.6 30.6 / 30.6 Output Total 2450 / 2450 3000 / 3000 825 / 825 Balance -2243.0 / -2243.0 -1948.4 / -1948.4 -794.4 / -794.4 Microbiology Past 72 Hours 03/19/18 16:00 Urine Culture - Final Urine Catheter - Burr Presumptive C albicans POC Glucose 03/22/18 03/22/18 03/22/18 11:07 06:44 00:30 POC Glucose 106 112 H 116 H 03/21/18 03/21/18 03/21/18 22:14 17:20 11:40 POC Glucose 119 H 119 H 130 H Medical Necessity - Tobacco Use Smoking Status: Never smoker Assessment/Plan All Active Problems (Last Reviewed 06/03/17 @ 13:43 by Elvi López) Community acquired pneumonia (Acute) CHF (Acute) Hyponatremia (Acute) Shortness of breath (Acute) Acute on chronic diastolic heart failure (Acute) Epigastric abdominal pain (Resolved) Gastritis (Resolved) CKD stage 3. CONSTANTINE creatinine better. likely due to combination of CRS HRS. Hyponatremia. severe. slightly better. CHF. significant volume overload. on lasix drip and added metolazone. urine output better, more than [address] abd shows cirrhosis, no hepatitis on file. prior SPEP was negative. she now has liver cirrhosis of unclear etiology, CHF with low EF and renal failure. Hypokalemia. K ordered waiting on family decision regarding hospice
--- NOTE | 2018-03-22 12:45 | CPS ---
pt said she would try to wear the bipap, SpO2=88% on 13lpm HFNC. Placed Bipap mask on pt to help her get acclimated with pressure but within 15 seconds, pt pushed it away, said sorry, i can't do it. pt said it felt like the mask was smothering her. Wolf told Adriana TOWNSEND about this. Left pt on 13lpm HFNC.
[2018-03-22 15:16] LABS: Bedside Glucose 111 mg/dL (70-110)
--- NOTE | 2018-03-22 15:24 | PCM.PROGNOTE ---
<Yolanda Kruger - Last Filed: 03/22/18 15:29> Subjective: Patient seen and examined. States she is miserable and wants to get out of here. States she wants to go to hospice facility. Waiting family decision. Spoke with POA who is to call back with decision. - Physical Exam General: Alert, Oriented x3, Cooperative, - - Ill/fatigued appearing. HEENT: Atraumatic, PERRLA, EOMI, Normocephalic Oral: Dry Mucosa Neck: Supple, No JVD, Negative Carotid Bruits Lungs: Diminished, Rhonchi Cardiovascular: Regular Rhythm, Normal S1, Normal S2, No murmurs, Tachycardic Abdomen: Bowel Sounds Present, Soft, Non Tender, Non-Distended Extremities: No clubbing, No cyanosis, Capillary Refill Less than 3 Seconds, Edema - BLLE Skin: No rashes, No breakdown Musculoskeletal: No Tenderness to Palpation of Joints or Extremities Neurological: Cranial nerves II-XII grossly intact, Neuro grossly intact Psych/Mental Status: Flat Affect Vital Signs Temp Pulse Resp BP Pulse Ox 97.3 F L 99 18 121/71 H 95 03/22/18 15:00 03/22/18 15:00 03/22/18 15:00 03/22/18 15:00 03/22/18 15:00 Oxygen Flow Rate (L/min) 13 Oxygen Delivery Method Nasal Cannula Weight: 224 lb 13.944 oz Body Mass Index (BMI) 41.1 Finger Stick Blood Glucose 81 Intake and Output for Last 24 Hours 03/20/18 03/21/18 03/22/18 23:59 23:59 23:59 Intake Total 207.0 / 207.0 1051.6 / 1051.6 92.6 / 92.6 Output Total 2450 / 2450 3000 / 3000 1475 / 1475 Balance -2243.0 / -2243.0 -1948.4 / -1948.4 -1382.4 / -1382.4 Microbiology Past 72 Hours 03/19/18 16:00 Urine Culture - Final Urine Catheter - Burr Presumptive C albicans POC Glucose 03/22/18 03/22/18 03/22/18 15:05 11:07 06:44 POC Glucose 111 H 106 112 H 03/22/18 03/21/18 03/21/18 00:30 22:14 17:20 POC Glucose 116 H 119 H 119 H Medical Necessity - Tobacco Use Smoking Status: Never smoker Assessment/Plan All Active Problems (Last Reviewed 06/03/17 @ 13:43 by Elvi López) Community acquired pneumonia (Acute) CHF (Acute) Hyponatremia (Acute) Shortness of breath (Acute) Acute on chronic diastolic heart failure (Acute) Epigastric abdominal pain (Resolved) Gastritis (Resolved) 1. Acute on chronic systolic CHF with associated anasarca/ascites/bilateral pleural effusions-echocardiogram with EF 30%, mild mitral valve insufficiency, moderate tricuspid valve insufficiency, low flow gradient aortic stenosis. On Lasix drip and metolazone. Cardiology following. Strict I&O. Daily weight. Mehrdad wraps bilateral lower extremities. 2. Acute hypoxic respiratory failure secondary to #1-currently requiring high flow oxygen. BiPAP ordered, patient unable to tolerate. 3. Atrial flutter with RVR-currently sinus tachycardia. Continue Eliquis, metoprolol. 4. Acute kidney injury on chronic kidney disease stage III- CONSTANTINE resolved. 5. Liver cirrhosis-unclear etiology. 6. Type 2 diabetes hyyxpwuc-Sqhk-Nflzm ACHS with sliding scale insulin. 7. Moderate protein calorie malnutrition- nutrition consult. 8. Hyperlipidemia- continue statin. 9. GERD- continue PPI. 10. Morbid obesity-Encouraged diet and lifestyle modifications. DVT prophylaxis- Eliquis. Discharge planning: Possible hospice. Family deciding. This patient was seen by HUGH Viveros under the supervision of Dr. Mckeon. <Ifeanyi Mckeon - Last Filed: 03/22/18 15:51> - Physical Exam Vital Signs Temp Pulse Resp BP Pulse Ox 97.3 F L 99 18 121/71 H 95 03/22/18 15:00 03/22/18 15:00 03/22/18 15:00 03/22/18 15:00 03/22/18 15:00 Oxygen Flow Rate (L/min) 13 Oxygen Delivery Method Nasal Cannula Weight: 224 lb 13.944 oz Body Mass Index (BMI) 41.1 Finger Stick Blood Glucose 81 Intake and Output for Last 24 Hours 03/20/18 03/21/18 03/22/18 23:59 23:59 23:59 Intake Total 207.0 / 207.0 1051.6 / 1051.6 92.6 / 92.6 Output Total 2450 / 2450 3000 / 3000 1475 / 1475 Balance -2243.0 / -2243.0 -1948.4 / -1948.4 -1382.4 / -1382.4 Microbiology Past 72 Hours 03/19/18 16:00 Urine Culture - Final Urine Catheter - Burr Presumptive C albicans POC Glucose 03/22/18 03/22/18 03/22/18 15:05 11:07 06:44 POC Glucose 111 H 106 112 H 03/22/18 03/21/18 03/21/18 00:30 22:14 17:20 POC Glucose 116 H 119 H 119 H Assessment/Plan Hospitalist note: I am seeing this patient in conjunction with Yolanda Kruger. I independently seen and examined the patient. Progress note above and laboratory data and I agree with the above treatment plan. Today, patient mentioned that she is still short of breath, no improvement. She states that she wants to go to hospice and palliative care at this time. We are awaiting for incision. She remained dyspneic and tachypneic, on nasal cannula up to 14 L. She is afebrile, blood pressure and heart rate are stable. - Physical Exam General: Alert, Oriented x3, Cooperative, short of breath, dyspneic. HEENT: Atraumatic, PERRLA, EOMI. Neck: Supple, No JVD, Negative Carotid Bruits, Trachea Midline, Thyroid Normal. Lungs: Decreased breath sounds bilateral, bilateral rhonchi, crackles, short of breath. Cardiovascular: Regular rate, Regular Rhythm, Normal S1, Normal S2, PMI Normal, tachycardia. Abdomen: Bowel Sounds Present, Soft, Non Tender, Non-Distended, No Hepato-splenomegaly. Extremities: No clubbing, No cyanosis, ++ edema Skin: No rashes, No breakdown Neurological: Neuro grossly intact Assessment and plan: #1 acute on chronic systolic CHF/anasarca/bilateral pleural effusion?ascites: And on IV Lasix drip and p.o. metolazone, minimal improvement. 2D echocardiogram revealed ejection fraction of 30%. Patient still requiring high flow oxygen. After discussion with the patient's power of civil rights attorney and patient herself, they decided to go with hospice and palliative care but we are waiting other family members decision. Plan to continue same treatment for now. #2 acute hypoxic respiratory failure: Secondary to above, still requiring high flow oxygen. Chest x-ray reviewed. #3 atrial flutter with RVR: Now in sinus tachycardia, rate has been around 100. She is on metoprolol and Eliquis. #4 acute kidney injury, stage III chronic kidney disease: Although her kidney function is getting better but his voiding status still not stabilized. #5 other chronic medical problems: Stable, continue current medications as above. This note was generated with [employer] dictation software. It may contain incorrect words, spelling, and punctuation that were not noted in checking the note before signing. Code Visit Inpatient E&M: 10930 Subs Hosp L2
--- NOTE | 2018-03-22 15:29 | PN_ITS ---
<Yolanda Kruger - Last Filed: 03/22/18 15:29> Subjective: Patient seen and examined. States she is miserable and wants to get out of here. States she wants to go to hospice facility. Waiting family decision. Spoke with POA who is to call back with decision. - Physical Exam General: Alert, Oriented x3, Cooperative, - - Ill/fatigued appearing. HEENT: Atraumatic, PERRLA, EOMI, Normocephalic Oral: Dry Mucosa Neck: Supple, No JVD, Negative Carotid Bruits Lungs: Diminished, Rhonchi Cardiovascular: Regular Rhythm, Normal S1, Normal S2, No murmurs, Tachycardic Abdomen: Bowel Sounds Present, Soft, Non Tender, Non-Distended Extremities: No clubbing, No cyanosis, Capillary Refill Less than 3 Seconds, Edema - BLLE Skin: No rashes, No breakdown Musculoskeletal: No Tenderness to Palpation of Joints or Extremities Neurological: Cranial nerves II-XII grossly intact, Neuro grossly intact Psych/Mental Status: Flat Affect Vital Signs Temp Pulse Resp BP Pulse Ox 97.3 F L 99 18 121/71 H 95 03/22/18 15:00 03/22/18 15:00 03/22/18 15:00 03/22/18 15:00 03/22/18 15:00 Oxygen Flow Rate (L/min) 13 Oxygen Delivery Method Nasal Cannula Weight: 224 lb 13.944 oz Body Mass Index (BMI) 41.1 Finger Stick Blood Glucose 81 Intake and Output for Last 24 Hours 03/20/18 03/21/18 03/22/18 23:59 23:59 23:59 Intake Total 207.0 / 207.0 1051.6 / 1051.6 92.6 / 92.6 Output Total 2450 / 2450 3000 / 3000 1475 / 1475 Balance -2243.0 / -2243.0 -1948.4 / -1948.4 -1382.4 / -1382.4 Microbiology Past 72 Hours 03/19/18 16:00 Urine Culture - Final Urine Catheter - Burr Presumptive C albicans POC Glucose 03/22/18 03/22/18 03/22/18 15:05 11:07 06:44 POC Glucose 111 H 106 112 H 03/22/18 03/21/18 03/21/18 00:30 22:14 17:20 POC Glucose 116 H 119 H 119 H Medical Necessity - Tobacco Use Smoking Status: Never smoker Assessment/Plan All Active Problems (Last Reviewed 06/03/17 @ 13:43 by Elvi López) Community acquired pneumonia (Acute) CHF (Acute) Hyponatremia (Acute) Shortness of breath (Acute) Acute on chronic diastolic heart failure (Acute) Epigastric abdominal pain (Resolved) Gastritis (Resolved) 1. Acute on chronic systolic CHF with associated anasarca/ascites/bilateral pleural effusions-echocardiogram with EF 30%, mild mitral valve insufficiency, moderate tricuspid valve insufficiency, low flow gradient aortic stenosis. On Lasix drip and metolazone. Cardiology following. Strict I&O. Daily weight. Mehrdad wraps bilateral lower extremities. 2. Acute hypoxic respiratory failure secondary to #1-currently requiring high fl ow oxygen. BiPAP ordered, patient unable to tolerate. 3. Atrial flutter with RVR-currently sinus tachycardia. Continue Eliquis, metoprolol. 4. Acute kidney injury on chronic kidney disease stage III- CONSTANTINE resolved. 5. Liver cirrhosis-unclear etiology. 6. Type 2 diabetes [id number] ACHS with sliding scale insulin. 7. Moderate protein calorie malnutrition- nutrition consult. 8. Hyperlipidemia- continue statin. 9. GERD- continue PPI. 10. Morbid obesity-Encouraged diet and lifestyle modifications. DVT prophylaxis- Eliquis. Discharge planning: Possible hospice. Family deciding. This patient was seen by HUGH Viveros under the supervision of Dr. Mckeon. <Ifeanyi Mckeon - Last Filed: 03/22/18 15:51> - Physical Exam Vital Signs Temp Pulse Resp BP Pulse Ox 97.3 F L 99 18 121/71 H 95 03/22/18 15:00 03/22/18 15:00 03/22/18 15:00 03/22/18 15:00 03/22/18 15:00 Oxygen Flow Rate (L/min) 13 Oxygen Delivery Method Nasal Cannula Weight: 224 lb 13.944 oz Body Mass Index (BMI) 41.1 Finger Stick Blood Glucose 81 Intake and Output for Last 24 Hours 03/20/18 03/21/18 03/22/18 23:59 23:59 23:59 Intake Total 207.0 / 207.0 1051.6 / 1051.6 92.6 / 92.6 Output Total 2450 / 2450 3000 / 3000 1475 / 1475 Balance -2243.0 / -2243.0 -1948.4 / -1948.4 -1382.4 / -1382.4 Microbiology Past 72 Hours 03/19/18 16:00 Urine Culture - Final Urine Catheter - Burr Presumptive C albicans POC Glucose 03/22/18 03/22/18 03/22/18 15:05 11:07 06:44 POC Glucose 111 H 106 112 H 03/22/18 03/21/18 03/21/18 00:30 22:14 17:20 POC Glucose 116 H 119 H 119 H Assessment/Plan Hospitalist note: I am seeing this patient in conjunction with Yolanda Kruger. I independently seen and examined the patient. Progress note above and laboratory data and I agree with the above treatment plan. Today, patient mentioned that she is still short of breath, no improvement. She states that she wants to go to hospice and palliative care at this time. We are awaiting for incision. She remained dyspneic and tachypneic, on nasal cannula up to 14 L. She is afebrile, blood pressure and heart rate are stable. - Physical Exam General: Alert, Oriented x3, Cooperative, short of breath, dyspneic. HEENT: Atraumatic, PERRLA, EOMI. Neck: Supple, No JVD, Negative Carotid Bruits, Trachea Midline, Thyroid Normal. Lungs: Decreased breath sounds bilateral, bilateral rhonchi, crackles, short of breath. Cardiovascular: Regular rate, Regular Rhythm, Normal S1, Normal S2, PMI Normal, tachycardia. Abdomen: Bowel Sounds Present, Soft, Non Tender, Non-Distended, No Hepato- splenomegaly. Extremities: No clubbing, No cyanosis, ++ edema Skin: No rashes, No breakdown Neurological: Neuro grossly intact Assessment and plan: #1 acute on chronic systolic CHF/anasarca/bilateral pleural effusion?ascites: And on IV Lasix drip and p.o. metolazone, minimal improvement. 2D echocardiogram revealed ejection fraction of 30%. Patient still requiring high flow oxygen. After discussion with the patient's power of staff attorney and patient herself, they decided to go with hospice and palliative care but we are waiting other family members decision. Plan to continue same treatment for now. #2 acute hypoxic respiratory failure: Secondary to above, still requiring high flow oxygen. Chest x-ray reviewed. #3 atrial flutter with RVR: Now in sinus tachycardia, rate has been around 100. She is on metoprolol and Eliquis. #4 acute kidney injury, stage III chronic kidney disease: Although her kidney function is getting better but his voiding status still not stabilized. #5 other chronic medical problems: Stable, continue current medications as above. This note was generated with [id number] dictation software. It may contain incorrect words, spelling, and punctuation that were not noted in checking the note before signing. Code Visit Inpatient E&M: 77920 Subs Hosp L2
--- NOTE | 2018-03-22 15:40 | CASEMGMT ---
OSVALDO called Hospice and spoke with Winsome. OSVALDO told her that family is possibly looking at patient coming to the Hospice Inpatient Unit. However, family is not in yet. In order to help get things moving could a nurse from Hospice come and evaluate patient. She said she would pass along this message. Grisel ALMODOVAR LEATHER CUTTER
[2018-03-22 18:01] LABS: Bedside Glucose 111 mg/dL (70-110)
[2018-03-22] MEDS: MELATONIN 10 MG TABLET PO (20:52)
--- NOTE | 2018-03-22 20:59 | NURSING ---
Pt requesting to have night meds at this time.
[2018-03-23] VITALS (18 sets, daily range): BP systolic 99–127; BP diastolic 52–69; PULSE 97–108; RESP 12–31; TEMP 36.4–36.7; O2SAT 76–94
[2018-03-23 00:01] LABS: Bedside Glucose 130 mg/dL (70-110)
[2018-03-23] MEDS: Albuterol 2.5 MG/3 ML VIAL.NEB. INHALATION (05:15)
[2018-03-23] MEDS: Morphine 2 MG/ML Syringe IV (05:23)
[2018-03-23] MEDS: 0.9% NaCl Peripheral Flush Adult/Peds IV ×2 (05:24→11:55)
[2018-03-23] MEDS: BACITRACIN 15 GM Tube 1 APPLIC TOPICAL ×2 (05:24→14:46)
[2018-03-23 05:36] LABS: Bedside Glucose 143 mg/dL (70-110)
[2018-03-23] MEDS: Ipratropium/Albuterol Sulfate 3 ML AMPUL.NEB INHALATION (07:46)
--- NOTE | 2018-03-23 08:20 | CPS ---
Tried to put pt. on BiPAP for desaturation. Pt. was very agitated with BiPAP. Tried to adjust settings for pt. comfort, but pt. still expressed agitation. Put pt. back on 15L HFNC. Sp02 was steadily 89%-90% after breathing tx.
--- NOTE | 2018-03-23 09:00 | CASEMGMT ---
Patient continues to worsen. She continues to say she is ready to . Per night foam charger patient was in pain, but giving her pain medicine could be dangerous as it would lower her stats even more. Hospice would be able to keep patient comfortable. SW spoke with patient and asked her if she still would like to go to Hospice. She said she would. OSVALDO told her that since she is alert and oriented she can make this decisions. OSVALDO told her that SW can have a systems accountant come and evaluate her for the inpatient unit. She said she feels fine signing papers. OSVALDO told her we will call her son, Hesham and let him know what is happening. OSVALDO called Hospice and spoke with Mary. She will send Jeffery. RADIAGRAPH OPERATOR, Yolanda called patient's son Hesham and let him know what is going to happen. He was fine with this. Jeffery from Hospice is here to evaluate patient. Griesl ALMODOVAR MSW
--- NOTE | 2018-03-23 09:51 | PCM.DC.SUM ---
<Yolanda Kruger - Last Filed: 03/23/18 10:00> Discharge Date and Diagnosis Date of Admission: 03/14/18 Date of Discharge: 03/23/18 - Primary Discharge Diagnosis 1. Acute on chronic systolic CHF with associated anasarca/ascites/bilateral pleural effusions 2. Acute hypoxic respiratory failure secondary to #1 3. Atrial flutter with RVR 4. Acute kidney injury on chronic kidney disease stage III 5. Liver cirrhosis 6. Type 2 diabetes mellitus 7. Moderate protein calorie malnutrition 8. Hyperlipidemia 9. GERD 10. Morbid obesity 11. Hospice transition - Secondary Discharge Diagnosis Chronic Problems (Last Reviewed 06/03/17 @ 13:43 by Elvi López) Hyperlipidemia (Chronic) Aortic stenosis (Chronic) Pulmonary hypertension (Chronic) Vitamin D deficiency (Chronic) Diabetes mellitus (Chronic) Allergic rhinitis (Chronic) Mixed hyperlipidemia (Chronic) Non-rheumatic aortic stenosis (Chronic) Secondary pulmonary arterial hypertension (Chronic) Stenosis of right carotid artery (Chronic) Abnormal electrocardiogram (Chronic) Syncope (Chronic) Anemia (Chronic) Hospital Course and Treatment Imaging Results: Diagnostic Data Chest CTA 03/13/18 22:37 IMPRESSION: 1. No central or segmental pulmonary embolism. 2. Dilated pulmonary artery suggesting possibility of pulmonary hypertension. 3. Right larger than left pleural effusions, mild ascites and body wall edema suggesting third spacing. 4. Cardiomegaly. Dilated right atrium suggesting right heart dysfunction. Electronically Signed: Sean Lam MD at 23:18 EST , Service support , Abdomen CT 03/15/18 17:08 IMPRESSION: Hepatic cirrhosis, splenomegaly, ascites, cardiomegaly, coronary artery disease, bilateral pleural effusions with atelectatic changes in the basis, appear stable. Anasarca may have increased. There is no abscess, collection, perforation or obstruction. Moderate amount of retained fecal material and distention of the right colon to the level of the transverse colon, mild tethering of mesentery without obstruction are indeterminate findings. Poorly visualized adrenal glands and pancreas, colonic diverticulosis, degenerative changes, osteopenia, fat-containing hiatal hernia and presumed cholecystectomy felt to be nonacute findings. Electronically Signed: Bernadette Webb MD at 1:24 EST , Service support , KUB X-Ray 03/16/18 05:55 IMPRESSION: Final suggestive of dilated cecum as described. Follow-up is recommended. Electronically Signed: Declan Posada MD at 12:42 EST , Service support , Abdomen Ultrasound 03/17/18 20:30 IMPRESSION: Small amount of fluid in the right lower quadrant. Not enough fluid for paracentesis. Electronically Signed: Declan Posada MD at 14:16 EST , Service support , Chest X-Ray 03/19/18 15:30 IMPRESSION: Bilateral patchy opacities concerning for underlying edema and/or pneumonia. Bilateral pleural effusions. Electronically Signed: Bev Frey MD at 17:05 EST Tel , Service support , Dr. Alba- Cardiology Dr. Bruce- Pulmonary Dr. Krause-Nephrology Dr. Collado- General surgery Operations: None Procedures: 2-D Echocardiogram Summary of Care Provided: The patient is a 77 year old F admitted 03/14/18 due to shortness of breath. 1. Acute on chronic systolic CHF with associated anasarca/ascites/bilateral pleural effusions-echocardiogram with EF 30%, mild mitral valve insufficiency, moderate tricuspid valve insufficiency, low flow gradient aortic stenosis. On Lasix drip and metolazone. Patient's breathing continued to significantly decline. Patient opted for inpatient hospice transition. Oxygen at discharge 88% on 15 L nasal cannula. 2. Acute hypoxic respiratory failure secondary to #1- requiring high flow oxygen. BiPAP ordered, patient unable to tolerate. 3. Atrial flutter with RVR-currently sinus tachycardia. Continue Eliquis, metoprolol. 4. Acute kidney injury on chronic kidney disease stage III- CONSTANTINE resolved. 5. Liver cirrhosis-unclear etiology. 6. Type 2 diabetes shmuvpss-Yquj-Vgryx ACHS with sliding scale insulin. 7. Moderate protein calorie malnutrition- nutrition consult. 8. Hyperlipidemia- continue statin. 9. GERD- continue PPI. 10. Morbid obesity-Encouraged diet and lifestyle modifications. 11. Hospice transition General: Alert, Oriented x3, Cooperative, - - Ill/fatigued appearing. HEENT: Atraumatic, PERRLA, EOMI, Normocephalic Oral: Dry Mucosa Neck: Supple, No JVD, Negative Carotid Bruits Lungs: Diminished, Rhonchi, tachypneic Cardiovascular: Regular Rhythm, Normal S1, Normal S2, No murmurs, Tachycardic Abdomen: Bowel Sounds Present, Soft, Non Tender, Non-Distended Extremities: No clubbing, No cyanosis, Capillary Refill Less than 3 Seconds, Edema - BLLE Skin: No rashes, No breakdown Musculoskeletal: No Tenderness to Palpation of Joints or Extremities Neurological: Cranial nerves II-XII grossly intact, Neuro grossly intact Psych/Mental Status: Flat Affect Patient seen and examined prior to discharge. Physical assessment as noted above. Poor prognosis. Patient transferred to inpatient hospice facility. This patient was seen by HUGH Viveros under the supervision of Dr. Mckeon. - Physical Exam Vital Signs Temp Pulse Resp BP Pulse Ox 97.5 F L 108 H 24 H 101/58 L 90 03/23/18 08:00 03/23/18 08:00 03/23/18 08:00 03/23/18 08:00 03/23/18 08:59 Oxygen Flow Rate (L/min) 15 Oxygen Delivery Method Bi-pap Weight: 209 lb 3.499 oz Body Mass Index (BMI) 41.1 Finger Stick Blood Glucose 81 Intake and Output for Last 24 Hours 03/21/18 03/22/18 03/23/18 23:59 23:59 23:59 Intake Total 1051.6 / 1051.6 104.6 / 104.6 Output Total 3000 / 3000 1825 / 1825 175 / 175 Balance -1948.4 / -1948.4 -1720.4 / -1720.4 -152 / -152 Microbiology Past 72 Hours 03/19/18 16:00 Urine Culture - Final Urine Catheter - Burr Presumptive C albicans POC Glucose 03/23/18 03/22/18 03/22/18 05:19 23:50 17:58 POC Glucose 143 H 130 H 111 H 03/22/18 03/22/18 15:05 11:07 POC Glucose 111 H 106 Home Medications: Medications to take at Discharge Flaxseed/Evening Prim/Bilberry [Retaine Flax Softgel] 1 ea PO DAILY 12/22/13 Polyethylene Glycol 3350 [Miralax] 17 gm PO DAILY 12/22/13 Insulin Glargine [Lantus SoloStar Pen] 25 units SC QHS 12/02/16 Fish Oil/Dha/Epa [Fish Oil 1,200 mg Fish Oil] 1 each PO DAILY 11/08/17 Mineral Oil/Petrolatum,White [Systane Nighttime Eye Ointment] 3.5 gm EACHEYE DAILY 11/08/17 Propylene Glycol/Peg 400 [Systane Gel Eye Drops] 10 ml EACH EYE DAILY 11/08/17 Meclizine HCl 12.5 mg PO TID PRN PRN 03/08/18 Acetaminophen [Tylenol Extra Strength] 1,000 mg PO Q8H PRN PRN 03/12/18 Albuterol Aerosols [Ventolin Aerosols] 2.5 mg INHALATION Q2H PRN PRN vial.neb. 03/12/18 Bisacodyl [Dulcolax] 10 mg RECTAL DAILY PRN PRN suppos. 03/12/18 Bumetanide [Bumex] 1 mg PO BIDLX 03/12/18 Enoxaparin [Lovenox] 40 mg SC DAILY 03/12/18 Glucerna Shake 120 ml PO TIDCM 03/12/18 Guaifenesin [Mucinex] 1,200 mg PO BID 03/12/18 Mag Hydrox/Al Hydrox/Simeth [Mylanta II] 30 ml PO Q6H PRN PRN udc 03/12/18 Loratadine 10 mg PO DAILY 03/13/18 Pantoprazole Sodium [Protonix] 40 mg PO DAILY 03/13/18 Sennosides/Docusate Sodium [Senna-Docusate Sodium Tablet] 2 each PO BID 03/13/18 Zolpidem Tartrate [Ambien (Generic)] 5 mg PO QHS PRN PRN 03/13/18 Primary Care Physician: Jared Mayorga MD [Primary Care Provider] - Disposition: Hospice Medical Facility Minutes spent on discharge:: 35 Patient Condition:: Poor Medical Necessity - Tobacco Use Smoking Status: Never smoker Meaningful Use Info Meaningful Use Diagnoses (Choose all that apply): CHF - CHF JORDYN/ARB ordered at discharge?: No Reason JORDYN/ARB not ordered?: Worsening renal dysfunctn Documented LVEF (%): 30 <Ifeanyi Mckeon E - Last Filed: 03/23/18 11:57> Discharge Date and Diagnosis - Secondary Discharge Diagnosis Chronic Problems (Last Reviewed 06/03/17 @ 13:43 by Elvi López) Hyperlipidemia (Chronic) Aortic stenosis (Chronic) Pulmonary hypertension (Chronic) Vitamin D deficiency (Chronic) Diabetes mellitus (Chronic) Allergic rhinitis (Chronic) Mixed hyperlipidemia (Chronic) Non-rheumatic aortic stenosis (Chronic) Secondary pulmonary arterial hypertension (Chronic) Stenosis of right carotid artery (Chronic) Abnormal electrocardiogram (Chronic) Syncope (Chronic) Anemia (Chronic) Hospital Course and Treatment Summary of Care Provided: Hospitalist note: Discharge summary above reviewed and I agree with above discharge plan. This patient has complicated past medical history and she was admitted for shortness of breath, found to have acute on chronic systolic CHF she with associated anasarca, ascites, pleural effusion and are complicated by acute hypoxic respiratory failure. she was treated with IV Lasix drip and in spite of continuing him on IV Lasix drip, her respiratory status and volume status continues to deteriorate without any improvement. Also, she was found to be in atrial flutter with RVR and her heart rate has been in the 100s with stable blood pressure. Had 2D echocardiogram revealed ejection fraction of 30%, mild mitral valve insufficiency and low flow gradient aortic stenosis. In spite of aggressive treatment, her respiratory status continued to decline and she required up to 15 L of oxygen. After discussion with the patient and her family, they decided to go with hospice and palliative care. Hospice and palliative care team consulted and patient is being admitted to inpatient hospice facility. - Physical Exam General: Alert, Oriented x3, Cooperative, short of breath, dyspneic. HEENT: Atraumatic, PERRLA, EOMI. Neck: Supple, No JVD, Negative Carotid Bruits, Trachea Midline, Thyroid Normal. Lungs: Decreased breath sounds bilateral, bilateral rhonchi, crackles, short of breath. Cardiovascular: Regular rate, Regular Rhythm, Normal S1, Normal S2, PMI Normal, tachycardia. Abdomen: Bowel Sounds Present, Soft, Non Tender, Non-Distended, No Hepato-splenomegaly, ascites. Extremities: No clubbing, No cyanosis, ++ edema Skin: No rashes, No breakdown Neurological: Neuro grossly intact. This note was generated with [employer] dictation software. It may contain incorrect words, spelling, and punctuation that were not noted in checking the note before signing. - Physical Exam Vital Signs Temp Pulse Resp BP Pulse Ox 97.5 F L 107 H 24 H 127/69 H 90 03/23/18 08:00 03/23/18 10:20 03/23/18 08:00 03/23/18 10:20 03/23/18 08:59 Oxygen Flow Rate (L/min) 15 Oxygen Delivery Method Bi-pap Weight: 209 lb 3.499 oz Body Mass Index (BMI) 41.1 Finger Stick Blood Glucose 81 Intake and Output for Last 24 Hours 03/21/18 03/22/18 03/23/18 23:59 23:59 23:59 Intake Total 1051.6 / 1051.6 104.6 / 104.6 23 23 Output Total 3000 / 3000 1825 / 1825 175 / 175 Balance -1948.4 / -1948.4 -1720.4 / -1720.4 -152 / -152 Microbiology Past 72 Hours 03/19/18 16:00 Urine Culture - Final Urine Catheter - Burr Presumptive C albicans POC Glucose 03/23/18 03/22/18 03/22/18 05:19 23:50 17:58 POC Glucose 143 H 130 H 111 H 03/22/18 15:05 POC Glucose 111 H Disposition: Hospice Medical Facility Minutes spent on discharge:: 34 Patient Condition:: Poor Meaningful Use Info Meaningful Use Diagnoses (Choose all that apply): CHF - CHF JORDYN/ARB ordered at discharge?: No Reason JORDYN/ARB not ordered?: Worsening renal dysfunctn Documented LVEF (%): 30 Code Visit Inpatient E&M: 00640 Disch Hosp
--- NOTE | 2018-03-23 09:55 | DS.PCM_ITS ---
<Yolanda Kruger - Last Filed: 03/23/18 10:00> Discharge Date and Diagnosis Date of Admission: 03/14/18 Date of Discharge: 03/23/18 - Primary Discharge Diagnosis 1. Acute on chronic systolic CHF with associated anasarca/ascites/bilateral pleural effusions 2. Acute hypoxic respiratory failure secondary to #1 3. Atrial flutter with RVR 4. Acute kidney injury on chronic kidney disease stage III 5. Liver cirrhosis 6. Type 2 diabetes mellitus 7. Moderate protein calorie malnutrition 8. Hyperlipidemia 9. GERD 10. Morbid obesity 11. Hospice transition - Secondary Discharge Diagnosis Chronic Problems (Last Reviewed 06/03/17 @ 13:43 by Elvi López) Hyperlipidemia (Chronic) Aortic stenosis (Chronic) Pulmonary hypertension (Chronic) Vitamin D deficiency (Chronic) Diabetes mellitus (Chronic) Allergic rhinitis (Chronic) Mixed hyperlipidemia (Chronic) Non-rheumatic aortic stenosis (Chronic) Secondary pulmonary arterial hypertension (Chronic) Stenosis of right carotid artery (Chronic) Abnormal electrocardiogram (Chronic) Syncope (Chronic) Anemia (Chronic) Hospital Course and Treatment Imaging Results: Diagnostic Data Chest CTA 03/13/18 22:37 IMPRESSION: 1. No central or segmental pulmonary embolism. 2. Dilated pulmonary artery suggesting possibility of pulmonary hypertension. 3. Right larger than left pleural effusions, mild ascites and body wall edema suggesting third spacing. 4. Cardiomegaly. Dilated right atrium suggesting right heart dysfunction. Electronically Signed: Sean Lam MD at 23:18 EST , Service support , Abdomen CT 03/15/18 17:08 IMPRESSION: Hepatic cirrhosis, splenomegaly, ascites, cardiomegaly, coronary artery disease, bilateral pleural effusions with atelectatic changes in the basis, appear stable. Anasarca may have increased. There is no abscess, collection, perforation or obstruction. Moderate amount of retained fecal material and distention of the right colon to the level of the transverse colon, mild tethering of mesentery without obstruction are indeterminate findings. Poorly visualized adrenal glands and pancreas, colonic diverticulosis, degenerative changes, osteopenia, fat-containing hiatal hernia and presumed cholecystectomy felt to be nonacute findings. Electronically Signed: Bernadette Webb MD at 1:24 EST , Service support , KUB X-Ray 03/16/18 05:55 IMPRESSION: Final suggestive of dilated cecum as described. Follow-up is recommended. Electronically Signed: Declan Posada MD at 12:42 EST , Service support , Abdomen Ultrasound 03/17/18 20:30 IMPRESSION: Small amount of fluid in the right lower quadrant. Not enough fluid for paracentesis. Electronically Signed: Declan Posada MD at 14:16 EST , Service support , Chest X-Ray 03/19/18 15:30 IMPRESSION: Bilateral patchy opacities concerning for underlying edema and/or pneumonia. Bilateral pleural effusions. Electronically Signed: Bev Frey MD at 17:05 EST Tel , Service support , Dr. Alba- Cardiology Dr. Bruce- Pulmonary Dr. Krause-Nephrology Dr. Collado- General surgery Operations: None Procedures: 2-D Echocardiogram Summary of Care Provided: The patient is a 77 year old F admitted 03/14/18 due to shortness of breath. 1. Acute on chronic systolic CHF with associated anasarca/ascites/bilateral pleural effusions-echocardiogram with EF 30%, mild mitral valve insufficiency, moderate tricuspid valve insufficiency, low flow gradient aortic stenosis. On Lasix drip and metolazone. Patient's breathing continued to significantly decline. Patient opted for inpatient hospice transition. Oxygen at discharge 88% on 15 L nasal cannula. 2. Acute hypoxic respiratory failure secondary to #1- requiring high flow oxygen. BiPAP ordered, patient unable to tolerate. 3. Atrial flutter with RVR-currently sinus tachycardia. Continue Eliquis, metoprolol. 4. Acute kidney injury on chronic kidney disease stage III- CONSTANTINE resolved. 5. Liver cirrhosis-unclear etiology. 6. Type 2 diabetes [id number] ACHS with sliding scale insulin. 7. Moderate protein calorie malnutrition- nutrition consult. 8. Hyperlipidemia- continue statin. 9. GERD- continue PPI. 10. Morbid obesity-Encouraged diet and lifestyle modifications. 11. Hospice transition General: Alert, Oriented x3, Cooperative, - - Ill/fatigued appearing. HEENT: Atraumatic, PERRLA, EOMI, Normocephalic Oral: Dry Mucosa Neck: Supple, No JVD, Negative Carotid Bruits Lungs: Diminished, Rhonchi, tachypneic Cardiovascular: Regular Rhythm, Normal S1, Normal S2, No murmurs, Tachycardic Abdomen: Bowel Sounds Present, Soft, Non Tender, Non-Distended Extremities: No clubbing, No cyanosis, Capillary Refill Less than 3 Seconds, Edema - BLLE Skin: No rashes, No breakdown Musculoskeletal: No Tenderness to Palpation of Joints or Extremities Neurological: Cranial nerves II-XII grossly intact, Neuro grossly intact Psych/Mental Status: Flat Affect Patient seen and examined prior to discharge. Physical assessment as noted above. Poor prognosis. Patient transferred to inpatient hospice facility. This patient was seen by HUGH Viveros under the supervision of Dr. Mckeon. - Physical Exam Vital Signs Temp Pulse Resp BP Pulse Ox 97.5 F L 108 H 24 H 101/58 L 90 03/23/18 08:00 03/23/18 08:00 03/23/18 08:00 03/23/18 08:00 03/23/18 08:59 Oxygen Flow Rate (L/min) 15 Oxygen Delivery Method Bi-pap Weight: 209 lb 3.499 oz Body Mass Index (BMI) 41.1 Finger Stick Blood Glucose 81 Intake and Output for Last 24 Hours 03/21/18 03/22/18 03/23/18 23:59 23:59 23:59 Intake Total 1051.6 / 1051.6 104.6 / 104.6 Output Total 3000 / 3000 1825 / 1825 175 / 175 Balance -1948.4 / -1948.4 -1720.4 / -1720.4 -152 / -152 Microbiology Past 72 Hours 03/19/18 16:00 Urine Culture - Final Urine Catheter - Burr Presumptive C albicans POC Glucose 03/23/18 03/22/18 03/22/18 05:19 23:50 17:58 POC Glucose 143 H 130 H 111 H 03/22/18 03/22/18 15:05 11:07 POC Glucose 111 H 106 Home Medications: Medications to take at Discharge Flaxseed/Evening Prim/Bilberry [Retaine Flax Softgel] 1 ea PO DAILY 12/22/13 Polyethylene Glycol 3350 [Miralax] 17 gm PO DAILY 12/22/13 Insulin Glargine [Lantus SoloStar Pen] 25 units SC QHS 12/02/16 Fish Oil/Dha/Epa [Fish Oil 1,200 mg Fish Oil] 1 each PO DAILY 11/08/17 Mineral Oil/Petrolatum,White [Systane Nighttime Eye Ointment] 3.5 gm EACHEYE DAILY 11/08/17 Propylene Glycol/Peg 400 [Systane Gel Eye Drops] 10 ml EACH EYE DAILY 11/08/17 Meclizine HCl 12.5 mg PO TID PRN PRN 03/08/18 Acetaminophen [Tylenol Extra Strength] 1,000 mg PO Q8H PRN PRN 03/12/18 Albuterol Aerosols [Ventolin Aerosols] 2.5 mg INHALATION Q2H PRN PRN vial.neb. 03/12/18 Bisacodyl [Dulcolax] 10 mg RECTAL DAILY PRN PRN suppos. 03/12/18 Bumetanide [Bumex] 1 mg PO BIDLX 03/12/18 Enoxaparin [Lovenox] 40 mg SC DAILY 03/12/18 Glucerna Shake 120 ml PO TIDCM 03/12/18 Guaifenesin [Mucinex] 1,200 mg PO BID 03/12/18 Mag Hydrox/Al Hydrox/Simeth [Mylanta II] 30 ml PO Q6H PRN PRN udc 03/12/18 Loratadine 10 mg PO DAILY 03/13/18 Pantoprazole Sodium [Protonix] 40 mg PO DAILY 03/13/18 Sennosides/Docusate Sodium [Senna-Docusate Sodium Tablet] 2 each PO BID 03/13/18 Zolpidem Tartrate [Ambien (Generic)] 5 mg PO QHS PRN PRN 03/13/18 Primary Care Physician: Jared Mayorga MD [Primary Care Provider] - Disposition: Hospice Medical Facility Minutes spent on discharge:: 35 Patient Condition:: Poor Medical Necessity - Tobacco Use Smoking Status: Never smoker Meaningful Use Info Meaningful Use Diagnoses (Choose all that apply): CHF - CHF JORDYN/ARB ordered at discharge?: No Reason JORDYN/ARB not ordered?: Worsening renal dysfunctn Documented LVEF (%): 30 <Ifeanyi Mckeon E - Last Filed: 03/23/18 11:57> Discharge Date and Diagnosis - Secondary Discharge Diagnosis Chronic Problems (Last Reviewed 06/03/17 @ 13:43 by Elvi López) Hyperlipidemia (Chronic) Aortic stenosis (Chronic) Pulmonary hypertension (Chronic) Vitamin D deficiency (Chronic) Diabetes mellitus (Chronic) Allergic rhinitis (Chronic) Mixed hyperlipidemia (Chronic) Non-rheumatic aortic stenosis (Chronic) Secondary pulmonary arterial hypertension (Chronic) Stenosis of right carotid artery (Chronic) Abnormal electrocardiogram (Chronic) Syncope (Chronic) Anemia (Chronic) Hospital Course and Treatment Summary of Care Provided: Hospitalist note: Discharge summary above reviewed and I agree with above discharge plan. This patient has complicated past medical history and she was admitted for shortness of breath, found to have acute on chronic systolic CHF she with associated anasarca, ascites, pleural effusion and are complicated by acute hypoxic respiratory failure. she was treated with IV Lasix drip and in spite of cont inuing him on IV Lasix drip, her respiratory status and volume status continues to deteriorate without any improvement. Also, she was found to be in atrial flutter with RVR and her heart rate has been in the 100s with stable blood pressure. Had 2D echocardiogram revealed ejection fraction of 30%, mild mitral valve insufficiency and low flow gradient aortic stenosis. In spite of aggressive treatment, her respiratory status continued to decline and she required up to 15 L of oxygen. After discussion with the patient and her family, they decided to go with hospice and palliative care. Hospice and palliative care team consulted and patient is being admitted to inpatient hospice facility. - Physical Exam General: Alert, Oriented x3, Cooperative, short of breath, dyspneic. HEENT: Atraumatic, PERRLA, EOMI. Neck: Supple, No JVD, Negative Carotid Bruits, Trachea Midline, Thyroid Normal. Lungs: Decreased breath sounds bilateral, bilateral rhonchi, crackles, short of breath. Cardiovascular: Regular rate, Regular Rhythm, Normal S1, Normal S2, PMI Normal, tachycardia. Abdomen: Bowel Sounds Present, Soft, Non Tender, Non-Distended, No Hepato- splenomegaly, ascites. Extremities: No clubbing, No cyanosis, ++ edema Skin: No rashes, No breakdown Neurological: Neuro grossly intact. This note was generated with 10X[employer] Room dictation software. It may contain incorrect words, spelling, and punctuation that were not noted in checking the note before signing. - Physical Exam Vital Signs Temp Pulse Resp BP Pulse Ox 97.5 F L 107 H 24 H 127/69 H 90 03/23/18 08:00 03/23/18 10:20 03/23/18 08:00 03/23/18 10:20 03/23/18 08:59 Oxygen Flow Rate (L/min) 15 Oxygen Delivery Method Bi-pap Weight: 209 lb 3.499 oz Body Mass Index (BMI) 41.1 Finger Stick Blood Glucose 81 Intake and Output for Last 24 Hours 03/21/18 03/22/18 03/23/18 23:59 23:59 23:59 Intake Total 1051.6 / 1051.6 104.6 / 104.6 23 23 Output Total 3000 / 3000 1825 / 1825 175 / 175 Balance -1948.4 / -1948.4 -1720.4 / -1720.4 -152 / -152 Microbiology Past 72 Hours 03/19/18 16:00 Urine Culture - Final Urine Catheter - Burr Presumptive C albicans POC Glucose 03/23/18 03/22/18 03/22/18 05:19 23:50 17:58 POC Glucose 143 H 130 H 111 H 03/22/18 15:05 POC Glucose 111 H Disposition: Hospice Medical Facility Minutes spent on discharge:: 34 Patient Condition:: Poor Meaningful Use Info Meaningful Use Diagnoses (Choose all that apply): CHF - CHF JORDYN/ARB ordered at discharge?: No Reason JORDYN/ARB not ordered?: Worsening renal dysfunctn Documented LVEF (%): 30 Code Visit Inpatient E&M: 52197 Disch Hosp
[2018-03-23] MEDS: APIXABAN 2.5 MG TABLET PO (10:20)
[2018-03-23] MEDS: Metoprolol Tartrate 50 MG Tablet PO (10:20)
[2018-03-23] MEDS: Glycerin/Hypromellose/PEG400 15 ml Bottle 1 DRP EACH EYE (10:20)
[2018-03-23] MEDS: LORazepam 0.5 MG Tablet PO (10:20)
[2018-03-23] MEDS: metOLazone 5 MG Tablet PO (10:21)
--- NOTE | 2018-03-23 11:09 | CASEMGMT ---
Jeffery came to [facility] and patient signed papers. Patient's daughter in law came in and was upset. She didn't understand why patient had to go to Hospice and when she could just here. Jeffery from Hospice spoke with her and explained the role of Hospice. She is aware of when patient is being discharged to the inpatient unit. OSVALDO called Abby in TCU and left her a message letting her know patient will not be returning as she is going to the inpatient hospice unit. Grisel ALMODOVAR MSW
[2018-03-23] MEDS: fentaNYL 100 MCG/2 ML Ampul 25 MCG IV (11:55)
[2018-03-23 12:06] LABS: Bedside Glucose 162 mg/dL (70-110)
--- NOTE | 2018-03-23 13:55 | NURSING ---
This RN called report to CARY Ryan at [facility].
--- NOTE | 2018-03-23 14:06 | CPS ---
Pt. was agitated when I stepped into room. Sp02 was 76% on 15L HFNC. Put pt. on NRB mask with sp02 improving to 86%. Pt. was unable to tolerate this type of oxygen device. Pt. put back on 15L HFNC due to this reason. Family is more concerned about keeping pt. comfortable. Did not give treatment to pt. due to agitation and family request for comfort. RN aware of this RT not giving breathing tx at this time.
--- NOTE | 2018-03-23 14:11 | CPS ---
Put back on HFNC from NRB mask due to family request for pt. comfort.
== END 2018-03-23 16:02 | disposition hospice, inpatient (51) | DRG 291 ==
LOC: ED 21:02 → PCU 03-14 00:27
PROVIDERS: Internal Medicine; Surgery; Admitting Provider Internal Medicine; Emergency Provider Emergency Medicine; Family Provider Family Medicine; PCP Family Medicine; Visit Provider Hospitalist
DX: I50.23 Acute on chronic systolic (congestive) heart failure (principal); J96.01 Acute respiratory failure with hypoxia; I48.92 Unspecified atrial flutter; Z68.41 Body mass index [BMI] 40.0-44.9, adult; E87.1 Hypo-osmolality and hyponatremia; N17.9 Acute kidney failure, unspecified; E44.0 Moderate protein-calorie malnutrition; J91.8 Pleural effusion in other conditions classified elsewhere; I42.9 Cardiomyopathy, unspecified; E11.22 Type 2 diabetes mellitus with diabetic chronic kidney disease; E78.2 Mixed hyperlipidemia; M35.00 Sjogren syndrome, unspecified; I35.0 Nonrheumatic aortic (valve) stenosis; N18.3 Chronic kidney disease, stage 3 (moderate); E66.01 Morbid (severe) obesity due to excess calories; K21.9 Gastro-esophageal reflux disease without esophagitis; Z66 Do not resuscitate; K74.60 Unspecified cirrhosis of liver; E87.6 Hypokalemia; Z79.4 Long term (current) use of insulin; E55.9 Vitamin D deficiency, unspecified; I27.21 Secondary pulmonary arterial hypertension; Z51.5 Encounter for palliative care; K63.89 Other specified diseases of intestine
CPT/HCPCS: 36415; 71045; 71275; 74018; 74176; 76705; 80048; 80053; 80069; 81001; 82140; 82962; 83605; 83615; 83735; 83880; 84100; 84156; 84439; 84443; 84481; 84484; 85025; 85027; 85610; 85730; 86704; 86705; 86706; 86708; 86709; 86803; 87086; 87088; 87340; 87493; 92526; 93005; 93306; 94002; 94003; 94640; 94667; 94668; 97110; 97162; 97166; 97802; 97803; 99283; J7030; P9047; Q9967; A4216; J1940; J2405